=== PATIENT | male | born 1955 | race Caucasian/White ===

== ENCOUNTER → 2017-05-19 15:05 | Outpatient (CLI) | payer BC, SELFPAY ==
--- NOTE | 2017-05-19 15:09 | CT_ITS ---
STUDY: CT ABDOMEN AND PELVIS WITHOUT CONTRAST REASON FOR EXAM: Male, 61 years old. FLANK PAIN X 9 DAYS, HERNIA SURGERY, HX [place]. RADIATION DOSAGE (If Supplied By Facility): CTDIvol = ( 7.61 ) mGy, DLP = ( 378.24 ) mGycm TECHNIQUE: Transaxial images were obtained from the dome of the diaphragm to the symphysis pubis without oral contrast, and without intravenous contrast. Sagittal and coronal images were reconstructed. Individualized dose optimization techniques were used for this CT. COMPARISON: July 17, 2016 FINDINGS: The visualized lung bases are unremarkable. The visualized portions of the heart are within normal limits. There is granulomata of the liver and spleen. There are multiple gallstones. Normal pancreas. Normal bilateral adrenal glands. The right kidney demonstrates the presence of multiple calcifications, the largest is 4 mm at the lower pole. The left kidney demonstrates the presence of multiple calcifications, the largest is 5 mm at the lower pole. Normal visualized stomach. Normal small intestine. There are multiple colonic diverticula consistent with diverticulosis. The appendix is visualized and appears normal. There is diffuse atherosclerotic calcification of the abdominal aorta, without a demonstrated aneurysm. Normal inferior vena cava. Normal retroperitoneum. Normal urinary bladder. Normal abdominal wall. There are diffuse degenerative changes of the visualized lumbar spine. CT/Abdomen/Pelvis without Cont IMPRESSION: Bilateral small nonobstructing kidney stones. Cholelithiasis. Diverticulosis. Electronically Signed: Nadia Skaggs MD at 15:44 EST Tel , Service support ,
== END ==
PROVIDERS: Family Provider Family Medicine; PCP Family Medicine; Visit Provider Nurse Practitioner Adult Health
DX: R10.9 Unspecified abdominal pain (principal); Z87.442 Personal history of urinary calculi
CPT/HCPCS: 74176

== ENCOUNTER → 2017-06-08 13:59 | Outpatient (CLI) | payer BC, SELFPAY ==
--- NOTE | 2017-06-08 14:03 | RAD_ITS ---
STUDY: X-RAY - ABDOMEN/PELVIS REASON FOR EXAM: Male, 61 years old. Diverticulosis TECHNIQUE: AP supine and upright views of the abdomen and pelvis. COMPARISON: May 19, 2017 CT scan abdomen and pelvis FINDINGS: There is elevation of the right hemidiaphragm. There is moderate stool in the colon. Diverticulosis are present diverticulitis cannot be included or excluded based on this study. There is no demonstrated free abdominal air. There is radiopaque density within the right upper quadrant suggestive of cholelithiasis. The visualized 3 to 5 mm calcifications in both kidneys. Normal soft tissue structures. Normal visualized osseous structures. RAD/Abd Inc Decub and/or Erect IMPRESSION: Diverticulosis visualized. Diverticulitis cannot be included or excluded. Could consider follow-up CT to follow-up clinical findings of diverticulitis. Bilateral renal calcification. Cholelithiasis. Electronically Signed: Shalini Knox MD at 14:30 EDT Tel , Service support ,
== END ==
PROVIDERS: Family Provider Family Medicine; PCP Family Medicine; Visit Provider Family Medicine
DX: K57.30 Diverticulosis of large intestine without perforation or abscess without bleeding (principal)
CPT/HCPCS: 74019

== ENCOUNTER 2017-09-01 14:00 | Emergency (ER) | payer BC, SELFPAY ==
--- NOTE | 2017-09-01 14:00 | DT_ITS ---
This patient was seen during an EMR downtime August 31, 2017 - September 07, 2017. This patient may have a combination of paper and electronic documentation or all paper documentation. All documentation is viewable within the e-chart portion of [facility] for each patient visit.
--- NOTE | 2017-09-01 15:30 | CT_ITS ---
STUDY: CT ABDOMEN AND PELVIS WITHOUT CONTRAST REASON FOR EXAM: Male, 62 years old. Right flank pain. RADIATION DOSAGE (If Supplied By Facility): CTDIvol = ( 6.56 ) mGy, DLP = ( 327.79 ) mGycm TECHNIQUE: Transaxial images were obtained from the dome of the diaphragm to the symphysis pubis without oral contrast, and without intravenous contrast. Sagittal and coronal images were reconstructed. Individualized dose optimization techniques were used for this CT. COMPARISON: May 19, 2017 FINDINGS: The visualized lung bases are unremarkable. The visualized portions of the heart are within normal limits. There are hepatic and splenic granulomas. There are multiple gallstones. Normal pancreas. Normal bilateral adrenal glands. There is right-sided hydroureteronephrosis secondary to a 5.0 mm calculus within the mid ureter. There are additional nonobstructing bilateral renal calculi measuring up to 2.7 mm on the right and 4.2 mm on the left. There is a too small to characterize low-attenuation focus within the right kidney that likely reflects underlying cyst. Normal visualized stomach. Normal small intestine. There are diverticula throughout the descending and sigmoid colon. The appendix is visualized and appears normal. There is diffuse atherosclerotic calcification of the abdominal aorta, without a demonstrated aneurysm. Normal inferior vena cava. Normal retroperitoneum. Normal urinary bladder. Normal abdominal wall. There are diffuse degenerative changes of the visualized lumbar spine. CT/Abdomen/Pelvis without Cont IMPRESSION: Right-sided hydrocele ureteral nephrosis secondary to a 5 mm calculus within the mid ureter. Bilateral nonobstructing calculi measuring up to 4.2 mm on the left. Atherosclerosis. Splenic and hepatic granulomas. Cholelithiasis. Colonic diverticulosis Electronically Signed: Laura Triana MD at 22:16 EDT Tel , Service support ,
[2017-09-04 09:44] LABS: Anion Gap 9 (5-15); BUN 16 mg/dL (7-18); BUN/Creat Ratio 12.9 RATIO (10-20); Calcium,Total 9.1 mg/dL (8.5-10.1); Chloride 105 mmol/L (98-107); Creatinine, Serum 1.24 mg/dL (0.70-1.30); EST Glomerular Filtration Rate 63 mL/min (>60); Est Glom Filt Rate - Afr Amer 76 mL/min (>60); Glucose 123 mg/dL (74-106); Potassium 3.8 mmol/L (3.5-5.1); Sodium Level 137 mmol/L (136-145)
== END 2017-09-01 17:23 | disposition home or self-care (01) ==
LOC: ED 09-03 07:25
PROVIDERS: Emergency Provider Emergency Medicine; Family Provider Family Medicine; PCP Family Medicine
DX: N13.2 Hydronephrosis with renal and ureteral calculous obstruction (principal); R10.9 Unspecified abdominal pain; E78.00 Pure hypercholesterolemia, unspecified; Z79.899 Other long term (current) drug therapy; I10 Essential (primary) hypertension; I25.10 Atherosclerotic heart disease of native coronary artery without angina pectoris; Z95.1 Presence of aortocoronary bypass graft; I25.2 Old myocardial infarction; Z79.82 Long term (current) use of aspirin
CPT/HCPCS: 74176; 80048; 96361; 96374; 96375; 96376; 99283; J7030; A4216; J2405

== ENCOUNTER → 2017-11-02 19:27 | Outpatient (CLI) | payer BC, SELFPAY ==
[2017-11-09 20:08] LABS: Ca Oxalate, Dihydrate 40 % (.); Ca Oxalate, Monohydrate 55 % (.); Size 6x4x3 mm (.)
== END ==
PROVIDERS: Visit Provider Urology
DX: N20.0 Calculus of kidney (principal)
CPT/HCPCS: 82360

== ENCOUNTER → 2018-12-27 16:10 | Outpatient (CLI) | payer BC, SELFPAY ==
[2018-12-27 17:57] LABS: Anion Gap 7 (5-15); BUN 11 mg/dL (7-18); BUN/Creat Ratio 11.9 RATIO (10-20); Calcium,Total 9.1 mg/dL (8.5-10.1); Chloride 107 mmol/L (98-107); Creatinine, Serum 0.93 mg/dL (0.70-1.30); EST Glomerular Filtration Rate 87 mL/min (>60); Est Glom Filt Rate - Afr Amer 106 mL/min (>60); Glucose 98 mg/dL (74-106); PSA,Total - Annual Screen 3.17 ng/mL (0.00-4.00); Potassium 3.9 mmol/L (3.5-5.1); Sodium Level 143 mmol/L (136-145)
== END ==
PROVIDERS: Family Provider Family Medicine; PCP Family Medicine; Referring Provider Urology; Visit Provider Urology
DX: Z12.5 Encounter for screening for malignant neoplasm of prostate (principal)
CPT/HCPCS: 36415; 80048; 84153; G0103

== ENCOUNTER → 2019-05-24 | Outpatient (CLI) | payer BC, SELFPAY | END | disposition home or self-care (01) | LOC: LABSPEC 15:26 | PROVIDERS: PCP Family Medicine; Referring Provider Family Medicine; Visit Provider Family Medicine | DX: R30.0 Dysuria (principal) | CPT/HCPCS: 87086; 87088 ==

== ENCOUNTER → 2019-05-27 14:12 | Outpatient (CLI) | payer BC, SELFPAY ==
--- NOTE | 2019-05-27 14:21 | US_ITS ---
STUDY: ULTRASOUND - URINARY BLADDER REASON FOR EXAM: Male, 63 years old. INCOMPLETE EMPTYING TECHNIQUE: Ultrasound evaluation of the urinary bladder was performed with real-time and static levy-scale imaging. COMPARISON: None. FINDINGS: There is no right UVJ calculus. There is a visualized right ureteral jet. There is no left UVJ calculus. There is a visualized left ureteral jet. The distended volume of the urinary bladder is 389.9 ml. The empty volume of the urinary bladder is 48.3 ml. The bladder wall is within normal limits. The bladder wall measures 4. There is no demonstrated bladder wall mass lesion. There are no demonstrated bladder calculi. Prostate measures 4.18 x 3.80 x 4.27 cm for volume of 35.5 mL US/Post Void Residual Bladder IMPRESSION: No suspicious sonographic findings. However the post void residual is at the upper limits of normal, this amount of postvoid residual places the patient at some risk for urinary reflux and UTIs. Mildly enlarged prostate Electronically Signed: Ezra Thompson MD at 11:24 EST , Service support ,
== END ==
PROVIDERS: PCP Family Medicine; Referring Provider Family Medicine; Visit Provider Family Medicine
DX: N40.1 Benign prostatic hyperplasia with lower urinary tract symptoms (principal); R33.8 Other retention of urine
CPT/HCPCS: 51798

== ENCOUNTER → 2019-07-22 09:18 | Outpatient (CLI) | payer BC, SELFPAY ==
[2019-07-22 12:32] LABS: Absolute Lymphocyte Count 1.54 X10^3/uL (0.83-4.51); Absolute Neutrophil Count 5.1 X10^3/uL (2.0-7.7); Basophil# 0.03 X10^3/uL; Basophil% 0.4 % (0-1); Eosinophil# 0.08 X10^3/uL; Eosinophils% 1.1 % (0-5); Hematocrit 44.3 % (40-54); Hemoglobin 14.5 g/dL (13.0-16.5); Lymphocyte # 1.54 X10^3/ul (4.0); Mean Corp Hgb Conc 32.7 g/dL (32-36); Mean Corpuscular Hgb 28.7 pg (27.0-32.0); Mean Corpuscular Volume 87.5 fL (80-94); Mean Platelet Vol. 10.2 fl (6.2-12.0); Monocyte% 8.2 % (0-10); NRBC Flagged by Analyzer 0 % (0-5); Neutrophil # 5.08 X10^3/uL (2.7-7.7); Platelet Count 189 K/mm3 (150-450); RBC Distribution Width CV 12.5 % (11.6-14.6); RBC Distribution Width SD 40.1 fl (35.1-43.9); Red Blood Count 5.06 M/mm3 (4.6-6.2); White Blood Count 7.4 K/mm3 (4.4-11.0)
[2019-07-22 12:59] LABS: ALB/GLOB Ratio 1.3 RATIO (0.9-2.4); AST(SGOT) 22 U/L (15-37); Alanine Aminotransfer ALT/SGPT 38 U/L (16-61); Albumin, Serum 3.9 g/dL (3.2-5.0); Alkaline Phosphatase 63 U/L (45-117); Anion Gap 5 (5-15); BUN 11 mg/dL (7-18); BUN/Creat Ratio 12.1 RATIO (10-20); Calcium,Total 9.5 mg/dL (8.5-10.1); Chloride 109 mmol/L (98-107); Creatinine, Serum 0.91 mg/dL (0.70-1.30); EST Glomerular Filtration Rate 89 mL/min (>60); Est Glom Filt Rate - Afr Amer 108 mL/min (>60); Globulin 3.1 g/dL (2.2-4.2); Glucose 97 mg/dL (74-106); Magnesium 1.8 mg/dL (1.6-2.6); Sodium Level 142 mmol/L (136-145); Uric Acid 3.7 mg/dL (3.5-7.2)
== END ==
PROVIDERS: PCP Family Medicine; Referring Provider Family Medicine; Visit Provider Family Medicine
DX: N20.0 Calculus of kidney (principal)
CPT/HCPCS: 36415; 80053; 83735; 84550; 85025

== ENCOUNTER → 2020-06-15 10:55 | Outpatient (CLI) | payer MEDICARE, SELFPAY ==
[2020-06-15 12:50] LABS: Vitamin D,25 Hydroxy 27.1 ng/mL
[2020-06-15 12:58] LABS: Anion Gap 5 (5-15); BUN 12 mg/dL (7-18); BUN/Creat Ratio 12.3 RATIO (10-20); Calcium,Total 9.1 mg/dL (8.5-10.1); Chloride 109 mmol/L (98-107); Cholesterol 157 mg/dL (200); Creatinine, Serum 0.98 mg/dL (0.70-1.30); EST Glomerular Filtration Rate 82 mL/min (>60); Est Glom Filt Rate - Afr Amer 99 mL/min (>60); Glucose 101 mg/dL (74-106); High Density Lipoprotein 53 mg/dL; PSA,Total - Annual Screen 2.39 ng/mL (0.00-4.00); Sodium Level 141 mmol/L (136-145); Triglycerides 119 mg/dL; Very Low Density Lipoprotein 24 mg/dL (5-40)
== END ==
PROVIDERS: PCP Family Medicine; Referring Provider Family Medicine; Visit Provider Family Medicine
DX: Z00.00 Encounter for general adult medical examination without abnormal findings (principal); E78.00 Pure hypercholesterolemia, unspecified; Z12.5 Encounter for screening for malignant neoplasm of prostate
CPT/HCPCS: 36415; 80048; 80061; 82306; 84153; G0103

== ENCOUNTER → 2020-07-26 10:12 | Outpatient (CLI) | payer MEDICARE, SELFPAY ==
--- NOTE | 2020-07-26 10:40 | RAD_ITS ---
STUDY: X-RAY - ABDOMEN/PELVIS REASON FOR EXAM: Male, 65 years old. STONES TECHNIQUE: Single AP view of the abdomen / pelvis. COMPARISON: None. FINDINGS: There is a moderate amount of colonic fecal material. There are tiny bilateral intrarenal calculi more prominent in the left kidney. Normal soft tissue structures. There are degenerative changes of the visualized lumbar spine. RAD/Abdomen Single View IMPRESSION: Tiny bilateral intrarenal calculi more numerous in the left kidney. Electronically Signed: Jg Marrero MD at 11:05 EDT , Service support ,
[2020-07-26 10:50] LABS: Hematocrit 44.7 % (40-54); Hemoglobin 14.7 g/dL (13.0-16.5); Mean Corp Hgb Conc 32.9 g/dL (32-36); Mean Corpuscular Hgb 29.4 pg (27.0-32.0); Mean Corpuscular Volume 89.4 fL (80-94); Mean Platelet Vol. 9.6 fl (6.2-12.0); Platelet Count 198 K/mm3 (150-450); RBC Distribution Width CV 12.1 % (11.6-14.6); RBC Distribution Width SD 39.8 fl (35.1-43.9); White Blood Count 5.7 K/mm3 (4.4-11.0)
[2020-07-26 11:24] LABS: Anion Gap 2 (5-15); BUN 15 mg/dL (7-18); BUN/Creat Ratio 14.4 RATIO (10-20); Calcium,Total 9.1 mg/dL (8.5-10.1); Chloride 108 mmol/L (98-107); Creatinine, Serum 1.04 mg/dL (0.70-1.30); EST Glomerular Filtration Rate 76 mL/min (>60); Est Glom Filt Rate - Afr Amer 92 mL/min (>60); Glucose 103 mg/dL (74-106); Potassium 4.1 mmol/L (3.5-5.1); Sodium Level 141 mmol/L (136-145)
== END ==
PROVIDERS: PCP Family Medicine; Referring Provider Urology; Visit Provider Urology
DX: N20.0 Calculus of kidney (principal); R97.20 Elevated prostate specific antigen [PSA]
CPT/HCPCS: 36415; 74018; 80048; 84153; 85027

== ENCOUNTER → 2020-09-20 08:27 | Outpatient (CLI) | payer MEDICARE, SELFPAY ==
[2020-09-20 10:00] LABS: Absolute Lymphocyte Count 1.57 X10^3/uL (0.83-4.51); Absolute Neutrophil Count 2.6 X10^3/uL (2.0-7.7); Basophil# 0.04 X10^3/uL; Basophil% 0.8 % (0-1); Eosinophils% 2.1 % (0-5); Hematocrit 41.7 % (40-54); Hemoglobin 13.9 g/dL (13.0-16.5); Lymphocyte # 1.57 X10^3/ul (0.83-4.51); Lymphocyte % 32.4 % (19-41); Mean Corp Hgb Conc 33.3 g/dL (32-36); Mean Corpuscular Hgb 29.6 pg (27.0-32.0); Mean Corpuscular Volume 88.7 fL (80-94); Mean Platelet Vol. 9.8 fl (6.2-12.0); Monocyte# 0.53 X10^3/uL; Monocyte% 10.9 % (0-10); NRBC Flagged by Analyzer 0 % (0-5); Neutrophil # 2.59 X10^3/uL (2.7-7.7); Neutrophil % 53.4 % (47-70); Platelet Count 188 K/mm3 (150-450); RBC Distribution Width CV 12.4 % (11.6-14.6); RBC Distribution Width SD 40.4 fl (35.1-43.9); White Blood Count 4.9 K/mm3 (4.4-11.0)
[2020-09-20 10:26] LABS: ALB/GLOB Ratio 1.2 RATIO (0.9-2.4); AST(SGOT) 28 U/L (15-37); Alanine Aminotransfer ALT/SGPT 37 U/L (16-61); Albumin, Serum 3.6 g/dL (3.2-5.0); Alkaline Phosphatase 75 U/L (45-117); Anion Gap 5 (5-15); BUN 14 mg/dL (7-18); BUN/Creat Ratio 13.9 RATIO (10-20); CRP, High Sensitivity Cardiac < 0.16 mg/L; Calcium,Total 8.7 mg/dL (8.5-10.1); Chloride 108 mmol/L (98-107); Creatinine, Serum 1.01 mg/dL (0.70-1.30); EST Glomerular Filtration Rate 79 mL/min (>60); Est Glom Filt Rate - Afr Amer 95 mL/min (>60); Glucose 99 mg/dL (74-106); Protein, Total 6.6 g/dL (6.4-8.2); Sodium Level 141 mmol/L (136-145)
[2020-09-22 08:17] LABS: ANTINUCLEAR ANTIBODIES DIRECT Negative (Negative)
== END ==
PROVIDERS: PCP Family Medicine; Referring Provider Family Medicine; Visit Provider Family Medicine
DX: M67.919 Unspecified disorder of synovium and tendon, unspecified shoulder (principal); I25.10 Atherosclerotic heart disease of native coronary artery without angina pectoris
CPT/HCPCS: 36415; 80053; 85025; 86038; 86141

== ENCOUNTER → 2020-10-19 11:18 | Outpatient (CLI) | payer MEDICARE, SELFPAY ==
--- NOTE | 2020-10-19 11:20 | RAD_ITS ---
STUDY: X-RAY - LUMBAR SPINE REASON FOR EXAM: Male, 65 years old. LOW BACK PAIN TECHNIQUE: 5 view(s) of the lumbar spine were obtained including oblique views. COMPARISON: None FINDINGS: Normal lumbar lordosis. There is no substantial scoliosis. There is a normal alignment of the vertebrae. There is mild endplate spondylosis of the lumbar vertebrae. There is multi-level degenerative disc disease with multi-level disc space narrowing. Facet joint osteoarthritis. There are multiple bilateral nonobstructive intrarenal calculi. RAD/L/S Spine Min 4 Views IMPRESSION: Degenerative changes of the spine, as detailed above. Multiple small bilateral intrarenal calculi. Electronically Signed: Jg Marrero MD at 15:18 EDT , Service support ,
== END ==
PROVIDERS: PCP Family Medicine; Referring Provider Family Medicine; Visit Provider Family Medicine
DX: M54.5 Low back pain (principal)
CPT/HCPCS: 72110

== ENCOUNTER → 2020-11-19 06:46 | Outpatient (CLI) | payer MEDICARE, SELFPAY ==
--- NOTE | 2020-11-19 06:51 | CT_ITS ---
STUDY: CT ABDOMEN AND PELVIS WITHOUT CONTRAST REASON FOR EXAM: Male, 65 years old. LLQ and worsening back pain. Hx kidney stones, diverticulosis, a RADIATION DOSAGE (If Supplied By Facility): CTDIvol = ( 7.70 ) mGy, DLP = ( 361.67 ) mGycm TECHNIQUE: Transaxial images were obtained from the dome of the diaphragm to the symphysis pubis without oral contrast, and without intravenous contrast. Sagittal and coronal images were reconstructed. Individualized dose optimization techniques were used for this CT. COMPARISON: 09/01/2017 FINDINGS: The visualized lung bases are unremarkable. Inferior cardiac lead demonstrated. Normal liver with old granulomatous calcifications.. Cholelithiasis. Normal extrahepatic biliary system. There are multiple benign calcified granulomata of the spleen. Normal pancreas. Normal bilateral adrenal glands. Multiple nonobstructing bilateral renal collecting system calculi without hydronephrosis. Normal visualized stomach. Normal small intestine. Sigmoid diverticulosis with faint associated fat stranding. The appendix is visualized and appears normal. Normal abdominal aorta. Normal inferior vena cava. Normal retroperitoneum. Normal urinary bladder. Normal visualized prostate gland. Normal abdominal wall. There are diffuse degenerative changes of the visualized lumbar spine. CT/Abdomen/Pelvis without Cont IMPRESSION: Sigmoid diverticulosis with faint associated fat stranding may represent developing acute diverticulitis. Electronically Signed: Robin Payne MD at 7:32 EDT Tel , Service support ,
== END ==
PROVIDERS: PCP Family Medicine; Referring Provider Family Medicine; Visit Provider Family Medicine
DX: R10.32 Left lower quadrant pain (principal)
CPT/HCPCS: 74176

== ENCOUNTER 2021-06-06 08:49 | Outpatient (CLI) | payer MEDICARE, SELFPAY ==
[2021-06-06 10:11] LABS: Absolute Lymphocyte Count 1.45 X10^3/uL (0.83-4.51); Absolute Neutrophil Count 3.3 X10^3/uL (2.0-7.7); Basophil# 0.03 X10^3/uL; Basophil% 0.5 % (0-1); Eosinophil# 0.15 X10^3/uL; Eosinophils% 2.7 % (0-5); Hemoglobin 14.7 g/dL (13.0-16.5); Lymphocyte # 1.45 X10^3/ul (0.83-4.51); Lymphocyte % 26.1 % (19-41); Mean Corp Hgb Conc 33.4 g/dL (32-36); Mean Corpuscular Hgb 28.9 pg (27.0-32.0); Mean Corpuscular Volume 86.4 fL (80-94); Mean Platelet Vol. 9.7 fl (6.2-12.0); Monocyte# 0.56 X10^3/uL; Monocyte% 10.1 % (0-10); NRBC Flagged by Analyzer 0 % (0-5); Neutrophil # 3.34 X10^3/uL (2.7-7.7); Neutrophil % 60.2 % (47-70); Platelet Count 196 K/mm3 (150-450); RBC Distribution Width CV 12.8 % (11.6-14.6); Red Blood Count 5.09 M/mm3 (4.6-6.2); White Blood Count 5.6 K/mm3 (4.4-11.0)
[2021-06-06 10:28] LABS: ALB/GLOB Ratio 1.2 RATIO (0.9-2.4); AST(SGOT) 21 U/L (15-37); Alanine Aminotransfer ALT/SGPT 30 U/L (16-61); Alkaline Phosphatase 74 U/L (45-117); Anion Gap 5 (5-15); BUN 15 mg/dL (7-18); Chloride 107 mmol/L (98-107); Cholesterol 128 mg/dL (200); EST Glomerular Filtration Rate 79 mL/min (>60); Est Glom Filt Rate - Afr Amer 96 mL/min (>60); Globulin 3.2 g/dL (2.2-4.2); Glucose 102 mg/dL (74-106); High Density Lipoprotein 47 mg/dL; Potassium 3.9 mmol/L (3.5-5.1); Protein, Total 7.2 g/dL (6.4-8.2); Sodium Level 139 mmol/L (136-145); Triglycerides 83 mg/dL; Uric Acid 4.4 mg/dL (3.5-7.2); Very Low Density Lipoprotein 17 mg/dL (5-40)
[2021-06-06 10:35] LABS: Microalbumin,Random Urine 34.8 mg/L (NO RANGE EST.); Microalbumin:Creatinine Ratio 51.7 mg/g CRE (<30 mg/g CRE)
== END 2021-06-06 23:59 | disposition home or self-care (01) ==
LOC: MTLAB 08:50
PROVIDERS: PCP Family Medicine; Referring Provider Family Medicine; Visit Provider Family Medicine
DX: Z00.00 Encounter for general adult medical examination without abnormal findings (principal); I25.10 Atherosclerotic heart disease of native coronary artery without angina pectoris; G47.9 Sleep disorder, unspecified; I10 Essential (primary) hypertension; E78.00 Pure hypercholesterolemia, unspecified; N20.0 Calculus of kidney
CPT/HCPCS: 36415; 80053; 80061; 82043; 82570; 84550; 85025

== ENCOUNTER → 2021-07-22 | Outpatient (CLI) | payer MEDICARE, SELFPAY ==
[2021-07-22 09:52] LABS: PSA,Total - Annual Screen 2.38 ng/mL (0.00-4.00)
== END | disposition home or self-care (01) ==
LOC: LAB 08:03
PROVIDERS: PCP Family Medicine; Referring Provider Urology; Visit Provider Urology
DX: R97.20 Elevated prostate specific antigen [PSA] (principal); Z12.5 Encounter for screening for malignant neoplasm of prostate
CPT/HCPCS: 36415; 84153; G0103

== ENCOUNTER 2021-08-20 08:12 | Inpatient (IN) | payer MEDICARE, SELFPAY ==
[2021-08-20] VITALS (23 sets, daily range): BP systolic 111–141; BP diastolic 62–100; PULSE 79–102; RESP 12–20; TEMP 36.4–37.2; O2SAT 93–100; BMI 27.2; BMI 26.3
--- NOTE | 2021-08-20 08:21 | EKG12_ITS ---
Test Reason : Blood Pressure : / mmHG Vent. Rate : 085 BPM Atrial Rate : 085 BPM P-R Int : 158 ms QRS Dur : 090 ms QT Int : 384 ms P-R-T Axes : 067 038 074 degrees QTc Int : 456 ms Normal sinus rhythm ST elevation consider inferior injury or acute infarct ACUTE TX / STEMI Abnormal ECG Confirmed by DUKE OLMEDO, DIONNE ([id number]), editor in chief BISI HYATT ([id number]) on 08/28/2021 12:28:56 PM Referred By: Sourav Maurer Confirmed By:DIONNE WALL MD
[2021-08-20] MEDS: Heparin Injection (Vial) 5,000 UNIT/ML VIAL 4000 UNIT IV (08:25)
[2021-08-20] MEDS: Aspirin 81 MG TAB.CHEW 324 MG PO (08:25)
[2021-08-20] MEDS: TICAGRELOR 90 MG TABLET 180 MG PO (08:25)
--- NOTE | 2021-08-20 08:25 | RAD_ITS ---
STUDY: X-RAY CHEST REASON FOR EXAM: Male, 66 years old. chest pain TECHNIQUE: AP COMPARISON: None. FINDINGS: EKG leads project over the chest. The lungs are clear and expanded. There is no demonstrated pleural abnormality. Normal size heart. Normal mediastinum and prakash. Normal visualized pulmonary arteries. Normal visualized aortic arch and descending thoracic aorta. Normal visualized thoracic spine. Normal visualized ribs, clavicles, and shoulders. There is no demonstrated abnormality of the visualized soft tissue structures of the upper abdomen. RAD/Chest 1 View (Portable) IMPRESSION: Nonacute portable x-ray examination of the chest. Electronically Signed: Hany Bal MD ([place]) at 8:39 EDT ,
[2021-08-20 08:28] LABS: Absolute Lymphocyte Count 1.07 X10^3/uL (0.83-4.51); Basophil# 0.04 X10^3/uL; Basophil% 0.3 % (0-1); Eosinophil# 0.01 X10^3/uL; Eosinophils% 0.1 % (0-5); Hematocrit 47.8 % (40-54); Hemoglobin 15.8 g/dL (13.0-16.5); Lymphocyte # 1.07 X10^3/ul (0.83-4.51); Lymphocyte % 7.3 % (19-41); Mean Corp Hgb Conc 33.1 g/dL (32-36); Mean Corpuscular Hgb 28.9 pg (27.0-32.0); Mean Corpuscular Volume 87.4 fL (80-94); Mean Platelet Vol. 9.2 fl (6.2-12.0); Monocyte# 0.53 X10^3/uL; Monocyte% 3.6 % (0-10); NRBC Flagged by Analyzer 0 % (0-5); Neutrophil # 13.01 X10^3/uL (2.7-7.7); Neutrophil % 88.2 % (47-70); Platelet Count 232 K/mm3 (150-450); RBC Distribution Width CV 12.6 % (11.6-14.6); RBC Distribution Width SD 40.4 fl (35.1-43.9); Red Blood Count 5.47 M/mm3 (4.6-6.2); White Blood Count 14.7 K/mm3 (4.4-11.0)
[2021-08-20] MEDS: 0.9% Normal Saline 1,000 ML 999 ML IV (08:30)
[2021-08-20 08:37] LABS: Prothrombin Time (Protime)PT. 12.9 SECONDS (11.7-14.9)
[2021-08-20 08:45] LABS: BUN 23 mg/dL (7-18); Calcium,Total 9.6 mg/dL (8.5-10.1); Chloride 109 mmol/L (98-107); Creatinine, Serum 1.28 mg/dL (0.70-1.30); EST Glomerular Filtration Rate 60 mL/min (>60); Est Glom Filt Rate - Afr Amer 72 mL/min (>60); Estimated Creatinine Clearance 54.18 ml/min; Glucose 98 mg/dL (74-106); Potassium 4.3 mmol/L (3.5-5.1); Sodium Level 142 mmol/L (136-145); Troponin-I HS 15 pg/mL (3.0-78.0)
[2021-08-20 08:46] LABS: Anion Gap 12 (5-15)
--- NOTE | 2021-08-20 08:57 | EDS_ITS ---
HPI History of Present Illness Chief Complaint: Chest Pain Narrative Narrative: Patient with past medical history of coronary artery disease, states he has 3 stents, presents with chest pain that began this morning around 5:30 AM, approximately 3 hours ago. In 2009, he states he had an RCA stent placed. 1 year later he had 2 stents placed, 1 in the TY, and 1 in the LAD. He states that he began having chest pain after he woke up at 530 this morning. He took 3 baby aspirin and an old nitroglycerin which did not relieve his pain. It radiates to his left jaw. He states his arm did not tingle this time. He denies any nausea or vomiting but states he became diaphoretic. No shortness of breath. No leg swelling. He does have an exertional component to this, stating that his chest pain worsens when he walks across the room. He presents to the emergency department with his . PFSH PFS Home Medications aspirin 81 mg PO QHS 11/19/13 [History Last Taken 11/19/13] rosuvastatin [Crestor] 20 mg PO QHS 11/19/13 [History Last Taken 11/19/13] coenzyme Q10 100 mg PO QHS 04/05/14 [History Last Taken Unknown] melatonin 10 mg PO QHS 04/05/14 [History Last Taken Unknown] multivitamin with folic acid [Thera] 1 tab PO QHS 04/05/14 [History Last Taken Unknown] oxycodone-acetaminophen 1 tab PO Q6H PRN PRN #20 tablet 10/04/14 [Rx Last Taken Unknown] Allergy/AdvReac Type Severity Reaction Status Date / Time No Known Allergies Allergy Verified 11/19/13 10:48 Social History Smoking Status: Former smoker ROS ROS ED ROS Narrative Constitutional: No fever, feels chills. Positive diaphoresis HEENT: No sore throat. No neck pain. No loss of vision. No rhinorrhea. Cardiovascular: Positive chest pain radiating to left jaw. No palpitations. No pedal edema. Respiratory: No cough, no shortness of breath. Abdominal: No abdominal pain. No nausea. No vomiting. Genitourinary: No dysuria. No hematuria. Musculoskeletal: No myalgias. No arthralgias. Neurologic: No headaches. No dizziness. No lightheadedness. Skin: No rash. No change in color. Psychiatric: No depression. No anxiety. EXAM Physical Exam Narrative Exam Narrative: Afebrile. Vital signs noted. HEENT: Normocephalic. Atraumatic. PERRL, EOMI. Neck soft and supple. No point tenderness or step off. Cardiovascular: Regular rate and rhythm. No murmurs, rubs, or gallops appreciated. Respiratory: No tachypnea. Lungs clear to auscultation bilaterally. Gastrointestinal: Abdomen soft, nontender, with normoactive bowel sounds. No rebound or guarding. Neurological: Awake. Alert. Nonfocal, nonlateralizing. Skin: No rash. Normal color. No pallor. Musculoskeletal: No pedal edema. Full range of motion extremities. Const Vital Signs: 08/20/21 08:13 08/20/21 08:20 08/20/21 08:29 Temperature 97.7 F L 97.7 F L Temperature Source Oral Temporal Pulse Rate 89 88 Respiratory Rate 16 16 15 Blood Pressure 127/78 H 127/78 H 125/84 H Blood Pressure Mean 94 97 Pulse Ox 100 100 Oxygen Delivery Method Room Air Nasal Cannula Oxygen Flow Rate (L/min) 2 Heart Score History: Highly Suspicious ECG: Significant ST-Depression Age: >/= 65 years Risk Factors: >/= 3 Risk Factors or History of CAD Troponin: </= Normal Limit Score: 8 MDM MDM MDM Narrative Medical decision making narrative: EKG was obtained which shows inferior STEMI with 2 to [address] elevation. He has a regular rate. Code STEMI was activated. He has already taken 3 baby aspirin. He will be given Brilinta and a heparin bolus of 4000 units intravenously. I discussed the patient with Dr. Maurer. He will take him to the catheterization lab. [employer] team stated that Dr. 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 His labs were pending at the time. I then discussed patient with Dr. Lui for admission to the ICU status post heart catheterization. Patient is in guarded condition. Lab Data Attestation: I reviewed the patient's lab results. Labs: Laboratory Results - last 24 hr 08/20/21 08/20/21 08/20/21 08:20 08:20 08:20 WBC 14.7 H RBC 5.47 Hgb 15.8 Hct 47.8 MCV 87.4 MCH 28.9 MCHC 33.1 RDW Std Deviation 40.4 RDW Coeff of Kenan 12.6 Plt Count 232 MPV 9.2 Immature Gran % (Auto) 0.500 Neut % (Auto) 88.2 H Lymph % (Auto) 7.3 L [place] % (Auto) 3.6 Eos % (Auto) 0.1 Baso % (Auto) 0.3 Absolute Neuts (auto) 13.0 H Absolute Lymphs (auto) 1.07 Nucleated RBC % 0 PT 12.9 INR 1.0 APTT 25.0 Sodium 142 Potassium 4.3 Chloride 109 H Carbon Dioxide 21.0 Anion Gap 12 BUN 23 H Creatinine 1.28 Estim Creat Clear Calc 54.18 Est GFR (MDRD) Af Amer 72 Est GFR (MDRD) Non-Af 60 BUN/Creatinine Ratio 18.0 Glucose 98 Calcium 9.6 Troponin I High Sens 15 Radiography Diagnostic Testing: Clinical Impression(s) from Imaging Studies Chest X-Ray 08/20/21 08:25 IMPRESSION: Nonacute portable x-ray examination of the chest. Electronically Signed: Hany Bal MD ([place]) at 8:39 EDT Reading Location ID and State: [address] [place] [address] , Service support , Critical Care Time Critical Care Time: Yes Critical care time (excluding procedures): 30-74 minutes (31), Including time spent:, Discussing w/Patient &/or Family/Laundry Operator Finishing, Discussing w/Consultants and Arranging Admission or Transfer Discharge Plan Dx/Rx/DC Orders Clinical Impression: ST elevation (STEMI) myocardial infarction, Chest pain Disposition Disposition: Acute Care Hospital [facility]
--- NOTE | 2021-08-20 10:30 | EKG12_ITS ---
Test Reason : POST PCI Blood Pressure : / mmHG Vent. Rate : 075 BPM Atrial Rate : 075 BPM P-R Int : 170 ms QRS Dur : 094 ms QT Int : 386 ms P-R-T Axes : 064 000 055 degrees QTc Int : 431 ms Normal sinus rhythm Inferior infarct , age undetermined Abnormal ECG When compared with ECG of 20-AUG-2021 08:42, MANUAL COMPARISON REQUIRED, DATA IS UNCONFIRMED Confirmed by DUKE OLMEDO, DIONNE ([id number]), desk editor BISI HYATT ([id number]) on 08/22/2021 11:29:16 AM Referred By: Sourav Maurer Confirmed By:DIONNE WALL MD
--- NOTE | 2021-08-20 10:31 | HP.PCM.HOS_ITS ---
HPI - General General Date of Admission: 08/20/21 HPI Narrative KAMALJIT PERRY, is a 66 M who presented to department at [facility] on 07/21/2021 with the chief complaint of chest pain that began this morning at around 5:30 AM. The patient has a known history of coronary artery disease and had a stent placed in his RCA in 2009. 1 year later he had stents placed in the OM 1 and LAD. He stated that he began having chest pain after he woke up. At that time he took 3 baby aspirin and an old nitroglycerin which did not relieve his pain. His pain radiates to his left jaw but denies any radiation into his left arm. He denied any nausea or vomiting but did state he became diaphoretic. He had experienced no shortness of breath, leg swelling but did complain of an exertional component to his chest pain and indicated that his symptoms worsen when he did walk across the room. An EKG was obtained on presentation and he was noted to have an inferior STEMI with 2 to 3 mm of elevation in the inferior leads. The code STEMI was activated and the patient was taken to the Content Administrator after Brilinta and a heparin bolus of 4000 units were given intravenously. He was taken emergently to the Content Administrator at which time a Upon presentation to the emergency department his temperature was 97.7, heart rate was 89, blood pressure was 127/78, respiratory 16 and pulse ox was 100% on room air. His CBC showed a mild leukocytosis with a white count of 14.7. Coags were normal. Chemistries were unremarkable. And his initial troponin was 15. Chest x-ray is performed and shows a nonacute portable x-ray of the chest. FOR[facility]LY [facility], [facility] Medical History (Updated 08/20/21 @ 12:31 by Jennifer Blake) Atherosclerosis of coronary artery of [place] heart without angina pectoris Coronary artery disease Former smoker Hypertension Kidney stones Migraines Myocardial infarct Home Medications aspirin 81 mg PO QHS 11/19/13 [History Last Taken 11/19/13] rosuvastatin [Crestor] 20 mg PO QHS 11/19/13 [History Last Taken 11/19/13] coenzyme Q10 100 mg PO QHS 04/05/14 [History Last Taken Unknown] melatonin 10 mg PO QHS 04/05/14 [History Last Taken Unknown] multivitamin with folic acid [Thera] 1 tab PO QHS 04/05/14 [History Last Taken Unknown] oxycodone-acetaminophen 1 tab PO Q6H PRN PRN #20 tablet 10/04/14 [Rx Last Taken Unknown] meloxicam 15 mg PO DAILY 08/20/21 [History Last Taken Unknown] Allergy/AdvReac Type Severity Reaction Status Date / Time No Known Allergies Allergy Verified 11/19/13 10:48 Surgical History (Updated 08/20/21 @ 12:29 by Jennifer Blake) History of coronary artery stent placement (08/20/21) Social History Smoking Status: Former smoker ROS Constitutional Constitutional: Denies anorexia, change in weight, chills, fatigue, fever(s), malaise, night sweats, weakness or other Eyes Eyes: Denies blurry vision, change in eye color, change in vision, discharge from eye(s), double vision, erythema, eye pain, loss of vision or other ENT HEENT: Denies abnormal hearing, dysphagia, ear pain, epistaxis, headache(s), hearing loss, nasal congestion, nasal discharge, post nasal drip, sinus pressure, sore throat or other Cardiovascular Cardiovascular: Reports chest pain, dyspnea on exertion and other Details: Diaphoresis ; Denies claudication, edema, lightheadedness, orthopnea, palpitations, paroxysmal nocturnal dyspnea, rapid heart rate or syncope Respiratory/Chest Respiratory/Chest: Reports shortness of breath with exertion; Denies cough, dyspnea, excessive phlegm production, hemoptysis, productive cough, shortness of breath at rest or wheezing Gastrointestinal Gastrointestinal: Denies abdominal pain, coffee ground emesis, constipation, diarrhea, dyspepsia, hematemesis, hematochezia, loose stools, melena, nausea, vomiting or other Genitourinary Genitourinary: Reports other Details: Back pain related to intermittent nephrolithiasis Musculoskeletal Musculoskeletal: Reports back pain Neurologic Neurologic: Denies abnormal gait, abnormal speech, confusion, disequilibrium, dizziness, focal weakness, headache(s), numbness, paresthesias, seizure-like activity, seizures, syncope, tingling, tremor(s) or other Psychiatric Psychiatric: Denies anxiety, depression, homicidal ideation, suicidal ideation or other Endocrine Endocrinology: Denies change in body appearance, cold intolerance, excessive sweating, heat intolerance, polydipsia, polyuria or other Hematologic/Lymphatic Hematologic/Lymphatic: Denies anemia, easy bleeding, easy bruising, lymphadenopathy or other Allergic/Immunologic Allergic/Immunologic: Denies rhinitis, hives, eczemia, asthma or other Vital Signs Vital Signs Vital Signs: 08/20/21 08:13 08/20/21 08:20 08/20/21 08:29 Temperature 97.7 F L 97.7 F L Temperature Source Oral Temporal Pulse Rate 89 88 Respiratory Rate 16 16 15 Blood Pressure 127/78 H 127/78 H 125/84 H Blood Pressure Mean 94 97 Pulse Ox 100 100 Oxygen Delivery Method Room Air Nasal Cannula Oxygen Flow Rate (L/min) 2 Weight Weight: 80.9 kg Body Mass Index (BMI) 26.3 Physical Exam Const alert, oriented x3, no apparent distress, average body habitus, healthy appearing and well nourished Constitutional Narrative: Upper middle-aged white male lying in bed, appears comfortable nontoxic, family is at bedside General Appearance: cooperative HEENT normocephalic, head/scalp atraumatic, hearing grossly normal bilaterally and moist oral mucous membranes HEENT Narrative: Mallampati is 2, no thrush, dentition is good for age Eyes PERRL, EOMs intact bilaterally and conjunctivae normal Eyes Narrative: No scleral icterus Neck no lymphadenopathy, supple and no JVD Neck Narrative: Trachea midline, no thyroid enlargement Resp normal respiratory effort, no retractions, no use of accessory muscles and clear to auscultation bilaterally Auscultation: Negative for crackles, rales, rhonchi or wheezes Cardio regular rate, regular rhythm, S1 normal heart sound, S2 normal heart sound, no murmurs, no rub, no gallops, no clicks and no JVD GI normal to inspection, nondistended, normoactive bowel sounds, soft to palpation, non-tender and non-distended Extremity normal to inspection and no clubbing, cyanosis or edema Extremity Narrative: Right radial artery with compression device on status post heart catheterization with good cap refill at distal hand Peripheral Pulses: Yes pulses 2+ throughout Skin no rashes or lesions noted, no wounds, skin turgor normal, no jaundice, no petechiae and no mottling Neuro oriented x3, CN's II-XII intact bilaterally, moves all extremities and no focal motor deficits Sensorium / Orientation: awake and alert Speech: speech normal Motor Exam: strength 5/5 throughout Psych affect normal Psych Narrative: Very pleasant and appropriately interactive Results Lab / Micro Data Result Diagrams: 08/20/21 08:20 08/20/21 08:20 Labs: Laboratory Results - last 24 hr 08/20/21 08:20: WBC 14.7 H, RBC 5.47, Hgb 15.8, Hct 47.8, MCV 87.4, MCH 28.9, MCHC 33.1, RDW Std Deviation 40.4, RDW Coeff of Kenan 12.6, Plt Count 232, MPV 9.2, Immature Gran % (Auto) 0.500, Neut % (Auto) 88.2 H, Lymph % (Auto) 7.3 L, [place] % (Auto) 3.6, Eos % (Auto) 0.1, Baso % (Auto) 0.3, Absolute Neuts (auto) 13.0 H, Absolute Lymphs (auto) 1.07, Nucleated RBC % 0 08/20/21 08:20: PT 12.9, INR 1.0, APTT 25.0 08/20/21 08:20: Sodium 142, Potassium 4.3, Chloride 109 H, Carbon Dioxide 21.0, Anion Gap 12, BUN 23 H, Creatinine 1.28, Estim Creat Clear Calc 54.18, Est GFR (MDRD) Af Amer 72, Est GFR (MDRD) Non-Af 60, BUN/Creatinine Ratio 18.0, Glucose 98, Calcium 9.6, Troponin I High Sens 15 Radiology Impression Chest X-Ray 08/20/21 08:25 IMPRESSION: Nonacute portable x-ray examination of the chest. Electronically Signed: Hany Bal MD (Brooks) at 8:39 EDT Reading Location ID and State: [address] [place] [address] , Service support , Assessment & Plan Assessment/Plan (1) ST elevation (STEMI) myocardial infarction: (2) Chest pain: (3) Leukocytosis: PLAN: STEMI -Emergent cath performed with PCI to RCA -Patient does have other obstruction however the plan is to treat this medically at this time and watch him clinically -Continue Brilinta -Aspirin 81 mg daily -Continue Crestor -12.5 mg of metoprolol twice daily have been initiated -Start lisinopril 2.5 mg daily -Check a.m. lipids for need of up titration of statin -Check echocardiogram -Cardiac rehab -Cardiology is following CAD -As above Hyperlipidemia -Continue statin -Check lipids History of hypertension -Patient is currently not on no antihypertensives History of nephrolithiasis -Patient has intermittent issues and initially indicated to me is not having any symptoms however I was called later stating he was having some symptoms consistent with his nephrolithiasis -Start Flomax -Reevaluate in a.m. -Continue IV fluids History of diverticulitis with diverticulosis -No current issues History of alcohol abuse History of tobacco abuse -Patient is a former smoker -Recommend continue cessation DVT prophylaxis -Lovenox -SCDs CODE STATUS -Full code Charges/Coding Visit Charges Inpatient E&M: 47857 Init Hosp L3
[2021-08-20] MEDS: 0.9% Normal Saline 1,000 ML 80 ML IV (10:43)
--- NOTE | 2021-08-20 10:45 | ECHOCS_ITS ---
Reason For Study: CAD/ASHD Procedure This was a 2D Doppler, Color Flow transthoracic echocardiogram. The study was technically difficult. Contrast injection was performed. Exam performed portable in ICU/CCU. Left Ventricle Normal LV size. Mild concentric left ventricular hypertrophy. Left ventricular systolic function is normal. The estimated ejection fraction is 65 %. Stage 1 diastolic dysfunction. No regional wall motion abnormalities noted. Right Ventricle Normal RV size. Normal systolic function. Atria Normal left atrium. Normal right atrium. Mitral Valve Normal mitral valve. Tricuspid Valve Normal tricuspid valve. Aortic Valve Trisinus/trileaflet aortic valve. Mild focal aortic valve calcification. Pulmonic Valve Normal pulmonic valve. Great Vessels Normal aortic root. The pulmonary artery is normal size. Normal inferior vena cava. Pericardium/Pleural No pericardial effusion. Medication Diluted definity 2ml given slow IV push to enhance endocardial definition. MMode/2D Measurements & Calculations LVIDd: 4.6 cm IVSd: 1.2 cm LVOT diam: 2.0 cm LVIDs: 2.5 cm LVPWd: 1.6 cm RVDd: 3.4 cm FS: 45.0 % LVOT area: 3.2 cm2 Ao root diam: 3.2 cm LAV(MOD-bp): 35.6 ml LA A4 area: 12.6 cm2 LAV(MOD-bp) Indexed: 18.1 ml/m2 LAV(MOD-sp2): 43.6 ml LAV(MOD-sp4): 28.4 ml RA A4 area: 14.9 cm2 Time Measurements MV dec time: 0.26 sec Doppler Measurements & Calculations MV E max yayo: 86.3 cm/sec Lat Peak E' Yayo: 10.5 cm/sec Med Peak E' Yayo: 9.9 cm/sec MV A max yayo: 100.4 cm/sec E/E' lat: 8.2 E/E' med: 8.7 MV E/A: 0.86 MV V2 max: 104.8 cm/sec MV P1/2t max yayo: 99.0 cm/sec Ao V2 max: 172.1 cm/sec MV max P.4 mmHg MV P1/2t: 78.8 msec Ao max P.8 mmHg MV V2 mean: 67.5 cm/sec MV dec slope: 367.8 cm/sec2 EFREN(V,D): 2.3 cm2 MV mean P.1 mmHg MV V2 VTI: 29.1 cm MVA(P1/2t): 2.8 cm2 LV V1 max: 125.1 cm/sec PA V2 max: 112.7 cm/sec LV V1 max P.3 mmHg ECHO/Echo Complete W/ Contrast Interpretation Summary Normal LV size. Left ventricular systolic function is normal. The estimated ejection fraction is 65 %. Mild concentric left ventricular hypertrophy. Stage 1 diastolic dysfunction. Contrast injection was performed. Ordering Physician: Sharon Lui Referring Physician: Sourav Maurer Performed By: Vipin Angela RCS
[2021-08-20] MEDS: oxyCODONE 5 MG Tablet PO (10:49)
[2021-08-20] MEDS: Acetaminophen 325 MG Tablet 650 MG PO ×2 (10:50→17:58)
--- NOTE | 2021-08-20 11:38 | PCM.CONS.C ---
Assessment & Plan Assessment/Plan (1) ST elevation (STEMI) myocardial infarction: QUALIFIERS: Involved coronary artery: right coronary artery Qualified Code(s): I21.11 - ST elevation (STEMI) myocardial infarction involving right coronary artery PLAN: Treated with drug-eluting stent to the RCA. We will keep the patient on aspirin, Brilinta, beta-cem and statin. Low-dose PHILIP inhibitor if tolerated. Check echo echo to assess LV function. Patient will be admitted to the CCU for further management of his STEMI. HPI Consult Data Date of Consult: 08/20/21 HPI Narrative HPI Narrative: KAMALJIT PERRY, is a 66 M who presents with chest pain. He has history of coronary artery disease status post PCI to the RCA, LAD and OM1 around 12 years ago. In the emergency room patient was found to have inferior ST elevation MO and a STEMI alert was called. Patient was started on heparin and Brilinta in the emergency room. His chest pain improved prior to coronary angiography but he was continued to have mild chest discomfort. Coronary angiography revealed 90% stenosis in the RCA that was treated with drug-eluting stent. He has some residual CAD which will be treated medically at this time. Patient's chest pain resolved after PCI to the RCA. Review of systems: All systems reviewed. All else is negative except that in HPI [facility] Medical History (Updated 08/20/21 @ 11:[address] Sourav Maurer MD) Coronary artery disease Former smoker Hypertension Kidney stones Migraines Myocardial infarct Home Medications aspirin 81 mg PO QHS 11/19/13 [History Last Taken 11/19/13] rosuvastatin [Crestor] 20 mg PO QHS 11/19/13 [History Last Taken 11/19/13] coenzyme Q10 100 mg PO QHS 04/05/14 [History Last Taken Unknown] melatonin 10 mg PO QHS 04/05/14 [History Last Taken Unknown] multivitamin with folic acid [Thera] 1 tab PO QHS 04/05/14 [History Last Taken Unknown] oxycodone-acetaminophen 1 tab PO Q6H PRN PRN #20 tablet 10/04/14 [Rx Last Taken Unknown] meloxicam 15 mg PO DAILY 08/20/21 [History Last Taken Unknown] Allergy/AdvReac Type Severity Reaction Status Date / Time No Known Allergies Allergy Verified 11/19/13 10:48 Social History Smoking Status: Former smoker Physical Exam Const alert and oriented x3 Orientation / Consciousness: awake HEENT normocephalic Eyes no scleral icterus Resp normal respiratory effort Cardio regular rate Skin no rashes or lesions noted Neuro oriented x3 Psych mental status grossly normal Risk Stratification Risk Stratification Applicable: No Charges/Coding Visit Charges Inpatient E&M: 10500 Init Hosp L2 Objective Data Vital Signs: Vital Signs Temp Pulse Resp BP Pulse Ox 97.6 F L 82 16 119/79 98 08/20/21 10:15 08/20/21 11:30 08/20/21 11:30 08/20/21 11:30 08/20/21 11:30 Oxygen Flow Rate (L/min) 2 Oxygen Delivery Method Room Air Weight: 178 lb 5.663 oz Body Mass Index (BMI) 26.3 Intake & Output: Intake and Output for Last 24 Hours 08/18/21 08/19/21 08/20/21 23:59 23:59 23:59 Intake Total 1000 / 1000 Balance 1000 / 1000 Lab / Micro Data Result Diagrams: 08/20/21 08:20 08/20/21 08:20 Labs: Laboratory Results - last 24 hr 08/20/21 08:20: WBC 14.7 H, RBC 5.47, Hgb 15.8, Hct 47.8, MCV 87.4, MCH 28.9, MCHC 33.1, RDW Std Deviation 40.4, RDW Coeff of Kenan 12.6, Plt Count 232, MPV 9.2, Immature Gran % (Auto) 0.500, Neut % (Auto) 88.2 H, Lymph % (Auto) 7.3 L, [place] % (Auto) 3.6, Eos % (Auto) 0.1, Baso % (Auto) 0.3, Absolute Neuts (auto) 13.0 H, Absolute Lymphs (auto) 1.07, Nucleated RBC % 0 08/20/21 08:20: PT 12.9, INR 1.0, APTT 25.0 08/20/21 08:20: Sodium 142, Potassium 4.3, Chloride 109 H, Carbon Dioxide 21.0, Anion Gap 12, BUN 23 H, Creatinine 1.28, Estim Creat Clear Calc 54.18, Est GFR (MDRD) Af Amer 72, Est GFR (MDRD) Non-Af 60, BUN/Creatinine Ratio 18.0, Glucose 98, Calcium 9.6, Troponin I High Sens 15 Cardiology Labs/Tests 08/20/21 08:20: WBC 14.7 H, RBC 5.47, Hgb 15.8, Hct 47.8, MCV 87.4, MCH 28.9, MCHC 33.1, Plt Count 232, MPV 9.2, Immature Gran % (Auto) 0.500, Neut % (Auto) 88.2 H, Lymph % (Auto) 7.3 L, [place] % (Auto) 3.6, Eos % (Auto) 0.1, Baso % (Auto) 0.3, Absolute Neuts (auto) 13.0 H, Nucleated RBC % 0 08/20/21 08:20: PT 12.9, INR 1.0, APTT 25.0 08/20/21 08:20: Sodium 142, Potassium 4.3, Chloride 109 H, Carbon Dioxide 21.0, Anion Gap 12, BUN 23 H, Creatinine 1.28, Est GFR (MDRD) Af Amer 72, Est GFR (MDRD) Non-Af 60, BUN/Creatinine Ratio 18.0, Glucose 98, Calcium 9.6 Rhythm: EKG: ECHO: Stress Test: Cardiac Cath: PCI: CT Surgery: Holter monitor: EPS: PPM: CXR: Chest CT Scan: Radiography Diagnostic Testing: Radiology Impression Chest X-Ray 08/20/21 08:25 IMPRESSION: Nonacute portable x-ray examination of the chest. Electronically Signed: Hany Bal MD (Brooks) at 8:39 EDT Reading Location ID and State: [address] [place] [address] , Service support ,
--- NOTE | 2021-08-20 12:13 | CL.I_ITS ---
Patient Name: KAMALJIT PERRY Study Date: 08/20/2021 Performing: Matt Maurer MD Ht: 68 inches 173 cm : 1955 Wt: 178.8 lbs 81 kg Age: 66 Gender: male BSA: 1.95 PROCEDURE(S) PERFORMED [id number])[facility] [id number])AMI, IRAIS OR PTCA, ARTERY/GRAFT, SINGLE VESSEL CLINICAL PROFILE AND CO-MORBIDITIES Indications: ACS <= 24 hrs Heart Failure: None Stress/Imaging Stress/Image Study Performed: No CAD Presentations: STEMI. Symptom onset Date/Time: 08/20/21 Time: 5:30 am CONCLUSIONS CAD as described. Successful PCI of mid RCA with IRAIS. RECOMMENDATIONS Medical therapy for residual CAD at this time DESCRIPTION OF PROCEDURE The patient arrived to the procedure lab. The risks and benefits of the procedure as well as a full d escription of our services here and lack of surgical backup were fully explained to the patient and/o r their significant other prior to the catheterization. The Timeout was completed, verifying the ada ect patient and procedure. The patient's procedural site was prepped and draped in the usual fashion. Local anesthetic was given subcutaneously to right radial region with Lidocaine 2%. Using a modified Seldinger technique, arterial access was obtained via the right radial artery, a 6Fr sheath was inse rted.. Left Coronary Artery selective angiography was performed in multiple views using a 5 Fr. JL3. 5 catheter JR4 Guide catheter was inserted and engaged into the RCA. BMW Guide wire was advanced to the RCA. Emerge 3.00x20 Balloon catheter was inserted. PTCA balloon inflated at 6 atms for 10 secs. PTCA ball oon inflated at 6 atms for 4 secs. PTCA balloon inflated at 6 atms for 5 secs. PTCA balloon inflated at 6 atms for 4 secs. Angiogram performed post balloon dilatation. Orsiro 3.0x40 Drug Eluting stent w as inserted. Angiogram performed post stent deployment. The arterial sheath was pulled and a TR Ban d was applied for hemostasis w/ 11ml air CORONARY ANGIOGRAPHY DOMINANCE: Right Dominant LEFT HEART ASSESSMENT Left Ventricular Ejection Fraction: Not assessed LEFT MAIN: Mild luminal irregularities LEFT ANTERIOR DESCENDING ARTERY: Mild diffuse disease MID LAD: Previously placed stent is patent DIAGONAL 1: Ostial - 95 % Stenosis. Small vessel-about 1.75 to 2mm in diameter CIRCUMFLEX ARTERY: MID CIRC: 60 % Stenosis immediately distal to the large OM1. This vessel may be jailed by prior stent in OM1 which is widely patent. Mild luminal irregularities in OM1. RAMUS: 60% % Stenosis RIGHT CORONARY ARTERY: MID RCA: 90 % Stenosis. This is a long, diffuse lesion extending into the proximal RCA. DISTAL RCA: Previously placed stent is patent RT PDA: Ostial - 60 % Stenosis INTERVENTION INFORMATION LESION SITE: RCA (Mid) Lesion Complexity: High/C, chronic total occlusion: No, lesion at bifurcation: No, thrombus present: No, lesion length: 38 mm, culprit lesion: Yes, Previously treated lesion: No Pre Stenosis: 90 % Pre intervention KRYSTAL flow: 3 PROCEDURE: Drug Eluting Stent with pre dilatation. The stent was deployed to cover the long lesion extending from the midRCA into the pRCA Post Stenosis: 0 % Post intervention KRYSTAL flow: 3 Lesion Devices: Sinha .014 BMW [place] Straight 190cm Cardinal 6 Fr JR4 100cm Guide Catheter Bernardino Sci EMERGE MR 3.00x20 BALLOON Biotronik Orsiro [place] MR IRAIS 3.0x40 COMPLICATIONS No Complications PROCEDURE MEDICATIONS Oxygen: 2 L/min via nasal cannula Heparin given IA 08/20/2021 09:16:23 Nitro 100 mcg IC 08/20/2021 09:32:46 Verapamil 2.5mg, Ntg 100mcgs, 3000 units of Heparin given IA 08/20/2021 09:16:23 IV Bolus: .9 NaCl 500 ml total 08/20/2021 09:20:59 SUMMARY OF HEMODYNAMIC DATA Time AIR REST ECG 08:41:51 AO 99/75 (87) SA 09:17:07 Signed By Matt Maurer MD On 08/20/2021 12:13:06 Matt Maurer MD
[2021-08-20] MEDS: Tamsulosin HCl 0.4 MG Capsule PO (12:57)
--- NOTE | 2021-08-20 14:30 | CRPHASE1 ---
Patient Communication Former Patient:: Phase I PHII Cardiac Rehab Discussed with Patient:: Yes Guide to Cardiac Rehab Given to Patient:: Yes Cardiac Rehab Facility Choice List Given to Patient:: Yes Choice Program [facility] CR PHII:: Communication Given to CR Choice Program Other:: Communication Given to CR Refer Phase II Cardiac Rehab:: Yes Sessions:: 36 sessions - 3 days/wk, 12 weeks Cardiac Rehabilitation Info Cardiac Rehabilitation Program Information: Cardiac Rehabilitation is important for patients like you who are recovering from a heart problem. Cardiac rehabilitation programs are recognized as integral to the continued care of the patient with coronary heart disease. The cardiac rehabilitation program is designed to optimize a patient's physical, psychological, and social functioning. Health respiratory care instructor work in cardiac rehabilitation programs and assist you with getting the treatments you need to get stronger and healthier - like exercise, healthy eating habits, and medications. Cardiac rehabilitation has been show to help people with heart problems live longer and have better life enjoyment than people who do not go to cardiac rehabilitation. Please contact the Cardiac Rehabilitation Program at [facility] at in two weeks if you have not heard from them.
--- NOTE | 2021-08-20 14:31 | CRPH1.INSTRU ---
General Education CAD and cardiac anatomy and function:: Patient communicates acknowledgment Explanation of diagnoses and procedures:: Patient communicates acknowledgment Sign/Symptoms of UT:: Patient communicates acknowledgment Antiplatelet therapy: Patient communicates acknowledgment Smoking Patient Nicotine/Smoking Risk Factors Are:: Non-smoker Recommendations Include:: Previous smoker; encourage continued cessation Nicotine/Smoking Response Code:: Patient communicates acknowledgment Dyslipidemia Patient Dyslipidemia Risk Factors Are:: Total Cholesterol, Triglycerides, HDL, LDL Recommendations Include:: Lipid profile provided, Reviewed NCEP/ATP guidelines, Therapeutic Lifestyle Change dietary guidelines Dyslipidemia Response Code:: Patient communicates acknowledgment Overweight/Obesity Patient Overweight/Obesity Risk Factors Are:: Overweight = 26-29 Recommendations Include:: Weight loss of 5-10%, Reduced calorie diet Overweight/Obesity:: Patient communicates acknowledgment Hypertension Recommendations Include:: Maintain BP <130/85, DASH dietary guidelines, Decrease/maintain normal body weight, Moderation of ETOH Hypertension:: Patient communicates acknowledgment Diabetes Patient Diabetes Risk Factors Are:: No documented hx of diabetes Metabolic Syndrome Patient Metabolic Syndrome Risk Factors Are [3 of 5]:: Fasting blood sugar > 100 mg/dL, Waist circumference > 35 [female] or 40 [male], High triglyceride >150, Hypertension, Low HDL <40 [male] or < 50 [female] Recommendations Include:: Reinforce compliance to risk factor modifications, Encouraged follow-up with Primary Care Physician Metabolic Syndrome Response Code:: Patient communicates acknowledgment Sedentary Patient Sedentary Risk Factors Are:: Lack of regular exercise Recommendations Include:: Aerobic exercise 5-7 times/week for 20-30 minutes continuously, Benefits of regular exercise, Discussed home walking program, Monitored Outpatient Cardiac Rehab Sedentary Response Code:: Patient communicates acknowledgment Stress Recommendations Include:: Identification of stressors, and assessment of coping skills, Stress management techniques Stress Response Code:: Patient communicates acknowledgment
[2021-08-20] MEDS: Aspirin 81 MG TAB.CHEW PO (21:48)
[2021-08-20] MEDS: Metoprolol Tartrate 25 MG Tablet 12.5 MG PO (21:48)
[2021-08-20] MEDS: Atorvastatin Calcium 40 MG Tablet PO (21:48)
[2021-08-20] MEDS: TICAGRELOR 90 MG TABLET PO (21:48)
[2021-08-21] VITALS (23 sets, daily range): BP systolic 109–153; BP diastolic 72–99; PULSE 68–100; RESP 12–20; TEMP 36.4–36.9; O2SAT 95–100
[2021-08-21 05:19] LABS: Absolute Lymphocyte Count 0.99 X10^3/uL (0.83-4.51); Absolute Neutrophil Count 7.7 X10^3/uL (2.0-7.7); Basophil# 0.02 X10^3/uL; Basophil% 0.2 % (0-1); Eosinophil# 0.01 X10^3/uL; Eosinophils% 0.1 % (0-5); Hematocrit 38.2 % (40-54); Lymphocyte # 0.99 X10^3/ul (0.83-4.51); Lymphocyte % 10.3 % (19-41); Mean Corpuscular Hgb 29.3 pg (27.0-32.0); Mean Platelet Vol. 9.4 fl (6.2-12.0); Monocyte# 0.88 X10^3/uL; Monocyte% 9.2 % (0-10); NRBC Flagged by Analyzer 0 % (0-5); Neutrophil # 7.68 X10^3/uL (2.7-7.7); Neutrophil % 79.9 % (47-70); Platelet Count 169 K/mm3 (150-450); RBC Distribution Width CV 12.5 % (11.6-14.6); RBC Distribution Width SD 39.5 fl (35.1-43.9); Red Blood Count 4.44 M/mm3 (4.6-6.2); White Blood Count 9.6 K/mm3 (4.4-11.0)
[2021-08-21 05:33] LABS: Phosphorus 1.9 mg/dL (2.5-4.9)
[2021-08-21 05:36] LABS: ALB/GLOB Ratio 1.1 RATIO (0.9-2.4); AST(SGOT) 101 U/L (15-37); Alanine Aminotransfer ALT/SGPT 40 U/L (16-61); Albumin, Serum 3.3 g/dL (3.2-5.0); Alkaline Phosphatase 62 U/L (45-117); Anion Gap 5 (5-15); BUN 18 mg/dL (7-18); BUN/Creat Ratio 19.6 RATIO (10-20); Calcium,Total 8.5 mg/dL (8.5-10.1); Chloride 109 mmol/L (98-107); Cholesterol 122 mg/dL (200); Creatinine, Serum 0.92 mg/dL (0.70-1.30); EST Glomerular Filtration Rate 87 mL/min (>60); Est Glom Filt Rate - Afr Amer 106 mL/min (>60); Estimated Creatinine Clearance 77.92 ml/min; Globulin 2.9 g/dL (2.2-4.2); Glucose 109 mg/dL (74-106); High Density Lipoprotein 45 mg/dL; Protein, Total 6.2 g/dL (6.4-8.2); Sodium Level 139 mmol/L (136-145); Triglycerides 116 mg/dL; Very Low Density Lipoprotein 23 mg/dL (5-40)
[2021-08-21] MEDS: TICAGRELOR 90 MG TABLET PO (08:09)
[2021-08-21] MEDS: Metoprolol Tartrate 25 MG Tablet 12.5 MG PO (08:10)
[2021-08-21] MEDS: Lisinopril 2.5 MG Tablet PO (08:11)
[2021-08-21] MEDS: Enoxaparin 40 MG/0.4 ML Syringe SC (08:11)
--- NOTE | 2021-08-21 10:00 | EKG12_ITS ---
Test Reason : STEMI Blood Pressure : / mmHG Vent. Rate : 090 BPM Atrial Rate : 090 BPM P-R Int : 168 ms QRS Dur : 096 ms QT Int : 392 ms P-R-T Axes : 066 024 062 degrees QTc Int : 479 ms Sinus rhythm with occasional Premature ventricular complexes Otherwise normal ECG No previous ECGs available Confirmed by DUKE OLMEDO, DIONNE ([id number]), online editor BISI HYATT ([id number]) on 08/28/2021 12:28:31 PM Referred By: Sourav Maurer Confirmed By:DIONNE WALL MD
--- NOTE | 2021-08-21 10:30 | CASEMGMT ---
RN CM Face to Face with patient for initial transition planning/care coordination assessment. RN CM introduced self and role at [facility]. Patient lying in bed, alert and oriented, at bedside. Patient willing to participate in assessment and is able to answer all questions appropriately. Care providers, pharmacy, and demographics verified. Patient wishes to discharge home, denies need for home health at this time. Patient states he has no further needs or concerns at this time. CM to follow for discharge planning needs that may arise. PCP: Zurdo Sánchez Specialists: Saloni yard conductor Preferred Pharmacy: [facility] Insurance: [facility] Prescription Benefit: yes, Brilinta savings card provided to patient and placed in patient's discharge folder. Living Will/HPOA: yes, Fifi Rosales LNOK: Living Arrangements: Patient lives with in a single story home with 2 steps to enter. Patient states he is independent at home. Transportation: self/ DME/HHC: Patient denies DME in the home. No previous HHC Disposition Plan: Patient to discharge home with family support and follow-up plans in place. Snehal DWYERN, RN, CM
--- NOTE | 2021-08-21 12:02 | PN.CARD_ITS ---
Subjective Subjective Patient is doing well. He denies any cardiac complaints. He had a 5 beat run of nonsustained V. tach yesterday around 1 PM. No further episodes of nonsustained V. tach for almost 24 hours. Objective Data Vital Signs: Vital Signs Temp Pulse Resp BP Pulse Ox 98.5 F 75 14 132/98 H 99 08/21/21 08:00 08/21/21 11:05 08/21/21 11:00 08/21/21 11:00 08/21/21 11:00 Oxygen Flow Rate (L/min) 2 Oxygen Delivery Method Room Air Weight: 174 lb 6.17 oz Body Mass Index (BMI) 26.3 Intake & Output: Intake and Output for Last 24 Hours 08/19/21 08/20/21 08/21/21 23:59 23:59 23:59 Intake Total 1805.33 / 2045.33 540 / 540 Balance 1805.33 / 2045.33 540 / 540 Lab / Micro Data Result Diagrams: 08/21/21 05:05 08/21/21 05:05 Labs: Laboratory Results - last 24 hr 08/21/21 05:05: WBC 9.6, RBC 4.44 L, Hgb 13.0, Hct 38.2 L, MCV 86.0, MCH 29.3, MCHC 34.0, RDW Std Deviation 39.5, RDW Coeff of Kenan 12.5, Plt Count 169, MPV 9.4, Immature Gran % (Auto) 0.300, Neut % (Auto) 79.9 H, Lymph % (Auto) 10.3 L, Anderson % (Auto) 9.2, Eos % (Auto) 0.1, Baso % (Auto) 0.2, Absolute Neuts (auto) 7.7, Absolute Lymphs (auto) 0.99, Nucleated RBC % 0 08/21/21 05:05: Sodium 139, Potassium 4.0, Chloride 109 H, Carbon Dioxide 25.0, Anion Gap 5, BUN 18, Creatinine 0.92, Estim Creat Clear Calc 77.92, Est GFR (MDRD) Af Amer 106, Est GFR (MDRD) Non-Af 87, BUN/Creatinine Ratio 19.6, Glucose 109 H, Calcium 8.5, Magnesium 2.0, Total Bilirubin 0.60, AST 101 H, ALT 40, Alkaline Phosphatase 62, Total Protein 6.2 L, Albumin 3.3, Globulin 2.9, Albumin/Globulin Ratio 1.1, Triglycerides 116, Cholesterol 122, LDL Cholesterol 54, VLDL Cholesterol 23, HDL Cholesterol 45 08/21/21 05:05: Phosphorus 1.9 L Cardiology Labs/Tests 08/21/21 05:05: WBC 9.6, RBC 4.44 L, Hgb 13.0, Hct 38.2 L, MCV 86.0, MCH 29.3, MCHC 34.0, Plt Count 169, MPV 9.4, Immature Gran % (Auto) 0.300, Neut % (Auto) 79.9 H, Lymph % (Auto) 10.3 L, Anderson % (Auto) 9.2, Eos % (Auto) 0.1, Baso % (Auto) 0.2, Absolute Neuts (auto) 7.7, Nucleated RBC % 0 08/21/21 05:05: Sodium 139, Potassium 4.0, Chloride 109 H, Carbon Dioxide 25.0, Anion Gap 5, BUN 18, Creatinine 0.92, Est GFR (MDRD) Af Amer 106, Est GFR (MDRD) Non-Af 87, BUN/Creatinine Ratio 19.6, Glucose 109 H, Calcium 8.5, Magnesium 2.0, Total Bilirubin 0.60, Triglycerides 116, Cholesterol 122, LDL Cholesterol 54, VLDL Cholesterol 23, HDL Cholesterol 45 08/21/21 05:05: Phosphorus 1.9 L Rhythm: EKG: ECHO: Stress Test: Cardiac Cath: PCI: CT Surgery: Holter monitor: EPS: PPM: CXR: Chest CT Scan: Radiography Diagnostic Testing: Radiology Impression Echocardiogram 08/20/21 10:45 Interpretation Summary Normal LV size. Left ventricular systolic function is normal. The estimated ejection fraction is 65 %. Mild concentric left ventricular hypertrophy. Stage 1 diastolic dysfunction. Contrast injection was performed. Ordering Physician: Sharon Lui Referring Physician: Sourav Maurer Performed By: Vipin Angela RCS Physical Exam Const alert and oriented x3 Orientation / Consciousness: awake HEENT normocephalic Eyes no scleral icterus Resp normal respiratory effort Cardio regular rate Skin no rashes or lesions noted Psych mental status grossly normal Assessment & Plan Assessment/Plan (1) ST elevation (STEMI) myocardial infarction: QUALIFIERS: Involved coronary artery: right coronary artery Qualified Code(s): I21.11 - ST elevation (STEMI) myocardial infarction involving right coronary artery PLAN: Treated with drug-eluting stent to the RCA. We will keep the patient on aspirin, Brilinta, PHILIP-I, beta-cem and statin. EF is preserved. Patient presented early after symptoms and the culprit vessel had KRYSTAL-3 flow at the time of angiography. No significant arrhythmias for almost 24 hours. If patient continues to do well he could be discharged home later this afternoon. He can follow-up with us as an outpatient. Charges/Coding Visit Charges Inpatient E&M: 00118 Subs Hosp L2
--- NOTE | 2021-08-21 15:45 | DS.PCM_ITS ---
Providers Date of Admission: 08/20/21 Primary Care Physician: Dr. Zurdo Sánchez MD Consultations 08/20/21 10:33 Consult: Cardiology Routine Consulting Provider: Sourav Maurer Reason for Consult: STEMI EMERGENT Consult: Yes MD Notified: Yes Date Notified: 08/20/21 Time Notified: 10:25 Method of Notification: ED Physician Initiated Reason For Visit: STEMI Diagnosis Discharge Diagnosis (1) ST elevation (STEMI) myocardial infarction: Status: Acute Code(s): I21.3 - ST elevation (STEMI) myocardial infarction of unspecified site Qualifiers: Involved coronary artery: right coronary artery Qualified Code(s): I21.11 - ST elevation (STEMI) myocardial infarction involving right coronary artery Medications at Discharge Home Medications aspirin 81 mg PO QHS 11/19/13 rosuvastatin [Crestor] 20 mg PO QHS 11/19/13 coenzyme Q10 100 mg PO QHS 04/05/14 melatonin 10 mg PO QHS 04/05/14 multivitamin with folic acid [Thera] 1 tab PO QHS 04/05/14 oxycodone-acetaminophen 1 tab PO Q6H PRN PRN #20 tablet 10/04/14 meloxicam 15 mg PO DAILY 08/20/21 lisinopril 2.5 mg PO DAILY #30 tab 08/21/21 metoprolol tartrate 12.5 mg PO BID #15 tab 08/21/21 ticagrelor [Brilinta] 90 mg PO BID #60 tab 08/21/21 Hospital Course Summary of Care Provided Minutes Spent on Discharge: 37 Hospital Course: KAMALJIT PERRY, is a 66 M who presented to department at [facility] on 07/21/2021 with the chief complaint of chest pain that began on the morning of admission at around 5:30 AM. The patient had a known history of coronary artery disease and had a stent placed in his RCA in 2009. One year later he had stents placed in the OM 1 and LAD. He stated that he began having chest pain after he woke up. At that time, he took 3 baby aspirin and an old nitroglycerin, which did not relieve his pain. His pain radiate\d to his left jaw but denied any radiation into his left arm. He denied any nausea or vomiting but did state he became diaphoretic. He had experienced no shortness of breath or leg swelling but did complain of an exertional component to his chest pain and indicated that his did symptoms worsen when he did walk across the room. An EKG was obtained on presentation and he was noted to have an inferior STEMI with 2 to 3 mm of elevation in the inferior leads. The code STEMI was activated and the patient was taken to the [facility] Super[facility] after Brilinta and a heparin bolus of 4000 units were given intravenously. Upon presentation to the emergency department his temperature was 97.7, heart rate was 89, blood pressure was 127/78, respiratory 16 and pulse ox was 100% on room air. His CBC showed a mild leukocytosis with a white count of 14.7. Coags were normal. Chemistries were unremarkable , and his initial troponin was 15. Chest x-ray is performed and shows a nonacute portable x-ray of the chest. He was taken emerg ently to the [facility] at which time a PCI with IRAIS to the RCA was performed. The patient was maintained on his home aspirin and statin and Brilinta, and low- dose beta-elijah, and a low-dose AAYUSH inhibitor were initiated. An echocardiogram was performed to assess LV function. His EF was 65%. There was mild concentric LVH with stage I diastolic dysfunction as well but no wall motion abnormality was noted. The patient had a short 7 beat run of VT that was monomorphic approximately 2 hours after his catheterization but had no further ectopy after that point in time and did well through the night. The patient was reevaluated by cardiology on 08/21/2021 and they felt he was safe for discharge home. Prescriptions were sent to his pharmacy for his lisinopril 2.5 mg daily, metoprolol 12.5 mg twice daily, and Brilinta 90 mg twice daily. He is also to continue his aspirin and statin. His lipids were assessed during his hospitalization and were noted to be well controlled with a total cholesterol of 122/LDL of 54/HDL 45/triglycerides of 116. He is to follow-up with his primary care physician within the next 1 to 2 weeks. He is to follow-up with cardiology in the next 1 to 2 weeks. He was discharged home in stable condition on 08/21/2021. Discharge diagnoses: STEMI CAD Hyperlipidemia Hypertension Nephrolithiasis History of diverticulosis with diverticulitis History of alcohol abuse History of tobacco abuse Physical Exam Const alert, oriented x3, no apparent distress, average body habitus, no limitations, healthy appearing and well nourished Constitutional Narrative: Upper middle-aged white male lying in bed, appears comfortable nontoxic, family is at bedside General Appearance: cooperative, comfortable, well kempt and well developed Orientation / Consciousness: awake Exam Limitations: no limitations HEENT normocephalic, head/scalp atraumatic, hearing grossly normal bilaterally and moist oral mucous membranes HEENT Narrative: Mallampati 2, no thrush, dentition is fair for age Eyes PERRL, EOMs intact bilaterally and conjunctivae normal Eyes Narrative: No scleral icterus Neck no lymphadenopathy, supple and no JVD Neck Narrative: Trachea midline, no thyroid enlargement Resp normal respiratory effort, no retractions, no use of accessory muscles and clear to auscultation bilaterally Auscultation: Negative for crackles, rales, rhonchi or wheezes Cardio regular rate, regular rhythm, S1 normal heart sound, S2 normal heart sound, no murmurs, no rub, no gallops, no clicks and no JVD GI normal to inspection, nondistended, normoactive bowel sounds, soft to palpation, non-tender and non-distended Extremity normal to inspection and no clubbing, cyanosis or edema Extremity Narrative: Right radial artery with slight ecchymosis and tenderness but no swelling, erythema, or drainage Skin no rashes or lesions noted, no wounds, skin turgor normal, no jaundice, no petechiae and no mottling Neuro oriented x3, CN's II-XII intact bilaterally, moves all extremities and no focal motor deficits Sensorium / Orientation: awake and alert Speech: speech normal Psych affect normal Psych Narrative: Very pleasant and appropriately interactive Weight / BMI Weight Weight: 79.1 kg Body Mass Index (BMI) 26.3 ABG / Lab / Microbiology Data Result Diagrams: 08/21/21 05:05 08/21/21 05:05 Laboratory: Laboratory Results - last 24 hr 08/21/21 05:05: WBC 9.6, RBC 4.44 L, Hgb 13.0, Hct 38.2 L, MCV 86.0, MCH 29.3, MCHC 34.0, RDW Std Deviation 39.5, RDW Coeff of Kenan 12.5, Plt Count 169, MPV 9.4, Immature Gran % (Auto) 0.300, Neut % (Auto) 79.9 H, Lymph % (Auto) 10.3 L, [place] % (Auto) 9.2, Eos % (Auto) 0.1, Baso % (Auto) 0.2, Absolute Neuts (auto) 7.7, Absolute Lymphs (auto) 0.99, Nucleated RBC % 0 08/21/21 05:05: Sodium 139, Potassium 4.0, Chloride 109 H, Carbon Dioxide 25.0, Anion Gap 5, BUN 18, Creatinine 0.92, Estim Creat Clear Calc 77.92, Est GFR (MDRD) Af Amer 106, Est GFR (MDRD) Non-Af 87, BUN/Creatinine Ratio 19.6, Glucose 109 H, Calcium 8.5, Magnesium 2.0, Total Bilirubin 0.60, AST 101 H, ALT 40, Alkaline Phosphatase 62, Total Protein 6.2 L, Albumin 3.3, Globulin 2.9, Albumin/Globulin Ratio 1.1, Triglycerides 116, Cholesterol 122, LDL Cholesterol 54, VLDL Cholesterol 23, HDL Cholesterol 45 08/21/21 05:05: Phosphorus 1.9 L D/C Instructions Discharge Diet: Low fat / Low cholesterol Discharge Activity: Return to Normal Activity (No heavy lifting greater than 10 pounds with right upper extremity for 48 hours) Return to work on: 08/23/21 Meaningful Use Info Meaningful Use Diagnoses (Choose all that apply): AMI AMI/Post PCI/Angioplasty Aspirin given w/in 24hrs of arrival?: Yes ASA at discharge?: Yes Antiplatelet Therapy at Discharge:: Yes Statins at discharge?: Yes Aayush/ARB at discharge?: Yes Beta Elijah at discharge?: Yes Done w/ Acute SD measure.: Yes Documented LVEF (%): 65 Discharge Plan Admission Admit Date/Time: 08/20/21 10:22 Primary Reason for Your Visit: STEMI Attending Provider: Sharon Lui Primary Care Provider: Zurdo Sánchez Consulting Providers: Sourav Maurer Discharge Orders/Prescriptions Prescriptions: New lisinopril 2.5 mg Tablet 2.5 mg PO DAILY Qty: 30 RF: 0 metoprolol tartrate 25 mg Tablet 12.5 mg PO BID Qty: 15 RF: 0 Brilinta 90 mg Tablet 90 mg PO BID Qty: 60 RF: 1 Continued aspirin 81 MG tablet,chewable 81 mg PO QHS RF: 0 rosuvastatin [Crestor] 20 MG tablet 20 mg PO QHS RF: 0 multivitamin with folic acid [Thera] 1 TABLET tablet 1 tab PO QHS RF: 0 coenzyme Q10 50 MG tablet,chewable 100 mg PO QHS RF: 0 melatonin 10 MG tablet 10 mg PO QHS RF: 0 oxycodone-acetaminophen 1 TABLET tablet 1 tab PO Q6H PRN PRN (Reason: Pain) Qty: 20 RF: 0 meloxicam 15 mg tablet 15 mg PO DAILY RF: 0 Referrals / Follow Up: Leroy Guallpa MD [STAFF PHYSICIAN] - Within 2 Weeks (Hospital follow up for STEMI -call in am for appt) Zurdo Sánchez MD [Primary Care Provider] - Within 2 Weeks Disposition Disposition (needs filled in before D/C Order can be placed): Home, Self Care Charges/Coding Visit Charges Inpatient E&M: 89823 Disch Hosp
== END 2021-08-21 16:45 | disposition home or self-care (01) | DRG 247 ==
LOC: ED 08:29 → ICU 09:04
PROVIDERS: Admitting Provider Internal Medicine; Emergency Provider Emergency Medicine; PCP Family Medicine; Referring Provider Specialist; Visit Provider Internal Medicine
DX: I21.11 ST elevation (STEMI) myocardial infarction involving right coronary artery (principal); I47.2 Ventricular tachycardia; I25.10 Atherosclerotic heart disease of native coronary artery without angina pectoris; I10 Essential (primary) hypertension; E78.5 Hyperlipidemia, unspecified; N20.0 Calculus of kidney; Z79.1 Long term (current) use of non-steroidal anti-inflammatories (NSAID); Z79.82 Long term (current) use of aspirin; Z79.899 Other long term (current) drug therapy; Z87.891 Personal history of nicotine dependence; Z95.5 Presence of coronary angioplasty implant and graft
CPT/HCPCS: 71045; 80048; 80053; 80061; 83735; 84100; 84484; 85025; 85610; 85730; 92941; 93005; 93306; 93454; 97802; 99251; 99284; C1874; J7030; J7040; Q9957; Q9967; A4216; C1725; C1769; C1887; C1894; C8929; C9606; G0463; J1327

== ENCOUNTER → 2021-09-24 | Outpatient (CLI) | payer MEDICARE, SELFPAY | END | disposition home or self-care (01) | LOC: CR 08:04 | PROVIDERS: PCP Family Medicine; Referring Provider Internal Medicine Cardiovascular Disease; Visit Provider Internal Medicine Cardiovascular Disease | DX: Z00.00 Encounter for general adult medical examination without abnormal findings (principal) ==

== ENCOUNTER → 2021-12-23 | Outpatient (CLI) | payer MEDICARE, SELFPAY ==
[2021-12-23 12:20] LABS: Squamous Epithelial Cells - UA 0 SEEN /hpf (0-5)
[2021-12-23 15:32] LABS: Color, Urine Yellow (Yellow); Glucose, Dipstick Normal (Normal); Ketone-Dipstick 5 mg/dl (Negative); Leukocyte Esterase-Dipstick 100 /ul (Negative); Nitrite-Dipstick Negative (Negative); Occult Blood-Urine 10 /ul (Negative); Protein-Dipstick 30 mg/dl (Negative); Specific Gravity, Urine 1.025 (1.002-1.030); Urine Clarity Clear (Clear); Urine Urobilinogen 1 mg/dl (Normal)
[2021-12-23 15:45] LABS: Urine Bilirubin Dipstick 3 mg/dL (Negative)
[2021-12-23 15:50] LABS: Red Blood Cells-Urine 5-10 SEEN /hpf (0-5)
[2021-12-23 15:52] LABS: Calcium Oxalate Crystals Ur 3+ /hpf (<or=2+)
[2021-12-23 15:53] LABS: Bacteria 1+ /hpf (None Seen); Mucous, Urine 2+ /hpf (<or=2+); White Blood Cells 5-10 SEEN /hpf (0-5)
== END | disposition home or self-care (01) ==
LOC: LABSPEC 12:19
PROVIDERS: PCP Family Medicine; Referring Provider Family Medicine; Visit Provider Family Medicine
DX: R30.0 Dysuria (principal)
CPT/HCPCS: 81001; 87086

== ENCOUNTER → 2021-12-30 | Outpatient (CLI) | payer MEDICARE, SELFPAY ==
--- NOTE | 2021-12-30 17:23 | CT_ITS ---
STUDY: CT ABDOMEN AND PELVIS WITHOUT CONTRAST REASON FOR EXAM: Male, 66 years old. Left sided abdominal pain. History of kidney stones. RADIATION DOSAGE (If Supplied By Facility): CTDIvol = ( 7.23 ) mGy, DLP = ( 366.43 ) mGycm TECHNIQUE: Transaxial images were obtained from the dome of the diaphragm to the symphysis pubis without oral contrast, and without intravenous contrast. Sagittal and coronal images were reconstructed. Individualized dose optimization techniques were used for this CT. COMPARISON: 11/19/2020. FINDINGS: The visualized lung bases are unremarkable. The visualized portions of the heart are within normal limits. Coronary artery calcifications. Diffuse calcified granulomata throughout the liver. Gallstones without gallbladder wall thickening or inflammatory change. There is no biliary ductal dilatation or choledocholithiasis. There are multiple benign calcified granulomata of the spleen. Normal pancreas. Question small adenoma of the right adrenal gland which measures approximately 6 mm in diameter. Normal left adrenal gland. There are multiple nonobstructing renal calculi in the right kidney. The largest measures 5 x 4 x 7 mm. Is 1.2 cm exophytic cyst off the mid cortex. No hydronephrosis. Normal right ureter. Multiple nonobstructing left renal calculi. The largest, in the upper pole measures 0.6 x 0.5 x 0.5 cm. No hydronephrosis. Normal left ureter. Normal visualized stomach. Normal small intestine. Fuse colonic diverticulosis most marked in the descending and sigmoid colon. There is minimal stranding in the fat adjacent to the distal descending/proximal sigmoid colon in the left supra vesicle space best seen on image 118 of series 2. Question mild diverticulitis. There is also associated wall thickening of the sigmoid colon which may represent acute inflammatory change. The colon is otherwise unremarkable. The appendix is visualized and appears normal. There is diffuse atherosclerotic calcification of the abdominal aorta, without a demonstrated aneurysm. Normal inferior vena cava. Normal retroperitoneum. Normal urinary bladder. Enlarged prostate. No pelvic lymphadenopathy. No free air or free fluid is seen within the peritoneal cavity. Small umbilical hernia of omental fat. The abdominal wall is otherwise unremarkable. Stable osseous findings. CT/Abdomen/Pelvis without Cont IMPRESSION: 1. Mild sigmoid diverticulitis without perforation or abscess. 2. Stable renal calculi without hydronephrosis. 3. Stable gallstones. 4. Calcified granulomata within the liver and spleen. 5. Enlarged prostate. 6. No major interval change. Electronically Signed: Wilner Valerio DO at 17:54 EDT ,
== END | disposition home or self-care (01) ==
PROVIDERS: PCP Family Medicine; Referring Provider Urology; Visit Provider Urology
DX: R10.84 Generalized abdominal pain (principal)
CPT/HCPCS: 74176

== ENCOUNTER → 2022-01-06 | Outpatient (CLI) | payer MEDICARE, SELFPAY ==
[2022-01-06 16:15] LABS: Erythrocyte Sedimentation Rate 3 mm/hr (0-20)
[2022-01-06 16:23] LABS: CRP < 2.90 mg/L (0.0-3.0)
== END | disposition home or self-care (01) ==
LOC: MTLAB 13:10
PROVIDERS: PCP Family Medicine; Referring Provider Family Medicine; Visit Provider Family Medicine
DX: K57.90 Diverticulosis of intestine, part unspecified, without perforation or abscess without bleeding (principal)
CPT/HCPCS: 36415; 85652; 86140

== ENCOUNTER 2022-01-13 12:50 | Emergency (ER) | payer MEDICARE, SELFPAY ==
[2022-01-13 12:51] VITALS: BP 85/68; PULSE 118; RESP 18; TEMP 36.8; O2SAT 97; BMI 24.5
[2022-01-13 12:53] VITALS: BP 85/68; PULSE 118; RESP 18; TEMP 36.8; O2SAT 97
--- NOTE | 2022-01-13 13:33 | EKG12_ITS ---
Test Reason : CP Blood Pressure : / mmHG Vent. Rate : 109 BPM Atrial Rate : 109 BPM P-R Int : 156 ms QRS Dur : 094 ms QT Int : 324 ms P-R-T Axes : 056 -09 041 degrees QTc Int : 436 ms Sinus tachycardia with occasional Premature ventricular complexes Inferior infarct , age undetermined Abnormal ECG Confirmed by JIMMY OLMEDO, HAM ([id number]), publishing editor BISI HYATT ([id number]) on 01/15/2022 6:37:15 AM Referred By: Confirmed By:HAM MARQUEZ MD
[2022-01-13] MEDS: 0.9% Normal Saline 1,000 ML 1000 ML IV (13:43)
[2022-01-13 13:53] VITALS: BP 106/67; PULSE 96; RESP 16; TEMP 37; O2SAT 97
[2022-01-13 14:00] VITALS: BP 107/69; PULSE 97; RESP 18; TEMP 36.2; O2SAT 98
[2022-01-13 14:05] LABS: Absolute Lymphocyte Count 0.44 X10^3/uL (0.83-4.51); Absolute Neutrophil Count 8.6 X10^3/uL (2.0-7.7); Basophil# 0.02 X10^3/uL; Basophil% 0.2 % (0-1); Eosinophil# 0.01 X10^3/uL; Eosinophils% 0.1 % (0-5); Hematocrit 41.4 % (40-54); Hemoglobin 14.3 g/dL (13.0-16.5); Lymphocyte # 0.44 X10^3/ul (0.83-4.51); Lymphocyte % 4.6 % (19-41); Mean Corp Hgb Conc 34.5 g/dL (32-36); Mean Corpuscular Volume 86.8 fL (80-94); Mean Platelet Vol. 10.1 fl (6.2-12.0); Monocyte# 0.35 X10^3/uL; Monocyte% 3.7 % (0-10); NRBC Flagged by Analyzer 0 % (0-5); Neutrophil # 8.61 X10^3/uL (2.7-7.7); POSITIVE DIFFERENTIAL YES; Platelet Count 167 K/mm3 (150-450); RBC Distribution Width CV 12.1 % (11.6-14.6); RBC Distribution Width SD 38.5 fl (35.1-43.9); Red Blood Count 4.77 M/mm3 (4.6-6.2); White Blood Count 9.5 K/mm3 (4.4-11.0)
--- NOTE | 2022-01-13 14:08 | RAD_ITS ---
STUDY: X-RAY CHEST REASON FOR EXAM: Male, 66 years old. Sob TECHNIQUE: Single AP portable view of the chest. COMPARISON: Comparison is made with prior study dated 08/20/2021. FINDINGS: EKG electrodes are seen. The lungs are clear and expanded. Scattered calcified granulomas. There is no demonstrated pleural abnormality. Normal size heart. Normal mediastinum and prakash. Normal visualized pulmonary arteries. Normal visualized aortic arch and descending thoracic aorta. There are diffuse degenerative changes of the visualized thoracic spine. Normal visualized ribs, clavicles, and shoulders. There is no demonstrated abnormality of the visualized soft tissue structures of the upper abdomen. RAD/Chest 1 View (Portable) IMPRESSION: No acute abnormality is seen. Electronically Signed: Jg Marrero MD at 14:27 EDT ,
[2022-01-13 14:10] LABS: Differential Indicated SCAN CRITERIA MET
[2022-01-13 14:17] LABS: AST(SGOT) 30 U/L (15-37); Alanine Aminotransfer ALT/SGPT 36 U/L (16-61); Albumin, Serum 3.7 g/dL (3.2-5.0); Alkaline Phosphatase 59 U/L (45-117); Anion Gap 9 (5-15); BUN 17 mg/dL (7-18); BUN/Creat Ratio 15.3 RATIO (10-20); Bilirubin, Direct 0.14 mg/dL (0.00-0.30); Calcium,Total 9.3 mg/dL (8.5-10.1); Chloride 108 mmol/L (98-107); Creatinine, Serum 1.11 mg/dL (0.70-1.30); EST Glomerular Filtration Rate 70 mL/min (>60); Est Glom Filt Rate - Afr Amer 85 mL/min (>60); Estimated Creatinine Clearance 64.58 ml/min; Globulin 3.2 g/dL (2.2-4.2); Glucose 117 mg/dL (74-106); Potassium 3.7 mmol/L (3.5-5.1); Protein, Total 6.9 g/dL (6.4-8.2); Sodium Level 141 mmol/L (136-145); Troponin-I HS 7 pg/mL (3.0-78.0)
[2022-01-13 14:26] LABS: Lactic Acid 1.3 mmol/L (0.4-1.9)
--- NOTE | 2022-01-13 14:33 | CT_ITS ---
STUDY: CT ABDOMEN AND PELVIS WITH CONTRAST REASON FOR EXAM: Male, 66 years old. Fever, recent diverticulitis RADIATION DOSAGE (If Supplied By Facility): CTDIvol = ( 9.76 ) mGy, DLP = ( 508.65 ) mGycm TECHNIQUE: Transaxial images were obtained from the dome of the diaphragm to the symphysis pubis without oral contrast. IV 100mL [id number]-[id number] was administered. Sagittal and coronal images were reconstructed. Individualized dose optimization techniques were used for this CT. COMPARISON: Comparison is made with prior study 12/30/2021. FINDINGS: The visualized lung bases are unremarkable. Coronary artery calcification. There is decreased attenuation of the liver consistent with steatosis. There is a 1.1 cm hypodensity with peripheral enhancement in the inferior aspect of the right lobe of the liver suggestive of a hemangioma. There are multiple small gallstones. There are multiple benign calcified granulomata of the spleen. Normal pancreas. There is a small, circumscribed, smooth, low attenuation left adrenal mass, consistent with an adrenal adenoma. Normal right adrenal gland. 1.6 cm cyst in the midportion of the right kidney. Bilateral nonobstructive intrarenal calculi. Normal visualized stomach. Normal small intestine. There are multiple colonic diverticula consistent with diverticulosis. No acute findings are seen at this time. The appendix is visualized and appears normal. Normal abdominal aorta. Normal inferior vena cava. Normal retroperitoneum. Normal urinary bladder. There is enlargement of the prostate gland. This causes indentation of the bladder base. Normal abdominal wall. There are degenerative changes of the visualized lumbar spine. CT/Abdomen/Pelvis W IV Cont ONLY IMPRESSION: Sigmoid diverticulitis. No inflammatory process is seen at this time. Multiple small gallstones. Nonobstructive bilateral intrarenal calculi. Electronically Signed: Jg Marrero MD at 15:02 EDT ,
[2022-01-13 14:41] LABS: BNP,B-Type NATRIURETIC PEPTIDE 16.4 pg/mL (0-100)
--- NOTE | 2022-01-13 14:42 | EX.ED.DYSGE1 ---
HPI History of Present Illness Chief Complaint: Chest Pain Detail of Chief Complaint: Chills, weakness Informant: patient Onset/Context/Timing Onset: Days Context: Gradual Onset Narrative Narrative: Patient presents with feeling fatigued over the past couple days. He states he been laying around and not really doing much. He did take his grandson to school today. When he left there he developed chills with rigors. He had some slight shortness of breath and some pressure over his left chest. He did not measure a fever. He has had no vomiting. Patient is currently on his second course of antibiotics to treat diverticulitis. He feels as if his left lower quadrant abdominal pain is improving. [facility] Medical History Atherosclerosis of coronary artery of [place] heart without angina pectoris Coronary artery disease Former smoker Hypertension Kidney stones Migraines Myocardial infarct ST elevation (STEMI) myocardial infarction Home Medications aspirin 81 mg chewable tablet 81 mg PO QHS heart health 11/19/13 [History Last Taken 11/19/13] coenzyme Q10 50 mg chewable tablet 100 mg PO QHS Check with primary doctor 04/05/14 [History Last Taken Unknown] melatonin 10 mg sublingual tablet 10 mg PO QHS sleep 04/05/14 [History Last Taken Unknown] multivitamin with folic acid 400 mcg tablet (Thera) 1 tab PO QHS supplement 04/05/14 [History Last Taken Unknown] lisinopril 2.5 mg tablet 2.5 mg PO DAILY #30 tabs 09/05/21 [Rx Last Taken Unknown] metoprolol tartrate 25 mg tablet 12.5 mg PO BID #90 tabs 09/05/21 [Rx Last Taken Unknown] nitroglycerin 0.4 mg sublingual tablet 0.4 mg sublingual Q5-15M PRN chest pain #25 tabs 09/05/21 [Rx Last Taken Unknown] ticagrelor 90 mg tablet (Brilinta) 90 mg PO BID #180 tabs 09/05/21 [Rx Last Taken Unknown] meloxicam 15 mg tablet 15 mg PO DAILY PRN pain 12/17/21 [History Last Taken Unknown] rosuvastatin 20 mg tablet (Crestor) 20 mg PO .QOD cholesterol 12/17/21 [History Last Taken Unknown] Allergy/AdvReac Type Severity Reaction Status Date / Time No Known Allergies Allergy Verified 01/13/22 12:50 Surgical History History of coronary artery stent placement (08/20/21) Social History Smoking Status: Former smoker how long ago did patient quit smokin alcohol intake: current alcohol intake frequency: holidays/special occasions only substance use type: does not use caffeine: Yes Type: coffee Number of servings: 2 ROS ROS ED Constitutional Constitutional ED: Reports chills; Denies fever(s) Eyes Eyes: Denies change in vision or discharge from eye(s) ENT ENT ED: Denies discharge from eye(s), rhinorrhea or sore throat Cardiovascular Cardiovascular: Reports chest pain; Denies palpitations Respiratory/Chest Respiratory/Chest: Reports dyspnea; Denies cough Gastrointestinal Gastrointestinal: Reports abdominal pain; Denies diarrhea, nausea or vomiting Genitourinary Genitourinary ED: Denies dysuria Musculoskeletal Musculoskeletal: Denies back pain or extremity pain Integumentary Denies Abrasions or rash Neurologic Neurologic: Reports weakness; Denies headache(s) Psychiatric Psychiatric: Denies anxiety or depression Endocrine Endocrinology: Denies polydipsia or polyuria Allergic/Immunologic Allergic/Immunologic ED: Denies lip swelling or urticaria EXAM Physical Exam Const Vital Signs: 01/13/22 12:51 01/13/22 12:53 01/13/22 13:53 Temperature 98.3 F 98.3 F 98.6 F Temperature Source Temporal Temporal Temporal Pulse Rate 118 H 118 H 96 Respiratory Rate 18 18 16 Blood Pressure 85/68 L 85/68 L 106/67 Blood Pressure Mean 73 73 80 Pulse Ox 97 97 97 Oxygen Delivery Method Room Air Room Air Room Air 01/13/22 14:00 Temperature 97.1 F L Temperature Source Temporal Pulse Rate 97 Respiratory Rate 18 Blood Pressure 107/69 Blood Pressure Mean 81 Pulse Ox 98 Oxygen Delivery Method Room Air Positive well nourished and well developed General Appearance ED: well developed HEENT Reports normocephalic and head/scalp atraumatic Eyes PERRL and EOMs intact bilaterally Neck supple Chest Wall inspection of chest normal and palpation of chest normal Resp normal respiratory effort and clear to auscultation bilaterally Cardio regular rate and regular rhythm GI GI Narrative: Mild left lower quadrant tenderness. No guarding or rebound. Hypoactive but present bowel sounds are noted. Palpation: soft Extremity normal to inspection Neuro oriented x3 and no sensory deficits noted Sensorium / Orientation: alert Motor Exam: strength 5/5 throughout Psych mental status grossly normal Skin no rashes or lesions noted MDM MDM MDM Narrative Medical decision making narrative: Patient placed on monitoring coordinator. EKG, chest x-ray, lab work obtained. Swabs for COVID and influenza obtained. Lab Data Attestation: I reviewed the patient's lab results. Labs: Laboratory Results - last 24 hr 01/13/22 01/13/22 01/13/22 13:44 13:44 13:44 WBC 9.5 RBC 4.77 Hgb 14.3 Hct 41.4 MCV 86.8 MCH 30.0 MCHC 34.5 RDW Std Deviation 38.5 RDW Coeff of Kenan 12.1 Plt Count 167 MPV 10.1 Immature Gran % (Auto) 0.400 Neut % (Auto) 91.0 H Lymph % (Auto) 4.6 L [place] % (Auto) 3.7 Eos % (Auto) 0.1 Baso % (Auto) 0.2 Absolute Neuts (auto) 8.6 H Absolute Lymphs (auto) 0.44 L Nucleated RBC % 0 Differential Comment COMMENT Sodium 141 Potassium 3.7 Chloride 108 H Carbon Dioxide 24.0 Anion Gap 9 BUN 17 Creatinine 1.11 Estim Creat Clear Calc 64.58 Est GFR (MDRD) Af Amer 85 Est GFR (MDRD) Non-Af 70 BUN/Creatinine Ratio 15.3 Glucose 117 H Lactic Acid 1.3 Calcium 9.3 Total Bilirubin 0.60 Direct Bilirubin 0.14 AST 30 ALT 36 Alkaline Phosphatase 59 Troponin I High Sens 7 B-Natriuretic Peptide Total Protein 6.9 Albumin 3.7 Globulin 3.2 01/13/22 13:44 WBC RBC Hgb Hct MCV MCH MCHC RDW Std Deviation RDW Coeff of Kenan Plt Count MPV Immature Gran % (Auto) Neut % (Auto) Lymph % (Auto) [place] % (Auto) Eos % (Auto) Baso % (Auto) Absolute Neuts (auto) Absolute Lymphs (auto) Nucleated RBC % Differential Comment Sodium Potassium Chloride Carbon Dioxide Anion Gap BUN Creatinine Estim Creat Clear Calc Est GFR (MDRD) Af Amer Est GFR (MDRD) Non-Af BUN/Creatinine Ratio Glucose Lactic Acid Calcium Total Bilirubin Direct Bilirubin AST ALT Alkaline Phosphatase Troponin I High Sens B-Natriuretic Peptide 16.4 Total Protein Albumin Globulin Radiography Chest X-Ray - ED: 1 View, Read by ED Physician, Normal, Heart, Lungs and Mediastinum Diagnostic Testing: Clinical Impression(s) from Imaging Studies Chest X-Ray 01/13/22 14:08 IMPRESSION: No acute abnormality is seen. Electronically Signed: Jg Marrero MD at 14:27 EDT , Abdomen/Pelvis CT 01/13/22 14:33 IMPRESSION: Sigmoid diverticulitis. No inflammatory process is seen at this time. Multiple small gallstones. Nonobstructive bilateral intrarenal calculi. Electronically Signed: Jg Marrero MD at 15:02 EDT , EKG Initial EKG: Attestation: I personally reviewed and interpreted this EKG as follows: Interpretation: Sinus Tachycardia (Sinus tach at 109. Occasional PVC) Treatment and Re-Evaluation Narrative: Repeat evaluation patient resting comfortably. CBC is unremarkable with normal white count. He does have a slight left shift with 91% neutrophils. Chemistry studies unremarkable as well as LFTs. Troponin is normal at 7. Lactic acid is normal. Swabs for COVID and influenza obtained and negative. Given no source for the patient's febrile illness and currently on second round of antibiotics for diverticulitis, CT scan of the abdomen pelvis was obtained. This reveals evidence of diverticulosis without acute inflammation. Test results are discussed with patient and at bedside. He will continue supportive care. Return instructions are provided. Discharge Plan Triage Chief Complaint: Chest Pain ED Provider: Tracy Rutherford Dx/Rx/DC Orders Clinical Impression: Viral syndrome Prescriptions: No Action Brilinta 90 mg tablet 90 mg PO BID Qty: 180 3RF nitroglycerin 0.4 mg tablet, sublingual 0.4 mg sublingual Q5-15M PRN (Reason: chest pain) Qty: 25 3RF Rx Instructions: do not exceed 3 doses per episode lisinopril 2.5 mg tablet 2.5 mg PO DAILY Qty: 30 6RF metoprolol tartrate 25 mg tablet 12.5 mg PO BID Qty: 90 3RF rosuvastatin [Crestor] 20 mg tablet 20 mg PO .QOD Label Comments: aspirin 81 MG tablet,chewable 81 mg PO QHS multivitamin with folic acid [Thera] 1 TABLET tablet 1 tab PO QHS coenzyme Q10 50 MG tablet,chewable 100 mg PO QHS melatonin 10 MG tablet 10 mg PO QHS meloxicam 15 mg tablet 15 mg PO DAILY PRN (Reason: pain) Primary Care Provider: Zurdo Sánchez Referrals: Zurdo Sánchez MD [Primary Care Provider] - 1 Week if not improving Disposition Disposition: Home, Self Care
[2022-01-13] MEDS: 0.9% Normal Saline 1,000 ML 150 ML IV (14:53)
[2022-01-13 15:00] VITALS: BP 106/70; PULSE 99; RESP 16; TEMP 36.6; O2SAT 95
[2022-01-13 15:23] VITALS: RESP 18
== END 2022-01-13 15:34 | disposition home or self-care (01) ==
PROVIDERS: Emergency Provider Emergency Medicine; PCP Family Medicine; Visit Provider Emergency Medicine
DX: B34.9 Viral infection, unspecified (principal); R53.1 Weakness; I25.10 Atherosclerotic heart disease of native coronary artery without angina pectoris; R68.83 Chills (without fever); R06.02 Shortness of breath; K57.92 Diverticulitis of intestine, part unspecified, without perforation or abscess without bleeding; I10 Essential (primary) hypertension; Z20.822 Contact with and (suspected) exposure to COVID-19; I25.2 Old myocardial infarction; Z79.82 Long term (current) use of aspirin; Z79.1 Long term (current) use of non-steroidal anti-inflammatories (NSAID); Z79.899 Other long term (current) drug therapy; Z87.891 Personal history of nicotine dependence
CPT/HCPCS: 71045; 74177; 80048; 80076; 83605; 83880; 84484; 85025; 87040; 87428; 93005; 96360; 99284; J7030; Q9967; A4216

== ENCOUNTER → 2022-03-17 | Outpatient (CLI) | payer MEDICARE, SELFPAY ==
[2022-03-17 11:52] LABS: Erythrocyte Sedimentation Rate 2 mm/hr (0-20)
[2022-03-17 12:13] LABS: Hematocrit 42.5 % (40-54); Hemoglobin 14.5 g/dL (13.0-16.5); Mean Corp Hgb Conc 34.1 g/dL (32-36); Mean Corpuscular Hgb 30.4 pg (27.0-32.0); Mean Corpuscular Volume 89.1 fL (80-94); Mean Platelet Vol. 10.1 fl (6.2-12.0); Platelet Count 186 K/mm3 (150-450); RBC Distribution Width CV 12.4 % (11.6-14.6); RBC Distribution Width SD 40.4 fl (35.1-43.9); Red Blood Count 4.77 M/mm3 (4.6-6.2); White Blood Count 5.5 K/mm3 (4.4-11.0)
[2022-03-17 12:36] LABS: ALB/GLOB Ratio 1.4 RATIO (0.9-2.4); AST(SGOT) 26 U/L (15-37); Alanine Aminotransfer ALT/SGPT 45 U/L (16-61); Albumin, Serum 3.8 g/dL (3.2-5.0); Alkaline Phosphatase 49 U/L (45-117); Anion Gap 6 (5-15); BUN 12 mg/dL (7-18); BUN/Creat Ratio 11.4 RATIO (10-20); CRP < 2.90 mg/L (0.0-3.0); Chloride 109 mmol/L (98-107); Creatinine, Serum 1.05 mg/dL (0.70-1.30); EST Glomerular Filtration Rate 75 mL/min (>60); Est Glom Filt Rate - Afr Amer 90 mL/min (>60); Globulin 2.7 g/dL (2.2-4.2); Glucose 111 mg/dL (74-106); Potassium 4.2 mmol/L (3.5-5.1); Protein, Total 6.5 g/dL (6.4-8.2); Sodium Level 141 mmol/L (136-145)
== END | disposition home or self-care (01) ==
LOC: MFPLAB 09:48
PROVIDERS: PCP Family Medicine; Visit Provider Family Medicine
DX: R10.32 Left lower quadrant pain (principal)
CPT/HCPCS: 36415; 80053; 85027; 85652; 86140

== ENCOUNTER → 2022-03-17 | Outpatient (CLI) | payer MEDICARE, SELFPAY ==
--- NOTE | 2022-03-17 12:52 | CT_ITS ---
STUDY: CT ABDOMEN AND PELVIS WITHOUT CONTRAST REASON FOR EXAM: Male, 66 years old. LLQ pain - persistent with acute diverticulitis yet hx of kidney RADIATION DOSAGE (If Supplied By Facility): CTDIvol = ( 6.71 ) mGy, DLP = ( 338.60 ) mGycm TECHNIQUE: Transaxial images were obtained from the dome of the diaphragm to the symphysis pubis without oral contrast, and without intravenous contrast. Sagittal and coronal images were reconstructed. Individualized dose optimization techniques were used for this CT. COMPARISON: Comparison is made with prior examination 01/13/2022. FINDINGS: The visualized lung bases are unremarkable. Coronary artery calcification. Scattered calcified hepatic granulomas. There are multiple small gallstones. There are multiple benign calcified granulomata of the spleen. Normal pancreas. Normal bilateral adrenal glands. Multiple right nonobstructing intrarenal calculi. The largest calculus measures 9.2 mm and is in the upper pole. There is a 1.3 cm cyst in the lower pole of the right kidney. Multiple nonobstructive left intrarenal calculi. The largest calculus measures 7 mm and is in the lower pole. There is a small hiatal hernia. Normal small intestine. There are multiple colonic diverticula consistent with diverticulosis. The appendix is visualized and appears normal. Normal abdominal aorta. Normal inferior vena cava. There is borderline retroperitoneal lymphadenopathy with enlarged nodes no greater than 10mm in the short axis diameter. Normal urinary bladder. There is enlargement of the prostate gland. It measures 4.8 cm x 5 cm. Normal abdominal wall. There are degenerative changes of the visualized lumbar spine. CT/Abdomen/Pelvis without Cont IMPRESSION: Sigmoid diverticulosis. Multiple small gallstones. Nonobstructive bilateral intrarenal calculi. Electronically Signed: Jg Marrero MD at 13:41 EST ,
== END | disposition home or self-care (01) ==
LOC: CT 12:51
PROVIDERS: PCP Family Medicine; Visit Provider Family Medicine
DX: K57.92 Diverticulitis of intestine, part unspecified, without perforation or abscess without bleeding (principal); N20.0 Calculus of kidney; R10.32 Left lower quadrant pain
CPT/HCPCS: 36415; 74176; 80053; 85027; 85652; 86140

== ENCOUNTER 2022-04-01 08:56 | Emergency (ER) | payer MEDICARE, SELFPAY ==
[2022-04-01 08:57] VITALS: BP 128/85; PULSE 83; RESP 14; TEMP 36.6; O2SAT 96; BMI 23.1
--- NOTE | 2022-04-01 09:58 | CT_ITS ---
STUDY: CT ABDOMEN AND PELVIS WITHOUT CONTRAST REASON FOR EXAM: Male, 66 years old. Kidney Stone RADIATION DOSAGE (If Supplied By Facility): CTDIvol = ( 6.71 ) mGy, DLP = ( 338.60 ) mGycm TECHNIQUE: Transaxial images were obtained from the dome of the diaphragm to the symphysis pubis without oral contrast, and without intravenous contrast. Sagittal and coronal images were reconstructed. Individualized dose optimization techniques were used for this CT. COMPARISON: CT of abdomen and pelvis dated March 17, 2022 FINDINGS: Redemonstration of multiple stones of varying size scattered throughout both kidneys. Moderate left hydronephrosis and hydroureter are now present due to a recently passed 5.7 mm stone down into the distal ureter in the left pelvic sidewall region that is causing upstream obstruction. Mild to moderate left perinephric stranding and trace fluid is present due to calyceal distention. The visualized lung bases are unremarkable. The visualized portions of the heart are within normal limits. Redemonstration of numerous punctate calcifications scattered throughout the liver. There are multiple gallstones. Normal spleen. Normal pancreas. Normal bilateral adrenal glands. Normal visualized stomach. Normal small intestine. There are multiple colonic diverticula consistent with diverticulosis. The appendix is visualized and appears normal. There is diffuse atherosclerotic calcification of the abdominal aorta, without a demonstrated aneurysm. Normal inferior vena cava. Normal retroperitoneum. Normal urinary bladder. Normal abdominal wall. There are diffuse degenerative changes of the visualized lumbar spine. CT/Abdomen/Pelvis without Cont IMPRESSION: 1. Moderate left hydronephrosis and hydroureter due to an 5.7 mm distal ureteral stone causing obstruction 2. Numerous additional bilateral kidney stones 3. Gallstones 4. Colonic diverticulosis Electronically Signed: Adán Reese MD at 10:53 EST Reading Location ID and State: [facility] / [place] , Service support ,
[2022-04-01] MEDS: 0.9% Normal Saline 1,000 ML 999 ML IV (10:11)
[2022-04-01] MEDS: Morphine 4 MG/ML Syringe IV ×2 (10:12→11:40)
[2022-04-01] MEDS: Ondansetron 4 MG/2 ML Vial IV (10:12)
[2022-04-01] MEDS: Ketorolac 15 MG/ML Vial IV (10:12)
[2022-04-01 10:15] LABS: Absolute Lymphocyte Count 1.51 X10^3/uL (0.83-4.51); Absolute Neutrophil Count 5.8 X10^3/uL (2.0-7.7); Basophil# 0.03 X10^3/uL; Basophil% 0.4 % (0-1); Eosinophil# 0.03 X10^3/uL; Eosinophils% 0.4 % (0-5); Hematocrit 44.5 % (40-54); Hemoglobin 15.3 g/dL (13.0-16.5); Lymphocyte # 1.51 X10^3/ul (0.83-4.51); Lymphocyte % 18.4 % (19-41); Mean Corp Hgb Conc 34.4 g/dL (32-36); Mean Corpuscular Hgb 29.7 pg (27.0-32.0); Mean Corpuscular Volume 86.4 fL (80-94); Mean Platelet Vol. 9.7 fl (6.2-12.0); Monocyte# 0.81 X10^3/uL; Monocyte% 9.9 % (0-10); NRBC Flagged by Analyzer 0 % (0-5); Neutrophil % 70.5 % (47-70); Platelet Count 192 K/mm3 (150-450); RBC Distribution Width CV 12.1 % (11.6-14.6); RBC Distribution Width SD 38.5 fl (35.1-43.9); Red Blood Count 5.15 M/mm3 (4.6-6.2); White Blood Count 8.2 K/mm3 (4.4-11.0)
--- NOTE | 2022-04-01 10:15 | EDS_ITS ---
HPI HPI - GI History of Present Illness Chief Complaint: Flank Pain Narrative Narrative: 66-year-old male presenting with left sided flank pain and left lower abdominal pain. He states this initially started a little higher couple of days ago. He states that this morning his pain feels more severe. It radiates to the lower quadrant on the left. Patient does admit to nausea and vomiting. He has a history of diverticulitis which he was recently treated for, but states he is not having any diarrhea now. He does state that this feels like a previous kidney stone. [facility] Medical History Atherosclerosis of coronary artery of [place] heart without angina pectoris Coronary artery disease Former smoker Hypertension Kidney stones Migraines Myocardial infarct ST elevation (STEMI) myocardial infarction Home Medications aspirin 81 mg chewable tablet 81 mg PO QHS heart health 11/19/13 [History Last Taken 03/31/22] melatonin 10 mg sublingual tablet 10 mg PO QHS sleep 04/05/14 [History Last Taken 03/31/22] multivitamin with folic acid 400 mcg tablet (Thera) 1 tab PO QHS supplement 04/05/14 [History Last Taken 03/31/22] nitroglycerin 0.4 mg sublingual tablet 0.4 mg sublingual Q5-15M PRN chest pain #25 tabs 09/05/21 [Rx Last Taken Unknown] ticagrelor 90 mg tablet (Brilinta) 90 mg PO BID #180 tabs 09/05/21 [Rx Last Taken 04/01/22] lisinopril 2.5 mg tablet 2.5 mg PO DAILY #30 tabs 03/19/22 [Rx Last Taken 04/01/22] abxfmpi-aavudwfkthtri-yumikmei 250 mg-250 mg-65 mg tablet (Excedrin Migraine) 2 tab PO DAILY PRN Pain 04/01/22 [History Last Taken 04/01/22] ondansetron 4 mg disintegrating tablet 4 mg PO Q8H PRN nausea and vomiting #14 tabs 04/01/22 [Rx Last Taken Unknown] oxycodone-acetaminophen 5 mg-325 mg tablet (Endocet) 1 tab PO Q6H PRN pain 3 days #12 tabs 04/01/22 [Rx Last Taken Unknown] quinapril 5 mg tablet 2.5 mg PO QHS HEART 04/01/22 [History Last Taken 03/31/22] Allergy/AdvReac Type Severity Reaction Status Date / Time No Known Allergies Allergy Verified 04/01/22 08:58 Surgical History History of coronary artery stent placement (08/20/21) Social History Smoking Status: Former smoker how long ago did patient quit smokin alcohol intake: current alcohol intake frequency: holidays/special occasions only substance use type: does not use caffeine: Yes Type: coffee Number of servings: 2 ROS ROS ED Constitutional Constitutional ED: Reports sweats; Denies chills or fever(s) ENT ENT ED: Denies rhinorrhea or sore throat Cardiovascular Cardiovascular: Denies chest pain Respiratory/Chest Respiratory/Chest: Denies cough or dyspnea Gastrointestinal Gastrointestinal: Reports abdominal pain, nausea and vomiting Genitourinary Genitourinary ED: Denies dysuria or hematuria Musculoskeletal Musculoskeletal: Reports back pain Integumentary Denies abscess or Abrasions Neurologic Neurologic: Denies headache(s) or paresthesias Psychiatric Psychiatric: Denies anxiety or depression EXAM Physical Exam Const Vital Signs: 04/01/22 08:57 04/01/22 11:43 Temperature 97.8 F Temperature Source Temporal Pulse Rate 83 77 Respiratory Rate 14 16 Blood Pressure 128/85 H 130/89 H Blood Pressure Mean 99 102 Pulse Ox 96 99 Oxygen Delivery Method Room Air Room Air Positive well nourished Constitutional Narrative: Appears to be in pain General Appearance ED: Negative for pallor HEENT Reports moist mucous membranes Eyes PERRL and EOMs intact bilaterally Resp normal respiratory effort Effort and Inspection: Negative for respiratory distress Cardio regular rate and regular rhythm GI Palpation: tender LLQ Back/Spine General Back: CVA tenderness left Extremity full ROM Neuro CN's II-XII intact bilaterally Sensorium / Orientation: alert Motor Exam: strength 5/5 throughout Psych mental status grossly normal and thought process normal Skin General Skin Exam: Negative for jaundice or pallor MDM MDM MDM Narrative Medical decision making narrative: Patient presenting with left flank pain. He is not having diarrhea or symptoms of diverticulitis which he was recently treated for. He states it feels like a kidney stone. He was medicated with 50 mg of Toradol, 4 mg of morphine, 4 mg of Zofran. CBC was obtained and does not show any evidence of leukocytosis. Hemoglobin hematocrit are stable. Platelets are normal. Renal function and electrolytes unremarkable. Urinalysis negative for infection but does show occult blood. Patient needed repeat dose of morphine for pain and I did obtain a CT of the abdomen pelvis without contrast which does show a 5.7 distal ureteral stone with associated hydronephrosis and hydroureter. Patient is feeling more comfortable at this point. She feels he can go home with pain medications and follow-up with urology. Patient was given Zofran as well. Return precautions are discussed. Impression: 1. 5.7 mm left ureteral calculi 2. Hematuria 3. Nausea/vomiting 4. Left-sided hydronephrosis 5. Left-sided hydroureter Lab Data Attestation: I reviewed the patient's lab results. Labs: Laboratory Results - last 24 hr 04/01/22 04/01/22 04/01/22 09:10 09:10 11:30 WBC 8.2 RBC 5.15 Hgb 15.3 Hct 44.5 MCV 86.4 MCH 29.7 MCHC 34.4 RDW Std Deviation 38.5 RDW Coeff of Kenan 12.1 Plt Count 192 MPV 9.7 Immature Gran % (Auto) 0.400 Neut % (Auto) 70.5 H Lymph % (Auto) 18.4 L [place] % (Auto) 9.9 Eos % (Auto) 0.4 Baso % (Auto) 0.4 Absolute Neuts (auto) 5.8 Absolute Lymphs (auto) 1.51 Nucleated RBC % 0 Sodium 140 Potassium 3.6 Chloride 106 Carbon Dioxide 27.0 Anion Gap 7 BUN 14 Creatinine 1.21 Estim Creat Clear Calc 59.24 Est GFR (MDRD) Af Amer 77 Est GFR (MDRD) Non-Af 63 BUN/Creatinine Ratio 11.6 Glucose 121 H Calcium 10.0 Urine Color Yellow Urine Clarity Clear Urine pH 7.0 Ur Specific [place] 1.010 Urine Protein 100 H Urine Glucose (UA) Normal Urine Ketones 5 H Urine Occult Blood 250 H Urine Nitrite Negative Urine Bilirubin Negative Urine Urobilinogen Normal Ur Leukocyte Esterase 25 H Urine RBC 25-50 SEEN Urine WBC 0-5 SEEN Ur Squamous Epith Cells 0 SEEN Urine Bacteria 0 SEEN Urine Mucus 0 SEEN Radiography Diagnostic Testing: Clinical Impression(s) from Imaging Studies Abdomen/Pelvis CT 04/01/22 09:58 IMPRESSION: 1. Moderate left hydronephrosis and hydroureter due to an 5.7 mm distal ureteral stone causing obstruction 2. Numerous additional bilateral kidney stones 3. Gallstones 4. Colonic diverticulosis Electronically Signed: Adán Reese MD at 10:53 EST Reading Location ID and State: [facility] / [place] , Service support , Discharge Plan Triage Chief Complaint: Flank Pain ED Provider: Randy Cintron Dx/Rx/DC Orders Instructions: ED Kidney Stone w/ Colic Prescriptions: New oxycodone-acetaminophen [Endocet] 5-325 mg tablet 1 tab PO Q6H PRN (Reason: pain) 3 Days Qty: 12 0RF ondansetron 4 mg tablet,disintegrating 4 mg PO Q8H PRN (Reason: nausea and vomiting) Qty: 14 0RF No Action Brilinta 90 mg tablet 90 mg PO BID Qty: 180 3RF nitroglycerin 0.4 mg tablet, sublingual 0.4 mg sublingual Q5-15M PRN (Reason: chest pain) Qty: 25 3RF Rx Instructions: do not exceed 3 doses per episode aspirin 81 MG tablet,chewable 81 mg PO QHS multivitamin with folic acid [Thera] 1 TABLET tablet 1 tab PO QHS melatonin 10 MG tablet 10 mg PO QHS quinapril 5 mg tablet 2.5 mg PO QHS Label Comments: TAKE 1/2 (ONE-HALF) TABLET BY MOUTH AT BEDTIME Excedrin Migraine 250-250-65 mg Tablet 2 tab PO DAILY PRN (Reason: Pain) lisinopril 2.5 mg tablet 2.5 mg PO DAILY Qty: 30 11RF Primary Care Provider: Zurdo Sánchez Referrals: Zurdo Sánchez MD [Primary Care Provider] - Jovani Voss MD [Med Staff - Active Staff] - 3-5 Days Disposition Disposition: Home, Self Care
[2022-04-01 10:28] LABS: Anion Gap 7 (5-15); BUN 14 mg/dL (7-18); BUN/Creat Ratio 11.6 RATIO (10-20); Chloride 106 mmol/L (98-107); Creatinine, Serum 1.21 mg/dL (0.70-1.30); EST Glomerular Filtration Rate 63 mL/min (>60); Est Glom Filt Rate - Afr Amer 77 mL/min (>60); Estimated Creatinine Clearance 59.24 ml/min; Glucose 121 mg/dL (74-106); Potassium 3.6 mmol/L (3.5-5.1); Sodium Level 140 mmol/L (136-145)
[2022-04-01 11:37] LABS: Bacteria 0 SEEN /hpf (None Seen); Mucous, Urine 0 SEEN /hpf (<or=2+); Squamous Epithelial Cells - UA 0 SEEN /hpf (0-5)
[2022-04-01 11:39] LABS: Color, Urine Yellow (Yellow); Glucose, Dipstick Normal (Normal); Ketone-Dipstick 5 mg/dl (Negative); Leukocyte Esterase-Dipstick 25 /ul (Negative); Nitrite-Dipstick Negative (Negative); Occult Blood-Urine 250 /ul (Negative); Protein-Dipstick 100 mg/dl (Negative); Urine Bilirubin Dipstick Negative (Negative); Urine Clarity Clear (Clear); Urine Urobilinogen Normal (Normal)
[2022-04-01 11:43] VITALS: BP 130/89; PULSE 77; RESP 16; O2SAT 99
[2022-04-01 11:46] LABS: Red Blood Cells-Urine 25-50 SEEN /hpf (0-5); White Blood Cells 0-5 SEEN /hpf (0-5)
[2022-04-01] MEDS: oxyCODONE 5 MG Tablet PO (12:40)
== END 2022-04-01 12:43 | disposition home or self-care (01) ==
PROVIDERS: Emergency Provider Student in an Organized Health Care Education/Training Program; PCP Family Medicine; Visit Provider Student in an Organized Health Care Education/Training Program
DX: N13.2 Hydronephrosis with renal and ureteral calculous obstruction (principal); R31.9 Hematuria, unspecified; R10.32 Left lower quadrant pain; I10 Essential (primary) hypertension; I25.10 Atherosclerotic heart disease of native coronary artery without angina pectoris; N13.4 Hydroureter; R11.2 Nausea with vomiting, unspecified; Z87.891 Personal history of nicotine dependence
CPT/HCPCS: 74176; 80048; 81001; 85025; 96361; 96374; 96375; 96376; 99284; J7030; A4216; J2405

== ENCOUNTER 2022-07-28 05:27 | Inpatient (IN) | payer MEDICARE, SELFPAY ==
--- NOTE | 2022-07-22 09:44 | EKG12_ITS ---
Test Reason : PREOP Blood Pressure : / mmHG Vent. Rate : 061 BPM Atrial Rate : 061 BPM P-R Int : 158 ms QRS Dur : 092 ms QT Int : 392 ms P-R-T Axes : 063 043 060 degrees QTc Int : 394 ms Normal sinus rhythm Normal ECG Confirmed by DUKE OLMEDO, DIONNE ([id number]), purchasing expeditor BISI HYATT ([id number]) on 07/23/2022 9:32:23 AM Referred By: iWlliam Sandhu Confirmed By:DIONNE WALL MD
[2022-07-22 10:26] LABS: Hematocrit 43.3 % (40-54); Mean Corp Hgb Conc 32.3 g/dL (32-36); Mean Corpuscular Hgb 29.5 pg (27.0-32.0); Mean Corpuscular Volume 91.4 fL (80-94); Mean Platelet Vol. 9.4 fl (6.2-12.0); Platelet Count 237 K/mm3 (150-450); RBC Distribution Width CV 12.3 % (11.6-14.6); RBC Distribution Width SD 41.1 fl (35.1-43.9); Red Blood Count 4.74 M/mm3 (4.6-6.2)
[2022-07-22 10:53] LABS: Anion Gap 1 (5-15); BUN 16 mg/dL (7-18); BUN/Creat Ratio 14.5 RATIO (10-20); Calcium,Total 9.6 mg/dL (8.5-10.1); Chloride 108 mmol/L (98-107); EST Glomerular Filtration Rate 71 mL/min (>60); Est Glom Filt Rate - Afr Amer 86 mL/min (>60); Glucose 106 mg/dL (74-106); Potassium 4.6 mmol/L (3.5-5.1); Sodium Level 138 mmol/L (136-145)
[2022-07-28] VITALS (13 sets, daily range): BP systolic 101–129; BP diastolic 71–92; PULSE 71–97; RESP 6–18; TEMP 36.2–37.1; O2SAT 88–100; BMI 24.2
--- NOTE | 2022-07-28 | COL_PTH ---
PATIENT: KAMALJIT PERRY LOC: [facility]3 U#:[id number] AGE/SX: 67/M ROOM: MS308 RE07/28/[address]: Dr. William Sandhu MD : 1955 BED: 1 DIS: 07/30/2022 SPEC #: [id number] RECD: 07/28/22 13:15 STATUS: KHOA OROZCO #: [id number] SANG: 07/28/22 00:[address]: William Sandhu DEPT: SURGICAL PATHOLOGY RECD BY: Jitendra Dutta ENTERED: 07/28/22 13:15 SP TYPE: COLON OTHR DR: Dr. Zurdo Sánchez MD Tissues: A - Colon, NOS B - Colon Donuts C - Colon Donuts D - APPENDIX (INCIDENTAL) Procedures: Surgery Specimen Level II Surgery Specimen Level III Surgery Specimen Level V HEADER OPERATION: ERAS, laparoscopic sigmoid colectomy, incidental appendectomy PRE-OP DIAGNOSIS: Diverticulitis TISSUE SUBMITTED: A ? Sigmoid colon, B ? Rectal donut, C ? Sigmoid donut, D - Appendix MICROSCOPIC DIAGNOSIS A. Sigmoid colon, colectomy: Diverticulosis. B. Rectal donut: Colonic donut, no pathologic diagnosis. C. Sigmoid donut: Colonic donut, no pathologic diagnosis. D. Appendix, incidental appendectomy: Appendix, no pathologic diagnosis. See comment. JUDIT:markus 07/30/2022 COMMENT D. Entire appendix is examined. MICROSCOPIC DESCRIPTION Slides are reviewed. GROSS DESCRIPTION A - Received in fixative is one container labeled with the patient's name and designated sigmoid colon. The specimen consists of a segment of colon with attached pericolonic adipose tissue measuring 13.0 cm in length. One resection margin is open and the other resection margin is stapled. The lumen contains fecal material. No mucosal lesion is identified. More dictation will follow after fixation. / SJ:markus 07/28/2022 Sections reveal multiple diverticula. No obviously ruptured diverticula are noted. Sections of pericolonic adipose tissue do not reveal any obviously enlarged lymph node. [place] sections are submitted in six cassettes as follows: 1 - open resection margin, 2 - stapled resection margin, 3-5 - diverticula, 6??pericolonic adipose tissue. / :markus 07/29/2022 B - Received in fixative is one container labeled with the patient's name and designated rectal donut. The specimen consists of a donut-shaped piece of colonic tissue measuring 2.5 x 2.0 x 0.5 cm. Multiple sutures are noted. [place] sections are submitted in one cassette. / SJ:markus 07/28/2022 C - Received in fixative is one container labeled with the patient's name and designated sigmoid donut. The specimen consists of a donut-shaped piece of colonic tissue measuring 1.5 x 1.5 x 1.5 cm. [place] sections are submitted in one cassette. / :markus 07/28/2022 D - Received in fixative is one container labeled with the patient's name and designated appendix. The specimen consists of a C-shaped appendix measuring 7.0 cm in length and up to 0.6 cm in diameter. The attached periappendiceal adipose tissue measures up to 1.0 cm in width. No obvious perforation is identified. The serosa is congested. The lumen is pinpoint. No fecalith is identified. The entire appendix is submitted in three cassettes. Cassette 1 contains the tip and proximal portion. / SJ:markus 07/28/2022 TC: CPT: 63815, 05960, 69492 x2
[2022-07-28] MEDS: Lactated Ringers 1,000 ML 40 ML IV (06:05)
[2022-07-28] MEDS: Magnesium 1 GM over 15 mins IV (06:24)
[2022-07-28] MEDS: Acetaminophen 500 MG Tablet 1000 MG PO ×3 (06:24→23:19)
[2022-07-28] MEDS: Gabapentin 600 MG Tablet PO (06:25)
[2022-07-28 06:26] LABS: Bedside Glucose 98 mg/dL (74-106)
--- NOTE | 2022-07-28 06:42 | PCM.HP.BLA ---
History and Physical Date of Admission: 07/28/22 Allergies No Known Allergies Allergy (Verified 06/10/22 09:53) Medications aspirin 81 mg chewable tablet 81 mg PO QHS heart health 11/19/13 [History Confirmed 07/14/22] melatonin 10 mg sublingual tablet 10 mg PO QHS sleep 04/05/14 [History Confirmed 07/14/22] multivitamin with folic acid 400 mcg tablet (Thera) 1 tab PO QHS supplement 04/05/14 [History Confirmed 06/10/22] nitroglycerin 0.4 mg sublingual tablet 0.4 mg sublingual Q5-15M PRN chest pain #25 tabs 09/05/21 [Rx Confirmed 06/10/22] ticagrelor 90 mg tablet (Brilinta) 90 mg PO BID #180 tabs 09/05/21 [Rx Confirmed 07/14/22] nwqhpsf-smnxsjomlbdwm-kvslsonv 250 mg-250 mg-65 mg tablet (Excedrin Migraine) 2 tab PO DAILY PRN Pain 04/01/22 [History Confirmed 06/10/22] ondansetron 4 mg disintegrating tablet 4 mg PO Q8H PRN nausea and vomiting #14 tabs 04/01/22 [Rx Confirmed 06/10/22] lisinopril 5 mg tablet 5 mg PO DAILY #90 tabs 06/10/22 [Rx Confirmed 07/14/22] rosuvastatin 20 mg tablet 20 mg PO DAILY 06/10/22 [History Confirmed 07/14/22] cephalexin 500 mg tablet 500 mg PO .COMPLEX #6 tabs 07/14/22 [Rx Confirmed 07/14/22] magnesium hydroxide 400 mg/5 mL oral suspension (Dulcolax (magnesium hydroxide)) 400 mg PO QHS PRN 07/14/22 [History Confirmed 07/14/22] metoprolol succinate 25 mg tablet,extended release 24 hr 25 mg PO DAILY 07/14/22 [History Confirmed 07/14/22] metronidazole 500 mg tablet 500 mg PO .COMPLEX #6 tabs 07/14/22 [Rx Confirmed 07/14/22] ramipril 1.25 mg capsule 1.25 mg PO DAILY 07/14/22 [History Confirmed 07/14/22] PFSH Medical History? Atherosclerosis of coronary artery of [place] heart without angina pectoris Coronary artery disease Former smoker Hypertension Kidney stones Migraines Myocardial infarct ST elevation (STEMI) myocardial infarction Surgical History? History of coronary artery stent placement (08/20/21) Social History? Smoking Status:? Former smoker how long ago did patient quit smoking:? 2010 alcohol intake:? current alcohol intake frequency: holidays/special occasions only substance use type:? does not use caffeine:? Yes Type: coffee Number of servings: 2 HPI HPI Surgical H&P: Yes HPI: Patient is a 67 y/o M I am seeing for an update history and physical. Patient denies any recent hospitalizations or illnesses. He notes being placed on oral antibiotics 2 months ago for a flare-up of his diverticulitis. He notes he is not taking any antibiotics at this time. Patient notes he consistently has a 3 out of 10 dull discomfort in the left lower quadrant. He notes his discomfort will fluctuate with his diet. Patient denies any severe amount of pain or a fever. Patient denies any previous complications with anesthesia. He notes a myocardial infarction in July of 2021. Patient is currently on Brilinta. He denies any current chest pain. Patient notes he does having occasional bright red rectal bleeding from hemorrhoids. He notes this is diet related as well.? Patient's previous history per Dr. Sandhu: 66-year-old gentleman is referred by Dr. Zurdo Sánchez for surgical consultation regarding chronic left lower quadrant abdominal pain and a written copy of my surgical consult recommendations will return to him.? The patient had a CT scan of the abdomen pelvis done through the emergency room on January 13, 2022.? This was felt to show steatosis, multiple gallstones, and diverticulosis of the sigmoid colon with no acute findings at that time.? There does appear to be apparent air in the impression suggesting diverticulitis.? The patient had a previous CT scan December 30, 2021 showing mild sigmoid diverticulitis without perforation or abscess.? Renal calculi.? Stable gallstones.? Enlarged prostate.? He had had a previous CT scan done November 19, 2020 showing sigmoid diverticulosis with with associated fat stranding possible mild diverticulitis and he to had a previous CT scan done September 01, 2017 showing diverticulosis.? Right-sided kidney stone was seen at that time. As of January 13, 2022 white blood cell count was 9.5 with a hemoglobin 14.3 medic at 41.4 platelet count 167,000 with a left shift with 91% neutrophils.? Liver function tests were normal at that time. Of additional note is that August 20, 2021 he presented to the [facility] emergency room with chest pain was found to have been inferior ST segment elevation NC he underwent coronary angiography he had 90% stenosis of the right coronary artery stent was placed.? He has had a remote history of coronary angioplasty to the RCA LAD and OM1 12 years prior.? He is currently on Brilinta therapy The patient states that remotely he had 2 very severe bouts of diverticulitis.? He claims that his bouts recently air think seemingly less severe although he did require hospitalization.? He automatically cuts back and takes a clear liquid diet.? He finds that meat sometimes tends to offend him.? He is finding it increasingly difficult to adjust his diet and avoid the discomfort. Patient states that he thinks his most recent colonoscopy was within the past [address] Vipul Lobo. January 13, 2022 STUDY:? CT ABDOMEN AND PELVIS WITH CONTRAST REASON FOR EXAM: ? Male, 66 years old.? Fever, recent diverticulitis RADIATION DOSAGE (If Supplied By Facility):? CTDIvol = ( 9.76 ) mGy, DLP = ( 508.65 ) mGycm TECHNIQUE: ? Transaxial images were obtained from the dome of the diaphragm to the symphysis pubis without oral contrast. IV 100mL Isovue-300 was administered.? Sagittal and coronal images were reconstructed. Individualized dose optimization techniques were used for this CT. COMPARISON: ? Comparison is made with prior study 12/30/2021. FINDINGS: The visualized lung bases are unremarkable.? Coronary artery calcification. There is decreased attenuation of the liver consistent with steatosis. There is a 1.1 cm hypodensity with peripheral enhancement in the inferior aspect of the right lobe of the liver suggestive of a hemangioma.? There are multiple small gallstones.? There are multiple benign calcified granulomata of the spleen.? Normal pancreas. There is a small, circumscribed, smooth, low attenuation left adrenal mass, consistent with an adrenal adenoma.? Normal right adrenal gland. 1.6 cm cyst in the midportion of the right kidney.? Bilateral nonobstructive intrarenal calculi. Normal visualized stomach.? Normal small intestine.? There are multiple colonic diverticula consistent with diverticulosis.? No acute findings are seen at this time.? The appendix is visualized and appears normal. Normal abdominal aorta.? Normal inferior vena cava.? Normal retroperitoneum. Normal urinary bladder.? There is enlargement of the prostate gland.? This causes indentation of the bladder base. Normal abdominal wall.? There are degenerative changes of the visualized lumbar spine. CT/Abdomen/Pelvis W IV Cont ONLY IMPRESSION: Sigmoid diverticulitis.? No inflammatory process is seen at this time. Multiple small gallstones. Nonobstructive bilateral intrarenal calculi. ? Electronically Signed: Jg Marrero MD at 15:02 EDT , I now have information from Dr. Vipul Lobo of a screening colonoscopy that was performed October 16, 2020.? This demonstrates diverticulosis throughout the sigmoid colon.? Bowel prep was felt to be excellent.? No polyps identified. ROS General General: No weight change, appetite, fatigue, colon cancer, breast cancer or weakness HEENT HEENT: No difficulty swallowing, eye injury, eye surgery, swollen glands or hoarseness Endo Endocrine: No thyroid disease, diabetes mellitus, thyroid cancer, Hair loss, heat intolerance or cold intolerance Skin Skin: No rash or changing moles Breast Breast: No left breast lump, right breast lump, nipple discharge, breast pain, abnormal mammogram, abnormal US or breast enlargement Musc Musculoskeletal: No back problems, arthritis, rheumatoid arthritis, gout or joint pain Cardio Cardiovascular: No murmur, pacemaker, heart disease, atrial fibrillation, high blood pressure, heart attack, heart stent, palpitations, shortness of breat with exertion or chest pain Psych Psychiatric: No depression, anxiety or hearing voices Resp Respiratory: No shortness of breath, No sleep apnea, No cough, No COPD, No asthma, No emphysema and No wheezing Gastro Gastrointestinal: No abdominal pain, No nausea or vomiting, No diarrhea, No constipation, No blood in stool, No acid reflux, No hemorrhoids, No ulcers, No gallbladder problem and No black,tarry stools Adam Hematologic: No blood thinners, No blood disorders, No bleeding, No anemia and No blood clots Neuro Neurologic: No system reviewed and no additional complaints, except as documented, No as per HPI, No abnormal gait, No abnormal hearing, No abnormal movements, No abnormal speech, No behavioral changes, No burning sensations, No confusion, No convulsions, No disequilibrium, No dizziness, No localized weakness, No frequent falls, No headache(s), No lack of coordination, No loss of vision, No memory loss, No numbness, No other visual disturbances, No radicular pain, No restless legs, No sensory deficit, No syncope, No tingling, No tremor(s), No weakness and No other Exam Const General: cooperative, healthy appearing, comfortable and no acute distress [facility] [place] Head: normal to inspection Eyes General: appearance normal, both eyes and all related structures Neck Neck: normal visual inspection Neck mass: No Chest Chest palpation & inspection: normal inspection of the chest Resp Effort & Inspection: normal respiratory effort Auscultation: clear to auscultation bilaterally Cardio Rate: regular rate Rhythm: regular rhythm GI Palpation: soft and tender in the LLQ Auscultation: normal bowel sounds Musc Cervical Spine: normal cervical lordosis Skin General: no rashes or lesions noted Neuro General: no focal motor deficits and CN's II-XI intact bilaterally Extrem General: normal to inspection Psych Appearance: grossly normal Affect: normal affect Assessment and Plan Assessment and Plan (1) Diverticulitis: ?Status:?Acute ?Plan: Patient with continued smoldering diverticulitis. Dr. Sandhu will plan to perform an ERAS laparoscopic sigmoid colectomy. Procedure details, risks and benefits have been explained and reviewed. Patient will hold his Brilinta for 5 days prior to the procedure. Post-op diet and restrictions have been provided to the patient. Patient has had the opportunity to ask and have questions answered. Patient verbally understands and agrees with the plan I have examined the patient and the H&P has been reviewed. There are no clinical changes since date of exam. William Sandhu M.D., F.A.C.S.
--- NOTE | 2022-07-28 07:00 | DCINST_ITS ---
Discharge Instructions Procedure General Surgery Diet Discharge Diet: Light diet - advance as tolerated (if you have questions about your diet instructions, please talk to you doctor.) Activity Discharge Activity: May Not Drive (for 3-5 days or while taking narcotic pain medicine.) May shower in (days): 1 Lifting Restrictions: 10 pounds Dressing / Incision Call your doctor if your incision/area has: Continuous Slow Oozing, Sudden Increased Bleeding, Increased Pain/ Swelling, Increased Redness and Foul Smelling Discharge Call your doctor if you observe: Fever of 101 or Higher Suture Line Care: Avoid Pulling/Pushing and Avoid Pinching/Bending Additional Dressing/Incision Instructions:: Change or remove dressing in 4 days. Leave steri-strips in place for 1 week. Follow Up Care Please Follow Up With: William Sandhu MD When: Call [phone] to make an appointment to be seen in about 10 days. Test Results: Test results from this visit will be discussed in further detail at your follow- up appointment, if applicable. Discharge Plan Admission Admit Date/Time: 07/28/22 05:27 Primary Reason for Your Visit: Chronic recurrent sigmoid diverticulitis Attending Provider: William Sandhu Primary Care Provider: Zurdo Sánchez Instructions Additional Instructions / Restrictions: Colectomy Diet ? Start light with soups and soft bland foods. Refer to your transitional diet instruction sheet Activity ? You may drive in 5-7 days but not while taking narcotic pain medication. ? I encourage walking. You may go up steps, one at a time. ? Do not swim or use hot tubs for 2 weeks. Lifting ? You may lift up to 10 pounds for the first 2 weeks. You may advance to 20 pounds for the next 3 weeks. Dressings/Incision ? You may shower OVER your plastic dressings ? Do NOT tub bathe for 1 week ? Leave plastic dressings on for 3 days. ? When plastic dressings are removed, you will find steri strips. It is okay to continue showering with them in place, pat them dry. ? You may remove steri-strips after 1 week. We recommend getting them soaking wet for easier removal. Medications ? Anesthesia used during surgery and pain medications may cause constipation. I recommend initiating on the day of surgery a fiber supplement like, Metamucil, Citrucel, FiberCon, Benefiber, or a generic form of these medications. 1 heaping tablespoon in water daily. You may continue to utilize any bowel regimen or oral laxatives that you routinely take. ? As long as you are not intolerant to Tylenol, acetaminophen, ibuprofen, Motrin, Advil, Aleve, or similar medications, I would recommend transitioning to these [id number] medicines as soon as possible instead of continued use of narcotic pain medication. Follow up ? You should call [facility] soon after surgery, at [phone] option 1 to make a follow up appointment for 7-10 days after your surgery. Transitional Diet Beverages: ? Soda (cola, diet cola, lemon-[place], diet lemon-[place], lulu dacia, diet lulu dacia) ? Tea (hot or iced) ? Milk (low-fat, 2%, lactose free) ? Coffee ? Juice (without pulp) ? Oral Nutrition supplement Breakfast: ? Hot cereal (oatmeal or cream of wheat) ? Scrambled eggs ? Blueberry muffin ? Cold cereal (no whole grain cereals) ? Angie (white) Lunch or Dinner: Deli Items: Hot Items: [place] sandwich Roast [place] Tuna salad (sandwich or alone) Macaroni & Cheese Egg salad (sandwich or alone) Mashed potatoes & gravy Chicken salad (sandwich or alone) Carrots Green beans Cold Sides: Soups: Cottage cheese Vegetable soup Yogurt Chicken noodle Hardboiled egg Dessert: ? Gelatin, pudding, side kick (juice slushie) Discharge Orders/Prescriptions Prescriptions: New oxycodone 5 mg Tablet 5 mg PO Q6H PRN PRN (Reason: Pain Score 4-10) 2 Days Qty: 3 0RF Continued nitroglycerin 0.4 mg tablet, sublingual 0.4 mg sublingual Q5-15M PRN (Reason: chest pain) Qty: 25 3RF Rx Instructions: do not exceed 3 doses per episode rosuvastatin 20 mg tablet 20 mg PO DAILY ramipril 1.25 mg capsule 1.25 mg PO QHS metoprolol succinate 25 mg tablet extended release 24 hr 25 mg PO DAILY aspirin 81 MG tablet,chewable 81 mg PO QHS Excedrin Migraine 250-250-65 mg Tablet 2 tab PO DAILY PRN (Reason: Pain) ondansetron 4 mg tablet,disintegrating 4 mg PO Q8H PRN (Reason: nausea and vomiting) Qty: 14 0RF magnesium 200 mg Tablet 400 mg PO DAILY lisinopril 5 mg tablet 5 mg PO DAILY Held Brilinta 90 mg tablet 90 mg PO BID Hold Instructions: Resume on 08/02/22. Hold medication until Thursday Label Comments: STOP 5 DAYS PRIOR TO OR Discontinued metronidazole 500 mg tablet 500 mg PO .COMPLEX Rx Instructions: Take 2 (two) tablets at 1300, 1500, 2300 the day prior to the procedure cephalexin 500 mg tablet 500 mg PO .COMPLEX Rx Instructions: Take Two (2) tablets at 1300, 1500, and 2300 pm the day prior to procedure Other Ambulatory Orders: CBC W/Diff, Automated (Routine) Timeframe: 20220731 Facility: [facility] - Location: Laboratory Ordered By: Cece HERNANDES Referrals / Follow Up: Zurdo Sánchez MD [Primary Care Provider] - William Sandhu MD [Med Staff - Active Staff] - 08/08/22 (Please call our office to schedule an appointment for a follow-up with Dr. Sandhu on 08/08/22) Disposition Disposition (needs filled in before D/C Order can be placed): Home, Self Care
[2022-07-28] MEDS: 0.9% Normal Saline (Pres. free 10 ML Vial (08:45)
[2022-07-28] MEDS: BUPIVACAINE LIPOSOME/PF 20 ML VIAL OPERA.SITE (08:45)
[2022-07-28] MEDS: Bupivacaine 0.25% 30 ML Vial (08:45)
--- NOTE | 2022-07-28 11:56 | PCM.OPRPT ---
Report of Operation Date of Procedure: 07/28/22 Pre-Operative Diagnosis: Chronic recurrent sigmoid diverticulitis Post-Operative Diagnosis: Same Surgery/Procedure Performed:: Laparoscopic sigmoid colectomy with mobilization of the splenic flexure. Bilateral transverses abdominal plane block Incidental laparoscopic appendectomy Description of Surgical Findings:: Timeout informed consent was obtained. 67-year-old gentleman was taken to the operating placed upon the table underwent general endotracheal ovation esthesia cefotetan 2 g were given intravenously preoperatively he was then placed in a low lithotomy position with a sandbag support. The abdomen and perineum sterilely prepped and draped. Superior into the right of the umbilicus 5 mm incision was created using a 5 mm Visiport technique clean access was gained to the abdomen. Absolutely no evidence of any trocar injuries. 5 mm trocars and placed in the right lower quadrant x 2 and an additional 1 near the epigastric area there were adhesions to a previous laparoscopic bilateral inguinal hernia repair with the appendix and cecum adherent to the anterior abdominal wall in the right lower quadrant these adhesions had to be transected using sharp and Enseal dissection. Having achieved that I could then see that there is induration and inflammation of the sigmoid colon at the pelvic brim. I incised the white line of Toldt all the way up to the splenic flexure I then transected the gastrocolic omentum off of the transverse colon and with some effort admittedly got the splenic flexure mobilized. A small window in that apical area occurred but no interference with blood vessels. I elevated the descending colon completely then off the retroperitoneum. There were inflammatory changes of the omentum in the left lower quadrant at the pelvic brim so I carefully used the Enseal device to incise at staying close to the colon and then incised the peritoneum down to the peritoneal reflection of the pelvis dissected through the mesentery of the sigmoid colon using the Enseal device and carried that down to the pelvis. I then upsized the right lower quadrant anterior iliac crest 5 mm trocar site to a 10 mm trocar site and inserted a 60 mm [place] stapler with 2 firings transected the rectosigmoid. Then kept inspecting and elevated the left colon to I felt that I had the retroperitoneal attachments freed. The peritoneum overlying the ureter was not intubated. [place] that I had good mobilization. I then converted now to a suprapubic mini Pfannenstiel incision transverse incision was created the rectus fascia was transected horizontally and then the peritoneum was incised vertically a small wound protector was placed. To assist with some hemostasis of the left upper quadrant I pushed a moist laparotomy pad in that area while I continue to work. Exited the sigmoid colon after I felt that I had adequate length transected the remainder of the mesentery with the Enseal device and where needed with 4-0 silk sutures transected the sigmoid placed a whip suture of 2 Prolene. It is of note there were multiple diverticula still remaining in the sigmoid colon but the dense area of maximal diverticular disease and what was felt to be indurated tissue was removed. Placed a 33 mm anvil easily within the colon and secured the whip suture and added a second whip suture to assure good apposition. Dabbed with Betadine drop that back in the abdomen. The rectum was irrigated with diluted Betadine solution and then gentle dilators were inserted and then the stapler was inserted. Was able to get the anvil out anterior wall of the rectum close to the staple line. Made at the 2 together. Applied the stapler and fired the stapler with good audible click. Removed the stapler inspected the donuts they were absolutely completely intact. Then used a rigid sigmoid scope and air tested the anastomosis and was completely air tight the excess fluid was aspirated free from the rectal area. There was no tension on the rectosigmoid and it had had nice vascularity particularly viewed while doing the pursestring staple line. Because of the floppy cecum and adhesions that were present I elected at this point to go ahead and do an incidental appendectomy. The mesoappendix was transected with Enseal device and the [place] with a blue load was used to transect the appendix flush with the cecum. The abdomen was was inspected was hemostatic the greater omentum was placed overlying the small bowel. A bilateral transversus abdominis plane block was performed with 20 cc of Exparel diluted with 60 cc of 0.5 sent Marcaine diluted to 100 cc using saline. This was done under laparoscopic visualization bilaterally and I felt that I had a good injection. Finally the right lower quadrant trocar was removed and a U suture of 4-0 Vicryl was placed using a grainy needle. The abdomen was allowed to deflate of the CO2. The small wound protector suprapubically I removed the appendix. Now the peritoneum in that location was closed with a running 0 PDS. The anterior rectus sheath was closed with a running 0 PDS. Skin edges were approximated with interrupted or running subicular 4 Monocryl. Steri-Strips Telfa OpSite dressings applied. Specimen sigmoid colon and proximal distal donuts and appendix, drains none, blood loss 50 cc. Sponge and instrument and needle counts were reported to the surgeon to be correct. Patient tolerated the procedure well was taken to the recovery room in satisfied condition without apparent complication William Sandhu M.D., F.A.C.S. Surgeon: William Sandhu Type of Anesthesia: General and Local Anesthesiologist: Osmel Mcclelland
[2022-07-28] MEDS: oxyCODONE 5 MG Tablet PO (14:44)
--- NOTE | 2022-07-28 15:56 | PCM.PN.SRG ---
Subjective Subjective Was found resting. He seemed comfortable enough. He was able to come to a sitting position on his own. No nausea. Objective Data Objective Data Vital Signs: Vital Signs Temp Pulse Resp BP Pulse Ox O2 Del Method O2 Flow Rate 98 F 83 16 125/87 H 100 Nasal Cannula 3 07/28/22 14:30 07/28/22 14:30 07/28/22 14:30 07/28/22 14:30 07/28/22 14:30 07/28/22 14:30 07/28/22 14:30 FiO2 100 07/28/22 12:45 Oxygen Flow Rate (L/min) 3 Oxygen Delivery Method Nasal Cannula Weight: 164 lb Body Mass Index (BMI) 24.2 Intake & Output: Intake and Output for Last 24 Hours 07/26/22 07/27/22 07/28/22 23:59 23:59 23:59 Intake Total 4852 / 4852 Output Total 395 / 395 Balance 4457 / 4457 Lab / Micro Data Result Diagrams: 07/22/22 09:51 07/22/22 09:51 Labs: Laboratory Results - last 24 hr 07/28/22 05:56: POC Glucose 98 Physical Exam GI GI Narrative: Softly distended, dressings clean and dry Assessment & Plan Assessment/Plan (1) Diverticulitis: PLAN: It appears that the patient actually got quite a bit of IV fluid per anesthesia during the procedure. Urine output is adequate. Patient appears comfortable. We discussed mobilization. I will also make sure that he is provided an incentive spirometer. William Sandhu M.D., F.A.C.S.
[2022-07-28] MEDS: Ondansetron ODT 4 MG Tablet PO (16:14)
[2022-07-28] MEDS: Atorvastatin Calcium 40 MG Tablet PO (21:19)
[2022-07-28] MEDS: Ensure Plus High Protein 120 ML LIQUID PO (21:19)
[2022-07-28] MEDS: Docusate Sodium 100 MG Capsule PO (21:19)
[2022-07-29] VITALS (7 sets, daily range): BP systolic 96–132; BP diastolic 59–84; PULSE 78–92; RESP 15–18; TEMP 36.8–37.2; O2SAT 95–100
[2022-07-29] MEDS: Acetaminophen 500 MG Tablet 1000 MG PO ×4 (05:33→23:39)
--- NOTE | 2022-07-29 06:07 | PCM.PN.SRG ---
Subjective Subjective Patient notes mild soreness. Very minimal flatus. Nausea briefly postoperatively has resolved. He is able to walk comfortably. Objective Data Objective Data Vital Signs: Vital Signs Temp Pulse Resp BP Pulse Ox O2 Del Method O2 Flow Rate 98.2 F 92 18 96/59 L 96 Room Air 2 07/29/22 03:00 07/29/22 03:00 07/29/22 03:00 07/29/22 03:00 07/29/22 03:00 07/29/22 03:00 07/28/22 16:07 FiO2 100 07/28/22 12:45 Oxygen Flow Rate (L/min) 2 Oxygen Delivery Method Room Air Weight: 164 lb Body Mass Index (BMI) 24.2 Intake & Output: Intake and Output for Last 24 Hours 07/27/22 07/28/22 07/29/22 23:59 23:59 23:59 Intake Total 5622 / 5622 1200 / 1200 Output Total 1820 / 1820 1600 / 1600 Balance 3802 / 3802 -400 / -400 Lab / Micro Data Result Diagrams: 07/22/22 09:51 07/22/22 09:51 Labs: Laboratory Results - last 24 hr 07/28/22 05:56: POC Glucose 98 Physical Exam Const oriented x3 Resp normal respiratory effort Cardio regular rate GI GI Narrative: Soft, mildly distended, no particular focal tenderness, dressings clean and dry Assessment & Plan Assessment/Plan (1) Diverticulitis: PLAN: We will remove Benítez and Hep-Lock IV. Allow transitional diet but I did caution the patient about being careful with this. He will continue to mobilize. Progress so far is as anticipated. William Sandhu M.D., F.A.C.S.
[2022-07-29 06:39] LABS: Hematocrit 37.1 % (40-54); Hemoglobin 12.1 g/dL (13.0-16.5); Mean Corp Hgb Conc 32.6 g/dL (32-36); Mean Corpuscular Hgb 29.7 pg (27.0-32.0); Mean Corpuscular Volume 91.2 fL (80-94); Mean Platelet Vol. 9.6 fl (6.2-12.0); Platelet Count 201 K/mm3 (150-450); RBC Distribution Width CV 12.9 % (11.6-14.6); RBC Distribution Width SD 42.2 fl (35.1-43.9); Red Blood Count 4.07 M/mm3 (4.6-6.2); White Blood Count 12.6 K/mm3 (4.4-11.0)
[2022-07-29 07:10] LABS: Anion Gap 7 (5-15); BUN 12 mg/dL (7-18); BUN/Creat Ratio 10.7 RATIO (10-20); Calcium,Total 8.9 mg/dL (8.5-10.1); Chloride 108 mmol/L (98-107); Creatinine, Serum 1.12 mg/dL (0.70-1.30); EST Glomerular Filtration Rate 69 mL/min (>60); Est Glom Filt Rate - Afr Amer 84 mL/min (>60); Estimated Creatinine Clearance 63.13 ml/min; Glucose 115 mg/dL (74-106); Potassium 4.2 mmol/L (3.5-5.1); Sodium Level 140 mmol/L (136-145)
[2022-07-29] MEDS: Metoprolol(XL)Succ 25 MG Tablet PO (07:37)
[2022-07-29] MEDS: Lisinopril 5 MG Tablet PO (07:37)
[2022-07-29] MEDS: Docusate Sodium 100 MG Capsule PO ×2 (07:37→21:04)
[2022-07-29] MEDS: Ensure Plus High Protein 120 ML LIQUID PO ×2 (07:41→21:06)
[2022-07-29] MEDS: oxyCODONE 5 MG Tablet PO ×2 (07:48→19:49)
--- NOTE | 2022-07-29 10:12 | CASEMGMT ---
JAVIER BEAL Assessment: Face to Face with pt for initial transition planning/care coordination assessment. RN LIAN introduced self and role at [facility], pt voices understanding and consents to assessment. Pt is A/O x4 and answers all questions appropriately at this time. Pt lying in bed in no distress. Care providers, pharmacy, and demographics verified/updated. Admitting Dx: lap sigmoid colectomy PCP:Gonzalo Specialists: Edson, OR; Shanika, uro; [facility], cardio Preferred Pharmacy: [facility] Insurance: [facility] Prescription Benefit: yes LNOK: Fifi Rosales, Living Arrangements: Pt lives with in a single story home with 1 step to enter. Pt reports he is I in ADL's and denies concerns at home. Transportation: Pt drives self and denies concerns with transportation. DME/HHC/SNF: Pt denies having any DME in the home, previous HHC or SNF stays. Pt did just have a 1x nurse visit through his insurance last week to see what the service was about. Pt states he didn't have any needs. Pt states no concerns with going home at time of dc. Pt states no further concerns/needs. CM to follow. Advised pt to ask CM if any further question/concerns/needs arise, voices understanding. Pt Goal: Home Plan: Home
--- NOTE | 2022-07-29 13:48 | PCM.PN.SRG ---
Subjective Subjective Abdominal cramping and bloating, no nausea, minimal flatus, not as comfortable as this morning Objective Data Objective Data Vital Signs: Vital Signs Temp Pulse Resp BP Pulse Ox O2 Del Method O2 Flow Rate 98.7 F 78 18 132/80 H 100 Room Air 2 07/29/22 10:19 07/29/22 10:19 07/29/22 10:19 07/29/22 10:19 07/29/22 10:19 07/29/22 10:07/28/22 16:07 FiO2 100 07/28/22 12:45 Oxygen Flow Rate (L/min) 2 Oxygen Delivery Method Room Air Weight: 164 lb Body Mass Index (BMI) 24.2 Intake & Output: Intake and Output for Last 24 Hours 07/27/22 07/28/22 07/29/22 23:59 23:59 23:59 Intake Total 5622 / 5622 1200 / 1200 Output Total 1820 / 1820 1800 / 1800 Balance 3802 / 3802 -600 / -600 Lab / Micro Data Result Diagrams: 07/29/22 05:39 07/29/22 05:39 Labs: Laboratory Results - last 24 hr 07/29/22 05:39: WBC 12.6 H, RBC 4.07 L, Hgb 12.1 L, Hct 37.1 L, MCV 91.2, MCH 29.7, MCHC 32.6, RDW Std Deviation 42.2, RDW Coeff of Kenan 12.9, Plt Count 201, MPV 9.6 07/29/22 05:39: Sodium 140, Potassium 4.2, Chloride 108 H, Carbon Dioxide 25.0, Anion Gap 7, BUN 12, Creatinine 1.12, Estim Creat Clear Calc 63.13, Est GFR (MDRD) Af Amer 84, Est GFR (MDRD) Non-Af 69, BUN/Creatinine Ratio 10.7, Glucose 115 H, Calcium 8.9 Physical Exam GI GI Narrative: Abdomen is clearly distended, focally tender, Assessment & Plan Assessment/Plan (1) Diverticulitis: PLAN: Plan Continue current treatment. I have asked him to cut back to mostly clear liquids. We will continue ongoing surgical postoperative care. William Sandhu M.D., F.A.C.S.
[2022-07-29] MEDS: Atorvastatin Calcium 40 MG Tablet PO (21:04)
[2022-07-30 04:00] VITALS: BP 114/80; PULSE 80; RESP 14; TEMP 37.8; O2SAT 95
[2022-07-30 05:30] VITALS: TEMP 37.1
[2022-07-30] MEDS: Acetaminophen 500 MG Tablet 1000 MG PO ×2 (05:30→12:09)
--- NOTE | 2022-07-30 05:33 | NURSING ---
temp 98.8
--- NOTE | 2022-07-30 06:11 | PCM.PN.SRG ---
Subjective Subjective Fever noted to 100. The patient has the room quite warm and is using a warming K-pad. He states that he feels similar to yesterday. He has had a small amount per rectum before blood. Small amount of flatus. He is experiencing abdominal cramping. He notes incisional soreness. No nausea. Objective Data Objective Data Vital Signs: Vital Signs Temp Pulse Resp BP Pulse Ox O2 Del Method O2 Flow Rate 100.0 F H 80 14 114/80 95 Room Air 2 07/30/22 04:00 07/30/22 04:00 07/30/22 04:00 07/30/22 04:00 07/30/22 04:00 07/30/22 04:00 07/28/22 16:07 FiO2 100 07/28/22 12:45 Oxygen Flow Rate (L/min) 2 Oxygen Delivery Method Room Air Weight: 164 lb Body Mass Index (BMI) 24.2 Intake & Output: Intake and Output for Last 24 Hours 07/28/22 07/29/22 07/30/22 23:59 23:59 23:59 Intake Total 5622 / 5622 1200 / 1200 Output Total 1820 / 1820 1800 / 1800 Balance 3802 / 3802 -600 / -600 Lab / Micro Data Result Diagrams: 07/29/22 05:39 07/29/22 05:39 Labs: Laboratory Results - last 24 hr 07/29/22 05:39: WBC 12.6 H, RBC 4.07 L, Hgb 12.1 L, Hct 37.1 L, MCV 91.2, MCH 29.7, MCHC 32.6, RDW Std Deviation 42.2, RDW Coeff of Kenan 12.9, Plt Count 201, MPV 9.6 07/29/22 05:39: Sodium 140, Potassium 4.2, Chloride 108 H, Carbon Dioxide 25.0, Anion Gap 7, BUN 12, Creatinine 1.12, Estim Creat Clear Calc 63.13, Est GFR (MDRD) Af Amer 84, Est GFR (MDRD) Non-Af 69, BUN/Creatinine Ratio 10.7, Glucose 115 H, Calcium 8.9 Physical Exam Resp normal respiratory effort and clear to auscultation bilaterally GI GI Narrative: Abdomen is distended, very active bowel sounds noted, tenderness noted quite superficially both left and right lower quadrants particularly on the right. Dressings are clean and dry Assessment & Plan Assessment/Plan (1) Diverticulitis: PLAN: Continue postoperative care at this time. Laboratory pending. I anticipate reinitiating Brilinta on August 02, 2022 pending his ongoing progress Possible discharge later today pending progress
[2022-07-30 06:33] LABS: Absolute Lymphocyte Count 1.25 X10^3/uL (0.83-4.51); Basophil# 0.02 X10^3/uL; Basophil% 0.2 % (0-1); Eosinophil# 0.05 X10^3/uL; Eosinophils% 0.5 % (0-5); Hematocrit 34.1 % (40-54); Hemoglobin 10.9 g/dL (13.0-16.5); Lymphocyte # 1.25 X10^3/ul (0.83-4.51); Lymphocyte % 12.2 % (19-41); Mean Corpuscular Hgb 29.7 pg (27.0-32.0); Mean Corpuscular Volume 92.9 fL (80-94); Mean Platelet Vol. 9.9 fl (6.2-12.0); Monocyte# 0.87 X10^3/uL; Monocyte% 8.5 % (0-10); NRBC Flagged by Analyzer 0 % (0-5); Neutrophil % 78.2 % (47-70); Platelet Count 159 K/mm3 (150-450); Red Blood Count 3.67 M/mm3 (4.6-6.2); White Blood Count 10.2 K/mm3 (4.4-11.0)
[2022-07-30 08:00] VITALS: BP 110/70; PULSE 87; RESP 16; TEMP 36.7; O2SAT 98
[2022-07-30 10:03] VITALS: BP 110/70; PULSE 87; RESP 16; TEMP 36.7; O2SAT 98
[2022-07-30 10:08] VITALS: PULSE 97
[2022-07-30] MEDS: Metoprolol(XL)Succ 25 MG Tablet PO (10:08)
[2022-07-30] MEDS: Docusate Sodium 100 MG Capsule PO (10:08)
[2022-07-30] MEDS: Lisinopril 5 MG Tablet PO (11:11)
--- NOTE | 2022-07-30 14:54 | PCM.DC.SUM ---
Providers Date of Admission: 07/28/22 Primary Care Physician: Dr. Zurdo Sánchez MD Reason For Visit: LAP SIGMOID COLECTOMY Diagnosis Discharge Diagnosis (1) Diverticulitis: Status: Acute Code(s): K57.92 - Diverticulitis of intestine, part unspecified, without perforation or abscess without bleeding Medications at Discharge Home Medications aspirin 81 mg chewable tablet 81 mg PO QHS [facility] 11/19/13 nitroglycerin 0.4 mg sublingual tablet 0.4 mg sublingual Q5-15M PRN chest pain #25 tabs 09/05/21 mcxodbt-jlormsemwoaoa-efjwjgqo 250 mg-250 mg-65 mg tablet (Excedrin Migraine) 2 tab PO DAILY PRN Pain 04/01/22 ondansetron 4 mg disintegrating tablet 4 mg PO Q8H PRN nausea and vomiting #14 tabs 04/01/22 rosuvastatin 20 mg tablet 20 mg PO DAILY CHOLESTEROL 06/10/22 metoprolol succinate 25 mg tablet,extended release 24 hr 25 mg PO DAILY BP 07/14/22 ramipril 1.25 mg capsule 1.25 mg PO QHS HEART 07/14/22 lisinopril 5 mg tablet 5 mg PO DAILY BP 07/21/22 magnesium 200 mg tablet 400 mg PO DAILY SUPPLEMENT 07/21/22 ticagrelor 90 mg tablet (Brilinta) 90 mg PO BID BLOOD THINNER 07/21/22 oxycodone 5 mg tablet 5 mg PO Q6H PRN PRN Pain Score 4-10 2 days #3 tabs 07/30/22 Hospital Course Operations - (Laparoscopic sigmoid colectomy with mobilization of the splenic flexure. Bilateral transverses abdominal plane block. Incidental laparoscopic appendectomy) Summary of Care Provided Minutes Spent on Discharge: 30 Hospital Course: Patient is a 67 y/o M who presented for an elective colectomy for recurrent chronic diverticulitis. Dr. Sandhu performed a Laparoscopic sigmoid colectomy with mobilization of the splenic flexure.? Bilateral transverses abdominal plane block. Incidental laparoscopic appendectomy on 07/28/22. Patient tolerated the procedure well. Patient had an uneventful, uncomplicated hospitalization. Upon discharge, patient has tolerated his transitional diet without any nausea, vomiting. He has passed flatus and had multiple loose BM's. He notes generalized lower abdominal discomfort. He notes the abdominal discomfort is tolerable with Tylenol. He is urinating well. He is urinating well. He will resume his Brilinta on Thursday, 08/02. Patient will also obtain a CBC 1 day following discharge to recheck his Hgb. Physical Exam Const alert and oriented x3 GI soft to palpation GI Narrative: Incisions c/d/i. No erythema or infection noted. Inspection: abdominal distention Palpation: soft and tender other (generalized tenderness) Weight / BMI Weight Weight: 164 lb Body Mass Index (BMI) 24.2 ABG / Lab / Microbiology Data Result Diagrams: 07/30/22 05:41 07/29/22 05:39 Laboratory: Laboratory Results - last 24 hr 07/30/22 05:41: WBC 10.2, RBC 3.67 L, Hgb 10.9 L, Hct 34.1 L, MCV 92.9, MCH 29.7, MCHC 32.0, RDW Std Deviation 44.0 H, RDW Coeff of Kenan 13.0, Plt Count 159, MPV 9.9, Immature Gran % (Auto) 0.400, Neut % (Auto) 78.2 H, Lymph % (Auto) 12.2 L, [place] % (Auto) 8.5, Eos % (Auto) 0.5, Baso % (Auto) 0.2, Absolute Neuts (auto) 8.0 H, Absolute Lymphs (auto) 1.25, Nucleated RBC % 0 D/C Instructions Discharge Diet: Light diet - advance as tolerated (if you have questions about your diet instructions, please talk to you doctor.) May shower in (days): 1 Call your doctor if your incision/area has: Continuous Slow Oozing, Sudden Increased Bleeding, Increased Pain/ Swelling, Increased Redness and Foul Smelling Discharge Call your doctor if you observe: Fever of 101 or Higher Suture Line Care: Avoid Pulling/Pushing and Avoid Pinching/Bending Additional Dressing/Incision Instructions: Change or remove dressing in 4 days. Leave steri-strips in place for 1 week. Please Follow Up With: William Sandhu MD When: Call [phone] to make an appointment to be seen in about 10 days. Meaningful Use Info Meaningful Use Diagnoses (Choose all that apply): None applicable Discharge Plan Admission Admit Date/Time: 07/28/22 05:27 Primary Reason for Your Visit: Chronic recurrent sigmoid diverticulitis Attending Provider: William Sandhu Primary Care Provider: Zurdo Sánchez Instructions Additional Instructions / Restrictions: Colectomy Diet ? Start light with soups and soft bland foods. Refer to your transitional diet instruction sheet Activity ? You may drive in 5-7 days but not while taking narcotic pain medication. ? I encourage walking. You may go up steps, one at a time. ? Do not swim or use hot tubs for 2 weeks. Lifting ? You may lift up to 10 pounds for the first 2 weeks. You may advance to 20 pounds for the next 3 weeks. Dressings/Incision ? You may shower OVER your plastic dressings ? Do NOT tub bathe for 1 week ? Leave plastic dressings on for 3 days. ? When plastic dressings are removed, you will find steri strips. It is okay to continue showering with them in place, pat them dry. ? You may remove steri-strips after 1 week. We recommend getting them soaking wet for easier removal. Medications ? Anesthesia used during surgery and pain medications may cause constipation. I recommend initiating on the day of surgery a fiber supplement like, Metamucil, Citrucel, FiberCon, Benefiber, or a generic form of these medications. 1 heaping tablespoon in water daily. You may continue to utilize any bowel regimen or oral laxatives that you routinely take. ? As long as you are not intolerant to Tylenol, acetaminophen, ibuprofen, Motrin, Advil, Aleve, or similar medications, I would recommend transitioning to these ksmn-xek-qjfvcdu medicines as soon as possible instead of continued use of narcotic pain medication. Follow up ? You should call [facility] soon after surgery, at [phone] option 1 to make a follow up appointment for 7-10 days after your surgery. Transitional Diet Beverages: ? Soda (cola, diet cola, lemon-sitka, diet lemon-sitka, lulu dacia, diet lulu dacia) ? Tea (hot or iced) ? Milk (low-fat, 2%, lactose free) ? Coffee ? Juice (without pulp) ? Oral Nutrition supplement Breakfast: ? Hot cereal (oatmeal or cream of wheat) ? Scrambled eggs ? Blueberry muffin ? Cold cereal (no whole grain cereals) ? [place] (white) Lunch or Dinner: Deli Items: Hot Items: [place] sandwich Roast [place] Tuna salad (sandwich or alone) Macaroni & Cheese Egg salad (sandwich or alone) Mashed potatoes & gravy Chicken salad (sandwich or alone) Carrots Green beans Cold Sides: Soups: Cottage cheese Vegetable soup Yogurt Chicken noodle Hardboiled egg Dessert: ? Gelatin, pudding, side kick (juice slushie) Discharge Orders/Prescriptions Prescriptions: New oxycodone 5 mg Tablet 5 mg PO Q6H PRN PRN (Reason: Pain Score 4-10) 2 Days Qty: 3 0RF Continued nitroglycerin 0.4 mg tablet, sublingual 0.4 mg sublingual Q5-15M PRN (Reason: chest pain) Qty: 25 3RF Rx Instructions: do not exceed 3 doses per episode rosuvastatin 20 mg tablet 20 mg PO DAILY ramipril 1.25 mg capsule 1.25 mg PO QHS metoprolol succinate 25 mg tablet extended release 24 hr 25 mg PO DAILY aspirin 81 MG tablet,chewable 81 mg PO QHS Excedrin Migraine 250-250-65 mg Tablet 2 tab PO DAILY PRN (Reason: Pain) ondansetron 4 mg tablet,disintegrating 4 mg PO Q8H PRN (Reason: nausea and vomiting) Qty: 14 0RF magnesium 200 mg Tablet 400 mg PO DAILY lisinopril 5 mg tablet 5 mg PO DAILY Held Brilinta 90 mg tablet 90 mg PO BID Hold Instructions: Resume on 08/02/22. Hold medication until Thursday Label Comments: STOP 5 DAYS PRIOR TO OR Discontinued metronidazole 500 mg tablet 500 mg PO .COMPLEX Rx Instructions: Take 2 (two) tablets at 1300, 1500, 2300 the day prior to the procedure cephalexin 500 mg tablet 500 mg PO .COMPLEX Rx Instructions: Take Two (2) tablets at 1300, 1500, and 2300 pm the day prior to procedure Other Ambulatory Orders: CBC W/Diff, Automated (Routine) Timeframe: [id number] Facility: [facility] - Location: Laboratory Ordered By: Cece HERNANDES Referrals / Follow Up: Zurdo Sánchez MD [Primary Care Provider] - William Sandhu MD [Med Staff - Active Staff] - 08/08/22 (Please call our office to schedule an appointment for a follow-up with Dr. Sandhu on 08/08/22) Disposition Disposition (needs filled in before D/C Order can be placed): Home, Self Care Charges/Coding Visit Charges Inpatient E&M: 76981 Disch Hosp (No charge; post-op)
[2022-07-30 15:53] VITALS: BP 111/75; PULSE 83; RESP 18; TEMP 37; O2SAT 100
== END 2022-07-30 16:20 | disposition home or self-care (01) | DRG 331 ==
LOC: ACINP 07:01 → MS3 12:25
PROVIDERS: Anesthesiology; Admitting Provider Surgery; PCP Family Medicine; Referring Provider Surgery; Visit Provider Surgery
PROC: 0DTN0ZZ Resection of Sigmoid Colon, Open Approach (ICD-10-PCS; CPT 44204; principal; 2022-07-28 07:05)
DX: K57.32 Diverticulitis of large intestine without perforation or abscess without bleeding (principal); I10 Essential (primary) hypertension; I25.10 Atherosclerotic heart disease of native coronary artery without angina pectoris; I25.2 Old myocardial infarction; Z79.02 Long term (current) use of antithrombotics/antiplatelets; Z79.82 Long term (current) use of aspirin; Z79.899 Other long term (current) drug therapy; Z87.891 Personal history of nicotine dependence; Z95.5 Presence of coronary angioplasty implant and graft
CPT/HCPCS: 36415; 80048; 82962; 83735; 85025; 85027; 88302; 88304; 88307; 93005; 94668; 99252; J7120; C1760; G0463; J2405; J3475; J3490

== ENCOUNTER → 2022-07-31 | Outpatient (CLI) | payer MEDICARE, SELFPAY ==
[2022-07-31 11:13] LABS: Absolute Neutrophil Count 8.9 X10^3/uL (2.0-7.7); Basophil# 0.03 X10^3/uL; Basophil% 0.3 % (0-1); Eosinophil# 0.08 X10^3/uL; Eosinophils% 0.7 % (0-5); Hematocrit 35.1 % (40-54); Hemoglobin 11.5 g/dL (13.0-16.5); Lymphocyte % 12.3 % (19-41); Mean Corp Hgb Conc 32.8 g/dL (32-36); Mean Corpuscular Hgb 29.8 pg (27.0-32.0); Mean Corpuscular Volume 90.9 fL (80-94); Mean Platelet Vol. 9.7 fl (6.2-12.0); Monocyte% 7.9 % (0-10); NRBC Flagged by Analyzer 0 % (0-5); Neutrophil # 8.89 X10^3/uL (2.7-7.7); Neutrophil % 78.4 % (47-70); Platelet Count 183 K/mm3 (150-450); RBC Distribution Width CV 12.7 % (11.6-14.6); RBC Distribution Width SD 41.6 fl (35.1-43.9); Red Blood Count 3.86 M/mm3 (4.6-6.2); White Blood Count 11.4 K/mm3 (4.4-11.0)
== END | disposition home or self-care (01) ==
LOC: LAB 10:26
PROVIDERS: PCP Family Medicine; Referring Provider Physician Assistant; Visit Provider Physician Assistant
DX: K57.92 Diverticulitis of intestine, part unspecified, without perforation or abscess without bleeding (principal)
CPT/HCPCS: 36415; 85025

== ENCOUNTER → 2022-11-06 | Outpatient (CLI) | payer MEDICARE, SELFPAY ==
--- NOTE | 2022-11-06 13:05 | RAD_ITS ---
INDICATION: CALCULUS OF KIDNEY EXAMINATION/TECHNIQUE: X-RAY - XR Abdomen 1 View COMPARISON: CT abdomen and pelvis April 01, 2022. FINDINGS: A single frontal view of the abdomen was obtained. The superior abdomen is not entirely included in the examination. Several left renal stones are identified as on the digital intern view for the prior exam. Few probable right renal stones are identified, but the largest right renal stone present on the prior digital intern view is not clearly visualized. An 8 mm calcification projects over the right transverse process of L5 and is not clearly visualized on the prior exam at this location. This may represent a stone in the mid right ureter, but is not definitive. Calcified granulomata in the liver and spleen are redemonstrated. No dilated loops of small bowel. RAD/Abdomen Single View IMPRESSION: Left renal stones are identified as on the prior exam. Few probable right renal stones. Questionable stone in the mid right ureter as described. Electronically Signed: Musa Hernandez MD at 5:28 EDT ,
== END | disposition home or self-care (01) ==
PROVIDERS: PCP Family Medicine; Referring Provider Urology; Visit Provider Urology
DX: N20.0 Calculus of kidney (principal)
CPT/HCPCS: 74018

== ENCOUNTER → 2022-11-17 | Outpatient (CLI) | payer MEDICARE, SELFPAY ==
[2022-11-17 16:45] LABS: Hematocrit 41.8 % (40-54); Hemoglobin 13.4 g/dL (13.0-16.5); Mean Corp Hgb Conc 32.1 g/dL (32-36); Mean Corpuscular Hgb 28.6 pg (27.0-32.0); Mean Corpuscular Volume 89.3 fL (80-94); Mean Platelet Vol. 9.4 fl (6.2-12.0); Platelet Count 192 K/mm3 (150-450); RBC Distribution Width CV 12.5 % (11.6-14.6); RBC Distribution Width SD 41.1 fl (35.1-43.9); Red Blood Count 4.68 M/mm3 (4.6-6.2); White Blood Count 7.8 K/mm3 (4.4-11.0)
[2022-11-17 17:10] LABS: Anion Gap 4 (5-15); BUN 20 mg/dL (7-18); BUN/Creat Ratio 16.8 RATIO (10-20); Chloride 108 mmol/L (98-107); Creatinine, Serum 1.19 mg/dL (0.70-1.30); EST Glomerular Filtration Rate 65 mL/min (>60); Est Glom Filt Rate - Afr Amer 78 mL/min (>60); Glucose 104 mg/dL (74-106); Sodium Level 137 mmol/L (136-145)
== END | disposition home or self-care (01) ==
LOC: LAB 16:14
PROVIDERS: PCP Family Medicine; Referring Provider Urology; Visit Provider Urology
DX: Z01.812 Encounter for preprocedural laboratory examination (principal)
CPT/HCPCS: 36415; 80048; 85027

== ENCOUNTER → 2022-12-12 | Outpatient (CLI) | payer MEDICARE, SELFPAY ==
--- NOTE | 2022-12-12 15:35 | RAD_ITS ---
STUDY: X-RAY - PELVIS REASON FOR EXAM: Male, 67 years old. LOW BACK PAIN TECHNIQUE: One view of the pelvis was obtained. COMPARISON: None. FINDINGS: There is a non-specific bowel gas pattern. Normal visualized soft tissue structures. Normal bilateral iliac wings, sacroiliac joints and visualized sacrum. Normal visualized bilateral superior and inferior pubic rami. Normal pubic symphysis. Normal ischial tuberosities. Normal visualized right femoral head. Normal right acetabulum. Normal right hip joint. Normal visualized left femoral head. Normal left acetabulum. Normal left hip joint. RAD/Pelvis 1 or 2 Views IMPRESSION: Normal x-ray examination of the pelvis. Electronically Signed: Rad Rojo MD at 22:38 EDT ,
[2022-12-12 18:01] LABS: Erythrocyte Sedimentation Rate 3 mm/hr (0-20)
[2022-12-12 18:33] LABS: Rheumatoid Factor < 10.0 IU/mL (<15)
[2022-12-15 13:07] LABS: ANTINUCLEAR ANTIBODIES DIRECT Negative (Negative)
[2022-12-16 15:08] LABS: PROELU- Albumin, Urine 21.1 % (.); PROELU- Alpha-1-Globulin,Ur 3.2 % (.); PROELU- Beta Globulin, Ur 30.2 % (.); PROELU- Gamma Globulin, Ur 25.5 % (.); Total Protein, Ur 12.9 mg/dL (Not Estab.)
[2022-12-17 13:08] LABS: PROEL- A/G Ratio 1.4 (0.7-1.7); PROEL- Albumin 3.8 g/dL (2.9-4.4); PROEL- Alpha-1 Globulin 0.3 g/dL (0.0-0.4); PROEL- Alpha-2 Globulin 0.7 g/dL (0.4-1.0); PROEL- Beta Globulin 1.3 g/dL (0.7-1.3); PROEL- Gamma Globulin 0.6 g/dL (0.4-1.8); PROEL- Globulin, Total 2.8 g/dL (2.2-3.9); PROEL- TOTAL PROTEIN 6.6 g/dL (6.0-8.5)
== END | disposition home or self-care (01) ==
PROVIDERS: PCP Family Medicine; Referring Provider Family Medicine; Visit Provider Family Medicine
DX: M54.50 Low back pain, unspecified (principal)
CPT/HCPCS: 36415; 72170; 72202; 84165; 84166; 85652; 86038; 86431

== ENCOUNTER → 2023-01-08 | Outpatient (CLI) | payer MEDICARE, SELFPAY ==
[2023-01-08 10:26] LABS: PSA,Total - Annual Screen 2.23 ng/mL (0.00-4.00)
== END | disposition home or self-care (01) ==
LOC: LAB 09:03
PROVIDERS: PCP Family Medicine; Referring Provider Nurse Practitioner; Visit Provider Nurse Practitioner
DX: Z12.5 Encounter for screening for malignant neoplasm of prostate (principal)
CPT/HCPCS: 36415; 84153; G0103

== ENCOUNTER → 2023-06-04 | Outpatient (CLI) | payer MEDICARE, SELFPAY ==
--- OUTSIDE RECORDS SUMMARY | 2023-06-04 08:13 | XMS RPT_ITS | CCD ---
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 30 tablet 11 02/05/2023 02/05/2024 Active calcium carbonate 1500 mg oral tablet (1 source) Start: 05-01-2020 take 2 tablets by mouth once daily calcium carbonate 600 mg calcium (1,500 mg) tablet Take 2 tablets (1,200 mg) by mouth once daily. 0 05/01/2020 Active clopidogrel 75 mg oral tablet (1 source) P2Y12 Platelet Inhibitor take 1 tablet by mouth once daily clopidogrel (Plavix) 75 mg tablet Take 1 tablet (75 mg) by mouth once daily. 0 Active lisinopril 5 mg oral tablet (1 source) Angiotensin Converting Enzyme Inhibitor take 1 tablet by mouth once daily lisinopril 5 mg tablet Take 1 tablet (5 mg) by mouth once daily. 0 Active 24 hr metoprolol succinate 25 mg extended release oral tablet (1 source) beta-Adrenergic Elijah take 1 tablet by mouth once daily metoprolol succinate XL (Toprol-XL) 25 mg 24 hr tablet Take 1 tablet (25 mg) by mouth once daily. Do not crush or chew. 0 Active rosuvastatin calcium 40 mg oral tablet (3 sources) HMG-CoA Reductase Inhibitor Start: 02-05-2023 End: 02-05-2024 take 1 tablet by mouth once daily rosuvastatin (Crestor) 40 mg tablet Indications: Coronary artery disease involving georgetown coronary artery of [place] heart without angina pectoris Take 1 tablet (40 mg) by mouth once daily. 90 tablet 3 02/05/2023 02/05/2024 Active Completed/Discontinued Medications Medication Drug Class(es) Dates Sig (Normalized) Sig (Original) aspirin 81 mg / calcium carbonate 777 mg oral tablet (1 source) Platelet Aggregation Inhibitor, Nonsteroidal Anti-inflammator y Drug End: 3 take 1 tablet by mouth once daily aspirin-calcium carbonate 81 mg-300 mg calcium(777 mg) tablet Take 1 tablet by mouth once daily. 0 02/05/2023 Discontinued (Other) hydroCHLOROthiazide 25 mg oral tablet (1 source) Thiazide Diuretic Start: 1 End: 3 take 1 tablet by mouth once daily hydroCHLOROthiazide (HYDRODiuril) 25 mg tablet Take 1 tablet (25 mg) by mouth once daily. 0 05/01/2020 02/05/2023 Discontinued (Therapy completed) potassium citrate 15 meq extended release oral tablet (1 source) Start: 1 End: 3 take 1 tablet by mouth twice daily potassium citrate CR (Urocit-K-15) 15 mEq ER tablet Take 1 tablet (15 mEq) by mouth 2 times a day. 0 05/01/2020 02/05/2023 Discontinued (Therapy completed) Problems Active Problems Problem Classification Problem Date Documented Da te Episodic/Chronic Calculus of urinary tract (1 source) Kidney stone; Translations: [Calculus of kidney] Onset: 02-02-2023 02-05-2023 Episodic Coronary atherosclerosis and other heart disease (8 sources) Coronary arteriosclerosis; Translations: [Atherosclerotic heart disease of [place] coronary artery without angina pectoris] Onset: 02-05-2023 02-05-2023 Chronic Disorders of lipid metabolism (4 sources) Hypercholesterole garland; Translations: [Pure hypercholesterole garland, unspecified] Onset: 02-05-2023 02-05-2023 Chronic Essential hypertension (4 sources) Essential hypertension; Translations: [Essential (primary) hypertension] Onset: 02-05-2023 3 Chronic Past or Other Problems Problem Classification Problem Date Documented Da te Episodic/Chronic Unclassified (1 source) Onset: 02-05-2023 02-05-2023 Results Test Name Value Interpretation Reference Range Facil ity Vital Signs Date Time Vital Sign Value Performing Clinician Douglas colby 02-05-2023 13:42-0500 Body height 175.3 cm Lavinia Page MD Work Phone: [facility] 02-05-2023 13:42-0500 Body mass index (BMI) [Ratio] 23.78 kg/m2 Lavinia Page MD Work Phone: [facility] 02-05-2023 13:42-0500 Body weight 73.03 kg Lavinia Page MD Work Phone: [facility] 02-05-2023 13:42-0500 Diastolic blood pressure 88 mm[Hg] Lavinia Page MD Work Phone: [facility] 02-05-2023 13:42-0500 Heart rate 98 /min Lavinia Page MD Work Phone: [facility] 02-05-2023 13:42-0500 SaO2% (BldA) [Mass fraction] 98 % Lavinia Page MD Work Phone: [facility] 02-05-2023 13:42-0500 Systolic blood pressure 126 mm[Hg] Lavinia Page MD Work Phone: [facility] Encounters Encounter Date Encounter Type Care Provider Facility Start: 02-05-2023 End: 02-05-2023 ambulatory LAVINIA PAGE [facility] Start: 02-05-2023 End: 02-05-2023 Office outpatient new 45 minutes Lavinia Page MD Work Phone: [facility] Procedures Date Procedure Procedure Detail Performing Clinician Start: 02-05-2023 ECG 12-LEAD LAVINIA PAGE Start: 02-05-2023 Ecg routine ecg w/le ast 12 lds trcg only w/o i&r Lavinia Page MD Work Phone: Plan of Treatment Date Care Activity Detail Author Start: 06-15-2030 DTaP/Tdap/Td Vaccines (2 - Td or Tdap) DTaP/Tdap/Td Vaccines (2 - Td or Tdap) [facility] Start: 11-28-2022 Influenza vaccination Influenza Vaccine (#1) [place] Start: 06-15-2021 Pneumococcal Vaccine: 65+ Years (2 - PCV) Pneumococcal Vaccine: 65+ Years (2 - PCV) [facility] Start: 10-26-2020 COVID-19 Vaccine (3 - Pfizer series) COVID-19 Vaccine (3 - Pfizer series) [facility] Start: 06-20-2019 Abdominal aortic aneurysm screening Abdominal Aortic Aneurysm (AAA) Screening [facility] Start: 2004 Zoster Vaccines (1 of 2) Zoster Vaccines (1 of 2) [facility] Start: 1972 Diabetes mellitus screening Diabetes Screening [facility] Start: 1972 Hepatitis C screening Hepatitis C Screening [facility] Start: 1955 Lipid panel Lipid Panel [facility] Start: 1955 Medicare Annual Wellness Visit Medicare Annual Wellness Visit (AWV) [facility] Start: 1955 Screening for malignant neoplasm of colon [facility] Payers Date Payer Category Payer Medicare [facility] MEDICARE [id number] 2022-Present [address] [place] [address] [id number] 2022 Medicare [id number] 1955 Unknown [id number] Social History Date Type Detail Facility Start: 02-05-2023 Tobacco smoking stat us [facility] Ex-smoker [facility] History of tobacco use Current smoker [facility] Work Phone: History of tobacco use Cigarette Smoker [facility] Work Phone: Start: 02-05-2023 Tobacco use and exposure Smokeless tobacco non-user [facility] Work Phone: Start: 02-05-2023 History of Social function [facility] Work Phone: Start: 02-05-2023 Tobacco use panel [facility] Work Phone: Start: 1955 Sex Assigned At Not on file [facility] Work Phone: Start: 01-26-2023 End: 02-05-2023 Exposure to SARS-CoV-2 (event) Not sure [facility] History of Present illness Narrative 02-05-2023 Lavinia Page MD - 02/05/2023 2:00 PM EST Note Date & Type Note Facility 02-05-2023 History of Present illness Narrative Referred by No ref. 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 He feels well. No CP, but he's worried about having anginal sx's. No palp, sob. Remains very active. No edema, syncope, palp. Past Medical History: Problem List Items Addressed This Visit None Past Medical History: Diagnosis Date Old myocardial infarction 04/12/2020 History of myocardial infarction Past Surgical History: He has a past surgical history that includes Other surgical history (04/12/2020) and Other surgical history (04/12/2020). Social History: He has no history on file for tobacco use, alcohol use, and drug use. Family History: No family history on file. Allergies: Patient has no allergy information on record. Outpatient Medications: Current Outpatient Medications Medication Instructions aspirin-calcium carbonate 81 mg-300 mg calcium(777 mg) tablet 1 tablet, oral, Daily calcium carbonate 600 mg calcium (1,500 mg) tablet 2 tablets, oral, Daily hydroCHLOROthiazide (HYDRODiuril) 25 mg tablet 1 tablet, oral, Daily potassium citrate CR (Urocit-K-15) 15 mEq ER tablet 1 tablet, oral, 2 times daily rosuvastatin (Crestor) 20 mg tablet 1 tablet, oral, Daily Last Recorded Vitals: There were no vitals filed for this visit. Physical Exam Physical Patient is alert and oriented x3. HEENT is unremarkable mucous members are moist Neck no JVP no bruits upstrokes are full no thyromegaly Lungs are clear bilaterally. No wheezing crackles or rales Heart regular rhythm normal S1-S2 there is no S3 no murmurs are heard. Abdomen is soft vessels are positive nontender nondistended no organomegaly no pulsatile masses Extremities have no edema. Distal pulses present palpable. Neuro is grossly nonfocal Skin has no rashes Last Labs: CBC - No results found for: WBC , HGB , HCT , MCV , PLT CMP - Lab Results Component Value Date CALCIUM 9.5 04/23/2020 PHOS 3.4 04/23/2020 LIPID PANEL - No results found for: CHOL , HDL , CHHDL , LDL , VLDL , TRIG , NHDL RENAL FUNCTION PANEL - Lab Results Component Value Date K 4.0 04/23/2020 PHOS 3.4 04/23/2020 No results found for: BNP , HGBA1C Cath 2021 [place] severe blockage with Rafat Cath 2010 [facility] IRAIS to RCA Cath 2009 [facility]IS LAD, and IRAIS OM1 Assessment/Plan 1. CAD. Myocardial infarction 2009. IRAIS LAD, and OM1 [facility]. 2010 recurrent symptoms. IRAIS to the RCA. He did great until 2021. At that point recurrent symptoms. Taken to the Car Repair Supervisor at [place]. High-grade stenosis. Not sure which artery. Collaterals already formed. Medical therapy prescribed. He has been doing well. He has some concerns about developing symptoms but actually has not felt anything of significance. He is physically active but not as active as he would like to be. I have asked him to go ahead and increase his aerobic activity. Limit cold weather activity. Continue DAPT, metoprolol, lisinopril. Continue rosuvastatin. 2. Hyperlipidemia. Monitored by his primary care physician in [place]. I do not have labs on him. I will increase his rosuvastatin dose empirically from 20 to 40 mg optimizing his anti-inflammatory benefit. He clearly has aggressive atherosclerosis at a young age. Anti-inflammatory initiation will be important. In the future, initiation of colchicine may also prove to be of benefit. 3. Hypertension well-controlled An EKG will be done today. We will get records from [facility] as to his last echo stress test and catheterization. My plan will be to see him back in approximately 4 to 5 months. If you develop symptoms of angina, this would not surprise me as he has a high-grade lesion which is being collateralized. This may require optimization of his medical therapy. Lavinia Page MD Instructions and follow up documented in this encounter [facility] Work Phone: Instructions 02-05-2023 Patient Instructions Note Date & Type Note Facility 02-05-2023 Instructions Laviina Page MD - 02/05/2023 2:00 PM EST 1. CAD. Myocardial infarction 2009. IRAIS LAD, and OM1 [facility]. 2010 recurrent symptoms. IRAIS to the RCA. He did great until 2021. At that point recurrent symptoms. Taken to the Car Repair Supervisor at [place]. High-grade stenosis. Not sure which artery. Collaterals already formed. Medical therapy prescribed. He has been doing well. He has some concerns about developing symptoms but actually has not felt anything of significance. He is physically active but not as active as he would like to be. I have asked him to go ahead and increase his aerobic activity. Limit cold weather activity. Continue DAPT, metoprolol, lisinopril. Continue rosuvastatin. 2. Hyperlipidemia. Monitored by his primary care physician in [place]. I do not have labs on him. I will increase his rosuvastatin dose empirically from 20 to 40 mg optimizing his anti-inflammatory benefit. He clearly has aggressive atherosclerosis at a young age. Anti-inflammatory initiation will be important. In the future, initiation of colchicine may also prove to be of benefit. 3. Hypertension well-controlled An EKG will be done today. We will get records from [facility] as to his last echo stress test and catheterization. My plan will be to see him back in approximately 4 to 5 months. If you develop symptoms of angina, this would not surprise me as he has a high-grade lesion which is being collateralized. This may require optimization of his medical therapy. documented in this encounter [facility] Work Phone: Evaluation note Note Date & Type Note Facility documented in this encounter [facility] Work Phone: Summary Purpose Family History No Family History Records FoundNo Family History Records FoundNo Family History Records Found Advance Directives No Advanced Directives Records FoundNo Advanced Directives Records FoundNo Advanced Directives Records Found Reason for Referral Specialty Diagnoses / Procedures Referred By Contac t Referred To Contact Diagnoses Coronary artery disease involving [place] coronary artery of [place] heart without angina pectoris Procedures ECG 12 Lead Lavinia Page MD [address] [facility] [address] [place] [address] Referral ID Status Reason Start Date Expiration Date V isits Requested Visits Authorized [id number] Pending Review 02/05/2023 02/05/2024 1 1 Additional Source Comments (unrecognized sect ion and content) No Status Records FoundNo Status Records FoundNo Status Records Found INFORMATION SOURCE (unrecogn ized section and content) DATE CREATED AUTHOR AUTHOR'S ORGANIZ ATION 05/10/2020 [facility] DATE CREATED AUTHOR AUTHOR'S ORGANIZ ATION 02/07/2023 [facility] FOR RECORDS PERTAINING TO PATIENTS WHO ARE OR HAVE BEEN ENROLLED IN A CHEMICAL DEPENDENCY/SUBSTANCEABUSE PROGRAM, SOME INFORMATION MAY BE OMITTED. This clinical summary was aggregated from multiple sources. Caution should be exercised in using it in the provision of clinical care. This summary normalizes information from multiple sources, and as a consequence, information in this document may materially change the coding, format and clinical context of patient data. In addition, data may be omitted in some cases. CLINICAL DECISIONS SHOULD BE BASED ON THE PRIMARY CLINICAL RECORDS. [facility]. provides no warranty or guarantee of the accuracy or completeness of information in this document.
[2023-06-04 10:07] LABS: Absolute Lymphocyte Count 1.42 X10^3/uL (0.83-4.51); Absolute Neutrophil Count 3.3 X10^3/uL (2.0-7.7); Basophil# 0.02 X10^3/uL; Basophil% 0.4 % (0-1); Eosinophil# 0.09 X10^3/uL; Eosinophils% 1.7 % (0-5); Hematocrit 42.6 % (40-54); Hemoglobin 13.9 g/dL (13.0-16.5); Lymphocyte # 1.42 X10^3/ul (0.83-4.51); Lymphocyte % 27.1 % (19-41); Mean Corp Hgb Conc 32.6 g/dL (32-36); Mean Corpuscular Hgb 28.9 pg (27.0-32.0); Mean Corpuscular Volume 88.6 fL (80-94); Mean Platelet Vol. 9.4 fl (6.2-12.0); Monocyte# 0.43 X10^3/uL; Monocyte% 8.2 % (0-10); NRBC Flagged by Analyzer 0 % (0-5); Neutrophil # 3.26 X10^3/uL (2.7-7.7); Neutrophil % 62.2 % (47-70); Platelet Count 174 K/mm3 (150-450); RBC Distribution Width CV 12.3 % (11.6-14.6); Red Blood Count 4.81 M/mm3 (4.6-6.2); White Blood Count 5.2 K/mm3 (4.4-11.0)
[2023-06-04 11:29] LABS: ALB/GLOB Ratio 1.1 RATIO (0.9-2.4); AST(SGOT) 23 U/L (15-37); Alanine Aminotransfer ALT/SGPT 38 U/L (16-61); Albumin, Serum 3.6 g/dL (3.2-5.0); Alkaline Phosphatase 67 U/L (45-117); Anion Gap 6 (5-15); BUN 15 mg/dL (7-18); Calcium,Total 9.1 mg/dL (8.5-10.1); Chloride 109 mmol/L (98-107); Cholesterol 141 mg/dL (200); EST Glomerular Filtration Rate 79 mL/min (>60); Est Glom Filt Rate - Afr Amer 96 mL/min (>60); Globulin 3.3 g/dL (2.2-4.2); Glucose 104 mg/dL (74-106); High Density Lipoprotein 47 mg/dL; Potassium 4.5 mmol/L (3.5-5.1); Protein, Total 6.9 g/dL (6.4-8.2); Sodium Level 141 mmol/L (136-145); Triglycerides 103 mg/dL; Uric Acid 3.9 mg/dL (3.5-7.2); Very Low Density Lipoprotein 21 mg/dL (5-40)
== END | disposition home or self-care (01) ==
LOC: MTLAB 07:58
PROVIDERS: PCP Family Medicine; Referring Provider Family Medicine; Visit Provider Family Medicine
DX: I25.10 Atherosclerotic heart disease of native coronary artery without angina pectoris (principal); N20.0 Calculus of kidney
CPT/HCPCS: 36415; 80053; 80061; 84550; 85025

== ENCOUNTER → 2023-09-17 | Outpatient (CLI) | payer MEDICARE, SELFPAY ==
--- NOTE | 2023-09-17 11:20 | CT_ITS ---
STUDY: CT ABDOMEN AND PELVIS WITH CONTRAST REASON FOR EXAM: Male, 68 years old. LLQ pain, night sweats RADIATION DOSAGE (If Supplied By Facility): CTDIvol = ( 10.79 ) mGy, DLP = ( 595.22 ) mGycm TECHNIQUE: Transaxial images were obtained from the dome of the diaphragm to the symphysis pubis with oral contrast. Oral and amp; IV Gastrografin and amp; 100mL Isovue-300 was administered. Sagittal and coronal images were reconstructed. Individualized dose optimization techniques were used for this CT. COMPARISON: None. FINDINGS: The visualized lung bases are unremarkable. Coronary artery calcification. There is decreased attenuation of the liver consistent with steatosis. Diffuse calcified granulomas in the liver. There are multiple gallstones. There are multiple benign calcified granulomata of the spleen. Normal pancreas. Normal bilateral adrenal glands. There is a 1.7 cm cyst in the mid posterior aspect of the right kidney. Bilateral nonobstructive intrarenal calculi. Incidental note is made of a left retroaortic renal vein. There is a small hiatal hernia. Normal small intestine. There are multiple colonic diverticula consistent with diverticulosis. The appendix is visualized and appears normal. There is scattered atherosclerotic calcification of the abdominal aorta, without a demonstrated aneurysm. Normal inferior vena cava. Normal retroperitoneum. Normal urinary bladder. There is enlargement of the prostate gland. This measures 3.9 cm x 5 cm. This causes indentation of the bladder base. Normal abdominal wall. There are degenerative changes of the visualized lumbar spine. CT/Abdomen/Pelvis WITH Contrast IMPRESSION: Nonobstructive bilateral intrarenal calculi. Diffuse calcified granulomas in the liver and spleen. Small gallstones. Sigmoid diverticulosis. Electronically Signed: Jg Marrero MD at 14:44 EDT ,
[2023-09-17 13:58] LABS: CREATININE FINGERSTICK 1.1 mg/dL (0.70-1.30); EGFR FINGERSTICK > 60.0000 mL/min (>60)
== END | disposition home or self-care (01) ==
LOC: CT 11:17
PROVIDERS: PCP Family Medicine; Referring Provider Family Medicine; Visit Provider Family Medicine
DX: K57.92 Diverticulitis of intestine, part unspecified, without perforation or abscess without bleeding (principal)
CPT/HCPCS: 74177; Q9967

== ENCOUNTER 2023-10-26 16:30 | Outpatient (RCR) | payer MEDICARE, SELFPAY ==
--- NOTE | 2023-09-22 16:12 | HP.PTEVAL ---
Patient's Visit Information Visit Information Visit Information: KAMALJIT PERRY is a 68 year old M referred to Physical Therapy by Dr. Zurdo Sánchez MD with a diagnosis of LEFT LOW BACK BACK PAIN. Date of Evaluation: 09/22/23 Physical Therapist: Girma Trujillo PT, Cert MDT, OCS Visit Plan Frequency: 2x /Week Duration: 4 Weeks Plan: PT INTERVENTIONS FLEXABILITY LLE , STRENGTHENING GLUT MEDIUS , DLS ,POSTURAL EX'S ,LUMBAR FLEXION AND FUNCTIONAL STRENGTHENING Subjective Subjective: This 68 y/o male presents to physical therapy to left lumbar. Patient has had left lumbar pain for past [address] morales PT . Patient had no imaging. No medication. Aggravating factors extended walking ,standing 30 mins ,sitting 20 mins . Alleviating bending/lifting okay. Patient sleeping okay . No abnormal night pain. Denies paresthesia/tingling -. Patient has h/o kidney stones. Patient has used orthotics in past. Coughing/sneezing -. Arya;/bladder-.Patient has h/o prior PT ` 30 years ago ,but has h/o back pain. Patient condition affects QOL and function. Patient goals to decrease pain. Patient bought orthotics shoe insert SOCIAL: VOCATION: retired Pain Left Back: Pain Intensity (Out of 10): 2 Pain Intensity Range: 10 Objective Objective: POSTURE: bilateral ankle calcaneal valgus ER forefoot GAIT: reciprocal pattern SYMMTIES: align PALAPTION: unremarkable FLEXABILITY: hamstrings WFL ,piriformis mod tight HIP IR: right 25 degrees ,left 5 degrees MMT: quads/hams 4/5 ,hip flexion 4-/5 left ,right 4-/5 ,( peak force) glut medius left 0 LUMBAR ROM: flexion WFL ,extension mod loss pain left , side glides mod loss SLS : <10SEC lateral tilt glut medius weak Special Tests L/S Slump test left side: Negative L/S Slump test right side: Negative L/S Left Straight Leg Raise: Negative L/S Right Straight Leg Raise: Negative L Hip Scour: Negative L Hip Trendelenberg - Glut Medius: Positive Balance/Special Test Scores Oswestry Low Back Score: 15 Goals Goal 1:: Patient to be I with HEP back and hip Goal Time Frame: 4-6 Weeks Goal 2:: Patient to demonstrate 50% improvement with less pain and improved function Goal Time Frame: 4-6 Weeks Goal 3:: Patient to improve peak force left glut medius by 10-15# to improve strength Goal Time Frame: 4-6 Weeks Goal 4:: Patient to improve back oswestry score by 5 points to improve QOL and function. Goal Time Frame: 4-6 Weeks Goal 5:: Patient will be able to walk and stand > 30 mins to improve gait and function. Goal Time Frame: 4-6 Weeks Rehabilitation Potential Physical Therapy Diagnosis: This patient has left lumbar pain worse with walking/standing along with poor strength of glut medius which can influence patient left lumbar thus benefit from skilled PT Rehabilitation Potential: Good Anticipated Interventions Patient/Client Instruction: Educate patient on: Condition and Plan of Care For the Purpose of:: To decrease pain, To increase ROM, To improve muscle performance and motor function, To improve ability to perform ADL's, To increase tolerance to activity/condition/position, To improve ability of physical actions for home/community/work/leisure, To improve health of tissue, To decrease soft tissue restriction, To increase flexibility/ROM, To improve balance and To reduce risk of recurrence Therapeutic Exercise to Include: Strength training, Endurance training, Balance training, Postural training, Flexibilty training, Dynamic Lumbar Stabilization and Rimma Exercises Comment: GLUT MEDIUS For the Purpose of:: To decrease pain, To increase ROM, To improve muscle performance and motor function, To improve ability to perform ADL's, To increase tolerance to activity/condition/position, To improve ability of physical actions for home/community/work/leisure, To improve health of tissue, To decrease soft tissue restriction, To increase flexibility/ROM, To improve balance and To reduce risk of recurrence Text: Thank you for the opportunity to evaluate your patient. For Medicare and Medicare HMO plans, please review the plan of care and approve it. It will need to be FAXED BACK to us at [phone] for Medicare purposes. For Medicare only, by signing this I certify the plan of care. Please let me know if there are questions or concerns regarding this plan of care. Physician Signature: Date:
--- NOTE | 2023-10-26 16:52 | HP.PTDCSUM ---
Discharge Summary D/C summary: It has been my pleasure to treat KAMALJIT PERRY referred by Dr. Zurdo Sánchez MD, with the diagnosis of LEFT LOW BACK BACK PAIN for a total of 7 visit(s). Discharge Date: 10/26/23 Please see the following information for a summary of their discharge status. Subjective Subjective: Doing great alot better stronger Pain Left Back: Pain Intensity (Out of 10): 0 Overall Improvement % Improvement: 100 Objective Objective/Function: POSTURE: bilateral ankle calcaneal valgus ER forefoot GAIT: reciprocal pattern SYMMTIES: align PALAPTION: unremarkable FLEXABILITY: hamstrings WFL ,piriformis mod tight HIP IR: right 25 degrees ,left 5 degrees MMT: quads/hams 4/5 ,hip flexion 4-/5 left ,right 4-/5 ,( peak force) glut medius left 0 LUMBAR ROM: flexion WFL ,extension MIN , side glides mIN loss SLS : INTACT Goals Goal 1:: Patient to be I with HEP back and hip Goal Progress: Goal Met Goal 2:: Patient to demonstrate 50% improvement with less pain and improved function Goal Progress: Goal Met Goal 3:: Patient to improve peak force left glut medius by 10-15# to improve strength Goal Progress: Goal Met Goal 4:: Patient to improve back oswestry score by 5 points to improve QOL and function. Goal 5:: Patient will be able to walk and stand > 30 mins to improve gait and function. Goal Progress: Goal Met Plan Plan: D/C TO HEP D/C Information Discharge Comments: HEP d/c sentence: If there are questions or concerns regarding this patient's physical therapy, please feel free to call me at [phone]. Thank you for the referral of this patient. Sincerely, Girma Trujillo, PT, Cert MDT, OCS Balance/Gait/Functional tests Balance/Special Test Scores Oswestry Low Back Score: 0 Improvement % Improvement: 100
== END 2023-10-26 19:00 | disposition home or self-care (01) ==
LOC: PT 16:30
PROVIDERS: PCP Family Medicine; Referring Provider Family Medicine; Visit Provider Family Medicine
DX: M54.50 Low back pain, unspecified (principal)
CPT/HCPCS: 97110; 97162; 97530

== ENCOUNTER → 2023-12-21 | Outpatient (CLI) | payer MEDICARE, SELFPAY ==
[2023-12-21 15:42] LABS: Absolute Lymphocyte Count 1.47 X10^3/uL (0.83-4.51); Absolute Neutrophil Count 4.5 X10^3/uL (2.0-7.7); Basophil# 0.04 X10^3/uL; Basophil% 0.6 % (0-1); Eosinophil# 0.06 X10^3/uL; Eosinophils% 0.9 % (0-5); Hematocrit 41.9 % (40-54); Hemoglobin 13.8 g/dL (13.0-16.5); Lymphocyte # 1.47 X10^3/ul (0.83-4.51); Lymphocyte % 21.7 % (19-41); Mean Corp Hgb Conc 32.9 g/dL (32-36); Mean Corpuscular Hgb 29.6 pg (27.0-32.0); Mean Corpuscular Volume 89.7 fL (80-94); Mean Platelet Vol. 10.1 fl (6.2-12.0); Monocyte# 0.68 X10^3/uL; NRBC Flagged by Analyzer 0 % (0-5); Neutrophil # 4.52 X10^3/uL (2.7-7.7); Neutrophil % 66.7 % (47-70); Platelet Count 175 K/mm3 (150-450); RBC Distribution Width CV 12.2 % (11.6-14.6); RBC Distribution Width SD 40.1 fl (35.1-43.9); Red Blood Count 4.67 M/mm3 (4.6-6.2); White Blood Count 6.8 K/mm3 (4.4-11.0)
[2023-12-21 16:04] LABS: CRP < 2.90 mg/L (0.0-3.0); PSA,Total - Annual Screen 2.14 ng/mL (0.00-4.00)
[2023-12-21 16:21] LABS: Erythrocyte Sedimentation Rate 2 mm/hr (0-20)
[2023-12-23 14:10] LABS: PROEL- A/G Ratio 1.5 (0.7-1.7); PROEL- Albumin 3.8 g/dL (2.9-4.4); PROEL- Alpha-1 Globulin 0.2 g/dL (0.0-0.4); PROEL- Alpha-2 Globulin 0.7 g/dL (0.4-1.0); PROEL- Beta Globulin 1.1 g/dL (0.7-1.3); PROEL- Gamma Globulin 0.5 g/dL (0.4-1.8); PROEL- Globulin, Total 2.5 g/dL (2.2-3.9); PROEL- TOTAL PROTEIN 6.3 g/dL (6.0-8.5); PROEL-M-Spike Not Observed g/dL (Not Observed)
== END | disposition home or self-care (01) ==
PROVIDERS: PCP Family Medicine; Referring Provider Family Medicine; Visit Provider Family Medicine
DX: Z12.5 Encounter for screening for malignant neoplasm of prostate (principal); M54.50 Low back pain, unspecified; K57.92 Diverticulitis of intestine, part unspecified, without perforation or abscess without bleeding
CPT/HCPCS: 36415; 84153; 84165; 85025; 85652; 86140; G0103

== ENCOUNTER → 2024-07-15 | Outpatient (CLI) | payer MEDICARE, SELFPAY ==
[2024-07-15 12:41] LABS: Absolute Lymphocyte Count 1.43 X10^3/uL (0.83-4.51); Absolute Neutrophil Count 3.7 X10^3/uL (2.0-7.7); Basophil# 0.03 X10^3/uL; Basophil% 0.5 % (0-1); Eosinophil# 0.07 X10^3/uL; Eosinophils% 1.2 % (0-5); Erythrocyte Sedimentation Rate 2 mm/hr (0-20); Hematocrit 43.8 % (40-54); Lymphocyte # 1.43 X10^3/ul (0.83-4.51); Lymphocyte % 24.7 % (19-41); Mean Corp Hgb Conc 34.2 g/dL (32-36); Mean Corpuscular Hgb 29.8 pg (27.0-32.0); Mean Corpuscular Volume 86.9 fL (80-94); Mean Platelet Vol. 9.9 fl (6.2-12.0); Monocyte# 0.52 X10^3/uL; NRBC Flagged by Analyzer 0 % (0-5); Neutrophil # 3.74 X10^3/uL (2.7-7.7); Neutrophil % 64.4 % (47-70); Platelet Count 187 K/mm3 (150-450); RBC Distribution Width SD 38.3 fl (35.1-43.9); Red Blood Count 5.04 M/mm3 (4.6-6.2); White Blood Count 5.8 K/mm3 (4.4-11.0)
[2024-07-15 13:11] LABS: Microalbumin,Random Urine 18.6 mg/L (NO RANGE EST.)
[2024-07-15 13:34] LABS: ALB/GLOB Ratio 1.7 RATIO (0.9-2.4); AST(SGOT) 25 U/L (<=37); Alanine Aminotransfer ALT/SGPT 31 U/L (<=46); Albumin, Serum 4.5 g/dL (3.4-4.8); Alkaline Phosphatase 66 U/L (40-129); Anion Gap 11 (5-15); BUN 15 mg/dL (4-19); BUN/Creat Ratio 14.4 RATIO (10-20); Calcium,Total 9.8 mg/dL (7.6-11.0); Carbon Dioxide 24.2 mmol/L (21.0-32.0); Chloride 104 mmol/L (98-108); Creatinine, Serum 1.05 mg/dL (0.70-1.20); EST Glomerular Filtration Rate 76 (>60); Globulin 2.6 g/dL (2.2-4.2); Glucose 109 mg/dL (70-99); Potassium 4.9 mmol/L (3.3-5.1); Sodium Level 139 mmol/L (133-145); Total Bilirubin 0.46 mg/dL (0.00-1.30)
[2024-07-15 13:38] LABS: CRP < 3.00 mg/L (0.0-3.0)
== END | disposition home or self-care (01) ==
LOC: MFPLAB 10:19
PROVIDERS: PCP Family Medicine; Referring Provider Family Medicine; Visit Provider Family Medicine
DX: K57.90 Diverticulosis of intestine, part unspecified, without perforation or abscess without bleeding (principal); I10 Essential (primary) hypertension
CPT/HCPCS: 36415; 80053; 82043; 82570; 85025; 85652; 86140

== ENCOUNTER → 2024-09-12 | Outpatient (CLI) | payer MEDICARE, SELFPAY ==
--- NOTE | 2024-09-12 11:45 | RAD_ITS ---
PROCEDURE: ABDOMEN SINGLE VIEW 09/12/2024 REASON FOR EXAM: CALCULUS OF KIDNEY TECHNIQUE: ABDOMEN SINGLE VIEW COMPARISON: [facility], 11/06/2022. FINDINGS: There is a nonobstructive bowel gas pattern. There are benign calcified granulomas in the liver and spleen. There are numerable stones in both kidneys and medullary sponge kidney is not excluded. There are selma in the pelvis consistent with bowel surgery. There are no soft tissue calcifications projected over either ureter. RAD/Abdomen Single View IMPRESSION: 1. Numerous calcifications projected over both kidneys consistent with nephrol ithiasis. Medullary sponge kidney not excluded. 2. Other findings as noted. Reading Location: [id number]
== END | disposition home or self-care (01) ==
LOC: RAD 11:30
PROVIDERS: PCP Family Medicine; Referring Provider Urology; Visit Provider Urology
DX: N20.0 Calculus of kidney (principal)
CPT/HCPCS: 74018

== ENCOUNTER → 2024-10-25 | Outpatient (CLI) | payer MEDICARE, SELFPAY ==
[2024-10-25 10:23] LABS: AST(SGOT) 24 U/L (<=37); Alanine Aminotransfer ALT/SGPT 23 U/L (<=46); Albumin, Serum 4.3 g/dL (3.4-4.8); Alkaline Phosphatase 58 U/L (40-129); Anion Gap 10 (5-15); BUN 13 mg/dL (4-19); BUN/Creat Ratio 12.4 RATIO (10-20); Calcium,Total 9.6 mg/dL (7.6-11.0); Carbon Dioxide 24.2 mmol/L (21.0-32.0); Chloride 105 mmol/L (98-108); Globulin 2.2 g/dL (2.2-4.2); Glucose 110 mg/dL (70-99); Magnesium 2.0 mg/dL (1.5-2.2); Potassium 4.2 mmol/L (3.3-5.1)
--- OUTSIDE RECORDS SUMMARY | 2024-10-25 10:43 | XMS RPT_ITS | CCD ---
Author Organization [facility] Care Team Providers Care Head Men'S Tennis Coach Name Role Phone Dr. Becca Sánchez Primary Care Provider [phone] MD Orlando Sher Emergency Provider [phone] Sourav Maurer Referring Provider [phone] Dr. Sourav Maurer Other Provider Dr. Sharon Lui Admit Provider Dr. Sharon Lui Attending Provider Dr. Sharon Lui Other Provider Dr. Leroy Guallpa Attending Provider Dr. Sourav Maurer Attending Provider Dr. Sourav Maurer Referring Provider Dr. Sharon Lui Referring Provider Dr. Becca Sánchez Referring Provider [phone] Sergio VARMA, TANK HOUSE OPERATOR HELPER-C Natasha Attending Provider Dr. Robin Martines Attending Provider Dr. Becca Sánchez Primary Care Provider [phone] Becca Sánchez Primary Care Provider [phone] Becca Sánchez Referring Provider Sergio VARMA NP-C Natasha Attending Provider Dr. Becca Sánchez Primary Care Provider [phone] Becca Sánchez Referring Provider [phone] Sergio VARMA TANK HOUSE OPERATOR HELPER-C Natasha Attending Provider Edson, Dr. William Colbert Attending Provider [phone] Becca Sánchez Primary Care Provider [phone] Dr. Becca Sánchez Referring Provider [phone] Sergio TANK HOUSE OPERATOR HELPER, TANK HOUSE OPERATOR HELPERAndreiaC Natasha Attending Provider ANKUSH Celis Attending Provider Dr. Leroy Guallpa Attending Provider Dr. Osmel Mcclelland Referring Provider Cebuasad, Dr. William Colbert Admit Provider Cebuasad, Dr. William Colbert Attending Provider Cebul, Dr. William Colbert Referring Provider Cebul, Dr. William Colbert Other Provider Dr. Becca Sánchez Primary Care Provider Dr. Becca Sánchez Referring Provider [phone] Dr. Becca Sánchez Primary Care Provider Dr. Becca Sánchez Referring Provider [phone] Cebul, Dr. William Colbert Attending Provider Unavailable Primary Care Provider Unavailserafin Sánchez MD, Becca A Primary Care Provider Becca Sánchez MD Primary Care Provider CAMILO, RAJU Attending Unavailable BECCA SÁNCHEZ A Primary Care Unavailable CAMILO, MEGANU Attending Unavailable BECCA SÁNCHEZ A Primary Care Unavailable CAMILO, LAVINIA Attending Unavailable Dr. Becca Sánchez MD Primary Care Provider Dr. Becca Sánchez MD Attending Provider [phone] Dr. Becca Sánchez MD Referring Provider Shanika OLMEDO, Dr. Jovani Mitchell Attending Provider Shanika OLMEDO, Dr. Jovani Mitchell Referring Provider Becca Sánchez Primary Care Unavailable Becca Sánchez Attending Unavailable Gonzalo, Becca Referring Unavailable Becca Sánchez Attending Unavailable Gonzalo, Becca Referring Unavailable Gonzalo, Becca Primary Care Unavailable Becca Sánchez Attending Unavailable Becca Sánchez Referring Unavailable Becca Sánchez Primary Care Unavailable Becca Sánchez Primary Care Unavailable Jovani Voss Attending Unavailable Jovani Voss Referring Unavailable Medications Current Medications Medication Drug Class(es) Dates Sig (Normalized) Sig (Original) acetaminophen 250 mg / aspirin 250 mg / caffeine 65 mg oral tablet (7 sources) Platelet Aggregation Inhibitor, Nonsteroidal Anti-inflammatory Drug, Central Nervous System Stimulant, Methylxanthine Start: 04-01-2022 Aspirin-Acetamin ophen-Caffeine (Excedrin Migraine) 250-250-65 mg Tablet Active 2 {tbl} PO DAILY as needed for Pain April 01, 2022 1:00am aspirin 81 mg delayed release oral tablet (19 sources) Platelet Aggregation Inhibitor, Nonsteroidal Anti-inflammatory Drug Start: 02-05-2023 End: 02-05-2024 take 1 tablet by mouth once daily aspirin 81 mg EC tablet Indications: Coronary artery disease involving [place] coronary artery of [place] heart without angina pectoris Take 1 tablet (81 mg) by mouth once daily. 30 tablet 11 02/05/2023 02/05/2024 Active Start: 11-19-2013 take 1 tablet by elise at bedtime Aspirin 81 MG tablet,chewable Active 81 mg PO AT BEDTIME November 19, 2013 12:00am calcium carbonate 1500 mg oral tablet (3 sources) Start: 05-01-2020 take 2 tablets by mouth once daily calcium carbonate 600 mg calcium (1,500 mg) tablet Take 2 tablets (3,000 mg) by mouth once daily. 05/01/2020 Active Start: 05-01-2020 take 2 tablets by mo [facility] once daily calcium carbonate 600 mg calcium (1,500 mg) tablet Take 2 tablets (1,200 mg) by mouth once daily. 0 05/01/2020 Active clopidogrel 75 mg oral tablet (6 sources) P2Y12 Platelet Inhibitor Start: 12-19-2022 End: 07-02-2023 take 1 tablet by mouth once daily Clopidogrel (Plavix) 75 mg tablet Active 75 mg PO DAILY December 24, 2022 9:19am lisinopril 5 mg oral tablet (20 sources) Angiotensin Converting Enzyme Inhibitor Start: 06-10-2022 End: 06-30-2023 take 1 tablet by mouth once daily Lisinopril 5 mg tablet Active 5 mg PO DAILY June 30, 2023 8:01am Start: 08-21-2021 End: 06-10-2022 take 1 tablet by mouth once daily Lisinopril 2.5 mg tablet Discontinued 2.5 mg PO DAILY March 19, 2022 10:25am June 10, 2022 10:06am Magnesium (6 sources) Start: 07-21-2022 take 2 tablets by mo [facility] once daily Magnesium 200 mg Tablet Active 400 mg PO DAILY July 21, 2022 12:00am Start: 07-21-2022 take 400 mg by mouth once alicia y Magnesium Active 400 MG PO DAILY July 21, 2022 12:00am melatonin 10 mg sublingual tablet (10 sources) Start: 04-05-2014 take 10 mg by mouth at bedtime Melatonin Active 10 MG PO AT BEDTIME April 05, 2014 9:14am Start: 04-05-2014 take 10 mg by mouth at bedtime Melatonin Active 10 MG PO AT BEDTIME April 05, 2014 12:00am 24 hr metoprolol succinate 25 mg extended release oral tablet (20 sources) beta-Adrenergic Elijah Start: 07-14-2022 End: 11-24-2022 take 1 tablet by mouth once daily Metoprolol Succinate 25 mg tablet extended release 24 hr Active 25 mg PO DAILY November 24, 2022 11:51am Start: 08-21-2021 End: 09-05-2021 Metoprolol Tartrate 25 mg Ta blet Discontinued 12.5 mg PO TWICE A DAY August 21, 2021 12:00am September 05, 2021 9:08am Start: 08-21-2021 End: 09-05-2021 take 12.5 mg by mouth twice daily Metoprolol Tartrate Discontinued 12.5 MG PO TWICE A DAY August 21, 2021 12:00am September 05, 2021 9:08am Multivitamin With Folic Acid (Thera) 1 TABLET tablet (10 sources) Start: 04-05-2014 take 1 tablet by mouth at bedtime Multivitamin With Folic Acid (Thera) 1 TABLET tablet Active 1 TABLET PO AT BEDTIME April 05, 2014 9:14am Start: 04-05-2014 take 1 tablet by elise at bedtime Multivitamin With Folic Acid (Thera) 1 TABLET tablet Active 1 TABLET PO AT BEDTIME April 05, 2014 12:00am Start: 04-05-2014 take 1 tablet by elise th at bedtime Multivitamin With Folic Acid (Thera) 1 TABLET tablet Active 1 TABLET PO AT BEDTIME April 05, 2014 1:00am nitroglycerin 0.4 mg sublingual tablet (15 sources) Nitrate Vasodilator Start: 09-05-2021 Nitroglyce rin 0.4 mg tablet, sublingual Active 0.4 mg SL every 5 to 15 minutes as needed for chest pain September 05, 2021 12:00am do not exceed 3 doses per episode Start: 09-05-2021 Nitroglycerin Active 0.4 MG SL every 5 to 15 minutes September 05, 2021 12:00am do not exceed 3 doses per episode Start: 01-26-2013 nitroglycerin (Nitrostat) 0.[address] 1 tablet (0.4 mg) under the tongue. 01/26/2013 Active rosuvastatin calcium 40 mg oral tablet (20 sources) HMG-CoA Reductase Inhibitor Start: 02-05-2023 End: 02-05-2024 take 1 tablet by mouth once daily rosuvastatin (Crestor) 40 mg tablet Indications: Coronary artery disease involving [place] coronary artery of [place] heart without angina pectoris Take 1 tablet (40 mg) by mouth once daily. 90 tablet 3 02/05/2023 02/05/2024 Active Start: 11-19-2013 End: 02-05-2023 take 1 tablet by mouth once daily Rosuvastatin 20 mg tablet Active 20 mg PO DAILY June 10, 2022 12:00am Start: 11-19-2013 End: 12-17-2021 take 1 tablet by mouth at bedtime Rosuvastatin (Crestor) 20 MG tablet Discontinued 20 MG PO AT BEDTIME November 18, 2013 11:00pm December 17, 2021 5:11pm ubidecarenone 50 mg chewable tablet (9 sources) Start: 04-05-2014 Coenzyme Q10 A ctive 100 MG PO AT BEDTIME April 05, 2014 12:00am Completed/Discontinued Medications Medication Drug Class(es) Dates Sig (Normalized) Sig (Original) acetaminophen 325 mg / oxyCODONE hydrochloride 5 mg oral tablet (20 sources) Opioid Agonist Start: 04-01-2022 End: 06-10-2022 Oxycodone-Acetamino phen (Endocet) 5-325 mg tablet Discontinued 1 {tbl} PO EVERY 6 HOURS as needed for pain 12 April 01, 2022 June 10, 2022 9:52am Start: 10-04-2014 End: 12-17-2021 Oxycodone-Acetaminophen 1 TA BLET tablet Discontinued 1 {tbl} PO EVERY 6 HOURS NEEDED as needed for Pain October 04, 2014 12:00am December 17, 2021 10:07am Start: 10-04-2014 End: 12-17-2021 take 1 tablet by mouth every six hours as needed Oxycodone-Acetaminophen Discontinued 1 TABLET PO EVERY 6 HOURS NEEDED October 04, 2014 12:00am December 17, 2021 10:07am aspirin 81 mg / calcium carbonate 777 mg oral tablet (1 source) Platelet Aggregation Inhibitor, Nonsteroidal Anti-inflammatory Drug End: 02-05-2023 take 1 tablet by mouth once daily aspirin-calcium carbonate 81 mg-300 mg calcium(777 mg) tablet Take 1 tablet by mouth once daily. 0 02/05/2023 Discontinued (Other) cephalexin 500 mg oral tablet (12 sources) Cephalosporin Antibacterial Start: 07-14-2022 End: 07-30-2022 take 2 tablets by mouth once Cephalexin 500 mg tablet Discontinued 500 mg PO .COMPLEX July 21, 2022 11:19am July 30, 2022 2:45pm Take Two (2) tablets at 1300, 1500, and 2300 pm the day prior to procedure ciprofloxacin 500 mg oral tablet (9 sources) Quinolone Antimicrobial Start: 01-28-2022 End: 02-11-2022 take 1 tablet by mouth twice daily Ciprofloxacin Hcl 500 mg tablet Discontinued 500 mg PO TWICE A DAY January 28, 2022 12:00am February 10, 2022 1:00am February 11, 2022 1:04am hydroCHLOROthiazide 25 mg oral tablet (1 source) Thiazide Diuretic Start: 05-01-2020 End: 02-05-2023 take 1 tablet by mouth once daily hydroCHLOROthiazide (HYDRODiuril) 25 mg tablet Take 1 tablet (25 mg) by mouth once daily. 0 05/01/2020 02/05/2023 Discontinued (Therapy completed) meloxicam 15 mg oral tablet (19 sources) Nonsteroidal Anti-inflammatory Drug Start: 08-20-2021 End: 12-17-2021 take 1 tablet by mouth once daily Meloxicam 15 mg tablet Discontinued 15 mg PO DAILY August 20, 2021 12:00am December 17, 2021 10:07am metroNIDAZOLE 500 mg oral tablet (20 sources) Nitroimidazole Antimicrobial Start: 07-14-2022 End: 07-30-2022 take 2 tablets by mouth once daily Metronidazole 500 mg tablet Discontinued 500 mg PO .COMPLEX July 21, 2022 11:19am July 30, 2022 2:45pm Take 2 (two) tablets at 1300, 1500, 2300 the day prior to the procedure Start: 01-28-2022 End: 02-11-2022 take 1 tablet by mouth three times daily Metronidazole 500 mg tablet Discontinued 500 mg PO THREE TIMES A DAY 42 January 28, 2022 12:00am February 10, 2022 1:00am February 11, 2022 1:04am ondansetron 4 mg disintegrating oral tablet (7 sources) Serotonin-3 Receptor Antagonist Start: 04-01-2022 End: 12-19-2022 take 1 tablet by mouth every eight hours as needed for nausea and vomiting Ondansetron 4 mg tablet,disintegrating Discontinued 4 mg PO Q8H as needed for nausea and vomiting April 01, 2022 1:00am December 19, 2022 9:52am oxyCODONE hydrochloride 5 mg oral tablet (10 sources) Opioid Agonist Start: 07-30-2022 End: 12-19-2022 take 1 tablet by mouth every six hours as needed for pain Oxycodone 5 mg tablet Discontinued 5 mg PO EVERY 6 HOURS as needed for pain 16 10November 07, 2022 December 19, 2022 9:52am potassium citrate 15 meq extended release oral tablet (1 source) Start: 05-01-2020 End: 02-05-2023 take 1 tablet by mouth twice daily potassium citrate CR (Urocit-K-15) 15 mEq ER tablet Take 1 tablet (15 mEq) by mouth 2 times a day. 0 05/01/2020 02/05/2023 Discontinued (Therapy completed) quinapril 5 mg oral tablet (7 sources) Angiotensin Converting Enzyme Inhibitor Start: 04-01-2022 End: 06-10-2022 take 2.5 mg by mouth at bedtime Quinapril 5 mg tablet Discontinued 2.5 mg PO AT BEDTIME April 01, 2022 1:00am June 10, 2022 9:52am Start: 04-01-2022 End: 06-10-2022 take 2.5 mg by mouth at bedtime Quinapril Discontinued 2.5 MG PO AT BEDTIME April 01, 2022 1:00am June 10, 2022 9:52am ramipril 1.25 mg oral capsule (6 sources) Angiotensin Converting Enzyme Inhibitor Start: 07-14-2022 End: 12-19-2022 take 1 capsule by mouth at bedtime Ramipril 1.25 mg capsule Discontinued 1.25 mg PO AT BEDTIME July 14, 2022 12:00am December 19, 2022 9:53am ticagrelor 90 mg oral tablet (20 sources) Start: 08-21-2021 End: 12-19-2022 take 1 tablet by mouth twice daily Ticagrelor (Brilinta) 90 mg tablet Discontinued 90 mg PO TWICE A DAY 180 October 14, 2022 3:33pm December 19, 2022 10:34am Problems Active Problems Problem Classification Problem Date Documented Da te Episodic/Chronic Abdominal pain (12 sources) Abdominal pain; Translations: [Unspecified abdominal pain] Episodic Acute myocardial infarction (4 sources) Myocardial infarction; Translations: [ST elevation (STEMI) myocardial infarction of unspecified site] Onset: 11-07-2009 Chronic Calculus of urinary tract (11 sources) Renal colic; Translations: [Unspecified renal colic] Onset: 02-02-2023 04-01-2022 Episodic Cardiac dysrhythmias (1 source) Ventricular tachycardia; Translations: [Ventricular tachycardia (Multi)] Onset: 01-14-2024 01-14-2024 Chronic Coronary atherosclerosis and other heart disease (20 sources) Coronary atherosclerosis; Translations: [Atherosclerotic heart disease of [place] coronary artery without angina pectoris] Onset: 02-05-2023 Chronic Diseases of white blood cells (16 sources) Leukocytosis; Translations: [Elevated white blood cell count, unspecified] Chronic Disorders of lipid metabolism (10 sources) Hypercholesterolemi a; Translations: [Pure hypercholesterolemi a, unspecified] Onset: 11-07-2009 02-05-2023 Chronic Diverticulosis and diverticulitis (17 sources) Diverticulitis; Translations: [Diverticulitis of intestine, part unspecified, without perforation or abscess without bleeding] Onset: 07-21-2024 Chronic Essential hypertension (20 sources) Hypertensive disorder; Translations: [Essential (primary) hypertension] Onset: 02-05-2023 Chronic Comment on above: CONTROLLED ON MED Melanomas of skin (1 source) Malignant melanoma of skin; Translations: [Malignant melanoma of skin, unspecified] Onset: 01-14-2024 01-14-2024 Chronic Nonspecific chest pain (16 sources) Chest pain; Translations: [Chest pain, unspecified] Episodic Other connective tissue disease (12 sources) Muscle pain; Translations: [Myalgia, unspecified site] 12-17-2021 Episodic Other connective tissue disease (6 sources) Myalgia, unspecified site; Translations: [Myalgia and myositis, unspecified] Episodic Other gastrointestinal disorders (4 sources) History of diverticulitis; Translations: [Personal history of other diseases of the digestive system] 08-08-2022 Episodic Other gastrointestinal disorders (3 sources) Personal history of other diseases of the digestive system; Translations: [Personal history of unspecified digestive disease] 08-08-2022 Episodic Viral infection (10 sources) Viral disease; Translations: [Viral infection, unspecified] 01-21-2022 Episodic Past or Other Problems Problem Classification Problem Date Documented Da te Episodic/Chronic Coronary atherosclerosis and other heart disease (11 sources) Presence of coronary angioplasty implant and graft; Translations: [Percutaneous transluminal coronary angioplasty status] Onset: 08-20-2021 Episodic Other screening for suspected conditions (not mental disorders or infectious disease) (1 source) Encounter for screening for malignant neoplasm of prostate; Translations: [Encounter for screening for malignant neoplasm of prostate] Onset: 01-19-2024 Episodic Unclassified (3 sources) Onset: 02-05-2023 02-05-2023 Results Test Name Value Interpretation Reference Range Facility Microalb:Creat Ratio,Random URon 09-15-2024 MALB:CREAT 14.2 mg/g CRE Normal [facility] Comment on above: Result Comment: AMENDED REPORT 09/15/24 [id number] MALB:CREAT previously reported as: 142.0 mg/g CRE Performed By: #### L 502.0250 #### [facility] Laboratory [facility] [address] [place], [place], [id number] Abdomen Single Viewon 2024 Abdomen Single View [facility] [address] [place], [place] [address] Abdomen Single View MR#: [id number] Acct: [id number] Name: KAMALJIT PERRY Rep #: [id number] : 1955 M 69 From: Harman Santiago MD PCP: Dr. Becca Sánchez MD Status: REG CLI Study: Abdomen Single View Date of Exam: 09/12/24 Exam# [id number] Ordering Dr: Jovani Voss MD PROCEDURE: ABDOMEN SINGLE VIEW 09/12/2024 REASON FOR EXAM: CALCULUS OF KIDNEY TECHNIQUE: ABDOMEN SINGLE VIEW COMPARISON: KUB, 11/06/2022. FINDINGS: There is a nonobstructive bowel gas pattern. There are benign calcified granulomas in the liver and spleen. There are numerable stones in both kidneys and medullary sponge kidney is not excluded. There are selma in the pelvis consistent with bowel surgery. There are no soft tissue calcifications projected over either ureter. RAD/Abdomen Single View IMPRESSION: 1. Numerous calcifications projected over both kidneys consistent with nephrolithiasis. Medullary sponge kidney not excluded. 2. Other findings as noted. Reading Location: [facility] CC: Dr. Becca Sánchez MD; Dr. Jovani Voss MD Analysis Manager: Signed Normal [facility] Absolute lymphocyte countOrd ered By: Becca Sánchez on 07-15-2024 Lymphocytes Auto (Unsp spec) [#/Vol] 1.43 10*3/uL 0.83-4.51 [facility] Absolute neutrophil countOrd ered By: Becca Sánchez on 07-15-2024 Neutrophils (Bld) [#/Vol] 3.7 10*3/uL 2.0-7.7 [facility] Anion gap in Serum or Plasma Ordered By: Becca Sánchez on 07-15-2024 Anion gap [Moles/Vol] 11 mmol/L 5-15 [facility] Automated lymphocyte count a s percentage of total leukocytesOrdered By: Becca Sánchez on 07-15-2024 Lymphocytes/100 WBC Auto (Unsp spec) 24.7 % 19- [facility] BUN/creatinine ratioOrdered By: Becca Sánchez on 07-15-2024 Urea nitrogen/Creatinine [Mass ratio] 14.4 mg/mg 10- [facility] Basophil percentageOrdered B y: Becca Sánchez on 07-15-2024 Basophils/100 WBC (Bld) 0.5 % 0-1 [facility] Bilirubin, totalOrdered By: Becca Sánchez on 07-15-2024 Bilirubin [Mass/Vol] 0.46 mg/dL 0.00-1.30 [facility] CBC W/Diff, Automatedon 06-28 Absolute Lymph 1.43 X10 3/uL Normal 0.83-4.51 [facility] Comment on above: Order Comment: Order Date: 07/15/24 Order Info: [id number]- - CBCD Order Info: [id number] - SED Performed By: #### L 100.0100, L500.4050, L501.6710, L101.9900 #### [facility] [address] [place], [address] Absolute Neut 3.7 X10 3/uL Normal 2.0-7.7 [facility] Comment on above: Order Comment: Order Date: 07/15/24 Order Info: [id number]- - CBCD Order Info: [id number] - SED Performed By: #### L 100.0100, L500.4050, L501.6710, L101.9900 #### [facility] [address] [place], [address] Basophils/100 WBC (Bld) 0.5 % Normal 0-1 [facility] Comment on above: Order Comment: Order Date: 07/15/24 Order Info: 018- - CBCD Order Info: [id number] - SED Performed By: #### L 100.0100, L500.4050, L501.6710, L101.9900 #### [facility] [address] [place], [address] Eosinophils/100 WBC (Bld) 1.2 % Normal 0-5 [facility] Comment on above: Order Comment: Order Date: 07/15/24 Order Info: 183-1 - CBCD Order Info: [id number] - SED Performed By: #### L 100.0100, L500.4050, L501.6710, L101.9900 #### [facility] [address] [place], [address] Erythrocyte distribution width (RBC) [Ratio] 12.0 % Normal 11.6-14.6 [facility] Comment on above: Order Comment: Order Date: 07/15/24 Order Info: 183- - CBCD Order Info: [id number] - SED Performed By: #### L 100.0100, L500.4050, L501.6710, L101.9900 #### [facility] [address] [place], [address] Hematocrit (Bld) [Volume fraction] 43.8 % Normal 40-54 [facility] Comment on above: Order Comment: Order Date: 07/15/24 Order Info: [id number] - CBCD Order Info: [id number] - SED Performed By: #### L 100.0100, L500.4050, L501.6710, L101.9900 #### [facility] [address] [place], [address] Hemoglobin (Bld) [Mass/Vol] 15.0 g/dL Normal 13.0-16.5 [facility] Comment on above: Order Comment: Order Date: 07/15/24 Order Info: 183- - CBCD Order Info: [id number] - SED Performed By: #### L 100.0100, L500.4050, L501.6710, L101.9900 #### [facility] [address] [place], [address] IG% 0.200 Normal 0.0-0.9 [facility] Comment on above: Order Comment: Order Date: 07/15/24 Order Info: 183-03 - CBCD Order Info: [id number] - SED Result Comment: IG% - Immature Granulocytes (promyelocytes, myelocytes and metamyelocytes) > 1% indicates that a LEFT SHIFT is Present. Performed By: #### L 100.0100, L500.4050, L501.6710, L101.9900 #### [facility] [address] [place], [address] Lymphocytes/100 WBC (Bld) 24.7 % Normal 19-41 [facility] Comment on above: Order Comment: Order Date: 07/15/24 Order Info: [id number] - CBCD Order Info: [id number] - SED Performed By: #### L 100.0100, L500.4050, L501.6710, L101.9900 #### [facility] [address] [place], [address] MCH (RBC) [Entitic mass] 29.8 pg Normal 27.0-32.0 [facility] Comment on above: Order Comment: Order Date: 07/15/24 Order Info: 183-03 - CBCD Order Info: [id number] - SED Performed By: #### L 100.0100, L500.4050, L501.6710, L101.9900 #### [facility] [address] [place], [address] MCHC (RBC) [Mass/Vol] 34.2 g/dL Normal 32-36 [facility] Comment on above: Order Comment: Order Date: 07/15/24 Order Info: 183-03 - CBCD Order Info: [id number] - SED Performed By: #### L 100.0100, L500.4050, L501.6710, L101.9900 #### [facility] [address] [place], [address] MCV (RBC) [Entitic vol] 86.9 fL Normal 80-94 [facility] Comment on above: Order Comment: Order Date: 07/15/24 Order Info: [id number] - CBCD Order Info: [id number] - SED Performed By: #### L 100.0100, L500.4050, L501.6710, L101.9900 #### [facility] [address] [place], [address] Monocytes/100 WBC (Bld) 9.0 % Normal 0-10 [facility] Comment on above: Order Comment: Order Date: 07/15/24 Order Info: 183- - CBCD Order Info: [id number] - SED Performed By: #### L 100.0100, L500.4050, L501.6710, L101.9900 #### [facility] [address] [place], [address] Neutrophils/100 WBC (Bld) 64.4 % Normal 47-70 [facility] Comment on above: Order Comment: Order Date: 07/15/24 Order Info: 018- - CBCD Order Info: [id number] - SED Performed By: #### L 100.0100, L500.4050, L501.6710, L101.9900 #### [facility] [address] [place], [address] Nucleated RBC (Bld) [#/Vol] 0 10*3/uL Normal 0-5 [facility] Comment on above: Order Comment: Order Date: 07/15/24 Order Info: 018- - CBCD Order Info: [id number] - SED Performed By: #### L 100.0100, L500.4050, L501.6710, L101.9900 #### [facility] [address] [place], [address] Platelet mean volume (Bld) [Entitic vol] 9.9 fL Normal 6.2-12.0 [facility] Comment on above: Order Comment: Order Date: 07/15/24 Order Info: [id number] - CBCD Order Info: [id number] - SED Performed By: #### L 100.0100, L500.4050, L501.6710, L101.9900 #### [facility] [address] [place], [address] Platelets (Bld) [#/Vol] 187 10*3/uL Normal 150-450 [facility] Comment on above: Order Comment: Order Date: 07/15/24 Order Info: [id number] - CBCD Order Info: [id number] - SED Performed By: #### L 100.0100, L500.4050, L501.6710, L101.9900 #### [facility] [address] [place], [address] RBC (Bld) [#/Vol] 5.04 10*6/uL Normal 4.6-6.2 [facility] Comment on above: Order Comment: Order Date: 07/15/24 Order Info: [id number] - CBCD Order Info: [id number] - SED Performed By: #### L 100.0100, L500.4050, L501.6710, L101.9900 #### [facility] [address] [place], [address] RDW SD 38.3 fl Normal 35.1-43.9 [facility] Comment on above: Order Comment: Order Date: 07/15/24 Order Info: [id number] - CBCD Order Info: [id number] - SED Performed By: #### L 100.0100, L500.4050, L501.6710, L101.9900 #### [facility] [address] [place], [address] WBC (Bld) [#/Vol] 5.8 10*3/uL Normal 4.4-11.0 [facility] Comment on above: Order Comment: Order Date: 07/15/24 Order Info: [id number] - CBCD Order Info: [id number] - SED Performed By: #### L 100.0100, L500.4050, L501.6710, L101.9900 #### [facility] [address] [place], [address] CRPon 07-15-2024 C-REACTIVE PROT < 3.00 Normal 0.0-3.0 [facility] Comment on above: Order Comment: Order Date: 07/15/24Order Info: [id number] - CMPOrder Info: [id number] - CRP Performed By: #### L 100.0100, L500.4050, L501.6710, L101.9900 ####[facility] [address] [place], [address] Carbon dioxide, total [Moles /volume] in Central venous bloodOrdered By: Becca Sánchez on 07-15-2024 CO2 [Moles/Vol] 24.2 mmol/L 21.0-32.0 [facility] Chloride assayOrdered By: Dale Sánchez on 07-15-2024 Chloride [Moles/Vol] 104 mmol/L 98-108 [facility] Comprehensive Metabolic Prof ilon 07-15-2024 Albumin [Mass/Vol] 4.5 g/dL Normal 3.4-4.8 [facility] Comment on above: Order Comment: Order Date: 07/15/24Order Info: 0786-1 - CMPOrder Info: [id number] - CRP Performed By: #### L 100.0100, L500.4050, L501.6710, L101.9900 ####[facility] [address] [place], [address] Albumin/Globulin [Mass ratio] 1.7 {ratio} Normal 0.9-2.4 [facility] Comment on above: Order Comment: Order Date: 07/15/24Order Info: [id number] - CMPOrder Info: [id number] - CRP Performed By: #### L 100.0100, L500.4050, L501.6710, L101.9900 ####[facility] [address] [place], [address] ALK PHOS 66 U/L Normal 40-129 [facility] Comment on above: Order Comment: Order Date: 07/15/24Order Info: [id number] - CMPOrder Info: [id number] - CRP Performed By: #### L 100.0100, L500.4050, L501.6710, L101.9900 ####[facility] [address] [place], [address] ALT [Catalytic activity/Vol] 31 U/L Normal <=46 [facility] Comment on above: Order Comment: Order Date: 07/15/24Order Info: 0786-1 - CMPOrder Info: [id number] - CRP Performed By: #### L 100.0100, L500.4050, L501.6710, L101.9900 ####[facility] [address] [place], [address] AST [Catalytic activity/Vol] 25 U/L Normal <=37 [facility] Comment on above: Order Comment: Order Date: 07/15/24Order Info: 0786-1 - CMPOrder Info: [id number] - CRP Performed By: #### L 100.0100, L500.4050, L501.6710, L101.9900 ####[facility] [address] [place], [address] Bilirubin [Mass/Vol] 0.46 mg/dL Normal 0.00-1.30 [facility] Comment on above: Order Comment: Order Date: 07/15/24Order Info: [id number] - CMPOrder Info: [id number] - CRP Performed By: #### L 100.0100, L500.4050, L501.6710, L101.9900 ####[facility] [address] [place], [address] BUN/CRE 14.4 RATIO Normal 10-20 [facility] Comment on above: Order Comment: Order Date: 07/15/24Order Info: 0786-1 - CMPOrder Info: [id number] - CRP Performed By: #### L 100.0100, L500.4050, L501.6710, L101.9900 ####[facility] [address] [place], [address] Calcium [Mass/Vol] 9.8 mg/dL Normal 7.6-11.0 [facility] Comment on above: Order Comment: Order Date: 07/15/24Order Info: [id number] - CMPOrder Info: [id number] - CRP Performed By: #### L 100.0100, L500.4050, L501.6710, L101.9900 ####[facility] [address] [place], [address] Chloride [Moles/Vol] 104 mmol/L Normal 98-108 [facility] Comment on above: Order Comment: Order Date: 07/15/24Order Info: 0786-1 - CMPOrder Info: [id number] - CRP Performed By: #### L 100.0100, L500.4050, L501.6710, L101.9900 ####[facility] [address] [place], [address] CO2 [Moles/Vol] 24.2 mmol/L Normal 21.0-32.0 [facility] Comment on above: Order Comment: Order Date: 07/15/24Order Info: 0786-1 - CMPOrder Info: [id number] - CRP Performed By: #### L 100.0100, L500.4050, L501.6710, L101.9900 ####[facility] [address] [place], [address] Creatinine [Mass/Vol] 1.05 mg/dL Normal 0.70-1.20 [facility] Comment on above: Order Comment: Order Date: 07/15/24Order Info: 0786-1 - CMPOrder Info: [id number] - CRP Performed By: #### L 100.0100, L500.4050, L501.6710, L101.9900 ####[facility] [address] [place], [address] GAP 11 Normal 5-15 [facility] Comment on above: Order Comment: Order Date: 07/15/24Order Info: [id number] - CMPOrder Info: [id number] - CRP Performed By: #### L 100.0100, L500.4050, L501.6710, L101.9900 ####[facility] [address] [place], [address] GFR/1.73 sq M.predicted among non-blacks MDRD (S/P/Bld) [Vol rate/Area] 76 mL/min/{1.73_m2} Normal >60 [facility] Comment on above: Order Comment: Order Date: 07/15/24Order Info: 0786-1 - CMPOrder Info: [id number] - CRP Result Comment: mL/m in/1.73m2 CKD-EPI Creatinine Equation (2020) Performed By: #### L 100.0100, L500.4050, L501.6710, L101.9900 ####[facility] [address] [place], [address] Globulin (S) [Mass/Vol] 2.6 g/dL Normal 2.2-4.2 [facility] Comment on above: Order Comment: Order Date: 07/15/24Order Info: 0786-1 - CMPOrder Info: [id number] - CRP Performed By: #### L 100.0100, L500.4050, L501.6710, L101.9900 ####[facility] [address] [place], [address] Glucose [Mass/Vol] 109 mg/dL High 70-99 [facility] Comment on above: Order Comment: Order Date: 07/15/24Order Info: 0786-1 - CMPOrder Info: [id number] - CRP Performed By: #### L 100.0100, L500.4050, L501.6710, L101.9900 ####[facility] [address] [place], [address] Potassium [Moles/Vol] 4.9 mmol/L Normal 3.3-5.1 [facility] Comment on above: Order Comment: Order Date: 07/15/24Order Info: 0786-1 - CMPOrder Info: [id number] - CRP Performed By: #### L 100.0100, L500.4050, L501.6710, L101.9900 ####[facility] [address] [place], [address] Sodium [Moles/Vol] 139 mmol/L Normal 133-145 [facility] Comment on above: Order Comment: Order Date: 07/15/24Order Info: [id number] - CMPOrder Info: [id number] - CRP Performed By: #### L 100.0100, L500.4050, L501.6710, L101.9900 ####[facility] [address] [place], [address] T PROT 7.0 g/dL Normal 5.9-8.4 [facility] Comment on above: Order Comment: Order Date: 07/15/24Order Info: [id number] - CMPOrder Info: [id number] - CRP Performed By: #### L 100.0100, L500.4050, L501.6710, L101.9900 ####[facility] [address] [place], [address] Urea nitrogen [Mass/Vol] 15 mg/dL Normal 4-19 [facility] Comment on above: Order Comment: Order Date: 07/15/24Order Info: 0786-1 - CMPOrder Info: [id number] - CRP Performed By: #### L 100.0100, L500.4050, L501.6710, L101.9900 ####[facility] [address] [place], [address] Eosinophil percentageOrdered By: Becca Sánchez on 07-15-2024 Eosinophils/100 WBC (Bld) 1.2 % 0-5 [facility] Erythrocyte Sed Rateon 07-15 SED RATE 2 mm/hr Normal 0-20 [facility] Comment on above: Order Comment: Order Date: 07/15/24Order Info: [id number] - CBCDOrder Info: [id number] - SED Performed By: #### L 100.0100, L500.4050, L501.6710, L101.9900 ####[facility] [address] [place], [address] Erythrocyte distribution wid th ratioOrdered By: Becca Sánchez on 07-15-2024 Erythrocyte distribution width (RBC) [Ratio] 12.0 % 11.6-14.6 [facility] Erythrocyte distribution wid th standard deviationOrdered By: Becca Sánchez on 07-15-2024 Erythrocyte distribution width (RBC) [Ratio] 38.3 fl 35.1-43.9 [facility] Erythrocyte sedimentation ra teOrdered By: Becca Sánchez on 07-15-2024 ESR (Bld) [Velocity] 2 mm/h 0-20 [facility] Glomerular filtration rate ( GFR) estimation/1.73 sq m using serum, plasma, or whole bOrdered By: Becca Sánchez on 07-15-2024 GFR/1.73 sq M.predicted among non-blacks MDRD (S/P/Bld) [Vol rate/Area] 76 mL/min/{1.73_m2} >60 [facility] Comment on above: mL/min/1.73m2 CKD-EP I Creatinine Equation (2020) Hematocrit Auto (Bld) [Volum e fraction]Ordered By: Becca Sánchez on 07-15-2024 Hematocrit (Bld) [Volume fraction] 43.8 % 40-54 [facility] Hemoglobin measurementOrdere d By: Becca Sánchez on 07-15-2024 Hemoglobin (Bld) [Mass/Vol] 15.0 g/dL 13.0-16.5 [facility] Immature granulocytes/100 WB C Auto (Bld)Ordered By: Becca Sánchez on 07-15-2024 Immature granulocytes/100 WBC (Bld) 0.200 % 0.0-0.9 [facility] Comment on above: IG% - Immature Granu locytes (promyelocytes, myelocytes and metamyelocytes) > 1% indicates that a LEFT SHIFT is Present. Laboratory - Chemistry and C hemistry - challengeOrdered By: Becca Sánchez on 07-15-2024 AST [Catalytic activity/Vol] 25 U/L <38 [facility] MCV (mean corpuscular volume ) determinationOrdered By: Becca Sánchez on 07-15-2024 MCV (RBC) [Entitic vol] 86.9 fL 80-94 [facility] Mean corpuscular hemoglobin (MCH) determinationOrdered By: Becca Sánchez on 07-15-2024 MCH (RBC) [Entitic mass] 29.8 pg 27.0-32.0 [facility] Mean corpuscular hemoglobin concentration (MCHC) determinationOrdered By: Becca Sánchez on 07-15-2024 MCHC (RBC) [Mass/Vol] 34.2 g/dL 32-36 [facility] Mean platelet volume determi nationOrdered By: Becca Sáncehz on 07-15-2024 Platelet mean volume (Bld) [Entitic vol] 9.9 fL 6.2-12.0 [facility] Monocyte percentageOrdered B y: Becca Sánchez on 07-15-2024 Monocytes/100 WBC (Bld) 9.0 % 0-10 [facility] Neutrophil percentageOrdered By: Becca Sánchez on 07-15-2024 Neutrophils/100 WBC (Bld) 64.4 % 47-70 [facility] Nucleated red blood cell per centageOrdered By: Becca Sánchez on 07-15-2024 Nucleated RBC/100 WBC (Bld) [Ratio] 0 % 0-5 [facility] Platelet countOrdered By: Dale Sánchez on 07-15-2024 Platelets (Bld) [#/Vol] 187 10*3/uL 150-450 [facility] Potassium measurement (mass/ volume)Ordered By: Becca Sánchez on 07-15-2024 Potassium (Unsp spec) [Mass/Vol] 4.9 mmol/L 3.3-5.1 [facility] RBC Auto (Bld) [#/Vol]Ordere d By: Becca Sánchez on 07-15-2024 RBC (Bld) [#/Vol] 5.04 10*6/uL 4.6-6.2 [facility] Random urine creatinine alpesh urement (mass/volume)Ordered By: Becca Sánchez on 07-15-2024 Creatinine Unsp time (U) [Mass/Vol] 131.00 mg/dL 39.00-259.0 0 [facility] Serum creatinine measurement (mass/volume)Ordered By: Becca Sánchez on 07-15-2024 Creatinine [Mass/Vol] 1.05 mg/dL 0.70-1.20 [facility] Serum globulin measurementOr dered By: Becca Sánchez on 07-15-2024 Globulin (S) [Mass/Vol] 2.6 g/dL 2.2-4.2 [facility] Serum glucose measurement (m ass/volume)Ordered By: Becca Sánchez on 07-15-2024 Glucose [Mass/Vol] 109 mg/dL High 70-99 [facility] Serum or plasma C reactive p rotein measurement (mass/volume)Ordered By: Becca Sánchez on 07-15-2024 CRP [Mass/Vol] mg/L 0.0-3.0 [facility] Serum or plasma alanine link otransferase (ALT) measurementOrdered By: Becca Sánchez on 07-15-2024 ALT [Catalytic activity/Vol] 31 U/L <47 [facility] Serum or plasma albumin alpesh urement (mass/volume)Ordered By: Becca Sánchez on 07-15-2024 Albumin [Mass/Vol] 4.5 g/dL 3.4-4.8 [facility] Serum or plasma albumin/glob ulin mass ratioOrdered By: Becca Sánchez 07-15-2024 Albumin/Globulin [Mass ratio] 1.7 {ratio} 0.9-2.4 [facility] Serum or plasma alkaline jackelin sphatase measurementOrdered By: Becca Sánchez on 07-15-2024 ALP [Catalytic activity/Vol] 66 U/L 40-129 [facility] Serum or plasma calcium alpesh urement (mass/volume)Ordered By: Becca Sánchez on 07-15-2024 Calcium [Mass/Vol] 9.8 mg/dL 7.6-11.0 [facility] Serum or plasma urea nitroge n measurement (mass/volume)Ordered By: Becca Sánchez on 07-15-2024 Urea nitrogen [Mass/Vol] 15 mg/dL 4-19 [facility] Sodium levelOrdered By: Becca Sánchez on 07-15-2024 Sodium [Moles/Vol] 139 mmol/L 133-145 [facility] Total proteinOrdered By: Dianne Sánchez on 07-15-2024 Protein [Mass/Vol] 7.0 g/dL 5.9-8.4 [facility] Urine albumin measurement wi detection limit of 20 mg/L or less (mass/volume)Ordered By: Becca Sánchez on 07-15-2024 Albumin DL <= 20 mg/L (U) [Mass/Vol] 18.6 mg/L NO RANGE EST. [facility] White blood cell (WBC) count Ordered By: Becca Sánchez on 07-15-2024 WBC (Bld) [#/Vol] 5.8 10*3/uL 4.4-11.0 [facility] Protein Electroph, Son 12-22 Albumin [Mass/Vol] 3.8 g/dL Normal 2.9-4.4 [facility] Comment on above: Order Comment: Order Date: 12/21/23 Order Info: 0060-1 - PROEL Performed By: #### L 3100.3450, L100.0100, L101.9900 #### [facility] [address] [place], [place], [id number] Albumin/Globulin [Mass ratio] 1.5 {ratio} Normal 0.7-1.7 [facility] Comment on above: Order Comment: Order Date: 12/21/23 Order Info: 0060-1 - PROEL Performed By: #### L 3100.3450, L100.0100, L101.9900 #### [facility] [address] [place], [place], [address] ALPHA-1 GLOBUL 0.2 g/dL Normal 0.0-0.4 [facility] Comment on above: Order Comment: Order Date: 12/21/23 Order Info: 0060-1 - PROEL Performed By: #### L 3100.3450, L100.0100, L101.9900 #### [facility] [address] [place], [address] ALPHA-2 GLOBUL 0.7 g/dL Normal 0.4-1.0 [facility] Comment on above: Order Comment: Order Date: 12/21/23 Order Info: 0060-1 - PROEL Performed By: #### L 3100.3450, L100.0100, L101.9900 #### [facility] [address] [place], [address] BETA GLOBULIN 1.1 g/dL Normal 0.7-1.3 [facility] Comment on above: Order Comment: Order Date: 12/21/23 Order Info: 0060-1 - PROEL Performed By: #### L 3100.3450, L100.0100, L101.9900 #### [facility] [address] [place], [address] GAMMA GLOBULIN 0.5 g/dL Normal 0.4-1.8 [facility] Comment on above: Order Comment: Order Date: 12/21/23 Order Info: 0060-1 - PROEL Performed By: #### L 3100.3450, L100.0100, L101.9900 #### [facility] [address] [place], [address] Globulin (S) [Mass/Vol] 2.5 g/dL Normal 2.2-3.9 [facility] Comment on above: Order Comment: Order Date: 12/21/23 Order Info: 0060-1 - PROEL Performed By: #### L 3100.3450, L100.0100, L101.9900 #### [facility] [address] [place], [address] INTERPRETATION Comment Normal . [facility] Comment on above: Order Comment: Order Date: 12/21/23 Order Info: 0060-1 - PROEL Result Comment: Prot ein electrophoresis scan will follow via computer, mail, or traveling representative delivery. Performed By: #### L 3100.3450, L100.0100, L101.9900 #### [facility] [address] [place], [place], [address] M-SPIKE Not Observed Normal Not Observed [facility] Comment on above: Order Comment: Order Date: 12/21/23 Order Info: 59-1 - PROEL Performed By: #### L 3100.3450, L100.0100, L101.9900 #### [facility] [address] [place], [place], [address] NOTE: Comment Normal . [facility] Comment on above: Order Comment: Order Date: 12/21/23 Order Info: 59- - PROEL Result Comment: The SPE pattern appears unremarkable. Evidence of monoclonal protein is not apparent. Performed at: [place] [id number] [employer]: Vipul Morillo PhD, Phone: [phone] Performed By: #### L 3100.3450, L100.0100, L101.9900 #### [facility] [address] [place], [place], [address] Protein [Mass/Vol] 6.3 g/dL Normal 6.0-8.5 [facility] Comment on above: Order Comment: Order Date: 12/21/23 Order Info: 006- - PROEL Performed By: #### L 3100.3450, L100.0100, L101.9900 #### [facility] [address] [place], [place], [address] CBC W/Diff, Automatedon 11-29 Absolute Lymph 1.47 X10 3/uL Normal 0.83-4.51 [facility] Comment on above: Order Comment: Order Date: 12/21/23 Order Info: 0184-1 - CBCD Order Info: [id number] - SED Performed By: #### L 3100.3450, L100.0100, L101.9900 #### [facility] [address] [place], [address] Absolute Neut 4.5 X10 3/uL Normal 2.0-7.7 [facility] Comment on above: Order Comment: Order Date: 12/21/23 Order Info: 183- - CBCD Order Info: [id number] - SED Performed By: #### L 3100.3450, L100.0100, L101.9900 #### [facility] [address] [place], [address] Basophils/100 WBC (Bld) 0.6 % Normal 0-1 [facility] Comment on above: Order Comment: Order Date: 12/21/23 Order Info: 183-03 - CBCD Order Info: [id number] - SED Performed By: #### L 3100.3450, L100.0100, L101.9900 #### [facility] [address] [place], [address] Eosinophils/100 WBC (Bld) 0.9 % Normal 0-5 [facility] Comment on above: Order Comment: Order Date: 12/21/23 Order Info: 183-03 - CBCD Order Info: [id number] - SED Performed By: #### L 3100.3450, L100.0100, L101.9900 #### [facility] [address] [place], [address] Erythrocyte distribution width (RBC) [Ratio] 12.2 % Normal 11.6-14.6 [facility] Comment on above: Order Comment: Order Date: 12/21/23 Order Info: 183-03 - CBCD Order Info: [id number] - SED Performed By: #### L 3100.3450, L100.0100, L101.9900 #### [facility] [address] [place], [address] Hematocrit (Bld) [Volume fraction] 41.9 % Normal 40-54 [facility] Comment on above: Order Comment: Order Date: 12/21/23 Order Info: 183- - CBCD Order Info: [id number] - SED Performed By: #### L 3100.3450, L100.0100, L101.9900 #### [facility] [address] [place], [address] Hemoglobin (Bld) [Mass/Vol] 13.8 g/dL Normal 13.0-16.5 [facility] Comment on above: Order Comment: Order Date: 12/21/23 Order Info: 183- - CBCD Order Info: [id number] - SED Performed By: #### L 3100.3450, L100.0100, L101.9900 #### [facility] [address] [place], [address] IG% 0.100 Normal 0.0-0.9 [facility] Comment on above: Order Comment: Order Date: 12/21/23 Order Info: 183-03 - CBCD Order Info: [id number] - SED Result Comment: IG% - Immature Granulocytes (promyelocytes, myelocytes and metamyelocytes) > 1% indicates that a LEFT SHIFT is Present. Performed By: #### L 3100.3450, L100.0100, L101.9900 #### [facility] [address] [place], [address] Lymphocytes/100 WBC (Bld) 21.7 % Normal 19-41 [facility] Comment on above: Order Comment: Order Date: 12/21/23 Order Info: 183-03 - CBCD Order Info: [id number] - SED Performed By: #### L 3100.3450, L100.0100, L101.9900 #### [facility] [address] [place], [address] MCH (RBC) [Entitic mass] 29.6 pg Normal 27.0-32.0 [facility] Comment on above: Order Comment: Order Date: 12/21/23 Order Info: 183- - CBCD Order Info: [id number] - SED Performed By: #### L 3100.3450, L100.0100, L101.9900 #### [facility] [address] [place], [address] MCHC (RBC) [Mass/Vol] 32.9 g/dL Normal 32-36 [facility] Comment on above: Order Comment: Order Date: 12/21/23 Order Info: 183-03 - CBCD Order Info: [id number] - SED Performed By: #### L 3100.3450, L100.0100, L101.9900 #### [facility] [address] [place], [address] MCV (RBC) [Entitic vol] 89.7 fL Normal 80-94 [facility] Comment on above: Order Comment: Order Date: 12/21/23 Order Info: 183-03 - CBCD Order Info: [id number] - SED Performed By: #### L 3100.3450, L100.0100, L101.9900 #### [facility] [address] [place], [address] Monocytes/100 WBC (Bld) 10.0 % Normal 0-10 [facility] Comment on above: Order Comment: Order Date: 12/21/23 Order Info: 183-03 - CBCD Order Info: [id number] - SED Performed By: #### L 3100.3450, L100.0100, L101.9900 #### [facility] [address] [place], [address] Neutrophils/100 WBC (Bld) 66.7 % Normal 47-70 [facility] Comment on above: Order Comment: Order Date: 12/21/23 Order Info: 183- - CBCD Order Info: [id number] - SED Performed By: #### L 3100.3450, L100.0100, L101.9900 #### [facility] [address] [place], [address] Nucleated RBC (Bld) [#/Vol] 0 10*3/uL Normal 0-5 [facility] Comment on above: Order Comment: Order Date: 12/21/23 Order Info: [id number] - CBCD Order Info: [id number] - SED Performed By: #### L 3100.3450, L100.0100, L101.9900 #### [facility] [address] [place], [address] Platelet mean volume (Bld) [Entitic vol] 10.1 fL Normal 6.2-12.0 [facility] Comment on above: Order Comment: Order Date: 12/21/23 Order Info: [id number] - CBCD Order Info: [id number] - SED Performed By: #### L 3100.3450, L100.0100, L101.9900 #### [facility] [address] [place], [address] Platelets (Bld) [#/Vol] 175 10*3/uL Normal 150-450 [facility] [facility] Comment on above: Order Comment: Order Date: 12/21/23 Order Info: [id number] - CBCD Order Info: [id number] - SED Performed By: #### L 3100.3450, L100.0100, L101.9900 #### [facility] [address] [place], [address] RBC (Bld) [#/Vol] 4.67 10*6/uL Normal 4.6-6.2 [facility] Comment on above: Order Comment: Order Date: 12/21/23 Order Info: [id number] - CBCD Order Info: [id number] - SED Performed By: #### L 3100.3450, L100.0100, L101.9900 #### [facility] [address] [place], [address] RDW SD 40.1 fl Normal 35.1-43.9 [facility] Comment on above: Order Comment: Order Date: 12/21/23 Order Info: [id number] - CBCD Order Info: [id number] - SED Performed By: #### L 3100.3450, L100.0100, L101.9900 #### [facility] [address] [place], [address] WBC (Bld) [#/Vol] 6.8 10*3/uL Normal 4.4-11.0 [facility] Comment on above: Order Comment: Order Date: 12/21/23 Order Info: [id number] - CBCD Order Info: [id number] - SED Performed By: #### L 3100.3450, L100.0100, L101.9900 #### [facility] [address] [place], [address] CRPon 12-21-2023 C-REACTIVE PROT < 2.90 Normal 0.0-3.0 [facility] Comment on above: Order Comment: Order Date: 12/21/23 Order Info: [id number] - CRP Result Comment: C-Re active Protein (CRP) provides useful information for the diagnosis, therapy and monitoring of inflammatory processes and associated diseases. For the evaluation of Relative Risk for Cardiovascular Disease, a High Sensitivity CRP (HSCRP) should be ordered. Performed By: #### L 501.6710 #### [facility] [address] [place], [address] Erythrocyte Sed Rateon 12-20 SED RATE 2 mm/hr Normal 0-20 [facility] Comment on above: Order Comment: Order Date: 12/21/23 Order Info: [id number] - CBCD Order Info: [id number] - SED Performed By: #### L 3100.3450, L100.0100, L101.9900 #### [facility] [address] [place], [place], [address] PSA,Total - Annual Screenon 12-21-2023 PSA,TOT SCREEN 2.14 ng/mL Normal 0.00-4.00 [facility] Comment on above: Order Comment: Order Date: 12/21/23 Order Info: [id number] - CRP Result Comment: This test was performed using the TPSA assay method for the Rotapanel chemistry system. Values obtained with different assay methods cannot be used interchangably. When changing PSA assays in the course of monitoring a patient, additional sequential testing should be carried out to confirm baseline values. Performed By: #### L 501.9910 #### [facility] [address] [place], [place], [address] PT D/C Summary (1)on 024 PT D/C Summary (1) [facility] [address] [place] [address]. [address] [place] [address] / REHABILITATION SERVICES DISCHARGE SUMMARY MR#: [id number] Acct: [id number] Name: KAMALJIT PERRY Rep #: [id number] : 1955 68 From: Girma Trujillo PT, Cert. T, [facility] Referring Dr.: Dr. Becca Sánchez MD Status: REG R CR Insurance: [facility] [employer] [employer]1 SELF PAY INSURANCE Discharge Summary D/C summary: It has been my pleasure to treat KAMALJIT PERRY referred by Dr. Becca Sánchez MD, with the diagnosis of LEFT LOW BACK BACK PAIN for a total of 7 visit(s). Discharge Date: 10/26/23 Please see the following information for a summary of their discharge status. Subjective Subjective: Doing great alot better stronger Pain Left Back: Pain Intensity (Out of 10): 0 Overall Improvement % Improvement: 100 Objective Objective/Function: POSTURE: bilateral ankle calcaneal valgus ER forefoot GAIT: reciprocal pattern SYMMTIES: align PALAPTION: unremarkable FLEXABILITY: hamstrings WFL ,piriformis mod tight HIP IR: right 25 degrees ,left 5 degrees MMT: quads/hams 4/5 ,hip flexion 4-/5 left ,right 4-/5 ,( peak force) glut medius left 0 LUMBAR ROM: flexion WFL ,extension MIN , side glides mIN loss SLS : INTACT Goals Goal 1:: Patient to be I with HEP back and hip Goal Progress: Goal Met Goal 2:: Patient to demonstrate 50% improvement with less pain and improved function Goal Progress: Goal Met Goal 3:: Patient to improve peak force left glut medius by 10-15# to improve strength Goal Progress: Goal Met Goal 4:: Patient to improve back oswestry score by 5 points to improve QOL and function. Goal 5:: Patient will be able to walk and stand > 30 mins to improve gait and function. Goal Progress: Goal Met Plan Plan: D/C TO HEP D/C Information Discharge Comments: HEP d/c sentence: If there are questions or concerns regarding this patient's physical therapy, please feel free to call me at [phone]. Thank you for the referral of this patient. Sincerely, Girma Trujillo PT, Cert T, OCS Balance/Gait/Functiona l tests Balance/Special Test Scores Oswestry Low Back Score: 0 Improvement % Improvement: 100 10/27/23 0830 CC: Dr. Becca Sánchez MD JLA Signed Normal [facility] Inital Evaluation (1) - PTon 09-22-2023 Inital Evaluation (1) - PT [facility] [address] [place] [address] [address] [place] [address] / REHABILITATION SERVICES INITIAL EVALUATION MR#: [id number] Acct: [id number] Name: KAMALJIT PERRY Rep #: [id number] : 1955 68 From: Judith Varner PT. MD [place], OCS Referring Dr.: Dr. Becca Sánchez MD Status: REG R CR Insurance: [facility] [employer] [employer] SELF PAY INSURANCE Patient's Visit Information Visit Information Visit Information: KAMALJIT PERRY is a 68 year old M referred to Physical Therapy by Dr. Becca Sánchez MD with a diagnosis of LEFT LOW BACK BACK PAIN. Date of Evaluation: 09/22/23 Physical Therapist: Girma Trujillo PT, Cert T, OCS Visit Plan Frequency: 2x /Week Duration: 4 Weeks Plan: PT INTERVENTIONS FLEXABILITY LLE , STRENGTHENING GLUT MEDIUS , DLS ,POSTURAL EX'S ,LUMBAR FLEXION AND FUNCTIONAL STRENGTHENING Subjective Subjective: This 68 y/o male presents to physical therapy to left lumbar. Patient has had left lumbar pain for past [address] morales PT . Patient had no imaging. No medication. Aggravating factors extended walking ,standing 30 mins ,sitting 20 mins . Alleviating bending/lifting okay. Patient sleeping okay . No abnormal night pain. Denies paresthesia/tingling -. Patient has h/o kidney stones. Patient has used orthotics in past. Coughing/sneezing -. Arya;/bladder-.Patient has h/o prior PT ` 30 years ago ,but has h/o back pain. Patient condition affects QOL and function. Patient goals to decrease pain. Patient bought orthotics shoe insert SOCIAL: VOCATION: retired Pain Left Back: Pain Intensity (Out of 10): 2 Pain Intensity Range: 10 Objective Objective: POSTURE: bilateral ankle calcaneal valgus ER forefoot GAIT: reciprocal pattern SYMMTIES: align PALAPTION: unremarkable FLEXABILITY: hamstrings WFL ,piriformis mod tight HIP IR: right 25 degrees ,left 5 degrees MMT: quads/hams 4/5 ,hip flexion 4-/5 left ,right 4-/5 ,( peak force) glut medius left 0 LUMBAR ROM: flexion WFL ,extension mod loss pain left , side glides mod loss SLS : <10SEC lateral tilt glut medius weak Special Tests L/S Slump test left side: Negative L/S Slump test right side: Negative L/S Left Straight Leg Raise: Negative L/S Right Straight Leg Raise: Negative L Hip Scour: Negative L Hip Trendelenberg - Glut Medius: Positive Balance/Special Test Scores Oswestry Low Back Score: 15 Goals Goal 1:: Patient to be I with HEP back and hip Goal Time Frame: 4-6 Weeks Goal 2:: Patient to demonstrate 50% improvement with less pain and improved function Goal Time Frame: 4-6 Weeks Goal 3:: Patient to improve peak force left glut medius by 10-15# to improve strength Goal Time Frame: 4-6 Weeks Goal 4:: Patient to improve back oswestry score by 5 points to improve QOL and function. Goal Time Frame: 4-6 Weeks Goal 5:: Patient will be able to walk and stand > 30 mins to improve gait and function. Goal Time Frame: 4-6 Weeks Rehabilitation Potential Physical Therapy Diagnosis: This patient has left lumbar pain worse with walking/standing along with poor strength of glut medius which can influence patient left lumbar thus benefit from skilled PT Rehabilitation Potential: Good Anticipated Interventions Patient/Client Instruction: Educate patient on: Condition and Plan of Care For the Purpose of:: To decrease pain, To increase ROM, To improve muscle performance and motor function, To improve ability to perform ADL's, To increase tolerance to activity/condition/pos ition, To improve ability of physical actions for home/community/work/le isure, To improve health of tissue, To decrease soft tissue restriction, To increase flexibility/ROM, To improve balance and To reduce risk of recurrence Therapeutic Exercise to Include: Strength training, Endurance training, Balance training, Postural training, Flexibilty training, Dynamic Lumbar Stabilization and Rimma Exercises Comment: GLUT MEDIUS For the Purpose of:: To decrease pain, To increase ROM, To improve muscle performance and motor function, To improve ability to perform ADL's, To increase tolerance to activity/condition/pos ition, To improve ability of physical actions for home/community/work/le isure, To improve health of tissue, To decrease soft tissue restriction, To increase flexibility/ROM, To improve balance and To reduce risk of recurrence Text: Thank you for the opportunity to evaluate your patient. For Medicare and Medicare HMO plans, please review the plan of care and approve it. It will need to be FAXED BACK to us at [phone] for Medicare purposes. For Medicare only, by signing this I certify the plan of care. Please let me know if there are questions or concerns regarding this plan of care. Physician Signature: Date:__ (more content not included)... Normal [facility] Absolute lymphocyte countOrd ered By: Becca Sánchez on 06-04-2023 Lymphocytes Auto (Unsp spec) [#/Vol] 1.42 10*3/uL 0.83-4.51 [facility] Automated lymphocyte count a s percentage of total leukocytesOrdered By: Becca Sánchez on 06-04-2023 Lymphocytes/100 WBC Auto (Unsp spec) 27.1 % 19-41 [facility] Basophil percentageOrdered B y: Becca Sánchez on 06-04-2023 Basophils/100 WBC (Bld) 0.4 % 0-1 [facility] Bilirubin [Mass/Vol] 0.40 mg/dL 0.20-1.00 [facility] Comment on above: For patients on eltr ombopag therapy, use of Dimension [place] TBIL is not recommended. Chloride [Moles/Vol] 109 mmol/L 98-107 [facility] Cholesterol [Mass/Vol] 141 mg/dL <200 [facility] Comment on above: <200 mg/dL Desirable 200-240 mg/dL Borderline >240 mg/dL High Risk Eosinophils/100 WBC (Bld) 1.7 % 0-5 [facility] Glucose [Mass/Vol] 104 mg/dL 74-106 [facility] Comment on above: Fasting Glucose resu lt from 100 to 125 mg/dL suggests IMPAIRED HOMEOSTASIS per A.D.A. criteria. Hemoglobin (Bld) [Mass/Vol] 13.9 g/dL 13.0-16.5 [facility] Monocytes/100 WBC (Bld) 8.2 % 0-10 [facility] Neutrophils (Bld) [#/Vol] 3.3 10*3/uL 2.0-7.7 [facility] Neutrophils/100 WBC (Bld) 62.2 % 47-70 [facility] Potassium [Moles/Vol] 4.5 mmol/L 3.5-5.1 [facility] Protein [Mass/Vol] 6.9 g/dL 6.4-8.2 [facility] Sodium [Moles/Vol] 141 mmol/L 136-145 [facility] Triglyceride [Mass/Vol] 103 mg/dL <199 [facility] Comment on above: The drugs N-Acetylcy steine and Metamizole may falsely depress this assay.Serum Triglycerides Reference Interval Normal <150 mg/dL Borderline high 150 - 199 mg/dL High 200 - 499 mg/dL Very High > or = 500 mg/dL WBC (Bld) [#/Vol] 5.2 10*3/uL 4.4-11.0 [facility] Determination of erythrocyte mean corpuscular volume (MCV)Ordered By: Becca Sánchez on 06-04-2023 MCV (RBC) [Entitic vol] 88.6 fL 80-94 [facility] Erythrocyte distribution wid th ratioOrdered By: Becca Sánchez on 06-04-2023 Erythrocyte distribution width (RBC) [Ratio] 12.3 % 11.6-14.6 [facility] Erythrocyte distribution wid th standard deviationOrdered By: Becca Sánchez on 06-04-2023 Erythrocyte distribution width (RBC) [Entitic vol] 40.0 fL 35.1-43.9 [facility] Hematocrit Auto (Bld) [Volum e fraction]Ordered By: Becca Sánchez on 06-04-2023 Hematocrit (Bld) [Volume fraction] 42.6 % 40-54 [facility] Immature granulocytes/100 WB C Auto (Bld)Ordered By: Becca Sánchez on 06-04-2023 Immature granulocytes/100 WBC (Bld) 0.400 % 0.0-0.9 [facility] Comment on above: IG% - Immature Granu locytes (promyelocytes, myelocytes and metamyelocytes) > 1% indicates that a LEFT SHIFT is Present. Laboratory - Chemistry and C hemistry - challengeOrdered By: Becca Sánchez on 06-04-2023 Albumin/Globulin [Mass ratio] 1.1 {ratio} 0.9-2.4 [facility] ALP [Catalytic activity/Vol] 67 U/L 45-117 [facility] ALT [Catalytic activity/Vol] 38 U/L 16-61 [facility] Cholesterol in HDL [Mass/Vol] 47 mg/dL >40 [facility] Comment on above: The drugs N-Acetylcy steine and Metamizole may falsely depress this assay. Reference Range HDL <40 mg/dL Low HDL Cholesterol HDL >or= 60 mg/dL High HDL Cholesterol Cholesterol in LDL [Mass/Vol] 73 mg/dL 0-130 [facility] CO2 [Moles/Vol] 26.0 mmol/L 21.0-32.0 [facility] Globulin (S) [Mass/Vol] 3.3 g/dL 2.2-4.2 [facility] Urea nitrogen/Creatinine [Mass ratio] 15.0 mg/mg 10-20 [facility] - Hematology and Cell countsOrdered By: Becca Sánchez on 06-04-2023 MCH (RBC) [Entitic mass] 28.9 pg 27.0-32.0 [facility] MCHC (RBC) [Mass/Vol] 32.6 g/dL 32-36 [facility] Nucleated RBC/100 WBC (Bld) [Ratio] 0 % 0-5 [facility] Platelet mean volume (Bld) [Entitic vol] 9.4 fL 6.2-12.0 [facility] Platelets (Bld) [#/Vol] 174 10*3/uL 150-450 [facility] No Panel InformationOrdered By: Becca Sánchez on 06-04-2023 Estimated GFR (MDRD) Amer 96 mL/min >60 [facility] Comment on above: GFR Calc Estimated GFR (MDRD) Non-Af Amer 79 mL/min >60 [facility] Comment on above: Non- GFR Calc VLDL Cholesterol 21 mg/dL 5-40 [facility] RBC Auto (Bld) [#/Vol]Ordere d By: Becca Sánchez on 06-04-2023 RBC (Bld) [#/Vol] 4.81 10*6/uL 4.6-6.2 [facility] Serum or plasma calcium alpesh urement (mass/volume)Ordered By: Becca Sánchez on 06-04-2023 Calcium [Mass/Vol] 9.1 mg/dL 8.5-10.1 [facility] Serum or plasma creatinine m easurement (mass/volume)Ordered By: Becca Sánchez on 06-04-2023 Creatinine [Mass/Vol] 1.00 mg/dL 0.70-1.30 [facility] Comment on above: The validity of the calculated GFR & GFRAA in patients over 70 years has not been determined. Clinical correlation is essential. Serum or plasma urea nitroge n measurement (mass/volume)Ordered By: Becca Sánchez on 06-04-2023 Urea nitrogen [Mass/Vol] 15 mg/dL 7-18 [facility] Serum or plasma uric acid me asurement (mass/volume)Ordered By: Becca Sánchez on 06-04-2023 Urate [Mass/Vol] 3.9 mg/dL 3.5-7.2 [facility] Comment on above: The drugs N-Acetylcy steine and Metamizole may falsely depress this assay. Thin prep Papanicolaou smear with manual screeningOrdered By: Becca Sánchez on 06-04-2023 Thin prep Papanicolaou smear with manual screening 3.6 g/dL 3.2-5.0 [facility] Thin prep Papanicolaou smear with manual screening 23 U/L 1537 [facility] Thin prep Papanicolaou smear with manual screening 6 5-15 [facility] ECG 12 Leadon 02-05-2023 See [facility] Work Phone: [facility] Work Phone: 24 hour urine alpha 2 globul in/total protein ratio by electrophoresis (mass fraction)Ordered By: Becca Sánchez on 12-12-2022 Alpha 2 globulin Elph (24H U) [Mass fraction] 20.0 % . [facility] 24 hour urine beta globulin/ total protein ratio by electrophoresis (mass fraction)Ordered By: Becca Sánchez on 12-12-2022 Beta globulin Elph (24H U) [Mass fraction] 30.2 % . [facility] 24 hour urine gamma globulin /total protein ratio by electrophoresis (mass fraction)Ordered By: Becca Sánchez on 12-12-2022 Gamma globulin Elph (24H U) [Mass fraction] 25.5 % . [facility] Erythrocyte sedimentation ra teOrdered By: Becca Sánchez on 12-12-2022 ESR (Bld) [Velocity] 3 mm/h 0-20 [facility] - Chemistry and C hemistry - challengeOrdered By: Becca Sánchez on 12-12-2022 Albumin [Mass/Vol] 3.8 g/dL 2.9-4.4 [facility] No Panel InformationOrdered By: Becca Sánchez on 12-12-2022 Addendum Document Comment . [facility] Comment on above: The SPE pattern appe ars unremarkable. Evidence ofmonoclonal protein is not apparent. Qhvtd-8-Czuuwncqp 0.3 g/dL 0.0-0.4 [facility] Ycqvr-6-Kmrxlaqwl 0.7 g/dL 0.4-1.0 [facility] Anti-Nuclear Antibody Screen Negative Negative [facility] Comment on above: Performed at: CB - [facility] [address] [id number] Director: Vipul Morillo PhD, Phone: [phone] Gamma Globulins 0.6 g/dL 0.4-1.8 [facility] Urine Immunofixation PEP Note Comment . [facility] Comment on above: Protein electrophore sis scan will follow via computer,mail, or traveling representative delivery.Performed at: [facility] - [facility] [address] [id number] Director: Vipul Morillo PhD, Phone: [phone] Protein Fractions Elph [Inte rp]Ordered By: Becca Sánchez on 12-12-2022 Protein Fractions [Interp] Comment . [facility] Comment on above: Protein electrophore sis scan will follow via computer,mail, or traveling representative delivery. Serum albumin to globulin ra nuria by protein electrophoresisOrdered By: Becca Sánchez on 12-12-2022 Albumin/Globulin Elph [Mass ratio] 1.4 0.7-1.7 [facility] Serum globulin measurement ( mass/volume)Ordered By: Becca Sánchez on 12-12-2022 Globulin (S) [Mass/Vol] 2.8 g/dL 2.2-3.9 [facility] Serum or plasma beta globuli n measurement by electrophoresis (mass/volume)Ordered By: Becac Sánchez on 12-12-2022 Beta globulin Elph [Mass/Vol] 1.3 g/dL 0.7-1.3 [facility] Serum rheumatoid factor dete ctionOrdered By: Becca Sánchez on 12-12-2022 Rheumatoid factor Ql (S) < 10.0 IU/mL <15 [facility] Thin prep Papanicolaou smear with manual screeningOrdered By: Becca Sánchez on 12-12-2022 Thin prep Papanicolaou smear with manual screening See comment [facility] Comment on above: NOT OBSERVED Total protein bloodOrdered B y: Becca Sánchez on 12-12-2022 Protein [Mass/Vol] 6.6 g/dL 6.0-8.5 [facility] Urine albumin/total protein mass ratio by electrophoresisOrdered By: Becca Sánchez on 12-12-2022 Albumin Elph (U) [Mass fraction] 21.1 % . [facility] Urine alpha 1 globulin/total protein ratio by electrophoresis (mass fraction)Ordered By: Becca Sánchez on 12-12-2022 Alpha 1 globulin Elph (U) [Mass fraction] 3.2 % . [facility] Urine monoclonal protein/tot al protein mass ratio by electrophoresisOrdered By: Becac Sánchez on 12-12-2022 Protein.monoclonal Elph (U) [Mass fraction] See comment [facility] Comment on above: Result: Not Observed Urine protein measurement (m ass/volume)Ordered By: Becac Sánchez on 12-12-2022 Protein (U) [Mass/Vol] 12.9 mg/dL Not Estab. [facility] Basophil percentageOrdered B y: Jovani Voss on 11-17-2022 Chloride [Moles/Vol] 108 mmol/L 98-107 [facility] Glucose [Mass/Vol] 104 mg/dL 74-106 [facility] Comment on above: Fasting Glucose resu lt from 100 to 125 mg/dL suggests IMPAIRED HOMEOSTASIS per A.D.A. criteria. Potassium [Moles/Vol] 4.0 mmol/L 3.5-5.1 [facility] Sodium [Moles/Vol] 137 mmol/L 136-145 [facility] WBC (Bld) [#/Vol] 7.8 10*3/uL 4.4-11.0 [facility] Blood erythrocytes count (nu mber/volume)Ordered By: Jovani Voss on 11-17-2022 RBC (Bld) [#/Vol] 4.68 10*6/uL 4.6-6.2 [facility] Blood hemoglobin measurement (mass/volume)Ordered By: Jovani Voss on 11-17-2022 Hemoglobin (Bld) [Mass/Vol] 13.4 g/dL 13.0-16.5 [facility] Blood platelet mean volumeOr dered By: Jovani Voss on 11-17-2022 Platelet mean volume (Bld) [Entitic vol] 9.4 fL 6.2-12.0 [facility] Determination of erythrocyte mean corpuscular volume (MCV)Ordered By: Jovani Voss on 11-17-2022 MCV (RBC) [Entitic vol] 89.3 fL 80-94 [facility] Hematocrit Auto (Bld) [Volum e fraction]Ordered By: Jovani Voss on 11-17-2022 Hematocrit (Bld) [Volume fraction] 41.8 % 40-54 [facility] - Chemistry and C hemistry - challengeOrdered By: Jovani Voss on 11-17-2022 CO2 [Moles/Vol] 25.0 mmol/L 21.0-32.0 [facility] Urea nitrogen/Creatinine [Mass ratio] 16.8 mg/mg 10-20 [facility] - Hematology and Cell countsOrdered By: Jovani Voss on 11-17-2022 Erythrocyte distribution width (RBC) [Entitic vol] 41.1 fL 35.1-43.9 [facility] Erythrocyte distribution width (RBC) [Ratio] 12.5 % 11.6-14.6 [facility] MCH (RBC) [Entitic mass] 28.6 pg 27.0-32.0 [facility] MCHC Auto (RBC) [Mass/Vol]Or dered By: Jovani Voss on 11-17-2022 MCHC (RBC) [Mass/Vol] 32.1 g/dL 32-36 [facility] No Panel InformationOrdered By: Jovani Voss on 11-17-2022 Estimated GFR (MDRD) Amer 78 mL/min >60 [facility] Comment on above: GFR Calc Estimated GFR (MDRD) Non-Af Amer 65 mL/min >60 [facility] Comment on above: Non- GFR Calc Platelets bldOrdered By: Osvaldo Voss on 11-17-2022 Platelets (Bld) [#/Vol] 192 10*3/uL 150-450 [facility] Serum or plasma calcium alpesh urement (mass/volume)Ordered By: Jovani Voss on 11-17-2022 Calcium [Mass/Vol] 9.0 mg/dL 8.5-10.1 [facility] Serum or plasma creatinine m easurement (mass/volume)Ordered By: Jovani Voss on 11-17-2022 Creatinine [Mass/Vol] 1.19 mg/dL 0.70-1.30 [facility] Comment on above: The validity of the calculated GFR & GFRAA in patients over 70 years has not been determined. Clinical correlation is essential. Serum or plasma urea nitroge n measurement (mass/volume)Ordered By: Jovani Voss on 11-17-2022 Urea nitrogen [Mass/Vol] 20 mg/dL 7-18 [facility] Thin prep Papanicolaou smear with manual screeningOrdered By: Jovani Voss on 11-17-2022 Thin prep Papanicolaou smear with manual screening 4 5-15 [facility] Absolute lymphocyte countOrd ered By: Cece Murray on 07-31-2022 Lymphocytes Auto (Unsp spec) [#/Vol] 1.40 10*3/uL 0.83-4.51 [facility] Basophil percentageOrdered B y: Cece Murray on 07-31-2022 Basophils/100 WBC (Bld) 0.3 % 0-1 [facility] [facility] Eosinophils/100 WBC (Bld) 0.7 % 0-5 [facility] Neutrophils (Bld) [#/Vol] 8.9 10*3/uL 2.0-7.7 [facility] Neutrophils/100 WBC (Bld) 78.4 % 47-70 [facility] WBC (Bld) [#/Vol] 11.4 10*3/uL 4.4-11.0 [facility] Blood erythrocytes count (nu mber/volume)Ordered By: Cece Murray on 07-31-2022 RBC (Bld) [#/Vol] 3.86 10*6/uL 4.6-6.2 [facility] Blood hemoglobin measurement (mass/volume)Ordered By: Cece Murray on 07-31-2022 Hemoglobin (Bld) [Mass/Vol] 11.5 g/dL 13.0-16.5 [facility] Blood lymphocytes/100 leukoc ytesOrdered By: Cece Murray on 07-31-2022 Lymphocytes/100 WBC (Bld) 12.3 % 19-41 [facility] Blood monocytes/100 leukocyt esOrdered By: Cece Murray on 07-31-2022 Monocytes/100 WBC (Bld) 7.9 % 0-10 [facility] Blood platelet mean volumeOr dered By: Cece Murray on 07-31-2022 Platelet mean volume (Bld) [Entitic vol] 9.7 fL 6.2-12.0 [facility] Determination of erythrocyte mean corpuscular volume (MCV)Ordered By: Cece Murray on 07-31-2022 MCV (RBC) [Entitic vol] 90.9 fL 80-94 [facility] Hematocrit Auto (Bld) [Volum e fraction]Ordered By: Cece Murray on 07-31-2022 Hematocrit (Bld) [Volume fraction] 35.1 % 40-54 [facility] Laboratory - Hematology and Cell countsOrdered By: Cece Murray on 07-31-2022 Erythrocyte distribution width (RBC) [Entitic vol] 41.6 fL 35.1-43.9 [facility] Erythrocyte distribution width (RBC) [Ratio] 12.7 % 11.6-14.6 [facility] Immature granulocytes/100 WBC (Bld) 0.400 % 0.0-0.9 [facility] Comment on above: IG% - Immature Granu locytes (promyelocytes, myelocytes and metamyelocytes) > 1% indicates that a LEFT SHIFT is Present. MCH (RBC) [Entitic mass] 29.8 pg 27.0-32.0 [facility] Nucleated RBC/100 WBC (Bld) [Ratio] 0 % 0-5 [facility] MCHC Auto (RBC) [Mass/Vol]Or dered By: Cece Murray on 07-31-2022 MCHC (RBC) [Mass/Vol] 32.8 g/dL 32-36 [facility] Platelets bldOrdered By: Debo Murray on 07-31-2022 Platelets (Bld) [#/Vol] 183 10*3/uL 150-450 [facility] Absolute lymphocyte countOrd ered By: Dr. Sandhu on 07-30-2022 Lymphocytes Auto (Unsp spec) [#/Vol] 1.25 10*3/uL 0.83-4.51 [facility] Basophil percentageOrdered B y: Dr. Sandhu on 07-30-2022 Basophils/100 WBC (Bld) 0.2 % 0-1 [facility] Eosinophils/100 WBC (Bld) 0.5 % 0-5 [facility] Neutrophils (Bld) [#/Vol] 8.0 10*3/uL 2.0-7.7 [facility] Neutrophils/100 WBC (Bld) 78.2 % 47-70 [facility] WBC (Bld) [#/Vol] 10.2 10*3/uL 4.4-11.0 [facility] Blood erythrocytes count (nu mber/volume)Ordered By: Dr. Sandhu on 07-30-2022 RBC (Bld) [#/Vol] 3.67 10*6/uL 4.6-6.2 [facility] Blood hemoglobin measurement (mass/volume)Ordered By: Dr. Sandhu on 07-30-2022 Hemoglobin (Bld) [Mass/Vol] 10.9 g/dL 13.0-16.5 [facility] Blood lymphocytes/100 leukoc ytesOrdered By: Dr. Sandhu on 07-30-2022 Lymphocytes/100 WBC (Bld) 12.2 % 19-41 [facility] Blood monocytes/100 leukocyt esOrdered By: Dr. Sandhu on 07-30-2022 Monocytes/100 WBC (Bld) 8.5 % 0-10 [facility] Blood platelet mean volumeOr dered By: Dr. Sandhu on 07-30-2022 Platelet mean volume (Bld) [Entitic vol] 9.9 fL 6.2-12.0 [facility] Determination of erythrocyte mean corpuscular volume (MCV)Ordered By: Dr. Sandhu on 07-30-2022 MCV (RBC) [Entitic vol] 92.9 fL 80-94 [facility] Hematocrit Auto (Bld) [Volum e fraction]Ordered By: Dr. Sandhu on 07-30-2022 Hematocrit (Bld) [Volume fraction] 34.1 % 40-54 [facility] Laboratory - Hematology and Cell countsOrdered By: Dr. Sandhu on 07-30-2022 Erythrocyte distribution width (RBC) [Entitic vol] 44.0 fL 35.1-43.9 [facility] Erythrocyte distribution width (RBC) [Ratio] 13.0 % 11.6-14.6 [facility] Immature granulocytes/100 WBC (Bld) 0.400 % 0.0-0.9 [facility] Comment on above: IG% - Immature Granu locytes (promyelocytes, myelocytes and metamyelocytes) > 1% indicates that a LEFT SHIFT is Present. MCH (RBC) [Entitic mass] 29.7 pg 27.0-32.0 [facility] Nucleated RBC/100 WBC (Bld) [Ratio] 0 % 0-5 [facility] MCHC Auto (RBC) [Mass/Vol]Or dered By: Dr. Sandhu on 07-30-2022 MCHC (RBC) [Mass/Vol] 32.0 g/dL 32-36 [facility] Platelets bldOrdered By: Dr. Sandhu on 07-30-2022 Platelets (Bld) [#/Vol] 159 10*3/uL 150-450 [facility] Basophil percentageOrdered B y: Dr. Sandhu on 07-29-2022 Chloride [Moles/Vol] 108 mmol/L 98-107 [facility] Glucose [Mass/Vol] 115 mg/dL 74-106 [facility] Comment on above: Fasting Glucose resu lt from 100 to 125 mg/dL suggests IMPAIRED HOMEOSTASIS per A.D.A. criteria. Potassium [Moles/Vol] 4.2 mmol/L 3.5-5.1 [facility] Sodium [Moles/Vol] 140 mmol/L 136-145 [facility] Laboratory - Chemistry and C hemistry - challengeOrdered By: Dr. Sandhu on 07-29-2022 CO2 [Moles/Vol] 25.0 mmol/L 21.0-32.0 [facility] Urea nitrogen/Creatinine [Mass ratio] 10.7 mg/mg 10-20 [facility] No Panel InformationOrdered By: Dr. Sandhu on 07-29-2022 Estimated Creatinine Clearance Calc 63.13 ml/min [facility] Estimated GFR (MDRD) Amer 84 mL/min >60 [facility] Comment on above: GFR Calc Estimated GFR (MDRD) Non-Af Amer 69 mL/min >60 [facility] Comment on above: Non- GFR Calc Serum or plasma calcium alpesh urement (mass/volume)Ordered By: Dr. Sandhu on 07-29-2022 Calcium [Mass/Vol] 8.9 mg/dL 8.5-10.1 [facility] Serum or plasma creatinine m easurement (mass/volume)Ordered By: Dr. Sandhu on 07-29-2022 Creatinine [Mass/Vol] 1.12 mg/dL 0.70-1.30 [facility] Comment on above: The validity of the calculated GFR & GFRAA in patients over 70 years has not been determined. Clinical correlation is essential. Serum or plasma urea nitroge n measurement (mass/volume)Ordered By: Dr. Sandhu on 07-29-2022 Urea nitrogen [Mass/Vol] 12 mg/dL 7-18 [facility] Thin prep Papanicolaou smear with manual screeningOrdered By: Dr. Sandhu on 07-29-2022 Thin prep Papanicolaou smear with manual screening 7 5-15 [facility] Glucose Glucometer (BldC) [M ass/Vol]Ordered By: Dr. Sandhu on 07-28-2022 Glucose [Mass/Vol] 98 mg/dL 74-106 [facility] Comment on above: MANAGEMENT OF PATIEN T CARE PER NURSING PROTOCOL Laboratory - Chemistry and C hemistry - challengeOrdered By: Dr. Mcclelland on 07-22-2022 Magnesium [Mass/Vol] 2.0 mg/dL 1.6-2.6 [facility] Absolute lymphocyte countOrd ered By: Dr. Cintron on 04-01-2022 Lymphocytes Auto (Unsp spec) [#/Vol] 1.51 10*3/uL 0.83-4.51 [facility] Basophil percentageOrdered B y: Dr. Cintron on 04-01-2022 Basophil percentage 0-5 SEEN /hpf 0-5 [facility] Basophils/100 WBC (Bld) 0.4 % 0-1 [facility] Chloride [Moles/Vol] 106 mmol/L 98-107 [facility] Eosinophils/100 WBC (Bld) 0.4 % 0-5 [facility] Glucose [Mass/Vol] 121 mg/dL 74-106 [facility] Comment on above: Fasting Glucose resu lt from 100 to 125 mg/dL suggests IMPAIRED HOMEOSTASIS per A.D.A. criteria. Neutrophils (Bld) [#/Vol] 5.8 10*3/uL 2.0-7.7 [facility] Neutrophils/100 WBC (Bld) 70.5 % 47-70 [facility] Potassium [Moles/Vol] 3.6 mmol/L 3.5-5.1 [facility] Sodium [Moles/Vol] 140 mmol/L 136-145 [facility] WBC (Bld) [#/Vol] 8.2 10*3/uL 4.4-11.0 [facility] Bilirubin Test strip Ql (U)O rdered By: Dr. Cintron on 04-01-2022 Bilirubin Ql (U) Negative Negative [facility] Blood erythrocytes count (nu mber/volume)Ordered By: Dr. Cintron on 04-01-2022 RBC (Bld) [#/Vol] 5.15 10*6/uL 4.6-6.2 [facility] Blood hemoglobin measurement (mass/volume)Ordered By: Dr. Cintron on 04-01-2022 Hemoglobin (Bld) [Mass/Vol] 15.3 g/dL 13.0-16.5 [facility] Blood lymphocytes/100 leukoc ytesOrdered By: Dr. Cintron on 04-01-2022 Lymphocytes/100 WBC (Bld) 18.4 % 19-41 [facility] Blood monocytes/100 leukocyt esOrdered By: Dr. Cintron on 04-01-2022 Monocytes/100 WBC (Bld) 9.9 % 0-10 [facility] Blood platelet mean volumeOr dered By: Dr. Cintron on 04-01-2022 Platelet mean volume (Bld) [Entitic vol] 9.7 fL 6.2-12.0 [facility] Determination of erythrocyte mean corpuscular volume (MCV)Ordered By: Dr. Cintron on 04-01-2022 MCV (RBC) [Entitic vol] 86.4 fL 80-94 [facility] Hematocrit Auto (Bld) [Volum e fraction]Ordered By: Dr. Cintron on 04-01-2022 Hematocrit (Bld) [Volume fraction] 44.5 % 40-54 [facility] Ketones Test strip Ql (U)Ord ered By: Dr. Cintron on 04-01-2022 Ketones Ql (U) 5 mg/dl Negative [facility] Laboratory - Chemistry and C hemistry - challengeOrdered By: Dr. Cintron on 04-01-2022 CO2 [Moles/Vol] 27.0 mmol/L 21.0-32.0 [facility] Urea nitrogen/Creatinine [Mass ratio] 11.6 mg/mg 10-20 [facility] Laboratory - Hematology and Cell countsOrdered By: Dr. Cintron on 04-01-2022 Erythrocyte distribution width (RBC) [Entitic vol] 38.5 fL 35.1-43.9 [facility] Erythrocyte distribution width (RBC) [Ratio] 12.1 % 11.6-14.6 [facility] Immature granulocytes/100 WBC (Bld) 0.400 % 0.0-0.9 [facility] Comment on above: IG% - Immature Granu locytes (promyelocytes, myelocytes and metamyelocytes) > 1% indicates that a LEFT SHIFT is Present. MCH (RBC) [Entitic mass] 29.7 pg 27.0-32.0 [facility] Nucleated RBC/100 WBC (Bld) [Ratio] 0 % 0-5 [facility] MCHC Auto (RBC) [Mass/Vol]Or dered By: Dr. Cintron on 04-01-2022 MCHC (RBC) [Mass/Vol] 34.4 g/dL 32-36 [facility] Mucus LM Ql (Urine sed)Order ed By: Dr. Cintron on 04-01-2022 Mucus Ql (Urine sed) 0 SEEN /hpf [facility] Nitrite Test strip Ql (U)Ord ered By: Dr. Cintron on 04-01-2022 Nitrite Ql (U) Negative Negative [facility] No Panel InformationOrdered By: Dr. Cintron on 04-01-2022 Estimated Creatinine Clearance Calc 59.24 ml/min [facility] Estimated GFR (MDRD) Amer 77 mL/min >60 [facility] Comment on above: GFR Calc Estimated GFR (MDRD) Non-Af Amer 63 mL/min >60 [facility] Comment on above: Non- GFR Calc Platelets bldOrdered By: Dr. Cintron on 04-01-2022 Platelets (Bld) [#/Vol] 192 10*3/uL 150-450 [facility] Protein Test strip Ql (U)Ord ered By: Dr. Cintron on 04-01-2022 Protein Ql (U) 100 mg/dl Negative [facility] Serum or plasma calcium alpesh urement (mass/volume)Ordered By: Dr. Cintron on 04-01-2022 Calcium [Mass/Vol] 10.0 mg/dL 8.5-10.1 [facility] Serum or plasma creatinine m easurement (mass/volume)Ordered By: Dr. Cintron on 04-01-2022 Creatinine [Mass/Vol] 1.21 mg/dL 0.70-1.30 [facility] Comment on above: The validity of the calculated GFR & GFRAA in patients over 70 years has not been determined. Clinical correlation is essential. Serum or plasma urea nitroge n measurement (mass/volume)Ordered By: Dr. Cintron on 04-01-2022 Urea nitrogen [Mass/Vol] 14 mg/dL 7-18 [facility] Squamous epithelial cells de tection in urine sediment by light microscopyOrdered By: Dr. Cintron on 04-01-2022 Epithelial cells.squamous LM Ql (Urine sed) 0 SEEN /hpf 0-5 [facility] Thin prep Papanicolaou smear with manual screeningOrdered By: Dr. Cintron on 04-01-2022 Thin prep Papanicolaou smear with manual screening 7 5-15 [facility] Urine blood detectionOrdered By: Dr. Cintron on 04-01-2022 RBC Ql (U) 250 /ul Negative [facility] RBC Ql (U) 25-50 SEEN /hpf 0-5 [facility] Urine clarityOrdered By: Dr. Cintron on 04-01-2022 Clarity (U) Clear Clear [facility] Urine color determinationOrd ered By: Dr. Cintron on 04-01-2022 Color (U) Yellow Yellow [facility] Urine glucose detectionOrder ed By: Dr. Cintron on 04-01-2022 Glucose Ql (U) Normal mg/dl Normal [facility] Urine leukocyte esterase det ection by dipstickOrdered By: Dr. Cintron on 04-01-2022 Leukocyte esterase Test strip Ql (U) 25 /ul Negative [facility] Urine pHOrdered By: Dr. Boyd russell on 04-01-2022 pH (U) 7.0 [pH] 5.0 - 8.0 [facility] Urine sediment bacteria coun t by microscopy (number/high power field)Ordered By: Dr. Cintron on 04-01-2022 Bacteria LM.HPF (Urine sed) [#/Area] 0 /[HPF] None Seen [facility] Urine specific gravity measu rementOrdered By: Dr. Cintron on 04-01-2022 Specific gravity (U) [Rel density] 1.010 1.002-1.030 [facility] Urobilinogen Auto test strip Ql (U)Ordered By: Dr. Cintron on 04-01-2022 Urobilinogen Ql (U) Normal mg/dl Normal [facility] Basophil percentageon 2021 Bilirubin [Mass/Vol] 0.40 mg/dL 0.20-1.00 [facility] Work Phone: Comment on above: For patients on eltr ombopag therapy, use of Dimension [place] TBIL is not recommended. Chloride [Moles/Vol] 109 mmol/L 98-107 [facility] Work Phone: Glucose [Mass/Vol] 111 mg/dL 74-106 [facility] Work Phone: Comment on above: Fasting Glucose resu lt from 100 to 125 mg/dL suggests IMPAIRED HOMEOSTASIS per A.D.A. criteria. Potassium [Moles/Vol] 4.2 mmol/L 3.5-5.1 [facility] Work Phone: Protein [Mass/Vol] 6.5 g/dL 6.4-8.2 [facility] Work Phone: Sodium [Moles/Vol] 141 mmol/L 136-145 [facility] Work Phone: WBC (Bld) [#/Vol] 5.5 10*3/uL 4.4-11.0 [facility] Work Phone: Blood erythrocytes count (nu mber/volume)on 03-17-2022 RBC (Bld) [#/Vol] 4.77 10*6/uL 4.6-6.2 [facility] Work Phone: Blood hemoglobin measurement (mass/volume)on 03-17-2022 Hemoglobin (Bld) [Mass/Vol] 14.5 g/dL 13.0-16.5 [facility] Work Phone: Blood platelet mean volumeon 03-17-2022 Platelet mean volume (Bld) [Entitic vol] 10.1 fL 6.2-12.0 [facility] Work Phone: [phone] Determination of erythrocyte mean corpuscular volume (MCV)on 03-17-2022 MCV (RBC) [Entitic vol] 89.1 fL 80-94 [facility] Work Phone: [phone] Erythrocyte sedimentation ra beth 03-17-2022 ESR (Bld) [Velocity] 2 mm/h 0-20 [facility] Work Phone: Hematocrit Auto (Bld) [Volum e fraction]on 03-17-2022 Hematocrit (Bld) [Volume fraction] 42.5 % 40-54 [facility] Work Phone: Laboratory - Chemistry and C hemistry - challengeon 03-17-2022 ALP [Catalytic activity/Vol] 49 U/L 45-117 [facility] Work Phone: ALT [Catalytic activity/Vol] 45 U/L 16-61 [facility] Work Phone: [phone] CO2 [Moles/Vol] 26.0 mmol/L 21.0-32.0 [facility] Work Phone: [phone] Globulin (S) [Mass/Vol] 2.7 g/dL 2.2-4.2 [facility] Work Phone: [phone] Urea nitrogen/Creatinine [Mass ratio] 11.4 mg/mg 10-20 [facility] Work Phone: Laboratory - Hematology and Cell countson 03-17-2022 Erythrocyte distribution width (RBC) [Entitic vol] 40.4 fL 35.1-43.9 [facility] Work Phone: [phone] Erythrocyte distribution width (RBC) [Ratio] 12.4 % 11.6-14.6 [facility] Work Phone: [phone] MCH (RBC) [Entitic mass] 30.4 pg 27.0-32.0 [facility] Work Phone: [phone] MCHC Auto (RBC) [Mass/Vol]on 03-17-2022 MCHC (RBC) [Mass/Vol] 34.1 g/dL 32-36 [facility] Work Phone: [phone] Panel Informationon 03-17 Estimated GFR (MDRD) Amer 90 mL/min >60 [facility] Work Phone: [phone] Comment on above: GFR Calc Estimated GFR (MDRD) Non-Af Amer 75 mL/min >60 [facility] Work Phone: [phone] Comment on above: Non- GFR Calc Platelets bldon 03-17-2022 Platelets (Bld) [#/Vol] 186 10*3/uL 150-450 [facility] Work Phone: [phone] Serum or plasma C reactive p rotein measurement (mass/volume)on 03-17-2022 CRP [Mass/Vol] mg/L 0.0-3.0 [facility] Work Phone: Comment on above: C-Reactive Protein ( CRP) provides useful information for thediagnosis, therapy and monitoring of inflammatory processesand associated diseases. For the evaluation of Relative Riskfor Cardiovascular Disease, a High Sensitivity CRP (HSCRP)should be ordered. Serum or plasma albumin alpesh urement (mass/volume)on 03-17-2022 Albumin [Mass/Vol] 3.8 g/dL 3.2-5.0 [facility] Work Phone: [phone] Serum or plasma albumin/glob ulin mass ratioon 03-17-2022 Albumin/Globulin [Mass ratio] 1.4 {ratio} 0.9-2.4 [facility] Work Phone: [phone] Serum or plasma calcium alpesh urement (mass/volume)on 03-17-2022 Calcium [Mass/Vol] 9.0 mg/dL 8.5-10.1 [facility] Work Phone: Serum or plasma creatinine m easurement (mass/volume)on 03-17-2022 Creatinine [Mass/Vol] 1.05 mg/dL 0.70-1.30 [facility] Work Phone: Comment on above: The validity of the calculated GFR & GFRAA in patients over 70 years has not been determined. Clinical correlation is essential. Serum or plasma urea nitroge n measurement (mass/volume)on 03-17-2022 Urea nitrogen [Mass/Vol] 12 mg/dL 7-18 [facility] Work Phone: Thin prep Papanicolaou smear with manual screeningon 03-17-2022 Thin prep Papanicolaou smear with manual screening 26 U/L 15-37 [facility] Work Phone: Thin prep Papanicolaou smear with manual screening 6 5-15 [facility] Work Phone: Absolute lymphocyte counton 01-13-2022 Lymphocytes Auto (Unsp spec) [#/Vol] 0.44 10*3/uL 0.83-4.51 [facility] Work Phone: Basophil percentageon 2021 Basophils/100 WBC (Bld) 0.2 % 0-1 [facility] Work Phone: Bilirubin [Mass/Vol] 0.60 mg/dL 0.20-1.00 [facility] Work Phone: Comment on above: For patients on eltr ombopag therapy, use of Dimension [place] TBIL is not recommended. Chloride [Moles/Vol] 108 mmol/L 98-107 [facility] Work Phone: Eosinophils/100 WBC (Bld) 0.1 % 0-5 [facility] Work Phone: Glucose [Mass/Vol] 117 mg/dL 74-106 [facility] Work Phone: Comment on above: Fasting Glucose resu lt from 100 to 125 mg/dL suggests IMPAIRED HOMEOSTASIS per A.D.A. criteria. Lactate [Moles/Vol] 1.3 mmol/L 0.4-2.0 [facility] Work Phone: Neutrophils (Bld) [#/Vol] 8.6 10*3/uL 2.0-7.7 [facility] Work Phone: Neutrophils/100 WBC (Bld) 91.0 % 47-70 [facility] Work Phone: Potassium [Moles/Vol] 3.7 mmol/L 3.5-5.1 [facility] Work Phone: Protein [Mass/Vol] 6.9 g/dL 6.4-8.2 [facility] Work Phone: Sodium [Moles/Vol] 141 mmol/L 136-145 [facility] Work Phone: WBC (Bld) [#/Vol] 9.5 10*3/uL 4.4-11.0 [facility] Work Phone: Blood erythrocytes count (nu mber/volume)on 01-13-2022 RBC (Bld) [#/Vol] 4.77 10*6/uL 4.6-6.2 [facility] Work Phone: Blood hemoglobin measurement (mass/volume)on 01-13-2022 Hemoglobin (Bld) [Mass/Vol] 14.3 g/dL 13.0-16.5 [facility] Work Phone: Blood lymphocytes/100 leukoc yteson 01-13-2022 Lymphocytes/100 WBC (Bld) 4.6 % 19-41 [facility] Work Phone: Blood manual differential co mment interpretation (narrative result)on 01-13-2022 Manual differential comment Franc (Bld) [Interp] COMMENT [facility] Work Phone: Comment on above: LYMPHOPENIA. Blood monocytes/100 leukocyt eson 01-13-2022 Monocytes/100 WBC (Bld) 3.7 % 0-10 [facility] Work Phone: Blood platelet mean volumeon 01-13-2022 Platelet mean volume (Bld) [Entitic vol] 10.1 fL 6.2-12.0 [facility] Work Phone: Determination of erythrocyte mean corpuscular volume (MCV)on 01-13-2022 MCV (RBC) [Entitic vol] 86.8 fL 80-94 [facility] Work Phone: Direct bilirubinon Bilirubin.direct [Mass/Vol] 0.14 mg/dL 0.00-0.30 [facility] Work Phone: Hematocrit Auto (Bld) [Volum e fraction]on 01-13-2022 Hematocrit (Bld) [Volume fraction] 41.4 % 40-54 [facility] Work Phone: Laboratory - Chemistry and C hemistry - challengeon 01-13-2022 ALP [Catalytic activity/Vol] 59 U/L 45-117 [facility] Work Phone: ALT [Catalytic activity/Vol] 36 U/L 16-61 [facility] Work Phone: CO2 [Moles/Vol] 24.0 mmol/L 21.0-32.0 [facility] Work Phone: [phone] Globulin (S) [Mass/Vol] 3.2 g/dL 2.2-4.2 [facility] Work Phone: Natriuretic peptide B (Bld) [Mass/Vol] 16.4 pg/mL 0-100 [facility] Work Phone: Urea nitrogen/Creatinine [Mass ratio] 15.3 mg/mg 10-20 [facility] Work Phone: Laboratory - Hematology and Cell countson 01-13-2022 Erythrocyte distribution width (RBC) [Entitic vol] 38.5 fL 35.1-43.9 [facility] Work Phone: Erythrocyte distribution width (RBC) [Ratio] 12.1 % 11.6-14.6 [facility] Work Phone: Immature granulocytes/100 WBC (Bld) 0.400 % 0.0-0.9 [facility] Work Phone: Comment on above: IG% - Immature Granu locytes (promyelocytes, myelocytes and metamyelocytes) > 1% indicates that a LEFT SHIFT is Present. MCH (RBC) [Entitic mass] 30.0 pg 27.0-32.0 [facility] Work Phone: Nucleated RBC/100 WBC (Bld) [Ratio] 0 % 0-5 [facility] Work Phone: MCHC Auto (RBC) [Mass/Vol]on 01-13-2022 MCHC (RBC) [Mass/Vol] 34.5 g/dL 32-36 [facility] Work Phone: No Panel Informationon 01-13 Estimated Creatinine Clearance Calc 64.58 ml/min [facility] Work Phone: Estimated GFR (MDRD) Amer 85 mL/min >60 [facility] Work Phone: Comment on above: GFR Calc Estimated GFR (MDRD) Non-Af Amer 70 mL/min >60 [facility] Work Phone: Comment on above: Non- GFR Calc Troponin I High Sensitivity 7 pg/mL 3.0-78.0 [facility] Work Phone: Comment on above: Please Note: [place] t Units and Gender Specific Reference Ranges. For more information see Policy Stat Procedure [place] High Sensitivity Troponin (TNIH) and attachments. Platelets bldon 01-13-2022 Platelets (Bld) [#/Vol] 167 10*3/uL 150-450 [facility] Work Phone: [phone] Serum or plasma albumin alpesh urement (mass/volume)on 01-13-2022 Albumin [Mass/Vol] 3.7 g/dL 3.2-5.0 [facility] Work Phone: [phone] Serum or plasma calcium alpesh urement (mass/volume)on 01-13-2022 Calcium [Mass/Vol] 9.3 mg/dL 8.5-10.1 [facility] Work Phone: Serum or plasma creatinine m easurement (mass/volume)on 01-13-2022 Creatinine [Mass/Vol] 1.11 mg/dL 0.70-1.30 [facility] Work Phone: Comment on above: The validity of the calculated GFR & GFRAA in patients over 70 years has not been determined. Clinical correlation is essential. Serum or plasma urea nitroge n measurement (mass/volume)on 01-13-2022 Urea nitrogen [Mass/Vol] 17 mg/dL 7-18 [facility] Work Phone: Thin prep Papanicolaou smear with manual screeningon 01-13-2022 Thin prep Papanicolaou smear with manual screening 30 U/L 15-37 [facility] Work Phone: Thin prep Papanicolaou smear with manual screening 9 5-15 [facility] Work Phone: Erythrocyte sedimentation ra beth 01-06-2022 ESR (Bld) [Velocity] 3 mm/h 0-20 [facility] Work Phone: Serum or plasma C reactive p rotein measurement (mass/volume)on 01-06-2022 CRP [Mass/Vol] mg/L 0.0-3.0 [facility] Work Phone: Comment on above: C-Reactive Protein ( CRP) provides useful information for thediagnosis, therapy and monitoring of inflammatory processesand associated diseases. For the evaluation of Relative Riskfor Cardiovascular Disease, a High Sensitivity CRP (HSCRP)should be ordered. Basophil percentageon 2021 Basophil percentage 5-10 SEEN /hpf 0-5 [facility] Work Phone: Bilirubin Test strip Ql (U)o n 12-23-2021 Bilirubin Ql (U) 3 mg/dL Negative [facility] Work Phone: Comment on above: COLOR OF URINE MAY A FFECT DIPSTICK RESULTS. Calcium oxalate crystals det ection in urine sediment by light microscopyon 12-23-2021 Calcium oxalate crystals LM Ql (Urine sed) 3+ /hpf [facility] Work Phone: Ketones Test strip Ql (U)on 12-23-2021 Ketones Ql (U) 5 mg/dl Negative [facility] Work Phone: Mucus LM Ql (Urine sed)on Mucus Ql (Urine sed) 2+ /hpf [facility] Work Phone: Nitrite Test strip Ql (U)on 12-23-2021 Nitrite Ql (U) Negative Negative [facility] Work Phone: Protein Test strip Ql (U)on 12-23-2021 Protein Ql (U) 30 mg/dl Negative [facility] Work Phone: Squamous epithelial cells de tection in urine sediment by light microscopyon 12-23-2021 Epithelial cells.squamous LM Ql (Urine sed) 0 SEEN /hpf 0-5 [facility] Work Phone: Urine blood detectionon 11-29 RBC Ql (U) 10 /ul Negative [facility] Work Phone: RBC Ql (U) 5-10 SEEN /hpf 0-5 [facility] Work Phone: Urine clarityon 12-23-2021 Clarity (U) Clear Clear [facility] Work Phone: Urine color determinationon 12-23-2021 Color (U) Yellow Yellow [facility] Work Phone: Urine glucose detectionon Glucose Ql (U) Normal mg/dl Normal [facility] Work Phone: Urine leukocyte esterase det ection by dipstickon 12-23-2021 Leukocyte esterase Test strip Ql (U) 100 /ul Negative [facility] Work Phone: Urine pHon 12-23-2021 pH (U) 6.0 [pH] 5.0 - 8.0 [facility] Work Phone: Urine sediment bacteria coun t by microscopy (number/high power field)on 12-23-2021 Bacteria LM.HPF (Urine sed) [#/Area] 1 /[HPF] None Seen [facility] Work Phone: Urine specific gravity measu rementon 12-23-2021 Specific gravity (U) [Rel density] 1.025 1.002-1.030 [facility] Work Phone: Urobilinogen Auto test strip Ql (U)on 12-23-2021 Urobilinogen Ql (U) 1 mg/dl Normal [facility] Work Phone: Absolute lymphocyte counton 08-21-2021 Lymphocytes Auto (Unsp spec) [#/Vol] 0.99 10*3/uL 0.83-4.51 [facility] Work Phone: Basophil percentageon 2021 Basophil percentage 1.9 mg/dL 2.5-4.9 [facility] Work Phone: Basophils/100 WBC (Bld) 0.2 % 0-1 [facility] Work Phone: Bilirubin [Mass/Vol] 0.60 mg/dL 0.20-1.00 [facility] Work Phone: Comment on above: For patients on eltr ombopag therapy, use of Dimension [place] TBIL is not recommended. Chloride [Moles/Vol] 109 mmol/L 98-107 [facility] Work Phone: Cholesterol [Mass/Vol] 122 mg/dL <200 [facility] Work Phone: Comment on above: <200 mg/dL Desirable 200-240 mg/dL Borderline >240 mg/dL High Risk Eosinophils/100 WBC (Bld) 0.1 % 0-5 [facility] Work Phone: Glucose [Mass/Vol] 109 mg/dL 74-106 [facility] Work Phone: Comment on above: Fasting Glucose resu lt from 100 to 125 mg/dL suggests IMPAIRED HOMEOSTASIS per A.D.A. criteria. Neutrophils (Bld) [#/Vol] 7.7 10*3/uL 2.0-7.7 [facility] Work Phone: Neutrophils/100 WBC (Bld) 79.9 % 47-70 [facility] Work Phone: [phone] Potassium [Moles/Vol] 4.0 mmol/L 3.5-5.1 [facility] Work Phone: [phone] Protein [Mass/Vol] 6.2 g/dL 6.4-8.2 [facility] Work Phone: [phone] Sodium [Moles/Vol] 139 mmol/L 136-145 [facility] Work Phone: [phone] Triglyceride [Mass/Vol] 116 mg/dL <199 [facility] Work Phone: [phone] Comment on above: The drugs N-Acetylcy steine and Metamizole may falsely depress this assay.Serum Triglycerides Reference Interval Normal <150 mg/dL Borderline high 150 - 199 mg/dL High 200 - 499 mg/dL Very High > or = 500 mg/dL WBC (Bld) [#/Vol] 9.6 10*3/uL 4.4-11.0 [facility] Work Phone: [phone] Blood erythrocytes count (nu mber/volume)on 08-21-2021 RBC (Bld) [#/Vol] 4.44 10*6/uL 4.6-6.2 [facility] Work Phone: [phone] Blood hemoglobin measurement (mass/volume)on 08-21-2021 Hemoglobin (Bld) [Mass/Vol] 13.0 g/dL 13.0-16.5 [facility] Work Phone: [phone] Blood lymphocytes/100 leukoc yteson 08-21-2021 Lymphocytes/100 WBC (Bld) 10.3 % 19-41 [facility] Work Phone: [phone] Blood monocytes/100 leukocyt eson 08-21-2021 Monocytes/100 WBC (Bld) 9.2 % 0-10 [facility] Work Phone: Blood platelet mean volumeon 08-21-2021 Platelet mean volume (Bld) [Entitic vol] 9.4 fL 6.2-12.0 [facility] Work Phone: [phone] Determination of erythrocyte mean corpuscular volume (MCV)on 08-21-2021 MCV (RBC) [Entitic vol] 86.0 fL 80-94 [facility] Work Phone: [phone] Hematocrit Auto (Bld) [Volum e fraction]on 08-21-2021 Hematocrit (Bld) [Volume fraction] 38.2 % 40-54 [facility] Work Phone: [phone] Laboratory - Chemistry and C hemistry - challengeon 08-21-2021 ALP [Catalytic activity/Vol] 62 U/L 45-117 [facility] Work Phone: [phone] ALT [Catalytic activity/Vol] 40 U/L 16-61 [facility] Work Phone: [phone] CO2 [Moles/Vol] 25.0 mmol/L 21.0-32.0 [facility] Work Phone: [phone] Globulin (S) [Mass/Vol] 2.9 g/dL 2.2-4.2 [facility] Work Phone: [phone] Magnesium [Mass/Vol] 2.0 mg/dL 1.6-2.6 [facility]: [phone] Urea nitrogen/Creatinine [Mass ratio] 19.6 mg/mg 10-20 [facility] Work Phone: [phone] Laboratory - Hematology and Cell countson 08-21-2021 Erythrocyte distribution width (RBC) [Entitic vol] 39.5 fL 35.1-43.9 [facility] Work Phone: [phone] Erythrocyte distribution width (RBC) [Ratio] 12.5 % 11.6-14.6 [facility] Work Phone: [phone] Immature granulocytes/100 WBC (Bld) 0.300 % 0.0-0.9 [facility] Work Phone: [phone] Comment on above: IG% - Immature Granu locytes (promyelocytes, myelocytes and metamyelocytes) > 1% indicates that a LEFT SHIFT is Present. MCH (RBC) [Entitic mass] 29.3 pg 27.0-32.0 [facility] Work Phone: [phone] Nucleated RBC/100 WBC (Bld) [Ratio] 0 % 0-5 [facility] Work Phone: [phone] MCHC Auto (RBC) [Mass/Vol]on 08-21-2021 MCHC (RBC) [Mass/Vol] 34.0 g/dL 32-36 [facility] Work Phone: No Panel Informationon 08-21 Estimated Creatinine Clearance Calc 77.92 ml/min [facility] Work Phone: [phone] Estimated GFR (MDRD) Amer 106 mL/min >60 [facility] Work Phone: [phone] Comment on above: GFR Calc Estimated GFR (MDRD) Non-Af Amer 87 mL/min >60 [facility] Work Phone: [phone] Comment on above: Non- GFR Calc Platelets bldon 08-21-2021 Platelets (Bld) [#/Vol] 169 10*3/uL 150-450 [facility] Work Phone: [phone] Serum or plasma albumin alpesh urement (mass/volume)on 08-21-2021 Albumin [Mass/Vol] 3.3 g/dL 3.2-5.0 [facility] Work Phone: [phone] Serum or plasma albumin/glob ulin mass ratioon 08-21-2021 Albumin/Globulin [Mass ratio] 1.1 {ratio} 0.9-2.4 [facility] Work Phone: [phone] Serum or plasma calcium alpesh urement (mass/volume)on 08-21-2021 Calcium [Mass/Vol] 8.5 mg/dL 8.5-10.1 [facility] Work Phone: [phone] Serum or plasma cholesterol in HDL measurement (mass/volume)on 08-21-2021 Cholesterol in HDL [Mass/Vol] 45 mg/dL >40 [facility] Work Phone: [phone] Comment on above: The drugs N-Acetylcy steine and Metamizole may falsely depress this assay. Reference Range HDL <40 mg/dL Low HDL Cholesterol HDL >or= 60 mg/dL High HDL Cholesterol Serum or plasma cholesterol in VLDL measurement (mass/volume)on 08-21-2021 Cholesterol in VLDL [Mass/Vol] 23 mg/dL 5-40 [facility] Work Phone: Serum or plasma creatinine m easurement (mass/volume)on 08-21-2021 Creatinine [Mass/Vol] 0.92 mg/dL 0.70-1.30 [facility] Work Phone: Comment on above: The validity of the calculated GFR & GFRAA in patients over 70 years has not been determined. Clinical correlation is essential. Serum or plasma low density lipoprotein (LDL) cholesterol measurement (mass/volume)on 08-21-2021 Cholesterol in LDL [Mass/Vol] 54 mg/dL 0-130 [facility] Work Phone: Serum or plasma urea nitroge n measurement (mass/volume)on 08-21-2021 Urea nitrogen [Mass/Vol] 18 mg/dL 7-18 [facility] Work Phone: Thin prep Papanicolaou smear with manual screeningon 08-21-2021 Thin prep Papanicolaou smear with manual screening 101 U/L 15-37 [facility] Work Phone: Thin prep Papanicolaou smear with manual screening 5 5-15 [facility] Work Phone: INR in Blood by Coagulation assayon 08-20-2021 INR Coag (Bld) [Relative time] 1.0 {INR} [facility] Work Phone: Laboratory - Coagulationon 0 08-20-2021 aPTT Coag (Bld) [Time] 25.0 s 24.1-36.2 [facility] Work Phone: PT Coag (PPP) [Time] 12.9 s 11.7-14.9 [facility] Work Phone: No Panel Informationon 08-20 Troponin I High Sensitivity 15 pg/mL 3.0-78.0 [facility] Work Phone: Comment on above: Please Note: New [place] t Units and Gender Specific Reference Ranges. For more information see Policy Stat Procedure [place] High Sensitivity Troponin (TNIH) and attachments. No Panel Informationon 07-22 Prostate Specific Antigen Screen 2.38 ng/mL 0.00-4.00 [facility] Work Phone: Comment on above: This test was perfor med using the TPSA assay method for theRotapanel chemistry system. Values obtained with differentassay methods cannot be used interchangably.When changing PSA assays in the course of monitoring apatient, additional sequential testing should be carriedout to confirm baseline values. Absolute lymphocyte counton 06-06-2021 Lymphocytes Auto (Unsp spec) [#/Vol] 1.45 10*3/uL 0.83-4.51 [facility] Work Phone: Basophil percentageon 2021 Basophils/100 WBC (Bld) 0.5 % 0-1 [facility] Work Phone: [phone] Bilirubin [Mass/Vol] 0.60 mg/dL 0.20-1.00 [facility] Work Phone: Comment on above: For patients on eltr ombopag therapy, use of Dimension [place] TBIL is not recommended. Chloride [Moles/Vol] 107 mmol/L 98-107 [facility] Work Phone: Cholesterol [Mass/Vol] 128 mg/dL <200 [facility] Work Phone: Comment on above: <200 mg/dL Desirable 200-240 mg/dL Borderline >240 mg/dL High Risk Eosinophils/100 WBC (Bld) 2.7 % 0-5 [facility] Work Phone: Glucose [Mass/Vol] 102 mg/dL 74-106 [facility] Work Phone: Comment on above: Fasting Glucose resu lt from 100 to 125 mg/dL suggests IMPAIRED HOMEOSTASIS per A.D.A. criteria. Neutrophils (Bld) [#/Vol] 3.3 10*3/uL 2.0-7.7 [facility] Work Phone: Neutrophils/100 WBC (Bld) 60.2 % 47-70 [facility] Work Phone: [phone] Potassium [Moles/Vol] 3.9 mmol/L 3.5-5.1 [facility] Work Phone: [phone] Protein [Mass/Vol] 7.2 g/dL 6.4-8.2 [facility] Work Phone: [phone] Sodium [Moles/Vol] 139 mmol/L 136-145 [facility] Work Phone: [phone] Triglyceride [Mass/Vol] 83 mg/dL <199 [facility] Work Phone: [phone] Comment on above: The drugs N-Acetylcy steine and Metamizole may falsely depress this assay.Serum Triglycerides Reference Interval Normal <150 mg/dL Borderline high 150 - 199 mg/dL High 200 - 499 mg/dL Very High > or = 500 mg/dL WBC (Bld) [#/Vol] 5.6 10*3/uL 4.4-11.0 [facility] Work Phone: [phone] Blood erythrocytes count (nu mber/volume)on 06-06-2021 RBC (Bld) [#/Vol] 5.09 10*6/uL 4.6-6.2 [facility] Work Phone: [phone] Blood hemoglobin measurement (mass/volume)on 06-06-2021 Hemoglobin (Bld) [Mass/Vol] 14.7 g/dL 13.0-16.5 [facility] Work Phone: [phone] Blood lymphocytes/100 leukoc yteson 06-06-2021 Lymphocytes/100 WBC (Bld) 26.1 % 19-41 [facility] Work Phone: [phone] Blood monocytes/100 leukocyt eson 06-06-2021 Monocytes/100 WBC (Bld) 10.1 % 0-10 [facility] Work Phone: [phone] Blood platelet mean volumeon 06-06-2021 Platelet mean volume (Bld) [Entitic vol] 9.7 fL 6.2-12.0 [facility] Work Phone: [phone] Determination of erythrocyte mean corpuscular volume (MCV)on 06-06-2021 MCV (RBC) [Entitic vol] 86.4 fL 80-94 [facility] Work Phone: [phone] Hematocrit Auto (Bld) [Volum e fraction]on 06-06-2021 Hematocrit (Bld) [Volume fraction] 44.0 % 40-54 [facility] Work Phone: [phone] Laboratory - Chemistry and C hemistry - challengeon 06-06-2021 ALP [Catalytic activity/Vol] 74 U/L 45-117 [facility] Work Phone: [phone] ALT [Catalytic activity/Vol] 30 U/L 16-61 [facility] Work Phone: [phone] CO2 [Moles/Vol] 27.0 mmol/L 21.0-32.0 [facility] Work Phone: [phone] Globulin (S) [Mass/Vol] 3.2 g/dL 2.2-4.2 [facility] Work Phone: [phone] Urea nitrogen/Creatinine [Mass ratio] 15.0 mg/mg 10-20 [facility] Work Phone: [phone] Laboratory - Hematology and Cell countson 06-06-2021 Erythrocyte distribution width (RBC) [Entitic vol] 40.0 fL 35.1-43.9 [facility] Work Phone: [phone] Erythrocyte distribution width (RBC) [Ratio] 12.8 % 11.6-14.6 [facility] Work Phone: [phone] Immature granulocytes/100 WBC (Bld) 0.400 % 0.0-0.9 [facility] Work Phone: [phone] Comment on above: IG% - Immature Granu locytes (promyelocytes, myelocytes and metamyelocytes) > 1% indicates that a LEFT SHIFT is Present. MCH (RBC) [Entitic mass] 28.9 pg 27.0-32.0 [facility] Work Phone: [phone] Nucleated RBC/100 WBC (Bld) [Ratio] 0 % 0-5 [facility] Work Phone: MCHC Auto (RBC) [Mass/Vol]on 06-06-2021 MCHC (RBC) [Mass/Vol] 33.4 g/dL 32-36 [facility] Work Phone: No Panel Informationon 06-06 Estimated GFR (MDRD) Amer 96 mL/min >60 [facility] Work Phone: Comment on above: GFR Calc Estimated GFR (MDRD) Non-Af Amer 79 mL/min >60 [facility] Work Phone: Comment on above: Non- GFR Calc Urine Microalbumin/Creatinine Ratio 51.7 mg/g CRE <30 [facility] Work Phone: Platelets bldon 06-06-2021 Platelets (Bld) [#/Vol] 196 10*3/uL 150-450 [facility] Work Phone: Serum or plasma albumin alpesh urement (mass/volume)on 06-06-2021 Albumin [Mass/Vol] 4.0 g/dL 3.2-5.0 [facility] Work Phone: Serum or plasma albumin/glob ulin mass ratioon 06-06-2021 Albumin/Globulin [Mass ratio] 1.2 {ratio} 0.9-2.4 [facility] Work Phone: Serum or plasma calcium alpesh urement (mass/volume)on 06-06-2021 Calcium [Mass/Vol] 9.0 mg/dL 8.5-10.1 [facility] Work Phone: Serum or plasma cholesterol in HDL measurement (mass/volume)on 06-06-2021 Cholesterol in HDL [Mass/Vol] 47 mg/dL >40 [facility] Work Phone: Comment on above: The drugs N-Acetylcy steine and Metamizole may falsely depress this assay. Reference Range HDL <40 mg/dL Low HDL Cholesterol HDL >or= 60 mg/dL High HDL Cholesterol Serum or plasma cholesterol in VLDL measurement (mass/volume)on 06-06-2021 Cholesterol in VLDL [Mass/Vol] 17 mg/dL 5-40 [facility] Work Phone: Serum or plasma creatinine m easurement (mass/volume)on 06-06-2021 Creatinine [Mass/Vol] 1.00 mg/dL 0.70-1.30 [facility] Work Phone: Comment on above: The validity of the calculated GFR & GFRAA in patients over 70 years has not been determined. Clinical correlation is essential. Serum or plasma low density lipoprotein (LDL) cholesterol measurement (mass/volume)on 06-06-2021 Cholesterol in LDL [Mass/Vol] 64 mg/dL 0-130 [facility] Work Phone: Serum or plasma urea nitroge n measurement (mass/volume)on 06-06-2021 Urea nitrogen [Mass/Vol] 15 mg/dL 7-18 [facility] Work Phone: Serum or plasma uric acid me asurement (mass/volume)on 06-06-2021 Urate [Mass/Vol] 4.4 mg/dL 3.5-7.2 [facility] Work Phone: Comment on above: The drugs N-Acetylcy steine and Metamizole may falsely depress this assay. Thin prep Papanicolaou smear with manual screeningon 06-06-2021 Thin prep Papanicolaou smear with manual screening 21 U/L 15-37 [facility] Work Phone: Thin prep Papanicolaou smear with manual screening 5 5-15 [facility] Work Phone: Thin prep Papanicolaou smear with manual screening 34.8 mg/L NO RANGE EST. [facility] Work Phone: Urine creatinine measurement (mass/volume)on 06-06-2021 Creatinine (U) [Mass/Vol] 67.30 mg/dL NO RANGE EST. [facility] Work Phone: US RENAL BILATon 05-07-2020 US RENAL BILAT Patient Name: KAMALJIT PERRY STUDY: US RENAL BILAT; 05/07/2020 4:19 pm INDICATION: Kidney Stones. COMPARISON: None. ACCESSION NUMBER(S): [id number] ORDERING CLINICIAN: FARHAN SHIN TECHNIQUE: Multiple images of the kidneys were obtained . FINDINGS: RIGHT KIDNEY: The right kidney measures 10.6 x 4.8 x 5.4 cm with a cortical thickness of 1.5 cm, 1 cm and 1.2 cm respectively in the upper pole, interpolar region and the lower pole. The cortical echogenicity is normal. A cyst is seen in the inferolateral portion measuring about 1.3 cm. 1 calculus is present in the mid/superior region measuring 5 x 3 x 4 mm and another stone in the midportion measuring 4 x 4 x 3 mm. No hydronephrosis. LEFT KIDNEY: The left kidney measures 11.3 x 5.1 x 5.2 cm with cortical thickness of 1.7, 1.3 and 1.4 cm in the upper pole, interpolar region and inferiorly. Multiple calculi are present the largest of which are one in the mid/inferior portion measuring about 8 x 6 x 8 mm, and another in the midportion measuring 9 x 3 x 6 mm, and another in the mid/inferior portion measuring 8 x 5 x 7 mm. No hydronephrosis. Normal cortical echogenicity. BLADDER: The urinary bladder is unremarkable in appearance. Bilateral ureteral jets were seen. A postvoid volume of 38 mL was recorded. Incidental note is made of gallstones without gallbladder distention. No pericholecystic edema. IMPRESSION: Nonobstructive calculi both kidneys. No hydronephrosis. Gallstones. Electronically signed by: SILVIO YAN MD [facility] Established Visit (Nephrolog y)on 05-01-2020 Established Visit (Nephrology) Diagnoses/Problems Recurrent kidney stones (592.0) (N20.0) Orders Recurrent kidney stones Start: Calcium 600 MG Oral Tablet; Take 2 tablets daily Ultrasound Kidney Bilateral; Status:Hold For - Scheduling; Requested for:01May2020; Radiologist to Determine Optimal Study : Y What are the patient's signs and symptoms? : Kidney Stones Start: hydroCHLOROthiazide 25 MG Oral Tablet; TAKE 1 TABLET DAILY Start: Potassium Citrate ER 15 MEQ (1620 MG) Oral Tablet Extended Release; take 1 tablet by mouth twice a day Patient Discussion/Summary Issues: 1.: His 24-hour urine shows that he has high calcium load low citrate and a high urine pH Due to this we will start him on hydrochlorothiazide 25 mg daily We will start him on calcium supplementation 1200 mg daily We will also start him on potassium citrate 15 mEq twice per day We will also get a renal ultrasound as he is concerned he is not emptying his bladder totally He has urinary frequency at times We will see what all this shows and see how he does. If he has any issues or needs with his meds he will give us a call. Provider Impressions Recurrent nephrolithiasis Calcium nephrolithiasis Hyperlipidemia Hypocitraturia with high urine pH Hypercalciuria Chief Complaint FUV- LITHOLINK AND LAB RESULTS NEW CONCERN- left groin pain (pressure) pain scale of 3. History of Present IllnessHe is here for follow-up secondary to recurrent nephrolithiasis. He had a 24-hour urine scan test done and lab work done He had labs drawn on April 23 His magnesium was 1.73 His metabolic panel shows BUN to be 17 with a creatinine of 0.9 his calcium is 9.5 the rest of his electrolytes look normal with glucose of 114 His phosphorus is 3.4 His uric acid is 4.5 Vitamin D is normal at 31 He had a LithoLink perfomred on 04/23. His 24-hour urine study shows that his urine volume in 24 hours was 2.71 L which is very good. His urine calcium is elevated at 266. His urine citrate is a little bit low at 360. His urine pH is also trending in the wrong direction at 6.405 and a little bit on the high side with his low citrate level in his urine. His uric acid is low and not a problem. That also correlates with his uric acid and his blood being normal. His urine oxalate is also on the low side at 31. His urine sodium is normal at 163 He is doing pretty well at this time. His blood pressure today is 104/70 He is having some left groin pain He did have 2 stones pass just yesterday. He fajardo shave some paniin his left groin. Review of Systems Constitutional: no fever, no chills, no recent weight gain and no recent weight loss. Eyes: no blurred vision and no diplopia. ENT: no hearing loss, no earache, no sore throat, no swollen glands in the neck and no nasal discharge. Cardiovascular: no chest pain, no palpitations and no lower extremity edema. Respiratory: no shortness of breath, no chronic cough and no shortness of breath during exertion. Gastrointestinal: no abdominal pain, no constipation, no heartburn, no bloody stools, no change in bowel habits and no vomiting. Genitourinary: no dysuria and no hematuria . as noted in HPI. Musculoskeletal: no arthralgias and no myalgias. Skin: no rashes and no skin lesions. Neurological: no headaches and no dizziness. Psychiatric: no confusion, no depression and no anxiety. Endocrine: no cold intolerance, no heat intolerance, no thyroid disorder, no dry skin and no increased urinary frequency. Hematologic/Lymphatic: does not bleed easily and does not bruise easily. All other systems have been reviewed and are negative for complaint. Active Problems Recurrent kidney stones (592.0) (N20.0) Past Medical History History of myocardial infarction (412) (I25.2) Surgical History History of Colonoscopy History of Lithotripsy Family History Family history of rheumatoid arthritis (V17.7) (Z82.61) Family history of myocardial infarction (V17.3) (Z82.49) Social History Former smoker (V15.82) (Z87.891) Allergies No Known Drug Allergies Recorded By: Denice Willson; 04/12/2020 1:44:33 PM Current Meds Medication NameInstruction Aspirin 81 MG TABSTAKE 1 TABLET DAILY. Rosuvastatin Calcium 20 MG Oral TabletTAKE 1 TABLET DAILY. Vitals Vital Signs Recorded: [id number] 11:34AM Mssgmniuzep55.8 F Heart Rate68 Grqadymz987 Flsbokbia54 Height5 ft 9 in Xacubr361 lb 9.6 oz BMI Rgwgztchft92.52 BSA Calculated1.97 Physical Exam Constitutional: no acute distress, well appearing and well nourished. Psychiatric: orientation to person, place, and time. Appropriate mood and affect. Neurologic: normal examination of cranial nerves, normal examination of motor strength, normal examination of sensation and asterixis is not present. Neck: no thyromegaly, jugular venous distension or audible carotid bruits. Cardiovascular: auscultation of heart: normal rate and rhythm, normal S1 and S2, no murmurs. There was no pericardial friction rub. Pulmonary: lungs are clear to auscultation. Abdomen: soft, non tender to palpation, normoactive bowel sounds. No organomegaly, masses or audible bruits and abdominal aorta: normal. Kidneys: bilateral lower poles not palpable and non tender with percussion. Extremities: exam of extremities was normal. No clubbing of the fingernails and no cyanosis and no edema present. Skin: warm, pink, well conditioned; no rashes or lesions. No livedo reticularis, hair and nails normal and skin and subcutaneous tissue normal. Lymphatic: no lymphadenopathy. Results/Data As above Signatures Electronically signed by : Farhan Shin DO; May 01 2020 12:08PM EST (Author) Normal [employer] BASIC METABOLIC PANELon 03-31 Anion gap [Moles/Vol] 9 mmol/L Low 10 - [address] [facility] Comment on above: Performed By: #### B MP #### [place] [address] Calcium [Mass/Vol] 9.5 mg/dL Normal 8.6 - 10.3 [facility] Comment on above: Performed By: #### B MP #### [place] [address] Chloride [Moles/Vol] 106 mmol/L Normal 98 - 107 [facility] Comment on above: Performed By: #### B MP #### [address] [address] Creatinine [Mass/Vol] 0.90 mg/dL Normal 0.50 - 1.30 [facility] Comment on above: Performed By: #### B MP #### [place] [id number] GFR- AM. >60 Normal >60 [facility] Comment on above: Result Comment: CALC ULATIONS OF ESTIMATED GFR ARE PERFORMED USING THE MDRD STUDY EQUATION FOR THE IDMS-TRACEABLE CREATININE METHODS. CLIN CHEM 2007;53:766-72 Performed By: #### B MP #### [address] [address] GFR-NON AM. >60 Normal >60 [facility] Comment on above: Performed By: #### B MP #### [place] [id number] Glucose [Mass/Vol] 114 mg/dL High 74 - 99 [facility] Comment on above: Performed By: #### B MP #### [address] [address] HCO3 (Bld) [Moles/Vol] 29 mmol/L Normal 21 - 32 [facility] Comment on above: Performed By: #### B MP #### [address] [address] Potassium [Moles/Vol] 4.0 mmol/L Normal 3.5 - 5.[address] [facility] Comment on above: Performed By: #### B MP #### [address] [address] Sodium [Moles/Vol] 140 mmol/L Normal 136 - 145 [facility] Comment on above: Performed By: #### B MP #### [address] [address] Urea nitrogen [Mass/Vol] 17 mg/dL Normal 6 - 23 [facility] Comment on above: Performed By: #### B MP #### [address] [address] MAGNESIUMon 04-23-2020 Magnesium [Mass/Vol] 1.73 mg/dL Normal 1.60 - 2.[address] [facility] Comment on above: Performed By: #### M G #### [address] [address] PHOSPHORUSon 04-23-2020 Phosphate [Mass/Vol] 3.4 mg/dL Normal 2.5 - 4.9 [facility] Comment on above: Result Comment: The performance characteristics of phosphorus testing in heparinized plasma have been validated by the individual laboratory site where testing is performed. Testing on heparinized plasma is not approved by the FDA; however, such approval is not necessary. Performed By: #### P HOS #### [address] [address] URIC ACIDon 04-23-2020 Urate [Mass/Vol] 4.5 mg/dL Normal 4.0 - 7.5 [facility] Comment on above: Result Comment: Ni puncture immediately after or during the administration of Metamizole may lead to falsely low results. Testing should be performed immediately prior to Metamizole dosing. Performed By: #### U NAPOLEON #### [address] [address] VITAMIN D, 25-HYDROXYon 03-31 VITAMIN D, 25-HYDROXY 31 ng/mL Normal [facility] Comment on above: Result Comment: . DEFICIENCY: < 20 NG/ML INSUFFICIENCY: 20-29 NG/ML SUFFICIENCY: 30-100 NG/ML THIS ASSAY ACCURATELY QUANTIFIES THE SUM OF VITAMIN D3, 25-HYDROXY AND VIT D2,25-HYDROXY. Performed By: #### V TDOH #### [address] [address] Initial Visit (Nephrology)on 04-12-2020 Initial Visit (Nephrology) Diagnoses/Problems History of myocardial infarction (412) (I25.2) Recurrent kidney stones (592.0) (N20.0) Orders Basic Metabolic Panel; Status:Active; Requested for:12Apr2020; Magnesium, Serum; Status:Active; Requested for:12Apr2020; Phosphorus, Serum; Status:Active; Requested for:12Apr2020; Uric Acid, Serum; Status:Active; Requested for:12Apr2020; Vitamin D 25-Hydroxy; Status:Active; Requested for:12Apr2020; Patient Discussion/Summary Issues: He has recurrent nephrolithiasis. He has multiple stones with him here today His stones in the past have likely been calcium We will get his records and see what his stone composition was in the past At this time I have discussed with him fluid intake I also reviewed his past meds At this time we will perform a lithOLink. He will get blood work drawn and perform the urine at 24-hour study Once we get the results back we will revisit each other and decide on plan of care to try to decrease his stone formation Provider Impressions Recurrent nephrolithiasis Calcium nephrolithiasis Hyperlipidemia Chief Complaint New patient here for recurrent kidney stones History of Present IllnessHe is here for a new patient visit. He is here secondary to recurrent kidney stones We do not have much information on him at this time as most [place] We are trying to get his past medical history is supplied to us. He has had many kidney stones. He was 39 when his first one happened. He wants to try to stop them from forming. He has backed off of his coffee. he drinks water and cranberry juice. He drinks water as the most. he drinks very little pop. He has been back andforth to tea. He states his diet is watched closely. He has been on Allopurinol, Potassium citrate, Rosuvastatin, Indaomethacin. He states his stones werer all calcium. Review of Systems Constitutional: no fever, no chills, no recent weight gain and no recent weight loss. Eyes: no blurred vision and no diplopia. ENT: no hearing loss, no earache, no sore throat, no swollen glands in the neck and no nasal discharge. Cardiovascular: no chest pain, no palpitations and no lower extremity edema. Respiratory: no shortness of breath, no chronic cough and no shortness of breath during exertion. Gastrointestinal: no abdominal pain, no constipation, no heartburn, no bloody stools, no change in bowel habits and no vomiting. Genitourinary: no dysuria and no hematuria. Musculoskeletal: no arthralgias and no myalgias. Skin: no rashes and no skin lesions. Neurological: no headaches and no dizziness. Psychiatric: no confusion, no depression and no anxiety. Endocrine: no cold intolerance, no heat intolerance, no thyroid disorder, no dry skin and no increased urinary frequency. Hematologic/Lymphatic: does not bleed easily and does not bruise easily. All other systems have been reviewed and are negative for complaint. Past Medical History History of myocardial infarction (412) (I25.2) Surgical History History of Colonoscopy History of Lithotripsy Family History Family history of rheumatoid arthritis (V17.7) (Z82.61) Family history of myocardial infarction (V17.3) (Z82.49) Social History Former smoker (V15.82) (Z87.891) Allergies No Known Drug Allergies Recorded By: Denice Willson; 04/12/2020 1:44:33 PM Current Meds Medication NameInstruction Aspirin 81 MG TABSTAKE 1 TABLET DAILY. Rosuvastatin Calcium 20 MG Oral TabletTAKE 1 TABLET DAILY. Vitals Vital Signs Recorded: 12Apr2020 01:42PM Zhjokkihqqo99.7 F Heart Rate83 Wtqwvesd399, LUE, Sitting Tmrduhajg76, LUE, Sitting Height5 ft 9 in Avmkjs779 lb 8 oz BMI Gscosfhgpd90.21 BSA Calculated1.96 Tobacco Useb) No O2 Iljqibperb44 Physical Exam Constitutional: no acute distress, well appearing and well nourished. Psychiatric: orientation to person, place, and time. Appropriate mood and affect. Neurologic: normal examination of cranial nerves, normal examination of motor strength, normal examination of sensation and asterixis is not present. HEENT: examination of the head and face normal, EOMI, sclerae were anicteric and normal examination of fundi, tympanic membranes were normal bilaterally and oral mucosa was moist. Neck: no thyromegaly, jugular venous distension or audible carotid bruits. Cardiovascular: auscultation of heart normal rate and rhythm, normal S1 and S2, no murmurs. There was no pericardial friction rub. Pulmonary: lungs are clear to auscultation. Abdomen: soft, non tender to palpation, normoactive bowel sounds. No organomegaly, masses or audible bruits and abdominal aorta normal. Kidneys: bilateral lower poles not palpable and non tender with percussion. Extremities: examination of extremities normal, no clubbing of the fingernails and no cyanosis and no edema present. Musculoskeletal: inspection/palpation normal, muscle tone and tremor normal and full range of motion. Skin: warm, pink, well conditioned, no rashes or lesions, no livedo reticularis, hair and nails normal and skin and subcutaneous tissue normal. Lymphatic: no lymphadenopathy. Vascular: no bruits and all pulses are normal throughout. Results/Data No Labs available right now. Signatures Electronically signed by : Farhan Shin DO; Apr 12 2020 2:14PM EST (Author) Normal [facility] Culture, urine Bacteria identified Cx Nom (U) Culture exhibits no growth. [facility] Work Phone: Influenza virus A and B and SARS-CoV-2 (COVID-19) Ag panel - Upper respiratory specim SARS-CoV-2 (COVID-19) RNA FELIX+probe Ql (Resp) [facility] Work Phone: Laboratory - Microbiology an d Antimicrobial susceptibility Bacteria identified Cx Nom (Bld) No growth in 5 days. [facility] Work Phone: No Panel Information SARS-CoV-2 & FLU Antigen (Rapid) [facility] Work Phone: Vital Signs Date Time Vital Sign Value Performing Clinician Facility 01-14-2024 10:27-0400 Body height 175.3 cm Lavinia Page MD Work Phone: [facility] 01-14-2024 10:27-0400 Body mass index (BMI) [Ratio] 24.66 kg/m2 Lavinia Page MD Work Phone: [facility] 01-14-2024 10:27-0400 Body weight 75.75 kg Lavinia Page MD Work Phone: [facility] 01-14-2024 10:27-0400 Diastolic blood pressure 79 mm[Hg] Lavinia Page MD Work Phone: [facility] 01-14-2024 10:27-0400 Heart rate 65 /min Lavinia Page MD Work Phone: [facility] 01-14-2024 10:27-0400 SaO2% (BldA) [Mass fraction] 96 % Lavinia Page MD Work Phone: [facility] 01-14-2024 10:27-0400 Systolic blood pressure 156 mm[Hg] Lavinia Page MD Work Phone: [facility] 07-02-2023 14:14-0400 Body height 175.3 cm Lavinia Page MD Work Phone: [facility] 07-02-2023 14:14-0400 Body mass index (BMI) [Ratio] 23.92 kg/m2 Lavinia Page MD Work Phone: [facility] 07-02-2023 14:14-0400 Body weight 73.48 kg Lavinia Page MD Work Phone: [facility] 07-02-2023 14:14-0400 Diastolic blood pressure 76 mm[Hg] Lavinia Page MD Work Phone: [facility] 07-02-2023 14:14-0400 Heart rate 67 /min Lavinia Page MD Work Phone: [facility] 07-02-2023 14:14-0400 SaO2% (BldA) [Mass fraction] 98 % Lavinia Page MD Work Phone: [facility] 07-02-2023 14:14-0400 Systolic blood pressure 122 mm[Hg] Lavinia Page MD Work Phone: [facility] 02-05-2023 13:42-0500 Body height 175.3 cm Lavinia Page MD Work Phone: [facility] 02-05-2023 13:42-0500 Body mass index (BMI) [Ratio] 23.78 kg/m2 Lavinia Page MD Work Phone: [facility] 02-05-2023 13:42-0500 Body weight 73.03 kg Lavinia Page MD Work Phone: [facility] 02-05-2023 13:42-0500 Diastolic blood pressure 88 mm[Hg] Lavinia Page MD Work Phone: [facility] 02-05-2023 13:42-0500 Heart rate 98 /min Lavinia Page MD Work Phone: [facility] 02-05-2023 13:42-0500 SaO2% (BldA) [Mass fraction] 98 % Lavinia Page MD Work Phone: [facility] 02-05-2023 13:42-0500 Systolic blood pressure 126 mm[Hg] Lavinia Page MD Work Phone: [facility] 09-22-2022 08:19-0400 Body weight 72.[address] Becca Sánchez Work Phone: [facility] 08-08-2022 14:01-0400 Body weight 71.[address] Becca Sánchez Work Phone: [facility] 07-30-2022 15:53-0400 Body temperature 98.6 [degF] Dr. Becca Sánchez Work Phone: [facility] 07-30-2022 15:53-0400 Diastolic blood pressure 75 mm[Hg] Dr. Becca Sánchez Work Phone: [facility] 07-30-2022 15:53-0400 Heart rate 83 /min Dr. Becca Sánchez Work Phone: [facility] 07-30-2022 15:53-0400 Respiratory rate 18 /min Dr. Becca Sánchez Work Phone: [facility] 07-30-2022 15:53-0400 SaO2% (BldA) [Mass fraction] 100 % Dr. Becca Sánchez Work Phone: [facility] 07-30-2022 15:53-0400 Systolic blood pressure 111 mm[Hg] Dr. Becca Sánchez Work Phone: [phone] [place] [address] 07-29-2022 09:56-0400 Body height 175.[address] Becca Sánchez Work Phone: [phone] [address] 07-29-2022 09:56-0400 Body weight 74.[address] Becca Sánchez Work Phone: [facility] 07-28-2022 16:07-0400 Inhaled oxygen flow rate 2 L/min Dr. Becca Sánchez Work Phone: [facility] 07-28-2022 12:45-0400 Inhaled oxygen concentration 100 % Dr. Becca Sánchez Work Phone: [facility] 07-28-2022 06:25-0400 Body mass index (BMI) [Ratio] 24.2 kg/m2 Dr. Becca Sánchez Work Phone: [facility] 07-14-2022 08:21-0400 Body temperature 97.7 [degF] Dr. Becca Sánchez Work Phone: [facility] 07-14-2022 08:21-0400 Diastolic blood pressure 86 mm[Hg] Dr. Becca Sánchez Work Phone: [facility] 07-14-2022 08:21-0400 Heart rate 73 /min Dr. Becca Sánchez Work Phone: [facility] 07-14-2022 08:21-0400 Respiratory rate 18 /min Dr. Becca Sánchez Work Phone: [facility] 07-14-2022 08:21-0400 SaO2% (BldA) [Mass fraction] 99 % Dr. Becca Sánchez Work Phone: [facility] 07-14-2022 08:21-0400 Systolic blood pressure 125 mm[Hg] Dr. Becca Sánchez Work Phone: [facility] 06-10-2022 10:01-0400 Body mass index (BMI) [Ratio] 25.9 kg/m2 Dr. Becca Sánchez Work Phone: [facility] 06-10-2022 10:01-0400 Body weight 79.[address] Becca Sánchez Work Phone: [facility] 06-10-2022 10:01-0400 Diastolic blood pressure 91 mm[Hg] Dr. eBcca Sánchez Work Phone: [facility] 06-10-2022 10:01-0400 Heart rate 69 /min Dr. Becca Sánchez Work Phone: [facility] 06-10-2022 10:01-0400 Respiratory rate 18 /min Dr. Becca Sánchez Work Phone: [facility] 06-10-2022 10:01-0400 SaO2% (BldA) [Mass fraction] 99 % Dr. Becca Sánchez Work Phone: [facility] 06-10-2022 10:01-0400 Systolic blood pressure 134 mm[Hg] Dr. Becca Sánchez Work Phone: [facility] 04-01-2022 11:43-0500 Diastolic blood pressure 89 mm[Hg] Dr. Becca Sánchez Work Phone: [facility] 04-01-2022 11:43-0500 Heart rate 77 /min Dr. Becca Sánchez Work Phone: [facility] 04-01-2022 11:43-0500 Respiratory rate 16 /min Dr. Becca Sánchez Work Phone: [facility] 04-01-2022 11:43-0500 SaO2% (BldA) [Mass fraction] 99 % Dr. Becca Sánchez Work Phone: [facility] 04-01-2022 11:43-0500 Systolic blood pressure 130 mm[Hg] Dr. Becca Sánchez Work Phone: [facility] 04-01-2022 08:57-0500 Body height 175.[address] Becca Sánchez Work Phone: [facility] Work Phone: 04-01-2022 08:57-0500 Body mass index (BMI) [Ratio] 23.1 kg/m2 Dr. Becca Sánchez Work Phone: [facility] 04-01-2022 08:57-0500 Body temperature 97.8 [degF] Dr. Becca Sánchez Work Phone: [facility] 04-01-2022 08:57-0500 Body weight 71.[address] Becca Sánchez Work Phone: [facility] 01-28-2022 13:25-0400 Body height 175.[address] Becca Sánchez Work Phone: [facility] Work Phone: 01-28-2022 13:25-0400 Body mass index (BMI) [Ratio] 24.6 kg/m2 Dr. Becca Sánchez Work Phone: [facility] Work Phone: 01-28-2022 13:25-0400 Body temperature 97.6 [degF] Dr. Becca Sánchez Work Phone: [facility] Work Phone: 01-28-2022 13:25-0400 Body weight 75.[address] Becca Sánchez Work Phone: [facility] Work Phone: 01-28-2022 13:25-0400 Diastolic blood pressure 80 mm[Hg] Dr. Becca Sánchez Work Phone: [facility] Work Phone: 01-28-2022 13:25-0400 Heart rate 77 /min Dr. Becca Sánchez Work Phone: [facility] Work Phone: 01-28-2022 13:25-0400 Respiratory rate 17 /min Dr. Becca Sánchez Work Phone: [facility] Work Phone: 01-28-2022 13:25-0400 SaO2% (BldA) [Mass fraction] 97 % Dr. Becca Sánchez Work Phone: [facility] Work Phone: 01-28-2022 13:25-0400 Systolic blood pressure 116 mm[Hg] Dr. Becca Sánchez Work Phone: [facility] Work Phone: 01-13-2022 15:23-0400 Respiratory rate 18 /min Dr. Becca Sánchez Work Phone: [facility] Work Phone: 01-13-2022 15:00-0400 Body temperature 97.9 [degF] Dr. Becca Sánchez Work Phone: [facility] Work Phone: 01-13-2022 15:00-0400 Diastolic blood pressure 70 mm[Hg] Dr. Becca Sánchez Work Phone: [facility] Work Phone: 01-13-2022 15:00-0400 Heart rate 99 /min Dr. Becca Sánchez Work Phone: [facility] Work Phone: 01-13-2022 15:00-0400 SaO2% (BldA) [Mass fraction] 95 % Dr. Becca Sánchez Work Phone: [facility] Work Phone: 01-13-2022 15:00-0400 Systolic blood pressure 106 mm[Hg] Dr. Becca Sánchez Work Phone: [facility] Work Phone: 01-13-2022 12:51-0400 Body height 175.[address] Becca Sánchez Work Phone: [facility] Work Phone: 01-13-2022 12:51-0400 Body mass index (BMI) [Ratio] 24.5 kg/m2 Dr. Becca Sánchez Work Phone: [facility] Work Phone: 01-13-2022 12:51-0400 Body weight 75.[address] Becca Sánchez Work Phone: [facility] Work Phone: 12-17-2021 10:02-0400 Body height 175.[address] Becca Sánchez Work Phone: [facility] Work Phone: 12-17-2021 10:02-0400 Body mass index (BMI) [Ratio] 24.6 kg/m2 Dr. Becca Sánchez Work Phone: [facility] Work Phone: 12-17-2021 10:02-0400 Body weight 75.[address] Becca Sánchez Work Phone: [facility] Work Phone: 12-17-2021 10:02-0400 Diastolic blood pressure 87 mm[Hg] Dr. Becca Sánchez Work Phone: [facility] Work Phone: 12-17-2021 10:02-0400 Heart rate 76 /min Dr. Becca Sánchez Work Phone: [facility] Work Phone: 12-17-2021 10:02-0400 Respiratory rate 16 /min Dr. Becca Sánchez Work Phone: [facility] Work Phone: 12-17-2021 10:02-0400 Systolic blood pressure 133 mm[Hg] Dr. Becca Sánchez Work Phone: [facility] Work Phone: 09-05-2021 08:40-0400 Body height 175.[address] Becca Sánchez Work Phone: [facility] Work Phone: 09-05-2021 08:40-0400 Body mass index (BMI) [Ratio] 23.8 kg/m2 Dr. Becca Sánchez Work Phone: [facility] Work Phone: 09-05-2021 08:40-0400 Body weight 73.[address] Becca Sánchez Work Phone: [facility] Work Phone: 09-05-2021 08:40-0400 Diastolic blood pressure 82 mm[Hg] Dr. Becca Sánchez Work Phone: [facility] Work Phone: 09-05-2021 08:40-0400 Heart rate 77 /min Dr. Becca Sánchez Work Phone: [facility] Work Phone: 09-05-2021 08:40-0400 Respiratory rate 18 /min Dr. Becca Sánchez Work Phone: [facility] Work Phone: 09-05-2021 08:40-0400 SaO2% (BldA) [Mass fraction] 99 % Dr. Becca Sánchez Work Phone: [facility] Work Phone: 09-05-2021 08:40-0400 Systolic blood pressure 123 mm[Hg] Dr. Becca Sánchez Work Phone: [facility] Work Phone: 08-21-2021 16:43-0400 Body temperature 98.4 [degF] Dr. Becca Sánchez Work Phone: [facility] Work Phone: 08-21-2021 16:43-0400 Diastolic blood pressure 92 mm[Hg] Dr. Becca Sánchez Work Phone: [facility] Work Phone: 08-21-2021 16:43-0400 Heart rate 79 /min Dr. Becca Sánchez Work Phone: [facility] Work Phone: 08-21-2021 16:43-0400 Respiratory rate 16 /min Dr. Becca Sánchez Work Phone: [facility] Work Phone: 08-21-2021 16:43-0400 SaO2% (BldA) [Mass fraction] 97 % Dr. Becca Sánchez Work Phone: [facility] Work Phone: 08-21-2021 16:43-0400 Systolic blood pressure 130 mm[Hg] Dr. Becca Sánchez Work Phone: [facility] Work Phone: 08-21-2021 05:12-0400 Body weight 79.[address] Becca Sánchez Work Phone: [facility] Work Phone: 08-20-2021 14:10-0400 Body height 175.[address] Becca Sánchez Work Phone: [facility] Work Phone: 08-20-2021 10:14-0400 Body mass index (BMI) [Ratio] 26.3 kg/m2 Dr. Becca Sánchez Work Phone: [facility] Work Phone: 08-20-2021 08:29-0400 Inhaled oxygen flow rate 2 L/min Dr. Becca Sánchez Work Phone: [facility] Work Phone: Encounters Encounter Date Encounter Type Care Provider Facility Start: 09-12-2024 End: 09-12-[address] Becca Sánchez MD Work Phone: [facility] Work Phone: Start: 09-12-2024 End: 09-12-[address] Jovani Voss MD -Radiology [facility] Work Phone: Start: 09-12-2024 End: 09-12-2024 ambulatory Becca Sánchez Facility:[facility] Start: 07-15-2024 End: 07-15-[address] Becca Sánchez MD -Laboratory [facility] Start: 07-15-2024 End: 07-15-2024 ambulatory Becca Sánchez Facility:[facility] Start: 01-14-2024 End: 01-14-2024 Office outpatient visit 25 minutes Lavinia Page MD Work Phone: [facility] Comment on above: Angina pectoris, uns table (Multi) (Primary Dx); Coronary artery disease involving eastern [place] coronary artery of [place] heart without angina pectoris; Essential hypertension; Mixed hyperlipidemia Start: 01-14-2024 End: 01-14-2024 ambulatory [facility] Start: 12-21-2023 End: 12-21-2023 ambulatory Becca Sánchez Facility:[facility] Start: 10-26-2023 End: 10-26-2023 ambulatory Becca Sánchez Facility:[facility] Start: 07-02-2023 End: 07-02-2023 Office outpatient visit 25 minutes Lavinia Page MD Work Phone: [facility] Comment on above: Angina pectoris, uns table (CMS/HCC) (Primary Dx); Coronary artery disease involving [place] coronary artery of [place] heart without angina pectoris; Essential hypertension; Mixed hyperlipidemia Start: 07-02-2023 End: 07-02-2023 ambulatory [facility] Start: 06-04-2023 End: 06-04-2023 ambulatory [facility] Work Phone: Start: 06-04-2023 End: 06-04-2023 Patient encounter procedure [facility] Work Phone: Start: 02-05-2023 End: 02-05-2023 Office outpatient new 45 minutes Lavinia Page MD Work Phone: [facility] Comment on above: Essential hypertensi on (Primary Dx); Hypercholesteremia; Coronary artery disease involving [place] coronary artery of [place] heart without angina pectoris; Angina pectoris, unstable (CMS/HCC) Start: 02-05-2023 End: 02-05-2023 ambulatory [facility] Start: 12-12-2022 End: 12-12-[address] Becca Sánchez Work Phone: [facility] Work Phone: Start: 12-12-2022 End: 12-12-[address] Becca Sánchez Work Phone: [facility] Work Phone: Start: 11-17-2022 End: 11-17-[address] [facility] Start: 11-06-2022 End: 11-06-[address] Becca Sánchez Work Phone: [facility] Work Phone: Start: 11-06-2022 End: 11-06-[address] Becca Sánchez Work Phone: [facility]-Radiology, [facility] Work Phone: Start: 09-22-2022 End: 09-22-[address] Becca Sánchez Work Phone: [facility] Work Phone: Start: 08-08-2022 End: 08-08-[address] Becca Sánchez Work Phone: [facility] Work Phone: Start: 07-31-2022 End: 07-31-[address] Becca Sánchez Work Phone: [facility] Work Phone: Start: 07-31-2022 End: 07-31-[address] Becca Sánchez Work Phone: [facility]-Laboratory Start: 07-30-2022 Non-patient / Non-visit Dr. Dale Sánchez Work Phone: [facility] Start: 07-29-2022 Non-patient / Non-visit Dr. Dale Sánchez Work Phone: [facility] Start: 07-28-2022 Non-patient / Non-visit Dr. Dale Sánchez Work Phone: [facility] Start: 07-28-2022 End: 07-30-2022 Evaluation and management of inpatient Dr. Becca Sánchez [facility] Start: 07-22-2022 End: 07-22-2022 Non-patient / Non-visit Dr. eBcca Sánchez Work Phone: [facility] Heart [facility] Start: 07-14-2022 End: 07-14-[address] Becca Sánchez Work Phone: [facility] Start: 06-10-2022 End: 06-10-[address] Becca Sánchez Work Phone: [facility] Start: 04-01-2022 End: 04-01-2022 Emergency department patient visit Dr. Becca Sánchez Work Phone: [facility]-Emergency Department Start: 03-17-2022 End: 03-17-[address] Becca Sánchez Work Phone: [facility] Work Phone: Start: 03-17-2022 End: 03-17-[address] Becca Sánchez Work Phone: [facility] Start: 03-17-2022 End: 03-17-[address] Becca Sánchez Work Phone: [facility] Work Phone: Start: 03-17-2022 End: 03-17-[address] Becca Sánchez Work Phone: [facility] Start: 01-28-2022 End: 01-28-[address] Becca Sánchez Work Phone: [facility] Start: 01-13-2022 End: 01-13-2022 Emergency department patient visit Dr. Becca Sánchez [facility] Start: 01-06-2022 End: 01-06-[address] Becca Sánchez Work Phone: [facility] Start: 12-30-2021 End: 12-30-[address] Becca Sánchez Work Phone: [facility] Work Phone: Start: 12-30-2021 End: 12-30-[address] Becca Sánchez Work Phone: [facility] Start: 12-23-2021 End: 12-23-[address] Becca Sánchez Work Phone: [facility] Work Phone: Start: 12-23-2021 End: 12-23-[address] Becca Sánchez Work Phone: [facility] Spec[facility] Start: 12-17-2021 End: 12-17-[address] Becca Sánchez Work Phone: [facility] Start: 09-24-2021 End: 09-24-[address] Becca Sánchez Work Phone: [facility]-Cardiac Rehab Start: 09-18-2021 Non-patient / Non-visit Dr. Dale Sánchez Work Phone: [facility] Start: 09-05-2021 End: 09-05-[address] Becca Sánchez Work Phone: [facility] Start: 08-21-2021 Non-patient / Non-visit Dr. Dale Sánchez Work Phone: [facility] Inpatient Physicians Start: 08-21-2021 Non-patient / Non-visit Dr. Dale Sánchez Work Phone: [facility] Start: 08-20-2021 Non-patient / Non-visit Dr. Dale Sánchez Work Phone: [facility] Start: 08-20-2021 Non-patient / Non-visit Dr. Dale Sánchez Work Phone: [facility] Start: 08-20-2021 End: 08-21-2021 Evaluation and management of inpatient Dr. Becca Sánchez Work Phone: [facility]-Intensive Care Unit Start: 07-22-2021 End: 07-22-2021 Patient encounter procedure [facility]-Laboratory Start: 06-06-2021 End: 06-06-2021 Patient encounter procedure [facility]-Laboratory, [place] Procedures Date Procedure Procedure Detail Performing Clinician Start: 09-12-2024 Plain X-ray abdomen Dr. Becca Sánchez MD Work Phone: Start: 07-15-2024 Urine microalbumin/creatinine ratio measurement Dr. Becca Sánchez MD Work Phone: Start: 02-05-2023 ECG 12-LEAD LAVINIA PAEG Start: 02-05-2023 Ecg routine ecg w/le ast 12 lds trcg only w/o i&r Lavinia Page MD Work Phone: Start: 12-12-2022 Pelvis X-ray Dr. Becca staley Work Phone: Start: 11-06-2022 Diagnostic radiograp hy of abdomen Dr. Becca Sánchez Work Phone: Start: 07-28-2022 Laparoscopic-assiste d sigmoid colectomy Dr. Becca Sánchez Work Phone: Start: 04-01-2022 CT of abdomen and pe lvis without contrast Dr. Becca Sánchez Work Phone: Start: 03-17-2022 CT of abdomen and pe lvis without contrast Dr. Becca Sánchez Work Phone: Start: 01-13-2022 Computed tomography of abdomen and pelvis with intravenous contrast Dr. Becca Sánchez Work Phone: Start: 01-13-2022 Plain chest X-ray Dr. Angella Sánchez Work Phone: Start: 12-30-2021 CT of abdomen and pe lvis without contrast Dr. Becca Sánchez Work Phone: Start: 08-20-2021 History of placement of stent for coronary artery disease History of coronary artery stent placement Dr. Becca Sánchez Work Phone: Comment on above: [place] MR RAGHAV S 3.0 x 40 mm to mRCA 08/20/21 Start: 08-20-2021 Plain chest X-ray Dr. Angella Sánchez Work Phone: Bacteria identified in Blood by Culture Dr. Becca Sánchez Work Phone: SARS-CoV-2 & FLU Ant igen (Rapid) Dr. Becca Sánchez Work Phone: Urine culture Dr. Becca Sánchez Work Phone: Plan of Treatment Date Care Activity Detail Author Start: 06-15-2030 DTaP/Tdap/Td Vaccines (2 - Td or Tdap) DTaP/Tdap/Td Vaccines (2 - Td or Tdap) [facility] Start: 01-14-2024 End: 01-14-2024 Patient encounter procedure 01/14/2024 10:45 AM EDT Office Visit [facility] [address] [facility] [address] [place] [address] Lavinia Page MD [address] [facility] [address], [facility] [address] [place] [address] [facility] Start: 11-29-2023 COVID-19 Vaccine () COVID-19 Vaccine () [facility] Start: 11-29-2023 Influenza vaccination [facility] Start: 11-28-2022 COVID-19 Vaccine () COVID-19 Vaccine () [facility] Start: 11-28-2022 Influenza vaccination Influenza Vaccine (#1) [facility] Start: 07-30-2022 [facility] Start: 07-30-2022 Patient discharge [facility] Start: 07-29-2022 [facility] Start: 07-29-2022 Removal of urinary catheter [facility] Start: 07-28-2022 Following clinical pathway protocol [facility] Start: 07-28-2022 Ambulation therapy management [facility] Start: 07-28-2022 Application of intermittent pneumatic compression device [facility] Start: 07-28-2022 Catheterization of vein [facility] Start: 07-28-2022 Elevation of head of bed [facility] Start: 07-28-2022 Introduction of urinary catheter [facility] Start: 07-28-2022 Measuring intake and output [facility] Start: 07-28-2022 Notification of physician [facility] Start: 07-28-2022 Oxygen therapy [facility] Start: 07-28-2022 Patient education [facility] Start: 07-28-2022 Procedures relating to eating and drinking [facility] Start: 07-28-2022 Taking patient vital signs [facility] Start: 07-28-2022 Wound care [facility] Start: 07-28-2022 [facility] Start: 07-28-2022 Admission procedure [facility] Start: 01-13-2022 End: 01-13-2022 Blood culture [facility] Work Phone: Start: 09-18-2021 Patient referral [facility] Work Phone: Start: 08-21-2021 Patient discharge [facility] Work Phone: Start: 08-20-2021 Patient referral [facility] Work Phone: Start: 08-20-2021 [facility] Work Phone: Start: 08-20-2021 Ambulation without limitation [facility] Work Phone: Start: 08-20-2021 Application of intermittent pneumatic compression device [facility] Work Phone: Start: 08-20-2021 Assessment of risk of venous thromboembolism [facility] Work Phone: Start: 08-20-2021 Catheterization of vein [facility] Work Phone: Start: 08-20-2021 Continuous pulse oximetry [facility] Work Phone: Start: 08-20-2021 Incentive spirometry [facility] Work Phone: Start: 08-20-2021 Insertion of catheter into peripheral vein [facility] Work Phone: Start: 08-20-2021 Measuring intake and output [facility] Work Phone: Start: 08-20-2021 Patient referral to dietitian [facility] Work Phone: Start: 08-20-2021 Providing care according to standard [facility] Work Phone: Start: 08-20-2021 Referral to site superintendent [facility] Work Phone: Start: 08-20-2021 Referral to service [facility] Work Phone: Start: 08-20-2021 Cardiac monitoring [facility] Work Phone: Start: 08-20-2021 Cardiac rehabilitation - phase 1 [facility] Work Phone: Start: 08-20-2021 Cardiac rehabilitation - phase 2 [facility] Work Phone: Start: 08-20-2021 Notification of physician [facility] Work Phone: Start: 08-20-2021 Oxygen therapy [facility] Work Phone: Start: 08-20-2021 Patient discharge [facility] Work Phone: Start: 08-20-2021 Patient education [facility] Work Phone: Start: 08-20-2021 Pulse taking [facility] Work Phone: Start: 08-20-2021 Systemic arterial pressure monitoring [facility] Work Phone: Start: 08-20-2021 Taking patient vital signs [facility] Work Phone: Start: 08-20-2021 Vascular disease risk assessment [facility] Work Phone: Start: 08-20-2021 Vital signs measurements [facility] Work Phone: Start: 08-20-2021 Wound care [facility] Work Phone: Start: 08-20-2021 End: 08-20-2021 [facility] Work Phone: Start: 08-20-2021 Admission procedure [facility] Work Phone: Start: 08-20-2021 Following clinical pathway protocol [facility] Work Phone: Start: 06-15-2021 Pneumococcal Vaccine: 65+ Years (2 - PCV) Pneumococcal Vaccine: 65+ Years (2 - PCV) [facility] Start: 06-15-2021 Pneumococcal Vaccine: 65+ Years (2 of 2 - PCV) Pneumococcal Vaccine: 65+ Years (2 of 2 - PCV) [facility] Start: 10-26-2020 COVID-19 Vaccine (3 - Pfizer series) COVID-19 Vaccine (3 - Pfizer series) [facility] Start: 06-20-2019 Abdominal aortic aneurysm screening Abdominal Aortic Aneurysm (AAA) Screening [facility] Start: 2014 RSV High Risk: (Elderly (60+) or Population) (1 - Risk 60-74 years 1-dose series) RSV High Risk: (Elderly (60+) or Population) (1 - Risk 60-74 years 1-dose series) [facility] Start: 2004 Zoster Vaccines (1 of 2) Zoster Vaccines (1 of 2) [facility] Start: 1972 Diabetes mellitus screening Diabetes Screening [facility] Start: 1972 Hepatitis C screening Hepatitis C Screening [facility] Start: 1955 Lipid panel Lipid Panel [facility] Start: 1955 Medicare Annual Wellness Visit Medicare Annual Wellness Visit (AWV) [facility] Start: 1955 Screening for malignant neoplasm of colon [facility] Bacteria identified in Blood by Culture Blood Culture [facility] Work Phone: Blood culture [facility] Work Phone: CBC W Auto Different ial panel - Blood [facility] Patient Education [facility] Work Phone: Patient referral [facility] Work Phone: Immunizations Immunization Date Immunization Notes Care Provider Fa cili 01-09-2021 influenza, injectabl e, quadrivalent, preservative free Dr. Becca Sánchez Work Phone: [facility] 01-09-2021 influenza, seasonal, injectable Dr. Becca Sánchez Work Phone: [facility] Payers Date Payer Category Payer Self-pay [id number] 2022 Medicare [employer] MEDICARE [id number] 2022-Present [address] [place] [address] [id number] 2022 Medicare (Managed Care) [facility] [id number] 2022 Unknown [id number] 2016 Unknown [id number] 1954 Unknown [id number] 1954 Unknown [id number] 1954 Unknown [id number] Unknown [facility] PACKAGE PLAN [phone] [id number] Unknown [id number] Unknown [id number] Unknown [id number] Unknown [id number] Social History Date Type Detail Facility Start: 10-02-2014 End: 12-19-2022 Tobacco smoking status NHIS Unknown if ever smoked [facility] Start: 1955 Sex Assigned At Male W [facility] Start: 12-19-2022 End: 02-05-2023 Tobacco smoking status NHIS Ex-smoker [facility] History of tobacco use Current smoker [facility] Work Phone: History of tobacco use Cigarette Smoker [facility] Work Phone: Start: 02-05-2023 Tobacco use and exposure Smokeless tobacco non-user [facility] Work Phone: Start: 02-05-2023 End: 07-02-2023 History of Social function [facility] Work Phone: Start: 02-05-2023 End: 07-02-2023 Tobacco use panel [facility] Work Phone: Start: 1955 Sex Assigned At Not on file [facility] Work Phone: Start: 01-26-2023 End: 01-14-2024 Exposure to SARS-CoV-2 (event) Not sure [facility] Medical Equipment Procedure Code Equipment Code Equipment Origin al Text Equipment Identifier Dates Laparoscopic-assisted sigmoidectomy Surgical staple loading unit, non-cutting [id number] FDA Start: 07-28-2022 Laparoscopic-assisted sigmoidectomy Surgical staple loading unit, non-cutting [id number] FDA Start: 07-28-2022 Laparoscopic-assisted sigmoidectomy Intraluminal circular stapler, single-use [id number] FDA Start: 07-28-2022 Laparoscopic-assisted sigmoidectomy Ligation clip, synthetic polymer, non-bioabsorbable [id number] FDA Start: 07-28-2022 Laparoscopic-assisted sigmoidectomy Ligation clip, synthetic polymer, non-bioabsorbable ()[id number] FDA Start: 07-28-2022 ([id number]) Drug-eluting coronary artery stent, bioabsorbable-polyme r-coated ()[id number] FDA Start: 08-20-2021 Goals Date Patient Goal Desired Activity /State Functional Status Date Assessment Result Facility 07-30-2022 Functional status Chair [facility] Work Phone: 08-21-2021 Functional status Ambulates;Bathroom Priv ilege [facility] Work Phone: Mental Status Date Assessment Result Facility 07-30-2022 Cognitive function Voice/Name [facility] Work Phone: 01-13-2022 Cognitive function Voice/Name [facility] Work Phone: 08-21-2021 Cognitive function Voice/Name [facility] Work Phone: Clinical Notes 08-20-2021 to 09-12-2024 Lavinia Page MD - 07/02/2023 2:30 PM EDTPatient InstructionsLavinia Page MD - 02/05/2023 2:00 PM ESTPatient Instructions Note Date & Type Note Facility 09-12-2024 Radiology Diagnostic study note [facility] Imaging Services [address] [place], [place] [address] Abdomen Single View MR#: [id number] Acct: [id number] Name: KAMALJIT PERRY Rep #: [id number] : 1955 M 69 From: Sheldon Santiago MD PCP: Dr. Becca Sánchez MD Status: REG CLI Study:Abdomen Single View Date of Exam: 09/12/24 Exam# [id number] Ordering Dr: Shaye Voss MD PROCEDURE: ABDOMEN SINGLE VIEW 09/12/2024 REASON FOR EXAM: CALCULUS OF KIDNEY TECHNIQUE: ABDOMEN SINGLE VIEW COMPARISON: KUB, 11/06/2022. FINDINGS: There is a nonobstructive bowel gas pattern. There are benign calcified granulomas in the liver and spleen. There are numerable stones in both kidneys and medullary sponge kidney is not excluded. There are selma in the pelvis consistent with bowel surgery. There are no soft tissue calcifications projected over either ureter. RAD/Abdomen Single View IMPRESSION: 1. Numerous calcifications projected over both kidneys consistent with nephrolithiasis. Medullary sponge kidney not excluded. 2. Other findings as noted. Reading Location: [id number] CC: Dr. Becca Sánchez MD; Dr. Jovani Voss MD ~ Analysis Manager: Signed [facility] Work Phone: 07-02-2023 History of Present illness Narrative Referred by No ref. 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 He feels well. No CP, but he's worried about having anginal sx's. No palp, sob. Remains very active. No edema, syncope, palp. Past Medical History: Problem List Items Addressed This Visit None Past Medical History: Diagnosis Date Angina pectoris, unstable (CMS/HCC) 02/05/2023 CAD (coronary artery disease) 02/05/20232009 LA s/p IRAIS to LAD and OM1 2010 IRAIS RCA Essential hypertension 02/05/2023 Hypercholesteremia 02/05/2023 Hyperlipidemia 11/07/2009 LDL on FLP was 113, HDL was 35. - started atorvastatin 80mg daily Kidney stones 02/02/2023 Old myocardial infarction 04/12/2020 History of myocardial infarction STEMI (ST elevation myocardial infarction) (CMS/HCC) 11/07/2009 Underwent successful PCI Continue aspirin / Plavix / statin / BB Tobacco cessation Past Surgical History: He has a past surgical history that includes Other surgical history (04/12/2020) and Other surgical history (04/12/2020). Social History: He reports that he has quit smoking. His smoking use included cigarettes. He has never used smokeless tobacco. No history on file for alcohol use and drug use. Family History: Family History Problem Relation Name Age of Onset Coronary artery disease Father 58 CABG Allergies: Patient has no known allergies. Outpatient Medications: Current Outpatient Medications Medication Instructions aspirin 81 mg, oral, Daily calcium carbonate 600 mg calcium (1,500 mg) tablet 2 tablets, oral, Daily clopidogrel (PLAVIX) 75 mg, oral, Daily lisinopril 5 mg, oral, Daily metoprolol succinate XL (TOPROL-XL) 25 mg, oral, Daily, Do not crush or chew. rosuvastatin (CRESTOR) 40 mg, oral, Daily Last Recorded Vitals: There were [...] Labs: CBC - No results found for: WBC, HGB, HCT, MCV, PLT CMP - Lab Results Component Value Date CALCIUM 9.5 04/23/2020 PHOS 3.4 04/23/2020 LIPID PANEL - No results found for: CHOL, HDL, CHHDL, LDL, VLDL, TRIG, NHDL RENAL FUNCTION PANEL - Lab Results Component Value Date K 4.0 04/23/2020 PHOS 3.4 04/23/2020 No results found for: BNP, HGBA1C Cath 2021 [facility] severe blockage with Rafat Cath 2010 [facility] to RCA Cath 2009 [facility] IRAIS LAD, and IRAIS OM1 Assessment/Plan 1. CAD. Myocardial infarction 2009. IRAIS LAD, and OM1 [facility]. 2010 recurrent symptoms. IRAIS to the RCA. 2021 recurrent symptoms. Catheterization [facility]oster revealed high-grade stenosis. I do not have the reports I do not know which artery. Collateralization had already occurred. Since that has been doing well. He has been on DAPT for 2 years. I will go ahead and stop his clopidogrel today. He has some dizziness at times. I will have him spread his lisinopril and his metoprolol to different times of the day. Continue rosuvastatin 40 mg continue aspirin 2. Hyperlipidemia. Monitored by his primary care physician in [place]. I do not have labs on him. I will increase his rosuvastatin dose empirically from 20 to 40 mg optimizing his anti-inflammatory benefit. He has some muscle aches and pain. He is not actually sure if it is due to the rosuvastatin or just doing more activity and exercising. I would like for him to tease this out before we would reduce the dose given the anti-inflammatory benefits 3. Hypertension well-controlled Stop Plavix. Once again we will try to obtain records from [facility] regarding his cardiac catheterization and stress echo. Return in 6 months. Lavinia Page MD Instructions and follow up documented in this encounter [facility] Work Phone: 07-02-2023 Instructions Lavinia Page MD - 07/02/2023 2:30 PM EDT 1. CAD. Myocardial infarction 2009. IRAIS LAD, and OM1 [facility]. 2010 recurrent symptoms. IRAIS to the RCA. 2021 recurrent symptoms. Catheter[facility] revealed high-grade stenosis. I do not have the reports I do not know which artery. Collateralization had already occurred. Since that has been doing well. He has been on DAPT for 2 years. I will go ahead and stop his clopidogrel today. He has some dizziness at times. I will have him spread his lisinopril and his metoprolol to different times of the day. Continue rosuvastatin 40 mg continue aspirin 2. Hyperlipidemia. Monitored by his primary care physician in [place]. I do not have labs on him. I will increase his rosuvastatin dose empirically from 20 to 40 mg optimizing his anti-inflammatory benefit. He has some muscle aches and pain. He is not actually sure if it is due to the rosuvastatin or just doing more activity and exercising. I would like for him to tease this out before we would reduce the dose given the anti-inflammatory benefits 3. Hypertension well-controlled Stop Plavix. Once again we will try to obtain records from [facility] regarding his cardiac catheterization and stress echo. Return in 6 months. documented in this encounter [facility] Work Phone: 02-05-2023 History of Present illness Narrative Referred by No ref. 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 He feels well. No CP, but he's [...] Labs: CBC - No results found for: WBC, HGB, HCT, MCV, PLT CMP - Lab Results Component Value Date CALCIUM 9.5 04/23/2020 PHOS 3.4 04/23/2020 LIPID PANEL - No results found for: CHOL, HDL, CHHDL, LDL, VLDL, TRIG, NHDL RENAL FUNCTION PANEL - Lab Results Component Value Date K 4.0 04/23/2020 PHOS 3.4 04/23/2020 No results found for: BNP, HGBA1C Cath 2021 [facility] severe blockage with Rafat Cath 2010 [facility] IRAIS to RCA Cath 2009 [facility] IRAIS LAD, and IRAIS OM1 Assessment/Plan 1. CAD. Myocardial infarction 2010. IRAIS LAD, and OM1 [facility]. 2010 recurrent symptoms. IRAIS to the RCA. He did great until 2021. At that point recurrent symptoms. Taken to the Director Banking at [facility]. High-grade stenosis. Not sure which artery. Collaterals [...] Monitored by his primary care physician in [place]. I do not have labs on him. [...] done today. We will get records from [facility] as to his last echo stress test and catheterization. My plan will be to see him back in approximately 4 to 5 months. If you develop symptoms of angina, this would not surprise me as he has a high-grade lesion which is being collateralized. This may require optimization of his medical therapy. Lavinia Page MD Instructions and follow up documented in this encounter [facility] Work Phone: 02-05-2023 Instructions Lavinia Page MD - 02/05/2023 2:00 PM EST 1. CAD. Myocardial infarction 2009. IRAIS LAD, and OM1 [facility]. 2010 recurrent symptoms. IRAIS to the RCA. He did great until 2021. At that point recurrent symptoms. Taken to the Director Banking at [facility]. High-grade stenosis. Not sure which artery. Collaterals [...] Monitored by his primary care physician in [place]. I do not have labs on him. [...] done today. We will get records from [facility] as to his last echo stress test and catheterization. My plan will be to see him back in approximately 4 to 5 months. If you develop symptoms of angina, this would not surprise me as he has a high-grade lesion which is being collateralized. This may require optimization of his medical therapy. documented in this encounter [facility] Work Phone: 07-30-2022 Progress note Note Date/Time July 30, 2022 6:13am [facility] Medical Records Department [address] [place] [address] Progress Note - Surgery 07/30/22 06 MR#: [id number] Acct: [id number] Name: KAMALJIT PERRY Rep #:[id number] : 1955 67 From: William Sandhu MD PCP: Dr. Becca Sánchez MD Status:ADM IN Location: MS3 [id number] Subjective Subjective Fever noted to 100. The patient has the room quite warm and is using a warming K-pad. He states that he feels similar to yesterday. He has had a small amountper rectum before blood. Small amount of flatus. He is experiencing abdominal cramping. He notes incisional soreness. No nausea. Objective Data Objective Data Vital Signs: Vital Signs Temp Pulse Resp BP Pulse Ox O2 Del Method O2 Flow Rate 100.0 F H 80 14 114/80 95 Room Air 2 07/30/22 04:00 07/30/22 04:00 07/30/22 04:00 07/30/22 04:00 07/30/22 04:00 07/30/22 04:00 07/28/22 16:07 FiO2 100 07/28/22 12:45 Oxygen Flow Rate (L/min) 2 Oxygen Delivery Method Room Air Weight: 164 lb Body Mass Index (BMI) 24.2 Intake & Output: Intake and Output for Last 24 Hours 07/28/22 07/29/22 07/30/22 23:59 23:59 23:59 Intake Total 5622 / 5622 1200 / 1200 Output Total 1820 / 1820 1800 / 1800 Balance 3802 / 3802 -600 / -600 Lab / Micro Data Result Diagrams: 07/29/22 05:39 07/29/22 05:39 Labs: Laboratory Results - last 24 hr 07/29/22 05:39: WBC 12.6 H, RBC 4.07 L, Hgb 12.1 L, Hct 37.1 L, MCV 91.2, MCH 29.7, MCHC 32.6, RDW Std Deviation 42.2, RDW Coeff of Kenan 12.9, Plt Count 201, MPV 9.6 07/29/22 05:39: Sodium 140, Potassium 4.2, Chloride 108 H, Carbon Dioxide 25.0, Anion Gap 7, BUN 12, Creatinine 1.12, Estim Creat Clear Calc 63.13, Est GFR (MDRD) Af Amer 84, Est GFR (MDRD) Non-Af 69, BUN/Creatinine Ratio 10.7, Glucose 115 H, Calcium 8.9 Physical Exam Resp normal respiratory effort and clear to auscultation bilaterally GI GI Narrative: Abdomen is distended, very active bowel sounds noted, tenderness noted quite superficially both left and right lower quadrants particularly on the right. Dressings are clean and dry Assessment & Plan Assessment/Plan (1) Diverticulitis: PLAN: Continue postoperative care at this time. Laboratory pending. I anticipate reinitiating Brilinta on August 02, 2022 pending his ongoing progress Possible discharge later today pending progress 05/03/23 0613 <Electronically signed by William Sandhu MD> Cosigner Signature (if applicable): CC: ~ Signed [facility] Work Phone: 1(844) 299-896605-02-[address] Sandhu [facility] July 29, 2022 1:50pm Note Date/Time July 29, 2022 1:49pm [facility] Medical Records Department [address] [place] [address] Progress Note - Surgery 07/29/22 1348 MR#: [id number] Acct: [id number] Name: KAMALJIT PERRY Rep #:[id number] : 1955 67 From: William Sandhu MD PCP: Dr. Becca Sánchez MD Status:ADM IN [id number] Subjective Subjective Abdominal cramping and bloating, no nausea, minimal flatus, not as comfortable as this morning Objective Data Objective Data Vital Signs: Vital Signs Temp Pulse Resp BP Pulse Ox O2 Del Method O2 Flow Rate 98.7 F 78 18 132/80 H 100 Room Air 2 07/29/22 10:19 07/29/22 10:19 07/29/22 10:19 07/29/22 10:19 07/29/22 10:19 07/29/22 10:19 07/28/22 16:07 FiO2 100 07/28/22 12:45 Oxygen Flow Rate (L/min) 2 Oxygen Delivery Method Room Air Weight: 164 lb Body Mass Index (BMI) 24.2 Intake & Output: Intake and Output for Last 24 Hours 07/27/22 07/28/22 07/29/22 23:59 23:59 23:59 Intake Total 5622 / 5622 1200 / 1200 Output Total 1820 / 1820 1800 / 1800 Balance 3802 / 3802 -600 / -600 Lab / Micro Data Result Diagrams: 07/29/22 05:39 07/29/22 05:39 Labs: Laboratory Results - last 24 hr 07/29/22 05:39: WBC 12.6 H, RBC 4.07 L, Hgb 12.1 L, Hct 37.1 L, MCV 91.2, MCH 29.7, MCHC 32.6, RDW Std Deviation 42.2, RDW Coeff of Kenan 12.9, Plt Count 201, MPV9.6 07/29/22 05:39: Sodium 140, Potassium 4.2, Chloride 108 H, Carbon Dioxide 25.0, Anion Gap 7, BUN 12, Creatinine 1.12, Estim Creat Clear Calc 63.13, Est GFR (MDRD) Af Amer 84, Est GFR (MDRD) Non-Af 69, BUN/Creatinine Ratio 10.7, Glucose 115 H, Calcium 8.9 Physical Exam GI GI Narrative: Abdomen is clearly distended, focally tender, Assessment & Plan Assessment/Plan (1) Diverticulitis: PLAN: Plan Continue current treatment. I have asked him to cut back to mostly clear liquids. We will continue ongoing surgical postoperative care. William Sandhu M.D., F.A.C.S. 07/29/22 1350 <Electronically signed by William Sandhu MD> Cosigner Signature (if applicable): CC: ~ Signed [facility] Work Phone: 1(838) 279-842605-02-[address] Sandhu [facility] July 29, 2022 6:08am Note Date/Time July 29, 2022 6:08am [facility] Medical Records Department [address] [place] [address] Progress Note - Surgery 07/29/22 06 MR#: [id number] Acct: [id number] Name: KAMALJIT PERRY Rep #:[id number] : 1955 67 From: William Sandhu MD PCP: Dr. Becca Sánchez MD Status:ADM IN Location: [place] [address] Subjective Subjective Patient notes mild soreness. Very minimal flatus. Nausea briefly postoperatively has resolved. He is able to walk comfortably. Objective Data Objective Data Vital Signs: Vital Signs Temp Pulse Resp BP Pulse Ox O2 Del Method O2 Flow Rate 98.2 F 92 18 96/59 L 96 Room Air 2 07/29/22 03:00 07/29/22 03:00 07/29/22 03:00 07/29/22 03:00 07/29/22 03:00 07/29/22 03:00 07/28/22 16:07 FiO2 100 07/28/22 12:45 Oxygen Flow Rate (L/min) 2 Oxygen Delivery Method Room Air Weight: 164 lb Body Mass Index (BMI) 24.2 Intake & Output: Intake and Output for Last 24 Hours 07/27/22 07/28/22 07/29/22 23:59 23:59 23:59 Intake Total 5622 / 5622 1200 / 1200 Output Total 1820 / 1820 1600 / 1600 Balance 3802 / 3802 -400 / -400 Lab / Micro Data Result Diagrams: 07/22/22 09:51 07/22/22 09:51 Labs: Laboratory Results - last 24 hr 07/28/22 05:56: POC Glucose 98 Physical Exam Const oriented x3 Resp normal respiratory effort Cardio regular rate GI GI Narrative: Soft, mildly distended, no particular focal tenderness, dressings clean and dry Assessment & Plan Assessment/Plan (1) Diverticulitis: PLAN: We will remove Benítez and Hep-Lock IV. Allow transitional diet but I did caution the patient about being careful with this. He will continue to mobilize. Progress so far is as anticipated. William Sandhu M.D., F.A.C.S. 07/29/22 0608 <Electronically signed by William Sandhu MD> Cosigner Signature (if applicable): CC: ~ Signed [facility] Work Phone: 1(539) 586-647705-01-[address] Sandhu [facility] July 28, 2022 3:57pm Note Date/Time July 28, 2022 3:57pm [facility] Medical Records Department [address] [place] [address] Progress Note - Surgery 07/28/22 1556 MR#: [id number] Acct: [id number] Name: KAMALJIT PERRY Rep #:[id number] : 1955 67 From: William Sandhu MD PCP: Dr. Becca Sánchez MD Status:ADM IN Location: [facility] [id number] Subjective Subjective Was found resting. He seemed comfortable enough. He was able to come to a sitting position on his own. No nausea. Objective Data Objective Data Vital Signs: Vital Signs Temp Pulse Resp BP Pulse Ox O2 Del Method O2 Flow Rate 98 F 83 16 125/87 H 100 Nasal Cannula 3 07/28/22 14:30 07/28/22 14:30 07/28/22 14:30 07/28/22 14:30 07/28/22 14:30 07/28/22 14:30 07/28/22 14:30 FiO2 100 07/28/22 12:45 Oxygen Flow Rate (L/min) 3 Oxygen Delivery Method Nasal Cannula Weight: 164 lb Body Mass Index (BMI) 24.2 Intake & Output: Intake and Output for Last 24 Hours 07/26/22 07/27/22 07/28/22 23:59 23:59 23:59 Intake Total 4852 / 4852 Output Total 395 / 395 Balance 4457 / 4457 Lab / Micro Data Result Diagrams: 07/22/22 09:51 07/22/22 09:51 Labs: Laboratory Results - last 24 hr 07/28/22 05:56: POC Glucose 98 Physical Exam GI GI Narrative: Softly distended, dressings clean and dry Assessment & Plan Assessment/Plan (1) Diverticulitis: PLAN: It appears that the patient actually got quite a bit of IV fluid per anesthesia during the procedure. Urine output is adequate. Patient appears comfortable. We discussed mobilization. I will also make sure that he is provided an incentive spirometer. William Sandhu M.D., F.A.C.S. 07/28/22 1557 <Electronically signed by William Sandhu MD> Cosigner Signature (if applicable): CC: ~ Signed [facility] Work Phone: 1(137) 915-303505-01-2023 Procedure [facility] 07-28-[address] Sandhu [facility] July 30, 2022 3:20pm Note Date/Time July 28, 2022 7:00am [facility] Medical Records Department [address] [place] [address] Instructions for Home/Discharge Instructions 07/28/22 0700 MR#: [id number] Acct: [id number] Name: KAMALJIT PERRY Rep #:[id number] : 1955 67 From: William Sandhu MD PCP: Dr. Becca Sánchez MD Status:ADM IN Discharge Instructions Procedure General Surgery Diet Discharge Diet: Light diet - advance as tolerated (if you have questions about your diet instructions, please talk to you doctor.) Activity Discharge Activity: May Not Drive (for 3-5 days or while taking narcotic pain medicine.) May shower in (days): 1 Lifting Restrictions: 10 pounds Dressing / Incision Call your doctor if your incision/area has: Continuous Slow Oozing, Sudden Increased Bleeding, Increased Pain/ Swelling, Increased Redness and Foul Smelling Discharge Call your doctor if you observe: Fever of 101 or Higher Suture Line Care: Avoid Pulling/Pushing and Avoid Pinching/Bending Additional Dressing/Incision Instructions:: Change or remove dressing in 4 days. Leave steri-strips in place for 1 week. Follow Up Care Please Follow Up With: William Sandhu MD When: Call [phone] to make an appointment to be seen in about 10 days. Test Results: Test results from this visit will be discussed in further detail at your follow- up appointment, if applicable. Discharge Plan Admission Admit Date/Time: 07/28/22 05:27 Primary Reason for Your Visit: Chronic recurrent sigmoid diverticulitis Attending Provider: William Sandhu Primary Care Provider: Becca Sánchez Instructions Additional Instructions / Restrictions: Colectomy Diet ? Start light with soups and soft bland foods. Refer to your transitional diet instruction sheet Activity ? You may drive in 5-7 days but not while taking narcotic pain medication. ? I encourage walking. You may go up steps, one at a time. ? Do not swim or use hot tubs for 2 weeks. Lifting ? You may lift up to 10 pounds for the first 2 weeks. You may advance to 20 pounds for the next 3 weeks. Dressings/Incision ? You may shower OVER your plastic dressings ? Do NOT tub bathe for 1 week ? Leave plastic dressings on for 3 days. ? When plastic dressings are removed, you will find steri strips. It is okay to continue showering with them in place, pat them dry. ? You may remove steri-strips after 1 week. We recommend getting them soaking wet for easier removal. Medications ? Anesthesia used during surgery and pain medications may cause constipation. I recommend initiating on the day of surgery a fiber supplement like, Metamucil, Citrucel, FiberCon, Benefiber, or a generic form of these medications. 1 heapingtablespoon in water daily. You may continue to utilize any bowel regimen or orallaxatives that you routinely take. ? As long as you are not intolerant to Tylenol, acetaminophen, ibuprofen, Motrin, Advil, Aleve, or similar medications, I would recommend transitioning tothese rayt-qcv-[id number] medicines as soon as possible instead of continued use ofnarcotic pain medication. Follow up ? You should call [facility] soon after surgery, at [phone] option 1 to make a follow up appointment for 7-10 days after your surgery. Transitional Diet Beverages: ? Soda (cola, diet cola, lemon-[place], diet lemon-clark's [place], lulu dacia, diet lulu dacia) ? Tea (hot or iced) ? Milk (low-fat, 2%, lactose free) ? Coffee ? Juice (without pulp) ? Oral Nutrition supplement Breakfast: ? Hot cereal (oatmeal or cream of wheat) ? Scrambled eggs ? Blueberry muffin ? Cold cereal (no whole grain cereals) ? [place] (white) Lunch or Dinner: Deli Items: Hot Items: [place] sandwich Roast [place] Tuna salad (sandwich or alone) Macaroni & Cheese Egg salad (sandwich or alone) Mashed potatoes & gravy Chicken salad (sandwich or alone) Carrots Green beans Cold Sides: Soups: Cottage cheese Vegetable soup Yogurt Chicken noodle Hardboiled egg Dessert: ? Gelatin, pudding, side kick (juice slushie) Discharge Orders/Prescriptions Prescriptions: New oxycodone 5 mg Tablet 5 mg PO Q6H PRN PRN (Reason: Pain Score 4-10) 2 Days Qty: 3 0RF Continued nitroglycerin 0.4 mg tablet, sublingual 0.4 mg sublingual Q5-15M PRN (Reason: chest pain) Qty: 25 3RF Rx Instructions: do not exceed 3 doses per episode rosuvastatin 20 mg tablet 20 mg PO DAILY ramipril 1.25 mg capsule 1.25 mg PO QHS metoprolol succinate 25 mg tablet extended release 24 hr 25 mg PO DAILY aspirin 81 MG tablet,chewable 81 mg PO QHS Excedrin Migraine 250-250-65 mg Tablet 2 tab PO DAILY PRN (Reason: Pain) ondansetron 4 mg tablet,disintegrating 4 mg PO Q8H PRN (Reason: nausea and vomiting) Qty: 14 0RF magnesium 200 mg Tablet 400 mg PO DAILY lisinopril 5 mg tablet 5 mg PO DAILY Held Brilinta 90 mg tablet 90 mg PO BID Hold Instructions: Resume on 08/02/22. Hold medication until Thursday Label Comments: STOP 5 DAYS PRIOR TO OR Discontinued metronidazole 500 mg tablet 500 mg PO .COMPLEX Rx Instructions: Take 2 (two) tablets at 1300, 1500, 2300 the day prior to the procedure cephalexin 500 mg tablet 500 mg PO .COMPLEX Rx Instructions: Take Two (2) tablets at 1300, 1500, and 2300 pm the day prior to procedure Other Ambulatory Orders: CBC W/Diff, Automated (Routine) Timeframe: [id number] Facility: [facility] - Location: Laboratory Ordered By: Cece HERNANDES Referrals / Follow Up: Becca Sánchez MD [Primary Care Provider] - William Sandhu MD [Med Staff - Active Staff] - 08/08/22 (Please call our officeto schedule an appointment for a follow-up with Dr. Sandhu on 08/08/22) Disposition Disposition (needs filled in before D/C Order can be placed): Home, Self Care 07/30/22 1520<Electronically signed by William Sandhu MD>William Sandhu MD CC: Dr. Becca Sánchez MD ~ Signed [facility] Work Phone: 1(925) 318-998905-01-2023 History and physical note Author Dr. Sandhu [facility] July 28, 2022 7:00am Note Date/Time July 28, 2022 6:43am [facility] Medical Records Department [address] [place] [address] History & Physical Exam 07/28/22 0642 MR#: [id number] Acct: [id number] Name: KAMALJIT PERRY Rep #:[id number] : 1955 67 From: William Sandhu MD PCP: Dr. Becca Sánchez MD Status:ADM IN Location: [place] [address] History and Physical Date of Admission: 07/28/22 Allergies No Known Allergies Allergy (Verified 06/10/22 09:53) Medications aspirin 81 mg chewable tablet 81 mg PO QHS [facility] 11/19/13 [History Confirmed 07/14/22] melatonin 10 mg sublingual tablet 10 mg PO QHS sleep 04/05/14 [History Confirmed 07/14/22] multivitamin with folic acid 400 mcg tablet (Thera) 1 tab PO QHS supplement 04/05/14 [History Confirmed 06/10/22] nitroglycerin 0.4 mg sublingual tablet 0.4 mg sublingual Q5-15M PRN chest pain #25 tabs 09/05/21 [Rx Confirmed 06/10/22] ticagrelor 90 mg tablet (Brilinta) 90 mg PO BID #180 tabs 09/05/21 [Rx Confirmed 07/14/22] iidiglz-mzdfcxmbifkws-tacgsqnv 250 mg-250 mg-65 mg tablet (Excedrin Migraine) 2 tab PO DAILY PRN Pain 04/01/22 [History Confirmed 06/10/22] ondansetron 4 mg disintegrating tablet 4 mg PO Q8H PRN nausea and vomiting #14 tabs 04/01/22 [Rx Confirmed 06/10/22] lisinopril 5 mg tablet 5 mg PO DAILY #90 tabs 06/10/22 [Rx Confirmed 07/14/22] rosuvastatin 20 mg tablet 20 mg PO DAILY 06/10/22 [History Confirmed 07/14/22] cephalexin 500 mg tablet 500 mg PO .COMPLEX #6 tabs 07/14/22 [Rx Confirmed 07/14/22] magnesium hydroxide 400 mg/5 mL oral suspension (Dulcolax (magnesium hydroxide))400 mg PO QHS PRN 07/14/22 [History Confirmed 07/14/22] metoprolol succinate 25 mg tablet,extended release 24 hr 25 mg PO DAILY 07/14/22[History Confirmed 07/14/22] metronidazole 500 mg tablet 500 mg PO .COMPLEX #6 tabs 07/14/22 [Rx Confirmed 07/14/22] ramipril 1.25 mg capsule 1.25 mg PO DAILY 07/14/22 [History Confirmed 07/14/22] PFSH Medical History? Atherosclerosis of coronary artery of [place] heart without angina pectoris Coronary artery disease Former smoker Hypertension Kidney stones Migraines Myocardial infarct ST elevation (STEMI) myocardial infarction Surgical History? History of coronary artery stent placement (08/20/21) Social History? Smoking Status:? Former smoker how long ago did patient quit smoking:? 2010 alcohol intake:? current alcohol intake frequency: holidays/special occasions only substance use type:? does not use caffeine:? Yes Type: coffee Number of servings: 2 HPI HPI Surgical H&P: Yes HPI: Patient is a 67 y/o M I am seeing for an update history and physical. Patient denies any recent hospitalizations or illnesses. He notes being placed on oral antibiotics 2 months ago for a flare-up of his diverticulitis. He notes he is not taking any antibiotics at this time. Patient notes he consistently has a 3 out of 10 dull discomfort in the left lower quadrant. He notes his discomfort will fluctuate with his diet. Patient denies any severe amount of pain or a fever. Patient denies any previous complications with anesthesia. He notes a myocardial infarction in July of 2021. Patient is currently on Brilinta. He denies any current chest pain. Patient notes he does having occasional bright red rectal bleeding from hemorrhoids. He notes this is diet related as well.? Patient's previous history per Dr. Sandhu: 66-year-old gentleman is referred by Dr. Becca Sánchez for surgical consultation regarding chronic left lower quadrant abdominal pain and a written copy of my surgical consult recommendations will return to him.? The patient had a CT scan of the abdomen pelvis done through the emergency room on January 13, 2022.? Thiswas felt to show steatosis, multiple gallstones, and diverticulosis of the sigmoid colon with no acute findings at that time.? There does appear to be apparent air in the impression suggesting diverticulitis.? The patient had a previous CT scan December 30, 2021 showing mild sigmoid diverticulitis without perforation or abscess.? Renal calculi.? Stable gallstones.? Enlarged prostate.?He had had a previous CT scan done November 19, 2020 showing sigmoid diverticulosis with with associated fat stranding possible mild diverticulitis and he to had a previous CT scan done September 01, 2017 showing diverticulosis.? Right-sided kidney stone was seen at that time. As of January 13, 2022 white blood cell count was 9.5 with a hemoglobin 14.3 medic at 41.4 platelet count 167,000 with a left shift with 91% neutrophils.? Liver function tests were normal at that time. Of additional note is that August 20, 2021 he presented to the [facility] emergency room with chest pain was found to have been inferior ST segment elevation LA he underwent coronary angiography he had 90% stenosis of the right coronary artery stent was placed.? He has had a remote history of coronary angioplasty to the RCA LAD and OM1 12 years prior.? He is currently on Brilinta therapy The patient states that remotely he had 2 very severe bouts of diverticulitis.? He claims that his bouts recently air think seemingly less severe although he did require hospitalization.? He automatically cuts back and takes a clear liquid diet.? He finds that meat sometimes tends to offend him.? He is finding it increasingly difficult to adjust his diet and avoid the discomfort. Patient states that he thinks his most recent colonoscopy was within the past [address] Vipul Lobo. January 13, 2022 STUDY:? CT ABDOMEN AND PELVIS WITH CONTRAST REASON FOR EXAM: ? Male, 66 years old.? Fever, recent diverticulitis RADIATION DOSAGE (If Supplied By Facility):? CTDIvol = ( 9.76 ) mGy, DLP = ( 508.65 ) mGycm TECHNIQUE: ? Transaxial images were obtained from the dome of the diaphragm to the symphysis pubis without oral contrast. IV 100mL Isovue-300 was administered.? Sagittal and coronal images were reconstructed. Individualized dose optimization techniques were used for this CT. COMPARISON: ? Comparison is made with prior study 12/30/2021. FINDINGS: The visualized lung bases are unremarkable.? Coronary artery calcification. There is decreased attenuation of the liver consistent with steatosis. There is a 1.1 cm hypodensity with peripheral enhancement in the inferior aspect of the right lobe of the liver suggestive of a hemangioma.? There are multiple small gallstones.? There are multiple benign calcified granulomata of the spleen.? Normal pancreas. There is a small, circumscribed, smooth, low attenuation left adrenal mass, consistent with an adrenal adenoma.? Normal right adrenal gland. 1.6 cm cyst in the midportion of the right kidney.? Bilateral nonobstructive intrarenal calculi. Normal visualized stomach.? Normal small intestine.? There are multiple colonic diverticula consistent with diverticulosis.? No acute findings are seen at this time.? The appendix is visualized and appears normal. Normal abdominal aorta.? Normal inferior vena cava.? Normal retroperitoneum. Normal urinary bladder.? There is enlargement of the prostate gland.? This causes indentation of the bladder base. Normal abdominal wall.? There are degenerative changes of the visualized lumbar spine. CT/Abdomen/Pelvis W IV Cont ONLY IMPRESSION: Sigmoid diverticulitis.? No inflammatory process is seen at this time. Multiple small gallstones. Nonobstructive bilateral intrarenal calculi. ? Electronically Signed: Jg Marrero MD at 15:02 EDT , I now have information from Dr. Vipul Lobo of a screening colonoscopy that was performed October 16, 2020.? This demonstrates diverticulosis throughout the sigmoid colon.? Bowel prep was felt to be excellent.? No polyps identified. ROS General General: No weight change, appetite, fatigue, colon cancer, breast cancer or weakness HEENT HEENT: No difficulty swallowing, eye injury, eye surgery, swollen glands or hoarseness Endo Endocrine: No thyroid disease, diabetes mellitus, thyroid cancer, Hair loss, heat intolerance or cold intolerance Skin Skin: No rash or changing moles Breast Breast: No left breast lump, right breast lump, nipple discharge, breast pain, abnormal mammogram, abnormal US or breast enlargement Musc Musculoskeletal: No back problems, arthritis, rheumatoid arthritis, gout or joint pain Cardio Cardiovascular: No murmur, pacemaker, heart disease, atrial fibrillation, high blood pressure, heart attack, heart stent, palpitations, shortness of breat withexertion or chest pain Psych Psychiatric: No depression, anxiety or hearing voices Resp Respiratory: No shortness of breath, No sleep apnea, No cough, No COPD, No asthma, No emphysema and No wheezing Gastro Gastrointestinal: No abdominal pain, No nausea or vomiting, No diarrhea, No constipation, No blood in stool, No acid reflux, No hemorrhoids, No ulcers, No gallbladder problem and No black,tarry stools Adam Hematologic: No blood thinners, No blood disorders, No bleeding, No anemia and No blood clots Neuro Neurologic: No system reviewed and no additional complaints, except as documented, No as per HPI, No abnormal gait, No abnormal hearing, No abnormal movements, No abnormal speech, No behavioral changes, No burning sensations, No confusion, No convulsions, No disequilibrium, No dizziness, No localized weakness, No frequent falls, No headache(s), No lack of coordination, No loss ofvision, No memory loss, No numbness, No other visual disturbances, No radicular pain, No restless legs, No sensory deficit, No syncope, No tingling, No tremor(s), No weakness and No other Exam Const General: cooperative, healthy appearing, comfortable and no acute distress [facility] Head: normal to inspection Eyes General: appearance normal, both eyes and all related structures Neck Neck: normal visual inspection Neck mass: No Chest Chest palpation & inspection: normal inspection of the chest Resp Effort & Inspection: normal respiratory effort Auscultation: clear to auscultation bilaterally Cardio Rate: regular rate Rhythm: regular rhythm GI Palpation: soft and tender in the LLQ Auscultation: normal bowel sounds Musc Cervical Spine: normal cervical lordosis Skin General: no rashes or lesions noted Neuro General: no focal motor deficits and CN's II-XI intact bilaterally Extrem General: normal to inspection Psych Appearance: grossly normal Affect: normal affect Assessment and Plan Assessment and Plan (1) Diverticulitis: ?Status:?Acute ?Plan: Patient with continued smoldering diverticulitis. Dr. Sandhu will plan to performan ERAS laparoscopic sigmoid colectomy. Procedure details, risks and benefits have been explained and reviewed. Patient will hold his Brilinta for 5 days prior to the procedure. Post-op diet and restrictions have been provided to the patient. Patient has had the opportunity to ask and have questions answered. Patient verbally understands and agrees with the plan I have examined the patient and the H&P has been reviewed. There are no clinicalchanges since date of exam. William Sandhu M.D., F.A.C.S. 07/28/22 0700 <Electronically signed by William Sandhu MD> Cosigner Signature (if applicable): CC: Dr. Becca Sánchez MD; Dr. William Sandhu MD~ Signed [facility] Work Phone: 1(549) 586-332305-24-2022 Evaluation note* Diagnosis Onset Date Resolution Status Chest pain resolved Leukocytosis resolved Atherosclerosis of coronary artery of [place] heart without angina pectoris acute History of coronary artery stent placement August 20, 2 022 acute Hypertension [facility] Work Phone: 1(527) 520-967705-24-2022 Evaluation note* Diagnosis Onset Date Resolution Status Atherosclerosis of coronary artery of [place] heart without angina pectoris acute History of coronary artery stent placement August 20, 2 022 acute Hypertension chronic Atherosclerosis of coronary artery of [place] heart without angina pectoris acute History of coronary artery stent placement August 20, 2 022 acute Myalgia acute Hypertension [facility] Work Phone: 1([phone]) 675-354505-24-2022 Evaluation note* Diagnosis Onset Date Resolution Status Atherosclerosis of coronary artery of [place] heart without angina pectoris acute History of coronary artery stent placement August 20, 2 022 acute Myalgia acute Hypertension [facility] Work Phone: [phone]) 837-889505-24-2022 Evaluation note* Diagnosis Onset Date Resolution Status Atherosclerosis of coronary artery of [place] heart without angina pectoris acute History of coronary artery stent placement August 20, 2 022 acute Myalgia acute Hypertension chronic Abdominal pain acute Diverticulitis acute [facility] Work Phone: [phone]) 596-232305-24-2022 Evaluation note* Diagnosis Onset Date Resolution Status History of coronary artery stent placement August 20, 2 022 acute Hypertension chronic Diverticulitis acute Diverticulitis acute [facility] Work Phone: Discharge summary Author Cece Murray [facility] July 30, 2022 3:02pm Note Date/Time July 30, 2022 3:02pm [facility] Medical Records Department [address] [place] [address] Discharge Summary 07/30/22 1454 MR#: [id number] Acct: [id number] Name: KAMALJIT PERRY Rep #:[id number] : 1955 67 From: Cece HERNANDES PA-C PCP: Dr. Becca Sánchez MD Status:ADM IN Location: [facility]3 [id number] Providers Date of Admission: 07/28/22 Primary Care Physician: Dr. Becca Sánchez MD Reason For Visit: LAP SIGMOID COLECTOMY Diagnosis Discharge Diagnosis (1) Diverticulitis: Status: Acute Code(s): K57.92 - Diverticulitis of intestine, part unspecified, without perforation or abscess without bleeding Medications at Discharge Home Medications aspirin 81 mg chewable tablet 81 mg PO QHS [facility] 11/19/13 nitroglycerin 0.4 mg sublingual tablet 0.4 mg sublingual Q5-15M PRN chest pain #25 tabs 09/05/21 [id number]-[id number]-[id number] 250 mg-250 mg-65 mg tablet (Excedrin Migraine) 2 tab PO DAILY PRN Pain 04/01/22 ondansetron 4 mg disintegrating tablet 4 mg PO Q8H PRN nausea and vomiting #14 tabs 04/01/22 rosuvastatin 20 mg tablet 20 mg PO DAILY CHOLESTEROL 06/10/22 metoprolol succinate 25 mg tablet,extended release 24 hr 25 mg PO DAILY BP 07/14/22 ramipril 1.25 mg capsule 1.25 mg PO QHS HEART 07/14/22 lisinopril 5 mg tablet 5 mg PO DAILY BP 07/21/22 magnesium 200 mg tablet 400 mg PO DAILY SUPPLEMENT 07/21/22 ticagrelor 90 mg tablet (Brilinta) 90 mg PO BID BLOOD THINNER 07/21/22 oxycodone 5 mg tablet 5 mg PO Q6H PRN PRN Pain Score 4-10 2 days #3 tabs 07/30/22 Hospital Course Operations - (Laparoscopic sigmoid colectomy with mobilization of the splenic flexure. Bilateral transverses abdominal plane block. Incidental laparoscopic appendectomy) Summary of Care Provided Minutes Spent on Discharge: 30 Hospital Course: Patient is a 67 y/o M who presented for an elective colectomy for recurrent chronic diverticulitis. Dr. Sandhu performed a Laparoscopic sigmoid colectomy with mobilization of the splenic flexure.? Bilateral transverses abdominal planeblock. Incidental laparoscopic appendectomy on 07/28/22. Patient tolerated the procedure well. Patient had an uneventful, uncomplicated hospitalization. Upon discharge, patient has tolerated his transitional diet without any nausea, vomiting. He has passed flatus and had multiple loose BM's. He notes generalizedlower abdominal discomfort. He notes the abdominal discomfort is tolerable with Tylenol. He is urinating well. He is urinating well. He will resume his Brilintaon Thursday, 08/02. Patient will also obtain a CBC 1 day following discharge to recheck his Hgb. Physical Exam Const alert and oriented x3 GI soft to palpation GI Narrative: Incisions c/d/i. No erythema or infection noted. Inspection: abdominal distention Palpation: soft and tender other (generalized tenderness) Weight / BMI Weight Weight: 164 lb Body Mass Index (BMI) 24.2 ABG / Lab / Microbiology Data Result Diagrams: 07/30/22 05:41 07/29/22 05:39 Laboratory: Laboratory Results - last 24 hr 07/30/22 05:41: WBC 10.2, RBC 3.67 L, Hgb 10.9 L, Hct 34.1 L, MCV 92.9, MCH 29.7, MCHC 32.0, RDW Std Deviation 44.0 H, RDW Coeff of Kenan 13.0, Plt Count 159,MPV 9.9, Immature Gran % (Auto) 0.400, Neut % (Auto) 78.2 H, Lymph % (Auto) 12.2L, [place]corn % (Auto) 8.5, Eos % (Auto) 0.5, Baso % (Auto) 0.2, Absolute Neuts (auto)8.0 H, Absolute Lymphs (auto) 1.25, Nucleated RBC % 0 D/C Instructions Discharge Diet: Light diet - advance as tolerated (if you have questions about your diet instructions, please talk to you doctor.) May shower in (days): 1 Call your doctor if your incision/area has: Continuous Slow Oozing, Sudden Increased Bleeding, Increased Pain/ Swelling, Increased Redness and Foul Smelling Discharge Call your doctor if you observe: Fever of 101 or Higher Suture Line Care: Avoid Pulling/Pushing and Avoid Pinching/Bending Additional Dressing/Incision Instructions: Change or remove dressing in 4 days. Leave steri-strips in place for 1 week. Please Follow Up With: William Sandhu MD When: Call [phone] to make an appointment to be seen in about 10 days. Meaningful Use Info Meaningful Use Diagnoses (Choose all that apply): None applicable Discharge Plan Admission Admit Date/Time: 07/28/22 05:27 Primary Reason for Your Visit: Chronic recurrent sigmoid diverticulitis Attending Provider: William Sandhu Primary Care Provider: Becca Sánchez Instructions Additional Instructions / Restrictions: Colectomy Diet ? Start light with soups and soft bland foods. Refer to your transitional diet instruction sheet Activity ? You may drive in 5-7 days but not while taking narcotic pain medication. ? I encourage walking. You may go up steps, one at a time. ? Do not swim or use hot tubs for 2 weeks. Lifting ? You may lift up to 10 pounds for the first 2 weeks. You may advance to 20 pounds for the next 3 weeks. Dressings/Incision ? You may shower OVER your plastic dressings ? Do NOT tub bathe for 1 week ? Leave plastic dressings on for 3 days. ? When plastic dressings are removed, you will find steri strips. It is okay to continue showering with them in place, pat them dry. ? You may remove steri-strips after 1 week. We recommend getting them soaking wet for easier removal. Medications ? Anesthesia used during surgery and pain medications may cause constipation. I recommend initiating on the day of surgery a fiber supplement like, Metamucil, Citrucel, FiberCon, Benefiber, or a generic form of these medications. 1 heapingtablespoon in water daily. You may continue to utilize any bowel regimen or orallaxatives that you routinely take. ? As long as you are not intolerant to Tylenol, acetaminophen, ibuprofen, Motrin, Advil, Aleve, or similar medications, I would recommend transitioning tothese tisu-grv-shpvwzh medicines as soon as possible instead of continued use ofnarcotic pain medication. Follow up ? You should call [facility] soon after surgery, at [phone] option 1 to make a follow up appointment for 7-10 days after your surgery. Transitional Diet Beverages: ? Soda (cola, diet cola, lemon-[place]ark[place], diet lemon-clark's [place], lulu dacia, diet lulu dacia) ? Tea (hot or iced) ? Milk (low-fat, 2%, lactose free) ? Coffee ? Juice (without pulp) ? Oral Nutrition supplement Breakfast: ? Hot cereal (oatmeal or cream of wheat) ? Scrambled eggs ? Blueberry muffin ? Cold cereal (no whole grain cereals) ? [place] (white) Lunch or Dinner: Deli Items: Hot Items: [place] sandwich Roast [place] Tuna salad (sandwich or alone) Macaroni & Cheese Egg salad (sandwich or alone) Mashed potatoes & gravy Chicken salad (sandwich or alone) Carrots Green beans Cold Sides: Soups: Cottage cheese Vegetable soup Yogurt Chicken noodle Hardboiled egg Dessert: ? Gelatin, pudding, side kick (juice slushie) Discharge Orders/Prescriptions Prescriptions: New oxycodone 5 mg Tablet 5 mg PO Q6H PRN PRN (Reason: Pain Score 4-10) 2 Days Qty: 3 0RF Continued nitroglycerin 0.4 mg tablet, sublingual 0.4 mg sublingual Q5-15M PRN (Reason: chest pain) Qty: 25 3RF Rx Instructions: do not exceed 3 doses per episode rosuvastatin 20 mg tablet 20 mg PO DAILY ramipril 1.25 mg capsule 1.25 mg PO QHS metoprolol succinate 25 mg tablet extended release 24 hr 25 mg PO DAILY aspirin 81 MG tablet,chewable 81 mg PO QHS Excedrin Migraine 250-250-65 mg Tablet 2 tab PO DAILY PRN (Reason: Pain) ondansetron 4 mg tablet,disintegrating 4 mg PO Q8H PRN (Reason: nausea and vomiting) Qty: 14 0RF magnesium 200 mg Tablet 400 mg PO DAILY lisinopril 5 mg tablet 5 mg PO DAILY Held Brilinta 90 mg tablet 90 mg PO BID Hold Instructions: Resume on 08/02/22. Hold medication until Thursday Label Comments: STOP 5 DAYS PRIOR TO OR Discontinued metronidazole 500 mg tablet 500 mg PO .COMPLEX Rx Instructions: Take 2 (two) tablets at 1300, 1500, 2300 the day prior to the procedure cephalexin 500 mg tablet 500 mg PO .COMPLEX Rx Instructions: Take Two (2) tablets at 1300, 1500, and 2300 pm the day prior to procedure Other Ambulatory Orders: CBC W/Diff, Automated (Routine) Timeframe: [id number] Facility: [facility] - Location: Laboratory Ordered By: Cece HERNANDES Referrals / Follow Up: Becca Sánchez MD [Primary Care Provider] - William Sandhu MD [Med Staff - Active Staff] - 08/08/22 (Please call our officeto schedule an appointment for a follow-up with Dr. Sandhu on 08/08/22) Disposition Disposition (needs filled in before D/C Order can be placed): Home, Self Care Charges/Coding Visit Charges Inpatient E&M: 24735 Disch Hosp (No charge; post-op) 07/30/22 1502 <Electronically signed by Cece HERNANDES PA-C> Cosigner Signature (if applicable): CC: ANKUSH Murray; Dr. 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 Work Phone: Evaluation note* Diagnosis Onset Date Resolution Status History of diverticulitis ac [facility] Work Phone: Evaluation note* Diagnosis Essential hypertension- Primary Unspecified essential hypertension Hypercholesteremia Pure hypercholesterolemia Coronary artery disease involving [place] coronary artery of [place] heart without angina pectoris Angina pectoris, unstable (CMS/HCC) Intermediate coronary syndrome documented in this encounter [facility] Work Phone: Evaluation note* Diagnosis Angina pectoris, unstable (CMS/HCC)- Primary Intermediate coronary syndrome Coronary artery disease involving [place] coronary artery of [place] heart without angina pectoris Essential hypertension Unspecified essential hypertension Mixed hyperlipidemia documented in this encounter [facility] Work Phone: Evaluation note* Diagnosis Angina pectoris, unstable (Multi)- Primary Intermediate coronary syndrome Coronary artery disease involving [place] coronary artery of [place] heart without angina pectoris Essential hypertension Unspecified essential hypertension Mixed hyperlipidemia documented in this encounter [facility] Work Phone: History of Present illness Narrative* Lavinia Page MD - 01/14/2024 10:45 AM EDT Referred by No ref. provider found TONY'm seeing [facility] in follow up. I had met him in June. 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 He had previous myocardial infarction 2009 [facility] RCA stent. 1 year later stent to the LAD and marginal branch. 2021 STEMI. All 3 stents patent. He received a new drug-eluting stent to the mid RCA that had a 90% stenosis. Has been doing well since then. Our last visit I stopped his clopidogrel. Iincreased rosuvastatin from 20 to 40 mg. He has had no consequences. He remains physically active. I Past Medical History: Problem List Items Addressed This Visit None Past Medical History: Diagnosis Date Angina pectoris, unstable (Multi) 02/05/2023 CAD (coronary artery disease) 02/05/20232009 LA s/p IRAIS to LAD and OM1 2010 [facility] RCA Essential hypertension 02/05/2023 Hypercholesteremia 02/05/2023 Hyperlipidemia 11/07/2009 LDL on FLP was 113, HDL was 35. - started atorvastatin 80mg daily Kidney stones 02/02/2023 Old myocardial infarction 04/12/2020 History of myocardial infarction STEMI (ST elevation myocardial infarction) (Multi) 11/07/2009 Underwent successful PCI Continue aspirin / Plavix / statin / BB Tobacco cessation Past Surgical History: He has a past surgical history that includes Other surgical history (04/12/2020) and Other surgicalhistory (04/12/2020). Social History: He reports that he has quit smoking. His smoking use included cigarettes. He has never used smokeless tobacco. No history on file for alcohol use and drug use. Family History: Family History Problem Relation Name Age of Onset Coronary artery disease Father 58 CABG Allergies: Patient has no known allergies. Outpatient Medications: Current Outpatient Medications Medication Instructions aspirin 81 mg, oral, Daily calcium carbonate 600 mg calcium (1,500 mg) tablet 2 tablets, oral, Daily lisinopril 5 mg, oral, Daily metoprolol succinate XL (TOPROL-XL) 25 mg, oral, Daily, Do not crush or chew. nitroglycerin (NITROSTAT) 0.4 mg, sublingual rosuvastatin (CRESTOR) 40 mg, oral, Daily Last Recorded Vitals: There were no vitals filed for this visit. Physical Exam Patient is alert and oriented x3. HEENT is unremarkable mucous members are moist Neck no JVP no bruits upstrokes are full no thyromegaly Lungs are clear bilaterally. No wheezing crackles or rales Heart regular rhythm normal S1-S2 there is no S3 no murmurs are heard. Abdomen is soft bs are positive nontender nondistended no organomegaly no pulsatile masses Extremities have no edema. Distal pulses present palpable. Neuro is grossly nonfocal Skin has no rashes Last Labs: CBC - No results found for: WBC, HGB, HCT, MCV, PLT CMP - Lab Results Component Value Date CALCIUM 9.5 04/23/2020 PHOS 3.4 04/23/2020 LIPID PANEL - No results found for: CHOL, HDL, CHHDL, LDL, VLDL, TRIG, NHDL RENAL FUNCTION PANEL - Lab Results Component Value Date K 4.0 04/23/2020 PHOS 3.4 04/23/2020 No results found for: BNP, HGBA1C Cath 08/20/2021 LM irregularities, LAD mild diffuse disease, patent stent, diagonal branch 95% ostial lesion small vessel, circumflex 60% mid vessel, stent to the OM1 patent, ramus 60%, RCA mid 90%. Distal RCA stent patent. Status post IRAIS to the mid RCA lesion Echo 08/20/2021 EF 65% LVH Cath 2010 [facility] IRAIS to RCA Cath 2009 [facility] IRAIS LAD, and IRAIS OM1 Assessment/Plan 1. CAD. Myocardial infarction 2009 status post IRAIS to the RCA. Recurrent symptoms 1 year later stents placed to the OM1, and LAD. 2021 STEMI. Stents in the LAD marginal and distal RCA patent. 90% midRCA lesion status post successful stenting. Doing well. No chest pain or pressure. I have stopped his dual antiplatelet therapy when I had seen him in June. No consequences. Continue aspirin metoprolol and rosuvastatin. 2. Hyperlipidemia. Monitored by his primary care physician in [place]. On his last visit I increased rosuvastatin from 20 to 40 mg. Recent blood work evidently did not reveal any issues. Target LDL of less than 70 preferably closer to 55. I do not have access to this blood work. 3. Hypertension blood pressures at home typically in the 120 range. This is unusually high for him. I have reviewed records from [facility] from his hospitalization in 2021 when he presented with an inferior STEMI. I reviewed the cath reports and his echo reports. Doing quite well. My plan will be to see him back in 1 year. I will see him sooner if any issues arise. Continue with his current medication regime. Continue with exercise and dietary modification. Lavinia Page MD Instructions and follow up documented in this encounterSelect [facility] Work Phone: Instructions* Patient Instructions* Lavinia Page MD - 01/14/2024 10:45 AM EDT 1. CAD. Myocardial infarction 2009 status post IRAIS to the RCA. Recurrent symptoms 1 year later stents placed to the OM1, and LAD. 2021 STEMI. Stents in the LAD marginal and distal RCA patent. 90% midRCA lesion status post successful stenting. Doing well. No chest pain or pressure. I have stopped his dual antiplatelet therapy when I had seen him in June. No consequences. Continue aspirin metoprolol and rosuvastatin. 2. Hyperlipidemia. Monitored by his primary care physician in [place]. On his last visit I increased rosuvastatin from 20 to 40 mg. Recent blood work evidently did not reveal any issues. Target LDL of less than 70 preferably closer to 55. I do not have access to this blood work. 3. Hypertension blood pressures at home typically in the 120 range. This is unusually high for him. I have reviewed records from [place] from his hospitalization in 2021 when he presented with an inferior STEMI. I reviewed the cath reports and his echo reports. Doing quite well. My plan will be to see him back in 1 year. I will see him sooner if any issues arise. Continue with his current medication regime. Continue with exercise and dietary modification. documented in this encounterSelect [facility] Work Phone: Reason for referral (narrative)No reason for referral information availableWMercy Health [facility] Work Phone: Summary Purpose Family History No Family History Records FoundNo Family History Records FoundNo Family History Records FoundNo Family History Records Found Advance Directives No Advanced Directives Records Found Advance Directive Response Recorded Date/ Time Advance Directives No October 02 3:07pm Living Will No October 02, 2014 3 :07pm Power of Cryptographer No October 02, 2014 3:07pm Advance Directive Response Recorded Date/ Time Advance Directives No October 02 3:07pm Living Will No January 13 1:56pm Power of Cryptographer No January 13, 2022 1:56pm Advance Directive Response Recorded Date/ Time Advance Directives No October 02 2:07pm Living Will No January 13 12:56pm Power of Cryptographer No January 13, 2022 12:56pm Advance Directive Response Recorded Date/ Time Advance Directives No October 02 2:07pm Living Will No April 01 9:49am Power of Cryptographer No April 01 9:49am Advance Directive Response Recorded Date/ Time Name of Medical Power of Cryptographer Fifi sandy July 28, 2022 2:25pm Advance Directives No October 02 3:07pm Living Will Yes July 28, 2022 2: 25pm Power of Cryptographer Yes July 28, 2022 2:25pm Advance Directive Response Recorded Date/ Time Advance Directives No October 02 3:07pm Living Will Yes July 28, 2022 2: 25pm Power of Cryptographer Yes July 28, 2022 2:25pm Advance Directive Response Recorded Date/ Time Advance Directives No October 02 3:07pm Chief Complaint and Reason for Visit Chief Complaint EORDER Chief Complaint EORDER NEED LAB ORDER Chief Complaint EORDER NEED LAB ORDER STEMI STEMI STEMI STEMI STEMI Reason for Visit Chest pain Leukocytosis ST elevation (STEMI) myocardial infarction Chief Complaint EORDER NEED LAB ORDER STEMI STEMI STEMI STEMI STEMI STEMI 2 W FU PCI with stent Reason for Visit Chest pain Leukocytosis Atherosclerosis of coronary artery of [place] heart without angina pectoris History of coronary artery stent placement Hypertension Chief Complaint 2 W FU PCI with stent 3 M FU Reason for Visit Atherosclerosis of c oronary artery of [place] heart without angina pectoris History of coronary artery stent placement Hypertension Atherosclerosis of coronary artery of [place] heart without angina pectoris History of coronary artery stent placement Myalgia Hypertension Chief Complaint 2 W FU PCI with stent 3 M FU ABDOMINAL PAIN Reason for Visit Atherosclerosis of c oronary artery of [place] heart without angina pectoris History of coronary artery stent placement Hypertension Atherosclerosis of coronary artery of [place] heart without angina pectoris History of coronary artery stent placement Myalgia Hypertension Chief Complaint PCI with stent 3 M FU ABDOMINAL PAIN E ORDER CHEST PAIN Reason for Visit Atherosclerosis of c oronary artery of [place] heart without angina pectoris History of coronary artery stent placement Myalgia Hypertension Chief Complaint 3 M FU ABDOMINAL PAIN E ORDER CHEST PAIN ABDOMINAL PAIN LLQ PAIN Reason for Visit Atherosclerosis of c oronary artery of [place] heart without angina pectoris History of coronary artery stent placement Myalgia Hypertension Abdominal pain Diverticulitis Chief Complaint 3 M FU ABDOMINAL PAIN E ORDER CHEST PAIN ABDOMINAL PAIN LLQ PAIN KIDNEY STONE Reason for Visit Atherosclerosis of c oronary artery of [place] heart without angina pectoris History of coronary artery stent placement Myalgia Hypertension Abdominal pain Diverticulitis Chief Complaint KIDNEY STONE 6 M FU Update H&P PREOP LAP SIGMOID COLECTOMY LAP SIGMOID COLECTOMY LAP SIGMOID COLECTOMY LAP SIGMOID COLECTOMY Reason for Visit History of coronary artery stent placement Hypertension Diverticulitis Diverticulitis Chief Complaint 6 M FU Update H&P PREOP LAP SIGMOID COLECTOMY LAP SIGMOID COLECTOMY LAP SIGMOID COLECTOMY LAP SIGMOID COLECTOMY Diverticulitis of intestine, part unspecified, wit Reason for Visit History of coronary artery stent placement Hypertension Diverticulitis Diverticulitis Chief Complaint PREOP LAP SIGMOID COLECTOMY LAP SIGMOID COLECTOMY LAP SIGMOID COLECTOMY LAP SIGMOID COLECTOMY Diverticulitis of intestine, part unspecified, wit COLECTOMY 5/3 PARTIAL COLECTOMY Calculus of kidney Reason for Visit History of diverticu litis History of diverticulitis Chief Complaint PARTIAL COLECTOMY Calculus of kidney LABS AND XRAY-BACK PAIN Reason for Visit History of diverticu litis Chief Complaint Admit Date KUB September 12, 2024 11:2 9am Reason for Referral Specialty Diagnoses / Procedures Referred By Rose Marie retana Referred To Contact Diagnoses Coronary artery disease involving [place] coronary artery of [place] heart without angina pectoris Procedures ECG 12 Lead Lavinia Page MD [address] [facility] [address], [facility] [address] [place] [address] Referral ID Status Reason Start Date Expiration Date V isits Requested Visits Authorized [id number] Pending Review 02/05/2023 02/05/2024 1 1 Additional Source Comments (unrecognized sect ion and content) No Status Records FoundNo Status Records FoundNo Status Records FoundNo Status Records Found INFORMATION SOURCE (unrecogn ized section and content) DATE CREATED AUTHOR 05/01/2020 [employer] DATE CREATED AUTHOR AUTHOR'S ORGANIZ ATION 05/10/2020 [facility] DATE CREATED AUTHOR AUTHOR'S ORGANIZ ATION 01/16/2024 [facility] DATE CREATED AUTHOR AUTHOR'S ORGANIZ ATION 09/18/2024 [facility] Goals (unrecognized section and content) Goals may be documented in a n alternate sectionGoals may be documented in an alternate sectionGoals may be documented in an alternate sectionGoals may be documented in an alternate sectionGoals may be documented in an alternate sectionGoals may be documented in an alternate sectionGoals may be documented in an alternate sectionGoals may be documented in an alternate sectionGoals may be documented in an alternate sectionGoals may be documented in an alternate sectionGoals may be documented in an alternate sectionGoals may be documented in an alternate section Care Teams (unrecognized sec tion and content) Team Status: Active Member Role Status Dates Dr. Becca Sánchez MD Family Provider Active Dr. Becca Sánchez MD Primary Care Provider Active Team Status: Inactive Member Role Status Dates Dr. Becca Sánchez MD Primary Care Provider, Referring P rovider Active Natasha Hill TANK HOUSE OPERATOR HELPER, TANK HOUSE OPERATOR HELPER-C Attending Provider Active Team Status: Inactive Member Role Status Dates Dr. Becca Sánchez MD Primary Care Provider, Referring P rovider Active Cece Murray PA, PA-C Attending Provider Active Team Status: Active Member Role Status Dates Dr. Becca Sánchez MD Primary Care Provider Active Dr. Leroy Guallpa MD Attending Provider Active Dr. Osmel Mcclelland MD Referring Provider Active Team Status: Active Member Role Status Dates Dr. Becca Sánchez MD Primary Care Provider Active Dr. William Sandhu MD Admit Provider, Attending Provider, Referring Provider, Other Provider Active Team Status: Inactive Member Role Status Dates Dr. Becca Sánchez MD Primary Care Provider Active Dr. Randy Cintron DO Attending Provider, Emergency Provider Active Team Status: Inactive Member Role Status Dates Dr. Becca Sánchez MD Primary Care Provider Active Dr. William Sandhu MD Admit Provider, Attending Provider, Referring Provider Active Team Status: Inactive Member Role Status Dates Dr. Becca Sánchez MD Primary Care Provider Active Cece HERNANDES PAAndreiaC Attending Provider, Referring Provider Active Team Status: Inactive Member Role Status Dates Dr. Becca Sánchez MD Primary Care Provider, Referring P elyssader Active Dr. William Sandhu MD Attending Provider Active Team Status: Inactive Member Role Status Dates Dr. Becca Sánchez MD Primary Care Provider Active Dr. Jovani Voss MD Attending Provider, Referr ing Provider Active Team Status: Inactive Member Role Status Dates Dr. Becca Sánchez MD Primary Care Provide r, Attending Provider, Referring Provider Active [employer] Relationship Specialty Start Date End Date Becca Sánchez MD PCP - General Family Medicine 07/02/23 [employer] Relationship Specialty Start Date End Date Becca Sánchez MD [address] [place] [id number] PCP - General Family Medicine 07/02/23 Team Status: Inactive Member Role Status Dates Dr. Becca Sánchez MD Primary Care Provider Active Start: July 15, 2024 End: July 15, 2024 Dr. Becca Sánchez MD Attending Provider Active St art: July 15, 2024 End: July 15, 2024 Dr. Becca Sánchez MD Referring Provider Active St art: July 15, 2024 End: July 15, 2024 Team Status: Inactive Member Role Status Dates Dr. Becca Sánchez MD Primary Care Provider Active Start: September 12, 2024 End: September 12, 2024 Dr. Jovani Voss MD Attending Provider Active Start: September 12, 2024 End: September 12, 2024 Dr. Jovani Voss MD Referring Provider Active Start: September 12, 2024 End: September 12, 2024 Reason for Visit (unrecogniz ed section and content) Reason Comments Follow-up Reason Comments Follow-up FOR RECORDS PERTAINING TO PATIENTS WHO ARE [...] BE BASED ON THE PRIMARY CLINICAL RECORDS. [employer] [facility]. provides no warranty or guarantee of the accuracy or completeness of information in this document.
--- OUTSIDE RECORDS SUMMARY | 2024-10-25 10:43 | XMS RPT_ITS | CCD ---
Author Organization [facility] Care Team Providers Care Decorating Consultant Name Role Phone Dr. Becca Sánchez Primary Care Provider MD Orlando Sher Emergency Provider [phone] Sourav Maurer Referring Provider [phone] Dr. Sourav Maurer Other Provider Dr. Sharon Lui Admit Provider Dr. Sharon Lui Attending Provider Dr. Sharon Lui Other Provider Dr. Leroy Guallpa Attending Provider Dr. Sourav Maurer Attending Provider Dr. Sourav Maurer Referring Provider Dr. Sharon Lui Referring Provider Dr. Becca Sánchez Referring Provider [phone] Sergio VARMA, DICE DEALER-C Natasha Attending Provider Dr. Robin Martines Attending Provider Dr. Becca Sánchez Primary Care Provider [phone] Becca Sánchez Primary Care Provider [phone] Becca Sánchez Referring Provider Sergio VARMA NP-C Natasha Attending Provider Dr. Becca Sánchez Primary Care Provider [phone] Becca Sánchez Referring Provider [phone] Sergio VARMA DICE DEALER-C Natasha Attending Provider Edson, Dr. William Colbert Attending Provider [phone] Becca Sánchez Primary Care Provider Dr. Becca Sánchez Referring Provider Sergio DICE DEALER, DICE DEALERAndreiaC Natasha Attending Provider ANKUSH Celis Attending Provider [...] Sánchez MD, Becca A Primary Care Provider [phone] Becca Sánchez MD Primary Care Provider CAMILO, RAJU Attending Unavailable BECCA SÁNCHEZ A Primary Care Unavailable CAMILO, MEGANU Attending Unavailable BECCA SÁNCHEZ A Primary Care Unavailable CAMILO, LAVINIA Attending Unavailable Dr. Becca Sánchez MD Primary Care Provider Dr. Becca Sánchez MD Attending Provider [phone] Dr. 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 Comment on above: Result Comment: AMENDED REPORT 09/15/24 8885 MALB:CREAT previously reported as: 142.0 mg/g CRE Performed By: #### L 502.0250 #### [facility] Laboratory [facility] [address] [place], [place], [address] Abdomen Single Viewon 2024 Abdomen Single View [facility] Imaging Services [address] [place], [place] [address] Abdomen Single View MR#: [id number] Acct: [id number] Name: KAMALJIT PERRY Rep #: [id number] : 1955 M 69 From: Harman Santiago MD PCP: Dr. Becca Sánchez MD Status: REG CLI Study: Abdomen Single View Date of Exam: 09/12/24 Exam# [id number] Ordering Dr: Jovani Voss MD PROCEDURE: ABDOMEN [...] 2. Other findings as noted. Reading Location: [facility] CC: Dr. Becca Sánchez MD; Dr. Jvoani Voss MD Building Drafter: Signed Normal [facility] Absolute lymphocyte countOrd ered By: Becca Sánchez on 07-15-2024 Lymphocytes Auto (Unsp spec) [#/Vol] 1.43 10*3/uL 0.83-4.[address] [facility] Absolute neutrophil countOrd ered By: Becca Sánchez on 07-15-2024 Neutrophils (Bld) [#/Vol] 3.7 10*3/uL 2.0-7.[address] [facility] Anion gap in Serum or Plasma Ordered By: Becca Sánchez on 07-15-2024 Anion gap [Moles/Vol] 11 mmol/L 5-15 [facility] Automated lymphocyte count a s percentage of total leukocytesOrdered By: Becca Sánchez on 07-15-2024 Lymphocytes/100 WBC Auto (Unsp spec) 24.7 % 19- [facility] BUN/creatinine ratioOrdered By: Becca Sánchez on 07-15-2024 Urea nitrogen/Creatinine [Mass ratio] 14.4 mg/mg 10- [facility] Basophil percentageOrdered B y: Becca Sánchez on 07-15-2024 Basophils/100 WBC (Bld) 0.5 % 0-1 [facility] Bilirubin, totalOrdered By: Becca Sánchez on 07-15-2024 Bilirubin [Mass/Vol] 0.46 mg/dL 0.00-1.30 [facility] CBC W/Diff, Automatedon 06-28 Absolute Lymph 1.43 X10 3/uL Normal 0.83-4.[address] [facility] Comment on above: Order Comment: Order Date: 07/15/24 Order Info: 0184- - CBCD Order Info: [id number] - SED Performed By: #### L 100.0100, L500.4050, L501.6710, L101.9900 #### [facility] Laboratory [address] [place], [address] Absolute Neut 3.7 X10 3/uL Normal 2.0-7.[address] [facility] Comment on above: Order Comment: Order Date: 07/15/24 Order Info: 0184- - CBCD Order Info: [id number] - SED Performed By: #### L 100.0100, L500.4050, L501.6710, L101.9900 #### [facility] [address] [place], [address] Basophils/100 WBC (Bld) 0.5 % Normal 0-1 [facility] Comment on above: Order Comment: Order Date: 07/15/24 Order Info: 018- - CBCD Order Info: [id number] - SED Performed By: #### L 100.0100, L500.4050, L501.6710, L101.9900 #### [facility] [address] [place], [address] Eosinophils/100 WBC (Bld) 1.2 % Normal 0-[address] [facility] Comment on above: Order Comment: Order Date: 07/15/24 Order Info: 183-1 - CBCD Order Info: [id number] - SED Performed By: #### L 100.0100, L500.4050, L501.6710, L101.9900 #### [facility] [address] [place], [address] Erythrocyte distribution width (RBC) [Ratio] 12.0 % Normal 11.6-14.[address] [facility] Comment on above: Order Comment: Order Date: 07/15/24 Order Info: 183- - CBCD Order Info: [id number] - SED Performed By: #### L 100.0100, L500.4050, L501.6710, L101.9900 #### [facility] [address] [place], [address] Hematocrit (Bld) [Volume fraction] 43.8 % Normal 40-[address] [facility] Comment on above: Order Comment: Order Date: 07/15/24 Order Info: 183-03 - CBCD Order Info: [id number] - SED Performed By: #### L 100.0100, L500.4050, L501.6710, L101.9900 #### [facility] [address] [place], [address] Hemoglobin (Bld) [Mass/Vol] 15.0 g/dL Normal 13.0-16.[address] [facility] Comment on above: Order Comment: Order Date: 07/15/24 Order Info: 183- - CBCD Order Info: [id number] - SED Performed By: #### L 100.0100, L500.4050, L501.6710, L101.9900 #### [facility] [address] [place], [address] IG% 0.200 Normal 0.0-0.[address] [facility] Comment on above: Order Comment: Order Date: 07/15/24 Order Info: 183-03 - CBCD Order Info: [id number] - SED Result Comment: IG% - Immature Granulocytes (promyelocytes, myelocytes and metamyelocytes) > 1% indicates that a LEFT SHIFT is Present. Performed By: #### L 100.0100, L500.4050, L501.6710, L101.9900 #### [facility] [address] [place], [address] Lymphocytes/100 WBC (Bld) 24.7 % Normal 19-[address] [facility] Comment on above: Order Comment: Order Date: 07/15/24 Order Info: 183-03 - CBCD Order Info: [id number] - SED Performed By: #### L 100.0100, L500.4050, L501.6710, L101.9900 #### [facility] [address] [place], [address] MCH (RBC) [Entitic mass] 29.8 pg Normal 27.0-32.[address] [facility] Comment on above: Order Comment: Order Date: 07/15/24 Order Info: 183-03 - CBCD Order Info: [id number] - SED Performed By: #### L 100.0100, L500.4050, L501.6710, L101.9900 #### [facility] [address] [place], [address] MCHC (RBC) [Mass/Vol] 34.2 g/dL Normal 32-36 [facility] Comment on above: Order Comment: Order Date: 07/15/24 Order Info: 183-03 - CBCD Order Info: [id number] - SED Performed By: #### L 100.0100, L500.4050, L501.6710, L101.9900 #### [facility] [address] [place], [address] MCV (RBC) [Entitic vol] 86.9 fL Normal 80-94 [facility] Comment on above: Order Comment: Order Date: 07/15/24 Order Info: 018-1 - CBCD Order Info: [id number] - SED Performed By: #### L 100.0100, L500.4050, L501.6710, L101.9900 #### [facility] [address] [place], [address] Monocytes/100 WBC (Bld) 9.0 % Normal 0-10 [facility] Comment on above: Order Comment: Order Date: 07/15/24 Order Info: 183- - CBCD Order Info: [id number] - SED Performed By: #### L 100.0100, L500.4050, L501.6710, L101.9900 #### [facility] [address] [place], [address] Neutrophils/100 WBC (Bld) 64.4 % Normal 47-[address] [facility] Comment on above: Order Comment: Order Date: 07/15/24 Order Info: 018- - CBCD Order Info: [id number] - SED Performed By: #### L 100.0100, L500.4050, L501.6710, L101.9900 #### [facility] [address] [place], [address] Nucleated RBC (Bld) [#/Vol] 0 10*3/uL Normal 0-[address] [facility] Comment on above: Order Comment: Order Date: 07/15/24 Order Info: 018- - CBCD Order Info: [id number] - SED Performed By: #### L 100.0100, L500.4050, L501.6710, L101.9900 #### [facility] [address] [place], [address] Platelet mean volume (Bld) [Entitic vol] 9.9 fL Normal 6.2-12.[address] [facility] Comment on above: Order Comment: Order Date: 07/15/24 Order Info: 018-1 - CBCD Order Info: [id number] - SED Performed By: #### L 100.0100, L500.4050, L501.6710, L101.9900 #### [facility] [address] [place], [address] Platelets (Bld) [#/Vol] 187 10*3/uL Normal 150-[address] [facility] Comment on above: Order Comment: Order Date: 07/15/24 Order Info: [id number] - CBCD Order Info: [id number] - SED Performed By: #### L 100.0100, L500.4050, L501.6710, L101.9900 #### [facility] [address] [place], [address] RBC (Bld) [#/Vol] 5.04 10*6/uL Normal 4.6-6.2 [facility] Comment on above: Order Comment: Order Date: 07/15/24 Order Info: [id number] - CBCD Order Info: [id number] - SED Performed By: #### L 100.0100, L500.4050, L501.6710, L101.9900 #### [facility] [address] [place], [address] RDW SD 38.3 fl Normal 35.1-43.[address] [facility] Comment on above: Order Comment: Order Date: 07/15/24 Order Info: [id number] - CBCD Order Info: [id number] - SED Performed By: #### L 100.0100, L500.4050, L501.6710, L101.9900 #### [facility] [address] [place], [address] WBC (Bld) [#/Vol] 5.8 10*3/uL Normal 4.4-11.0 [facility] Comment on above: Order Comment: Order Date: 07/15/24 Order Info: 0184 - CBCD Order Info: [id number] - SED Performed By: #### L 100.0100, L500.4050, L501.6710, L101.9900 #### [facility] [address] [place], [address] CRPon 07-15-2024 C-REACTIVE PROT < 3.00 Normal 0.0-3.[address] [facility] Comment on above: Order Comment: Order Date: 07/15/24Order Info: 0786-1 - CMPOrder Info: [id number] - CRP Performed By: #### L 100.0100, L500.4050, L501.6710, L101.9900 ####[facility] [address] [place], [address] Carbon dioxide, total [Moles /volume] in Central venous bloodOrdered By: Becca Sánchez on 07-15-2024 CO2 [Moles/Vol] 24.2 mmol/L 21.0-32.[address] [facility] Chloride assayOrdered By: Dale Sánchez on 07-15-2024 Chloride [Moles/Vol] 104 mmol/L 98-108 [facility] Comprehensive Metabolic Prof ilon 07-15-2024 Albumin [Mass/Vol] 4.5 g/dL Normal 3.4-4.8 [facility] Comment on above: Order Comment: Order Date: 07/15/24Order Info: 0786-1 - CMPOrder Info: [id number] - CRP Performed By: #### L 100.0100, L500.4050, L501.6710, L101.9900 ####[facility] [address] [place], [address] Albumin/Globulin [Mass ratio] 1.7 {ratio} Normal 0.9-2.[address] [facility] Comment on above: Order Comment: Order Date: 07/15/24Order Info: 0786-1 - CMPOrder Info: [id number] - CRP Performed By: #### L 100.0100, L500.4050, L501.6710, L101.9900 ####[facility] [address] [place], [address] ALK PHOS 66 U/L Normal 40-[address] [facility] Comment on above: Order Comment: Order Date: 07/15/24Order Info: [id number] - CMPOrder Info: [id number] - CRP Performed By: #### L 100.0100, L500.4050, L501.6710, L101.9900 ####[facility] [address] [place], [address] ALT [Catalytic activity/Vol] 31 U/L Normal <=[address] [facility] Comment on above: Order Comment: Order Date: 07/15/24Order Info: 0786-1 - CMPOrder Info: [id number] - CRP Performed By: #### L 100.0100, L500.4050, L501.6710, L101.9900 ####[facility] [address] [place], [address] AST [Catalytic activity/Vol] 25 U/L Normal <=[address] [facility] Comment on above: Order Comment: Order Date: 07/15/24Order Info: 0786-1 - CMPOrder Info: [id number] - CRP Performed By: #### L 100.0100, L500.4050, L501.6710, L101.9900 ####[facility] [address] [place], [address] Bilirubin [Mass/Vol] 0.46 mg/dL Normal 0.00-1.30 [facility] Comment on above: Order Comment: Order Date: 07/15/24Order Info: 0786-1 - CMPOrder Info: [id number] - CRP Performed By: #### L 100.0100, L500.4050, L501.6710, L101.9900 ####[facility] [address] [place], [address] BUN/CRE 14.4 RATIO Normal 10-[address] [facility] Comment on above: Order Comment: Order Date: 07/15/24Order Info: 0786-1 - CMPOrder Info: [id number] - CRP Performed By: #### L 100.0100, L500.4050, L501.6710, L101.9900 ####[facility] [address] [place], [address] Calcium [Mass/Vol] 9.8 mg/dL Normal 7.6-11.0 [facility] Comment on above: Order Comment: Order Date: 07/15/24Order Info: 0786-1 - CMPOrder Info: [id number] - CRP Performed By: #### L 100.0100, L500.4050, L501.6710, L101.9900 ####[facility] [address] [place], [address] Chloride [Moles/Vol] 104 mmol/L Normal 98-108 [facility] Comment on above: Order Comment: Order Date: 07/15/24Order Info: 0786-1 - CMPOrder Info: [id number] - CRP Performed By: #### L 100.0100, L500.4050, L501.6710, L101.9900 ####[facility] [address] [place], [address] CO2 [Moles/Vol] 24.2 mmol/L Normal 21.0-32.[address] [facility] Comment on above: Order Comment: Order Date: 07/15/24Order Info: 0786-1 - CMPOrder Info: [id number] - CRP Performed By: #### L 100.0100, L500.4050, L501.6710, L101.9900 ####[facility] [address] [place], [address] Creatinine [Mass/Vol] 1.05 mg/dL Normal 0.70-1.20 [facility] Comment on above: Order Comment: Order Date: 07/15/24Order Info: 0786-1 - CMPOrder Info: [id number] - CRP Performed By: #### L 100.0100, L500.4050, L501.6710, L101.9900 ####[facility] [address] [place], [address] GAP 11 Normal 5-[address] [facility] Comment on above: Order Comment: Order Date: 07/15/24Order Info: 0786-1 - CMPOrder Info: [id number] - CRP Performed By: #### L 100.0100, L500.4050, L501.6710, L101.9900 ####[facility] [address] [place], [address] GFR/1.73 sq M.predicted among non-blacks MDRD (S/P/Bld) [Vol rate/Area] 76 mL/min/{1.73_m2} Normal >60 [facility] Comment on above: Order Comment: Order Date: 07/15/24Order Info: 0786-1 - CMPOrder Info: [id number] - CRP Result Comment: mL/m in/1.73m2 CKD-EPI Creatinine Equation (2020) Performed By: #### L 100.0100, L500.4050, L501.6710, L101.9900 ####[facility] [address] [place], [address] Globulin (S) [Mass/Vol] 2.6 g/dL Normal 2.2-4.2 [facility] Comment on above: Order Comment: Order Date: 07/15/24Order Info: [id number] - CMPOrder Info: [id number] - CRP Performed By: #### L 100.0100, L500.4050, L501.6710, L101.9900 ####[facility] [address] [place], [address] Glucose [Mass/Vol] 109 mg/dL High 70-99 [facility] Comment on above: Order Comment: Order Date: 07/15/24Order Info: 0786-1 - CMPOrder Info: [id number] - CRP Performed By: #### L 100.0100, L500.4050, L501.6710, L101.9900 ####[facility] [address] [place], [address] Potassium [Moles/Vol] 4.9 mmol/L Normal 3.3-5.1 [facility] Comment on above: Order Comment: Order Date: 07/15/24Order Info: 0786-1 - CMPOrder Info: [id number] - CRP Performed By: #### L 100.0100, L500.4050, L501.6710, L101.9900 ####[facility] [address] [place], [address] Sodium [Moles/Vol] 139 mmol/L Normal 133-145 [facility] Comment on above: Order Comment: Order Date: 07/15/24Order Info: [id number] - CMPOrder Info: [id number] - CRP Performed By: #### L 100.0100, L500.4050, L501.6710, L101.9900 ####[facility] [address] [place], [address] T PROT 7.0 g/dL Normal 5.9-8.[address] [facility] Comment on above: Order Comment: Order Date: 07/15/24Order Info: [id number] - CMPOrder Info: [id number] - CRP Performed By: #### L 100.0100, L500.4050, L501.6710, L101.9900 ####[facility] [address] [place], [address] Urea nitrogen [Mass/Vol] 15 mg/dL Normal 4-[address] [facility] Comment on above: Order Comment: Order Date: 07/15/24Order Info: [id number] - CMPOrder Info: [id number] - CRP Performed By: #### L 100.0100, L500.4050, L501.6710, L101.9900 ####[facility] [address] [place], [address] Eosinophil percentageOrdered By: Becca Sánchez on 07-15-2024 Eosinophils/100 WBC (Bld) 1.2 % 0-[address] [facility] Erythrocyte Sed Rateon 07-15 SED RATE 2 mm/hr Normal 0-[address] [facility] Comment on above: Order Comment: Order Date: 07/15/24Order Info: [id number] - CBCDOrder Info: [id number] - SED Performed By: #### L 100.0100, L500.4050, L501.6710, L101.9900 ####[facility] [address] [place], [address] Erythrocyte distribution wid th ratioOrdered By: Becca Sánchez on 07-15-2024 Erythrocyte distribution width (RBC) [Ratio] 12.0 % 11.6-14.[address] [facility] Erythrocyte distribution wid th standard deviationOrdered By: Becca Sánchez on 07-15-2024 Erythrocyte distribution width (RBC) [Ratio] 38.3 fl 35.1-43.[address] [facility] Erythrocyte sedimentation ra teOrdered By: Becca Sánchez on 07-15-2024 ESR (Bld) [Velocity] 2 mm/h 0-20 [facility] Glomerular filtration rate ( GFR) estimation/1.73 sq m using serum, plasma, or whole bOrdered By: Becca Sánchez on 07-15-2024 GFR/1.73 sq M.predicted among non-blacks MDRD (S/P/Bld) [Vol rate/Area] 76 mL/min/{1.73_m2} >60 [facility] Comment on above: mL/min/1.73m2 CKD-EP I Creatinine Equation (2020) Hematocrit Auto (Bld) [Volum e fraction]Ordered By: Becca Sánchez on 07-15-2024 Hematocrit (Bld) [Volume fraction] 43.8 % 40-[address] [facility] Hemoglobin measurementOrdere d By: Becca Sánchez on 07-15-2024 Hemoglobin (Bld) [Mass/Vol] 15.0 g/dL 13.0-16.[address] [facility] Immature granulocytes/100 WB C Auto (Bld)Ordered By: Becca Sánchez on 07-15-2024 Immature granulocytes/100 WBC (Bld) 0.200 % 0.0-0.[address] [facility] Comment on above: IG% - Immature Granu locytes (promyelocytes, myelocytes and metamyelocytes) > 1% indicates that a LEFT SHIFT is Present. Laboratory - Chemistry and C hemistry - challengeOrdered By: Becca Sánchez on 07-15-2024 AST [Catalytic activity/Vol] 25 U/L <[address] [facility] MCV (mean corpuscular volume ) determinationOrdered By: Becca Sánchez on 07-15-2024 MCV (RBC) [Entitic vol] 86.9 fL 80-94 [facility] Mean corpuscular hemoglobin (MCH) determinationOrdered By: Becca Sánchez on 07-15-2024 MCH (RBC) [Entitic mass] 29.8 pg 27.0-32.[address] [facility] Mean corpuscular hemoglobin concentration (MCHC) determinationOrdered By: Becca Sánchez on 07-15-2024 MCHC (RBC) [Mass/Vol] 34.2 g/dL 32-36 [facility] Mean platelet volume determi nationOrdered By: Becca Sánchez on 07-15-2024 Platelet mean volume (Bld) [Entitic vol] 9.9 fL 6.2-12.[address] [facility] Monocyte percentageOrdered B y: Becca Sánchez on 07-15-2024 Monocytes/100 WBC (Bld) 9.0 % 0-10 [facility] Neutrophil percentageOrdered By: Becca Sánchez on 07-15-2024 Neutrophils/100 WBC (Bld) 64.4 % 47-[address] [facility] Nucleated red blood cell per centageOrdered By: Becca Sánchez on 07-15-2024 Nucleated RBC/100 WBC (Bld) [Ratio] 0 % 0-[address] [facility] Platelet countOrdered By: Dale Sánchez on 07-15-2024 Platelets (Bld) [#/Vol] 187 10*3/uL 150-[address] [facility] Potassium measurement (mass/ volume)Ordered By: Becca Sánchez on 07-15-2024 Potassium (Unsp spec) [Mass/Vol] 4.9 mmol/L 3.3-5.[address] [facility] RBC Auto (Bld) [#/Vol]Ordere d By: Becca Sánchez on 07-15-2024 RBC (Bld) [#/Vol] 5.04 10*6/uL 4.6-6.2 [facility] Random urine creatinine alpesh urement (mass/volume)Ordered By: Becca Sánchez on 07-15-2024 Creatinine Unsp time (U) [Mass/Vol] 131.00 mg/dL 39.00-259.[address] [facility] Serum creatinine measurement (mass/volume)Ordered By: Becca Sánchez on 07-15-2024 Creatinine [Mass/Vol] 1.05 mg/dL 0.70-1.20 [facility] Serum globulin measurementOr dered By: Becca Sánchez on 07-15-2024 Globulin (S) [Mass/Vol] 2.6 g/dL 2.2-4.2 [facility] Serum glucose measurement (m ass/volume)Ordered By: Becca Sánchez on 07-15-2024 Glucose [Mass/Vol] 109 mg/dL High 70-99 [facility] Serum or plasma C reactive p rotein measurement (mass/volume)Ordered By: Becca Sánchez on 07-15-2024 CRP [Mass/Vol] mg/L 0.0-3.[address] [facility] Serum or plasma alanine link otransferase (ALT) measurementOrdered By: Becca Sánchez on 07-15-2024 ALT [Catalytic activity/Vol] 31 U/L <[address] [facility] Serum or plasma albumin alpesh urement (mass/volume)Ordered By: Becca Sánchez on 07-15-2024 Albumin [Mass/Vol] 4.5 g/dL 3.4-4.8 [facility] Serum or plasma albumin/glob ulin mass ratioOrdered By: Becca Sánchez 07-15-2024 Albumin/Globulin [Mass ratio] 1.7 {ratio} 0.9-2.[address] [facility] Serum or plasma alkaline jackelin sphatase measurementOrdered By: Becca Sánchez on 07-15-2024 ALP [Catalytic activity/Vol] 66 U/L 40-[address] [facility] Serum or plasma calcium alpesh urement (mass/volume)Ordered By: Becca Sánchez on 07-15-2024 Calcium [Mass/Vol] 9.8 mg/dL 7.6-11.0 [facility] Serum or plasma urea nitroge n measurement (mass/volume)Ordered By: Becca Sánchez on 07-15-2024 Urea nitrogen [Mass/Vol] 15 mg/dL 4-[address] [facility] Sodium levelOrdered By: Becca Sánchez on 07-15-2024 Sodium [Moles/Vol] 139 mmol/L 133-145 [facility] Total proteinOrdered By: Dianne Sánchez on 07-15-2024 Protein [Mass/Vol] 7.0 g/dL 5.9-8.4 [facility] Urine albumin measurement wi detection limit of 20 mg/L or less (mass/volume)Ordered By: Becca Sánchez on 07-15-2024 Albumin DL <= 20 mg/L (U) [Mass/Vol] 18.6 mg/L NO RANGE EST. [facility] White blood cell (WBC) count Ordered By: Becca Sánchez on 07-15-2024 WBC (Bld) [#/Vol] 5.8 10*3/uL 4.4-11.0 [facility] Protein Electroph, Son 12-22 Albumin [Mass/Vol] 3.8 g/dL Normal 2.9-4.4 [facility] Comment on above: Order Comment: Order Date: 12/21/23 Order Info: 0060-1 - PROEL Performed By: #### L 3100.3450, L100.0100, L101.9900 #### [facility] [address] [place], [place], [id number] Albumin/Globulin [Mass ratio] 1.5 {ratio} Normal 0.7-1.[address] [facility] Comment on above: Order Comment: Order Date: 12/21/23 Order Info: 0060-1 - PROEL Performed By: #### L 3100.3450, L100.0100, L101.9900 #### [facility] [address] [place], [place], [id number] ALPHA-1 GLOBUL 0.2 g/dL Normal 0.0-0.[address] [facility] Comment on above: Order Comment: Order Date: 12/21/23 Order Info: 0060-1 - PROEL Performed By: #### L 3100.3450, L100.0100, L101.9900 #### [facility] [address] [place], [address] ALPHA-2 GLOBUL 0.7 g/dL Normal 0.4-1.[address] [facility] Comment on above: Order Comment: Order Date: 12/21/23 Order Info: 0060-1 - PROEL Performed By: #### L 3100.3450, L100.0100, L101.9900 #### [facility] [address] [place], [address] BETA GLOBULIN 1.1 g/dL Normal 0.7-1.[address] [facility] Comment on above: Order Comment: Order Date: 12/21/23 Order Info: 0060-1 - PROEL Performed By: #### L 3100.3450, L100.0100, L101.9900 #### [facility] [address] [place], [address] GAMMA GLOBULIN 0.5 g/dL Normal 0.4-1.[address] [facility] Comment on above: Order Comment: Order Date: 12/21/23 Order Info: 0060-1 - PROEL Performed By: #### L 3100.3450, L100.0100, L101.9900 #### [facility] [address] [place], [address] Globulin (S) [Mass/Vol] 2.5 g/dL Normal 2.2-3.9 [facility] Comment on above: Order Comment: Order Date: 12/21/23 Order Info: 0060-1 - PROEL Performed By: #### L 3100.3450, L100.0100, L101.9900 #### [facility] [address] [place], [address] INTERPRETATION Comment Normal . [facility] Comment on above: Order Comment: Order Date: 12/21/23 Order Info: 0060-1 - PROEL Result Comment: Prot ein electrophoresis scan will follow via computer, mail, or set up machinist delivery. Performed By: #### L 3100.3450, L100.0100, L101.9900 #### [facility] [address] [place], [place], [id number] M-SPIKE Not Observed Normal Not Observed [facility] Comment on above: Order Comment: Order Date: 12/21/23 Order Info: 59-1 - PROEL Performed By: #### L 3100.3450, L100.0100, L101.9900 #### [facility] [address] [place], [place], [address] NOTE: Comment Normal . [facility] Comment on above: Order Comment: Order Date: 12/21/23 Order Info: 59- - PROEL Result Comment: The SPE pattern appears unremarkable. Evidence of monoclonal protein is not apparent. Performed at: [place] [id number] [employer]: Vipul Morillo PhD, Phone: [phone] Performed By: #### L 3100.3450, L100.0100, L101.9900 #### [facility] [address] [place], [place], [address] Protein [Mass/Vol] 6.3 g/dL Normal 6.0-8.5 [facility] Comment on above: Order Comment: Order Date: 12/21/23 Order Info: 006- - PROEL Performed By: #### L 3100.3450, L100.0100, L101.9900 #### [facility] [address] [place], [place], [address] CBC W/Diff, Automatedon 11-29 Absolute Lymph 1.47 X10 3/uL Normal 0.83-4.[address] [facility] Comment on above: Order Comment: Order Date: 12/21/23 Order Info: 0184-1 - CBCD Order Info: [id number] - SED Performed By: #### L 3100.3450, L100.0100, L101.9900 #### [facility] [address] [place], [address] Absolute Neut 4.5 X10 3/uL Normal 2.0-7.[address] [facility] Comment on above: Order Comment: Order Date: 12/21/23 Order Info: 183- - CBCD Order Info: [id number] - SED Performed By: #### L 3100.3450, L100.0100, L101.9900 #### [facility] [address] [place], [address] Basophils/100 WBC (Bld) 0.6 % Normal 0-1 [facility] Comment on above: Order Comment: Order Date: 12/21/23 Order Info: 183-03 - CBCD Order Info: [id number] - SED Performed By: #### L 3100.3450, L100.0100, L101.9900 #### [facility] [address] [place], [address] Eosinophils/100 WBC (Bld) 0.9 % Normal 0-[address] [facility] Comment on above: Order Comment: Order Date: 12/21/23 Order Info: 183-03 - CBCD Order Info: [id number] - SED Performed By: #### L 3100.3450, L100.0100, L101.9900 #### [facility] [address] [place], [address] Erythrocyte distribution width (RBC) [Ratio] 12.2 % Normal 11.6-14.[address] [facility] Comment on above: Order Comment: Order Date: 12/21/23 Order Info: 183-03 - CBCD Order Info: [id number] - SED Performed By: #### L 3100.3450, L100.0100, L101.9900 #### [facility] [address] [place], [address] Hematocrit (Bld) [Volume fraction] 41.9 % Normal 40-[address] [facility] Comment on above: Order Comment: Order Date: 12/21/23 Order Info: 183- - CBCD Order Info: [id number] - SED Performed By: #### L 3100.3450, L100.0100, L101.9900 #### [facility] [address] [place], [address] Hemoglobin (Bld) [Mass/Vol] 13.8 g/dL Normal 13.0-16.[address] [facility] Comment on above: Order Comment: Order Date: 12/21/23 Order Info: 183- - CBCD Order Info: [id number] - SED Performed By: #### L 3100.3450, L100.0100, L101.9900 #### [facility] [address] [place], [address] IG% 0.100 Normal 0.0-0.[address] [facility] Comment on above: Order Comment: Order Date: 12/21/23 Order Info: 183-03 - CBCD Order Info: [id number] - SED Result Comment: IG% - Immature Granulocytes (promyelocytes, myelocytes and metamyelocytes) > 1% indicates that a LEFT SHIFT is Present. Performed By: #### L 3100.3450, L100.0100, L101.9900 #### [facility] [address] [place], [address] Lymphocytes/100 WBC (Bld) 21.7 % Normal 19-[address] [facility] Comment on above: Order Comment: Order Date: 12/21/23 Order Info: 183-03 - CBCD Order Info: [id number] - SED Performed By: #### L 3100.3450, L100.0100, L101.9900 #### [facility] [address] [place], [address] MCH (RBC) [Entitic mass] 29.6 pg Normal 27.0-32.[address] [facility] Comment on above: Order Comment: Order Date: 12/21/23 Order Info: 183- - CBCD Order Info: [id number] - SED Performed By: #### L 3100.3450, L100.0100, L101.9900 #### [facility] [address] [place], [address] MCHC (RBC) [Mass/Vol] 32.9 g/dL Normal 32-36 [facility] Comment on above: Order Comment: Order Date: 12/21/23 Order Info: 183-03 - CBCD Order Info: [id number] - SED Performed By: #### L 3100.3450, L100.0100, L101.9900 #### [facility] [address] [place], [address] MCV (RBC) [Entitic vol] 89.7 fL Normal 80-94 [facility] Comment on above: Order Comment: Order Date: 12/21/23 Order Info: 183-03 - CBCD Order Info: [id number] - SED Performed By: #### L 3100.3450, L100.0100, L101.9900 #### [facility] [address] [place], [address] Monocytes/100 WBC (Bld) 10.0 % Normal 0-10 [facility] Comment on above: Order Comment: Order Date: 12/21/23 Order Info: 183-03 - CBCD Order Info: [id number] - SED Performed By: #### L 3100.3450, L100.0100, L101.9900 #### [facility] [address] [place], [address] Neutrophils/100 WBC (Bld) 66.7 % Normal 47-[address] [facility] Comment on above: Order Comment: Order Date: 12/21/23 Order Info: 183- - CBCD Order Info: [id number] - SED Performed By: #### L 3100.3450, L100.0100, L101.9900 #### [facility] [address] [place], [address] Nucleated RBC (Bld) [#/Vol] 0 10*3/uL Normal 0-[address] [facility] Comment on above: Order Comment: Order Date: 12/21/23 Order Info: [id number] - CBCD Order Info: [id number] - SED Performed By: #### L 3100.3450, L100.0100, L101.9900 #### [facility] [address] [place], [address] Platelet mean volume (Bld) [Entitic vol] 10.1 fL Normal 6.2-12.[address] [facility] Comment on above: Order Comment: Order Date: 12/21/23 Order Info: 01806-28 - CBCD Order Info: [id number] - SED Performed By: #### L 3100.3450, L100.0100, L101.9900 #### [facility] [address] [place], [address] Platelets (Bld) [#/Vol] 175 10*3/uL Normal 150-[address] [facility] Comment on above: Order Comment: Order Date: 12/21/23 Order Info: 01806-28 - CBCD Order Info: 00210-5 - SED Performed By: #### L 3100.3450, L100.0100, L101.9900 #### [facility] [address] [place], [address] RBC (Bld) [#/Vol] 4.67 10*6/uL Normal 4.6-6.2 [facility] Comment on above: Order Comment: Order Date: 12/21/23 Order Info: 01806-28 - CBCD Order Info: [id number] - SED Performed By: #### L 3100.3450, L100.0100, L101.9900 #### [facility] [address] [place], [address] RDW SD 40.1 fl Normal 35.1-43.[address] [facility] Comment on above: Order Comment: Order Date: 12/21/23 Order Info: 0184- - CBCD Order Info: [id number] - SED Performed By: #### L 3100.3450, L100.0100, L101.9900 #### [facility] [address] [place], [address] WBC (Bld) [#/Vol] 6.8 10*3/uL Normal 4.4-11.0 [facility] Comment on above: Order Comment: Order Date: 12/21/23 Order Info: 01806-28 - CBCD Order Info: [id number] - SED Performed By: #### L 3100.3450, L100.0100, L101.9900 #### [facility] [address] [place], [address] CRPon 12-21-2023 C-REACTIVE PROT < 2.90 Normal 0.0-3.[address] [facility] Comment on above: Order Comment: Order Date: 12/21/23 Order Info: [id number] - CRP Result Comment: C-Re active Protein (CRP) provides useful information for the diagnosis, therapy and monitoring of inflammatory processes and associated diseases. For the evaluation of Relative Risk for Cardiovascular Disease, a High Sensitivity CRP (HSCRP) should be ordered. Performed By: #### L 501.6710 #### [facility] [address] [place], [address] Erythrocyte Sed Rateon 12-20 SED RATE 2 mm/hr Normal 0-[address] [facility] Comment on above: Order Comment: Order Date: 12/21/23 Order Info: 0184- - CBCD Order Info: [id number] - SED Performed By: #### L 3100.3450, L100.0100, L101.9900 #### [facility] [address] [place], [place], [address] PSA,Total - Annual Screenon 12-21-2023 PSA,TOT SCREEN 2.14 ng/mL Normal 0.00-4.[address] [facility] Comment on above: Order Comment: Order Date: 12/21/23 Order Info: [id number] - CRP Result Comment: This test was performed using the TPSA assay method for the [employer] chemistry system. Values obtained with different assay methods cannot be used interchangably. When changing PSA assays in the course of monitoring a patient, additional sequential testing should be carried out to confirm baseline values. Performed By: #### L 501.9910 #### [facility] [address] [place], [place], [address] PT D/C Summary (1)on 024 PT D/C Summary (1) [facility] Physical Therapy [facility] [address] [place] [address]. [address] [place] [address] / REHABILITATION SERVICES DISCHARGE SUMMARY MR#: [id number] Acct: [id number] Name: KAMALJIT PERRY Rep #: [id number] : 1955 68 From: Girma Trujillo PT, Cert. T, [facility] Referring Dr.: Dr. Becca Sánchez MD Status: REG R CR Insurance: [facility] AD[facility] LIFE1 SELF PAY INSURANCE Discharge Summary [...] please feel free to call me at [phone]. Thank you for the referral of this patient. Sincerely, Girma Trujillo PT, Cert T, [facility] Balance/Gait/Functiona l tests Balance/Special Test Scores Oswestry Low Back Score: 0 Improvement % Improvement: 100 10/27/23 0830 CC: Dr. Becca Sánchez MD JLA Signed Normal [facility] Inital Evaluation (1) - PTon 09-22-2023 Inital Evaluation (1) - PT [facility] [address] [place] [address] [address] [place] [address] / REHABILITATION SERVICES INITIAL EVALUATION MR#: [id number] Acct: [id number] Name: KAMALJIT PERRY Rep #: [id number] : 1955 68 From: Judith Varner PT. MD [place], OCS Referring Dr.: Dr. Becca Sánchez MD Status: REG R CR Insurance: [facility] [employer]V LIFE1 SELF PAY INSURANCE Patient's Visit [...] to be FAXED BACK to us at [phone] for Medicare purposes. For Medicare only, by signing this I certify the plan of care. Please let me know if there are questions or concerns regarding this plan of care. Physician Signature: Date:__ (more content not included)... Normal [facility] Absolute lymphocyte countOrd ered By: Becca Sánchez on 06-04-2023 Lymphocytes Auto (Unsp spec) [#/Vol] 1.42 10*3/uL 0.83-4.[address] [facility] Automated lymphocyte count a s percentage of total leukocytesOrdered By: Becca Sánchez on 06-04-2023 Lymphocytes/100 WBC Auto (Unsp spec) 27.1 % 19-[address] [facility] Basophil percentageOrdered B y: Becca Sánchez on 06-04-2023 Basophils/100 WBC (Bld) 0.4 % 0-1 [facility] Bilirubin [Mass/Vol] 0.40 mg/dL 0.20-1.00 [facility] Comment on above: For patients on eltr ombopag therapy, use of Dimension [place] TBIL is not recommended. Chloride [Moles/Vol] 109 mmol/L 98-107 [facility] Cholesterol [Mass/Vol] 141 mg/dL <200 [facility] Comment on above: <200 mg/dL Desirable 200-240 mg/dL Borderline >240 mg/dL High Risk Eosinophils/100 WBC (Bld) 1.7 % 0-[address] [facility] Glucose [Mass/Vol] 104 mg/dL 74-106 [facility] Comment on above: Fasting Glucose resu lt from 100 to 125 mg/dL suggests IMPAIRED HOMEOSTASIS per A.D.A. criteria. Hemoglobin (Bld) [Mass/Vol] 13.9 g/dL 13.0-16.[address] [facility] Monocytes/100 WBC (Bld) 8.2 % 0-10 [facility] Neutrophils (Bld) [#/Vol] 3.3 10*3/uL 2.0-7.[address] [facility] Neutrophils/100 WBC (Bld) 62.2 % 47-[address] [facility] Potassium [Moles/Vol] 4.5 mmol/L 3.5-5.1 [facility] Protein [Mass/Vol] 6.9 g/dL 6.4-8.2 [facility] Sodium [Moles/Vol] 141 mmol/L 136-145 [facility] Triglyceride [Mass/Vol] 103 mg/dL <199 [facility] Comment on above: The drugs N-Acetylcy steine and Metamizole may falsely depress this assay.Serum Triglycerides Reference Interval Normal <150 mg/dL Borderline high 150 - 199 mg/dL High 200 - 499 mg/dL Very High > or = 500 mg/dL WBC (Bld) [#/Vol] 5.2 10*3/uL 4.4-11.0 [facility] Determination of erythrocyte mean corpuscular volume (MCV)Ordered By: Becca Sáncehz on 06-04-2023 MCV (RBC) [Entitic vol] 88.6 fL 80-94 [facility] Erythrocyte distribution wid th ratioOrdered By: Becca Sánchez on 06-04-2023 Erythrocyte distribution width (RBC) [Ratio] 12.3 % 11.6-14.[address] [facility] Erythrocyte distribution wid th standard deviationOrdered By: Becca Sánchez on 06-04-2023 Erythrocyte distribution width (RBC) [Entitic vol] 40.0 fL 35.1-43.9 [facility] Hematocrit Auto (Bld) [Volum e fraction]Ordered By: Becca Sánchez on 06-04-2023 Hematocrit (Bld) [Volume fraction] 42.6 % 40-[address] [facility] Immature granulocytes/100 WB C Auto (Bld)Ordered By: Becca Sánchez on 06-04-2023 Immature granulocytes/100 WBC (Bld) 0.400 % 0.0-0.[address] [facility] Comment on above: IG% - Immature Granu locytes (promyelocytes, myelocytes and metamyelocytes) > 1% indicates that a LEFT SHIFT is Present. Laboratory - Chemistry and C hemistry - challengeOrdered By: Becca Sánchez on 06-04-2023 Albumin/Globulin [Mass ratio] 1.1 {ratio} 0.9-2.[address] [facility] ALP [Catalytic activity/Vol] 67 U/L 45-[address] [facility] ALT [Catalytic activity/Vol] 38 U/L 16-[address] [facility] Cholesterol in HDL [Mass/Vol] 47 mg/dL >[address] [facility] Comment on above: The drugs N-Acetylcy steine and Metamizole may falsely depress this assay. Reference Range HDL <40 mg/dL Low HDL Cholesterol HDL >or= 60 mg/dL High HDL Cholesterol Cholesterol in LDL [Mass/Vol] 73 mg/dL 0-[address] [facility] CO2 [Moles/Vol] 26.0 mmol/L 21.0-32.[address] [facility] Globulin (S) [Mass/Vol] 3.3 g/dL 2.2-4.2 [facility] Urea nitrogen/Creatinine [Mass ratio] 15.0 mg/mg 10-[address] [facility] Laboratory - Hematology and Cell countsOrdered By: Becca Sánchez on 06-04-2023 MCH (RBC) [Entitic mass] 28.9 pg 27.0-32.[address] [facility] MCHC (RBC) [Mass/Vol] 32.6 g/dL 32-36 [facility] Nucleated RBC/100 WBC (Bld) [Ratio] 0 % 0-[address] [facility] Platelet mean volume (Bld) [Entitic vol] 9.4 fL 6.2-12.[address] [facility] Platelets (Bld) [#/Vol] 174 10*3/uL 150-[address] [facility] No Panel InformationOrdered By: Becca Sánchez on 06-04-2023 Estimated GFR (MDRD) Amer 96 mL/min >[address] [facility] Comment on above: GFR Calc Estimated GFR (MDRD) Non-Af Amer 79 mL/min >[address] [facility] Comment on above: Non- GFR Calc VLDL Cholesterol 21 mg/dL 5-[address] [facility] RBC Auto (Bld) [#/Vol]Ordere d By: Becca Sánchez on 06-04-2023 RBC (Bld) [#/Vol] 4.81 10*6/uL 4.6-6.2 [facility] Serum or plasma calcium alpesh urement (mass/volume)Ordered By: Becca Sánchez on 06-04-2023 Calcium [Mass/Vol] 9.1 mg/dL 8.5-10.1 [facility] Serum or plasma creatinine m easurement (mass/volume)Ordered By: Becca Sánchez on 06-04-2023 Creatinine [Mass/Vol] 1.00 mg/dL 0.70-1.30 [facility] Comment on above: The validity of the calculated GFR & GFRAA in patients over 70 years has not been determined. Clinical correlation is essential. Serum or plasma urea nitroge n measurement (mass/volume)Ordered By: Becca Sánchez on 06-04-2023 Urea nitrogen [Mass/Vol] 15 mg/dL 7-[address] [facility] Serum or plasma uric acid me asurement (mass/volume)Ordered By: Becca Sánchez on 06-04-2023 Urate [Mass/Vol] 3.9 mg/dL 3.5-7.[address] [facility] Comment on above: The drugs N-Acetylcy steine and Metamizole may falsely depress this assay. Thin prep Papanicolaou smear with manual screeningOrdered By: Becca Sánhcez on 06-04-2023 Thin prep Papanicolaou smear with manual screening 3.6 g/dL 3.2-5.[address] [facility] Thin prep Papanicolaou smear with manual screening 23 U/L [address] [facility] Thin prep Papanicolaou smear with manual screening 6 5-[address] [facility] ECG 12 Leadon 02-05-2023 See [facility] Work Phone: [facility] Work Phone: 24 hour urine alpha 2 globul in/total protein ratio by electrophoresis (mass fraction)Ordered By: Becca Sánchez on 12-12-2022 Alpha 2 globulin Elph (24H U) [Mass fraction] 20.0 % . [facility] 24 hour urine beta globulin/ total protein ratio by electrophoresis (mass fraction)Ordered By: Becca Sánchez on 12-12-2022 Beta globulin Elph (24H U) [Mass fraction] 30.2 % . [facility] 24 hour urine gamma globulin /total protein ratio by electrophoresis (mass fraction)Ordered By: Becca Sánchez on 12-12-2022 Gamma globulin Elph (24H U) [Mass fraction] 25.5 % . [facility] Erythrocyte sedimentation ra teOrdered By: Becca Sánchez on 12-12-2022 ESR (Bld) [Velocity] 3 mm/h 0-20 [facility] Laboratory - Chemistry and C hemistry - challengeOrdered By: Becca Sánchez on 12-12-2022 Albumin [Mass/Vol] 3.8 g/dL 2.9-4.4 [facility] No Panel InformationOrdered By: Becca Sánchez on 12-12-2022 Addendum Document Comment . [facility] Comment on above: The SPE pattern appe ars unremarkable. Evidence ofmonoclonal protein is not apparent. Vtiij-6-Pakaauukz 0.3 g/dL 0.0-0.[address] [facility] Yuvym-1-Tfalozjij 0.7 g/dL 0.4-1.[address] [facility] Anti-Nuclear Antibody Screen Negative Negative [facility] Comment on above: Performed at: CB - [facility] [address] [id number] Director: Vipul Morillo PhD, Phone: [phone] Gamma Globulins 0.6 g/dL 0.4-1.[address] [facility] Urine Immunofixation PEP Note Comment . [facility] Comment on above: Protein electrophore sis scan will follow via computer,mail, or set up machinist delivery.Performed at: CB - [facility] [address] [id number] Director: Vipul Morillo PhD, Phone: [phone] Protein Fractions Elph [Inte rp]Ordered By: Becca Sánchez on 12-12-2022 Protein Fractions [Interp] Comment . [facility] Comment on above: Protein electrophore sis scan will follow via computer,mail, or set up machinist delivery. Serum albumin to globulin ra nuria by protein electrophoresisOrdered By: Becca Sánchez on 12-12-2022 Albumin/Globulin Elph [Mass ratio] 1.4 0.7-1.[address] [facility] Serum globulin measurement ( mass/volume)Ordered By: Becca Sánchez on 12-12-2022 Globulin (S) [Mass/Vol] 2.8 g/dL 2.2-3.9 [facility] Serum or plasma beta globuli n measurement by electrophoresis (mass/volume)Ordered By: Becca Sánchez on 12-12-2022 Beta globulin Elph [Mass/Vol] 1.3 g/dL 0.7-1.[address] [facility] Serum rheumatoid factor dete ctionOrdered By: Becca Sánchez on 12-12-2022 Rheumatoid factor Ql (S) < 10.0 IU/mL <[address] [facility] Thin prep Papanicolaou smear with manual screeningOrdered By: Becca Sánchez on 12-12-2022 Thin prep Papanicolaou smear with manual screening See comment [facility] Comment on above: NOT OBSERVED Total protein bloodOrdered B y: Becca Sánchez on 12-12-2022 Protein [Mass/Vol] 6.6 g/dL 6.0-8.5 [facility] Urine albumin/total protein mass ratio by electrophoresisOrdered By: Becca Sánchez on 12-12-2022 Albumin Elph (U) [Mass fraction] 21.1 % . [facility] Urine alpha 1 globulin/total protein ratio by electrophoresis (mass fraction)Ordered By: Becca Sánchez on 12-12-2022 Alpha 1 globulin Elph (U) [Mass fraction] 3.2 % . [facility] Urine monoclonal protein/tot al protein mass ratio by electrophoresisOrdered By: Becca Sánchez on 12-12-2022 Protein.monoclonal Elph (U) [Mass fraction] See comment [facility] Comment on above: Result: Not Observed Urine protein measurement (m ass/volume)Ordered By: Becca Sánchez on 12-12-2022 Protein (U) [Mass/Vol] 12.9 mg/dL Not Estab. [facility] Basophil percentageOrdered B y: Jovani Voss on 11-17-2022 Chloride [Moles/Vol] 108 mmol/L 98-107 [facility] Glucose [Mass/Vol] 104 mg/dL 74-106 [facility] Comment on above: Fasting Glucose resu lt from 100 to 125 mg/dL suggests IMPAIRED HOMEOSTASIS per A.D.A. criteria. Potassium [Moles/Vol] 4.0 mmol/L 3.5-5.1 [facility] Sodium [Moles/Vol] 137 mmol/L 136-145 [facility] WBC (Bld) [#/Vol] 7.8 10*3/uL 4.4-11.0 [facility] Blood erythrocytes count (nu mber/volume)Ordered By: Jovani Voss on 11-17-2022 RBC (Bld) [#/Vol] 4.68 10*6/uL 4.6-6.2 [facility] Blood hemoglobin measurement (mass/volume)Ordered By: Jovani Voss on 11-17-2022 Hemoglobin (Bld) [Mass/Vol] 13.4 g/dL 13.0-16.[address] [facility] Blood platelet mean volumeOr dered By: Jovani Voss on 11-17-2022 Platelet mean volume (Bld) [Entitic vol] 9.4 fL 6.2-12.[address] [facility] Determination of erythrocyte mean corpuscular volume (MCV)Ordered By: Jovani Voss on 11-17-2022 MCV (RBC) [Entitic vol] 89.3 fL 80-94 [facility] Hematocrit Auto (Bld) [Volum e fraction]Ordered By: Jovani Voss on 11-17-2022 Hematocrit (Bld) [Volume fraction] 41.8 % 40-[address] [facility] Laboratory - Chemistry and C hemistry - challengeOrdered By: Jovani Voss on 11-17-2022 CO2 [Moles/Vol] 25.0 mmol/L 21.0-32.[address] [facility] Urea nitrogen/Creatinine [Mass ratio] 16.8 mg/mg 10-[address] [facility] Laboratory - Hematology and Cell countsOrdered By: Jovani Voss on 11-17-2022 Erythrocyte distribution width (RBC) [Entitic vol] 41.1 fL 35.1-43.9 [facility] Erythrocyte distribution width (RBC) [Ratio] 12.5 % 11.6-14.[address] [facility] MCH (RBC) [Entitic mass] 28.6 pg 27.0-32.[address] [facility] MCHC Auto (RBC) [Mass/Vol]Or dered By: Jovani Voss on 11-17-2022 MCHC (RBC) [Mass/Vol] 32.1 g/dL 32-36 [facility] No Panel InformationOrdered By: Jovani Voss on 11-17-2022 Estimated GFR (MDRD) Amer 78 mL/min >[address] [facility] Comment on above: GFR Calc Estimated GFR (MDRD) Non-Af Amer 65 mL/min >[address] [facility] Comment on above: Non- GFR Calc Platelets bldOrdered By: Osvaldo Voss on 11-17-2022 Platelets (Bld) [#/Vol] 192 10*3/uL 150-[address] [facility] Serum or plasma calcium alpesh urement (mass/volume)Ordered By: Jovani Voss on 11-17-2022 Calcium [Mass/Vol] 9.0 mg/dL 8.5-10.1 [facility] Serum or plasma creatinine m easurement (mass/volume)Ordered By: Jovani Voss on 11-17-2022 Creatinine [Mass/Vol] 1.19 mg/dL 0.70-1.30 [facility] Comment on above: The validity of the calculated GFR & GFRAA in patients over 70 years has not been determined. Clinical correlation is essential. Serum or plasma urea nitroge n measurement (mass/volume)Ordered By: Jovani Voss on 11-17-2022 Urea nitrogen [Mass/Vol] 20 mg/dL 7-[address] [facility] Thin prep Papanicolaou smear with manual screeningOrdered By: Jovani Voss on 11-17-2022 Thin prep Papanicolaou smear with manual screening 4 5-[address] [facility] Absolute lymphocyte countOrd ered By: Cece Murray on 07-31-2022 Lymphocytes Auto (Unsp spec) [#/Vol] 1.40 10*3/uL 0.83-4.[address] [facility] Basophil percentageOrdered B y: Cece Murray on 07-31-2022 Basophils/100 WBC (Bld) 0.3 % 0-1 [facility] Eosinophils/100 WBC (Bld) 0.7 % 0-[address] [facility] Neutrophils (Bld) [#/Vol] 8.9 10*3/uL 2.0-7.[address] [facility] Neutrophils/100 WBC (Bld) 78.4 % 47-[address] [facility] WBC (Bld) [#/Vol] 11.4 10*3/uL 4.4-11.0 [facility] Blood erythrocytes count (nu mber/volume)Ordered By: Cece Murray on 07-31-2022 RBC (Bld) [#/Vol] 3.86 10*6/uL 4.6-6.2 [facility] Blood hemoglobin measurement (mass/volume)Ordered By: Cece Murray on 07-31-2022 Hemoglobin (Bld) [Mass/Vol] 11.5 g/dL 13.0-16.[address] [facility] Blood lymphocytes/100 leukoc ytesOrdered By: Cece Murray on 07-31-2022 Lymphocytes/100 WBC (Bld) 12.3 % 19-[address] [facility] Blood monocytes/100 leukocyt esOrdered By: Cece Murray on 07-31-2022 Monocytes/100 WBC (Bld) 7.9 % 0-10 [facility] Blood platelet mean volumeOr dered By: Cece Murray on 07-31-2022 Platelet mean volume (Bld) [Entitic vol] 9.7 fL 6.2-12.[address] [facility] Determination of erythrocyte mean corpuscular volume (MCV)Ordered By: Cece Murray on 07-31-2022 MCV (RBC) [Entitic vol] 90.9 fL 80-94 [facility] Hematocrit Auto (Bld) [Volum e fraction]Ordered By: Cece Murray on 07-31-2022 Hematocrit (Bld) [Volume fraction] 35.1 % 40-[address] [facility] Laboratory - Hematology and Cell countsOrdered By: Cece Murray on 07-31-2022 Erythrocyte distribution width (RBC) [Entitic vol] 41.6 fL 35.1-43.9 [facility] Erythrocyte distribution width (RBC) [Ratio] 12.7 % 11.6-14.[address] [facility] Immature granulocytes/100 WBC (Bld) 0.400 % 0.0-0.[address] [facility] Comment on above: IG% - Immature Granu locytes (promyelocytes, myelocytes and metamyelocytes) > 1% indicates that a LEFT SHIFT is Present. MCH (RBC) [Entitic mass] 29.8 pg 27.0-32.[address] [facility] Nucleated RBC/100 WBC (Bld) [Ratio] 0 % 0-[address] [facility] MCHC Auto (RBC) [Mass/Vol]Or dered By: Cece Murray on 07-31-2022 MCHC (RBC) [Mass/Vol] 32.8 g/dL 32-36 [facility] Platelets bldOrdered By: Debo Murray on 07-31-2022 Platelets (Bld) [#/Vol] 183 10*3/uL 150-[address] [facility] Absolute lymphocyte countOrd ered By: Dr. Sandhu on 07-30-2022 Lymphocytes Auto (Unsp spec) [#/Vol] 1.25 10*3/uL 0.83-4.[address] [facility] Basophil percentageOrdered B y: Dr. Sandhu on 07-30-2022 Basophils/100 WBC (Bld) 0.2 % 0-1 [facility] Eosinophils/100 WBC (Bld) 0.5 % 0-[address] [facility] Neutrophils (Bld) [#/Vol] 8.0 10*3/uL 2.0-7.[address] [facility] Neutrophils/100 WBC (Bld) 78.2 % 47-[address] [facility] WBC (Bld) [#/Vol] 10.2 10*3/uL 4.4-11.0 [facility] Blood erythrocytes count (nu mber/volume)Ordered By: Dr. Sandhu on 07-30-2022 RBC (Bld) [#/Vol] 3.67 10*6/uL 4.6-6.2 [facility] Blood hemoglobin measurement (mass/volume)Ordered By: Dr. Sandhu on 07-30-2022 Hemoglobin (Bld) [Mass/Vol] 10.9 g/dL 13.0-16.[address] [facility] Blood lymphocytes/100 leukoc ytesOrdered By: Dr. Sandhu on 07-30-2022 Lymphocytes/100 WBC (Bld) 12.2 % 19-[address] [facility] Blood monocytes/100 leukocyt esOrdered By: Dr. Sandhu on 07-30-2022 Monocytes/100 WBC (Bld) 8.5 % 0-10 [facility] Blood platelet mean volumeOr dered By: Dr. Sandhu on 07-30-2022 Platelet mean volume (Bld) [Entitic vol] 9.9 fL 6.2-12.[address] [facility] Determination of erythrocyte mean corpuscular volume (MCV)Ordered By: Dr. Sandhu on 07-30-2022 MCV (RBC) [Entitic vol] 92.9 fL 80-94 [facility] Hematocrit Auto (Bld) [Volum e fraction]Ordered By: Dr. Sandhu on 07-30-2022 Hematocrit (Bld) [Volume fraction] 34.1 % 40-[address] [facility] Laboratory - Hematology and Cell countsOrdered By: Dr. Sandhu on 07-30-2022 Erythrocyte distribution width (RBC) [Entitic vol] 44.0 fL 35.1-43.9 [facility] Erythrocyte distribution width (RBC) [Ratio] 13.0 % 11.6-14.[address] [facility] Immature granulocytes/100 WBC (Bld) 0.400 % 0.0-0.[address] [facility] Comment on above: IG% - Immature Granu locytes (promyelocytes, myelocytes and metamyelocytes) > 1% indicates that a LEFT SHIFT is Present. MCH (RBC) [Entitic mass] 29.7 pg 27.0-32.[address] [facility] Nucleated RBC/100 WBC (Bld) [Ratio] 0 % 0-[address] [facility] MCHC Auto (RBC) [Mass/Vol]Or dered By: Dr. Sandhu on 07-30-2022 MCHC (RBC) [Mass/Vol] 32.0 g/dL 32-36 [facility] Platelets bldOrdered By: Dr. Sandhu on 07-30-2022 Platelets (Bld) [#/Vol] 159 10*3/uL 150-[address] [facility] Basophil percentageOrdered B y: Dr. Sandhu on 07-29-2022 Chloride [Moles/Vol] 108 mmol/L 98-107 [facility] Glucose [Mass/Vol] 115 mg/dL 74-106 [facility] Comment on above: Fasting Glucose resu lt from 100 to 125 mg/dL suggests IMPAIRED HOMEOSTASIS per A.D.A. criteria. Potassium [Moles/Vol] 4.2 mmol/L 3.5-5.1 [facility] Sodium [Moles/Vol] 140 mmol/L 136-145 [facility] Laboratory - Chemistry and C hemistry - challengeOrdered By: Dr. Sandhu on 07-29-2022 CO2 [Moles/Vol] 25.0 mmol/L 21.0-32.[address] [facility] Urea nitrogen/Creatinine [Mass ratio] 10.7 mg/mg 10-[address] [facility] No Panel InformationOrdered By: Dr. Sandhu on 07-29-2022 Estimated Creatinine Clearance Calc 63.13 ml/min [facility] Estimated GFR (MDRD) Amer 84 mL/min >[address] [facility] Comment on above: GFR Calc Estimated GFR (MDRD) Non-Af Amer 69 mL/min >[address] [facility] Comment on above: Non- GFR Calc Serum or plasma calcium alpesh urement (mass/volume)Ordered By: Dr. Sandhu on 07-29-2022 Calcium [Mass/Vol] 8.9 mg/dL 8.5-10.1 [facility] Serum or plasma creatinine m easurement (mass/volume)Ordered By: Dr. Sandhu on 07-29-2022 Creatinine [Mass/Vol] 1.12 mg/dL 0.70-1.30 [facility] Comment on above: The validity of the calculated GFR & GFRAA in patients over 70 years has not been determined. Clinical correlation is essential. Serum or plasma urea nitroge n measurement (mass/volume)Ordered By: Dr. Sandhu on 07-29-2022 Urea nitrogen [Mass/Vol] 12 mg/dL 7-[address] [facility] Thin prep Papanicolaou smear with manual screeningOrdered By: Dr. Sandhu on 07-29-2022 Thin prep Papanicolaou smear with manual screening 7 5-[address] [facility] Glucose Glucometer (BldC) [M ass/Vol]Ordered By: Dr. Sandhu on 07-28-2022 Glucose [Mass/Vol] 98 mg/dL 74-106 [facility] Comment on above: MANAGEMENT OF PATIEN T CARE PER NURSING PROTOCOL Laboratory - Chemistry and C hemistry - challengeOrdered By: Dr. Mcclelland on 07-22-2022 Magnesium [Mass/Vol] 2.0 mg/dL 1.6-2.6 [facility] Absolute lymphocyte countOrd ered By: Dr. Cintron on 04-01-2022 Lymphocytes Auto (Unsp spec) [#/Vol] 1.51 10*3/uL 0.83-4.[address] [facility] Basophil percentageOrdered B y: Dr. Cintron on 04-01-2022 Basophil percentage 0-5 SEEN /hpf 0-5 [facility] Basophils/100 WBC (Bld) 0.4 % 0-1 [facility] Chloride [Moles/Vol] 106 mmol/L 98-107 [facility] Eosinophils/100 WBC (Bld) 0.4 % 0-[address] [facility] Glucose [Mass/Vol] 121 mg/dL 74-106 [facility] Comment on above: Fasting Glucose resu lt from 100 to 125 mg/dL suggests IMPAIRED HOMEOSTASIS per A.D.A. criteria. Neutrophils (Bld) [#/Vol] 5.8 10*3/uL 2.0-7.[address] [facility] Neutrophils/100 WBC (Bld) 70.5 % 47-[address] [facility] Potassium [Moles/Vol] 3.6 mmol/L 3.5-5.1 [facility] Sodium [Moles/Vol] 140 mmol/L 136-145 [facility] WBC (Bld) [#/Vol] 8.2 10*3/uL 4.4-11.0 [facility] Bilirubin Test strip Ql (U)O rdered By: Dr. Cintron on 04-01-2022 Bilirubin Ql (U) Negative Negative [facility] Blood erythrocytes count (nu mber/volume)Ordered By: Dr. Cintron on 04-01-2022 RBC (Bld) [#/Vol] 5.15 10*6/uL 4.6-6.2 [facility] Blood hemoglobin measurement (mass/volume)Ordered By: Dr. Cintron on 04-01-2022 Hemoglobin (Bld) [Mass/Vol] 15.3 g/dL 13.0-16.[address] [facility] Blood lymphocytes/100 leukoc ytesOrdered By: Dr. Cintron on 04-01-2022 Lymphocytes/100 WBC (Bld) 18.4 % 19-[address] [facility] Blood monocytes/100 leukocyt esOrdered By: Dr. Cintron on 04-01-2022 Monocytes/100 WBC (Bld) 9.9 % 0-10 [facility] Blood platelet mean volumeOr dered By: Dr. Cintron on 04-01-2022 Platelet mean volume (Bld) [Entitic vol] 9.7 fL 6.2-12.[address] [facility] Determination of erythrocyte mean corpuscular volume (MCV)Ordered By: Dr. Cintron on 04-01-2022 MCV (RBC) [Entitic vol] 86.4 fL 80-94 [facility] Hematocrit Auto (Bld) [Volum e fraction]Ordered By: Dr. Cintron on 04-01-2022 Hematocrit (Bld) [Volume fraction] 44.5 % 40-[address] [facility] Ketones Test strip Ql (U)Ord ered By: Dr. Cintron on 04-01-2022 Ketones Ql (U) 5 mg/dl Negative [facility] Laboratory - Chemistry and C hemistry - challengeOrdered By: Dr. Cintron on 04-01-2022 CO2 [Moles/Vol] 27.0 mmol/L 21.0-32.[address] [facility] Urea nitrogen/Creatinine [Mass ratio] 11.6 mg/mg 10-[address] [facility] Laboratory - Hematology and Cell countsOrdered By: Dr. Cintron on 04-01-2022 Erythrocyte distribution width (RBC) [Entitic vol] 38.5 fL 35.1-43.9 [facility] Erythrocyte distribution width (RBC) [Ratio] 12.1 % 11.6-14.[address] [facility] Immature granulocytes/100 WBC (Bld) 0.400 % 0.0-0.[address] [facility] Comment on above: IG% - Immature Granu locytes (promyelocytes, myelocytes and metamyelocytes) > 1% indicates that a LEFT SHIFT is Present. MCH (RBC) [Entitic mass] 29.7 pg 27.0-32.[address] [facility] Nucleated RBC/100 WBC (Bld) [Ratio] 0 % 0-[address] [facility] MCHC Auto (RBC) [Mass/Vol]Or dered By: Dr. Cintron on 04-01-2022 MCHC (RBC) [Mass/Vol] 34.4 g/dL 32-36 [facility] Mucus LM Ql (Urine sed)Order ed By: Dr. Cintron on 04-01-2022 Mucus Ql (Urine sed) 0 SEEN /hpf [facility] Nitrite Test strip Ql (U)Ord ered By: Dr. Cintron on 04-01-2022 Nitrite Ql (U) Negative Negative [facility] No Panel InformationOrdered By: Dr. Cintron on 04-01-2022 Estimated Creatinine Clearance Calc 59.24 ml/min [facility] Estimated GFR (MDRD) Amer 77 mL/min >[address] [facility] Comment on above: GFR Calc Estimated GFR (MDRD) Non-Af Amer 63 mL/min >[address] [facility] Comment on above: Non- GFR Calc Platelets bldOrdered By: Dr. Cintron on 04-01-2022 Platelets (Bld) [#/Vol] 192 10*3/uL 150-[address] [facility] Protein Test strip Ql (U)Ord ered By: Dr. Cintron on 04-01-2022 Protein Ql (U) 100 mg/dl Negative [facility] Serum or plasma calcium alpesh urement (mass/volume)Ordered By: Dr. Cintron on 04-01-2022 Calcium [Mass/Vol] 10.0 mg/dL 8.5-10.1 [facility] Serum or plasma creatinine m easurement (mass/volume)Ordered By: Dr. Cintron on 04-01-2022 Creatinine [Mass/Vol] 1.21 mg/dL 0.70-1.30 [facility] Comment on above: The validity of the calculated GFR & GFRAA in patients over 70 years has not been determined. Clinical correlation is essential. Serum or plasma urea nitroge n measurement (mass/volume)Ordered By: Dr. Cintron on 04-01-2022 Urea nitrogen [Mass/Vol] 14 mg/dL 7-[address] [facility] Squamous epithelial cells de tection in urine sediment by light microscopyOrdered By: Dr. Cintron on 04-01-2022 Epithelial cells.squamous LM Ql (Urine sed) 0 SEEN /hpf 0-[address] [facility] Thin prep Papanicolaou smear with manual screeningOrdered By: Dr. Cintron on 04-01-2022 Thin prep Papanicolaou smear with manual screening 7 5-[address] [facility] Urine blood detectionOrdered By: Dr. Cintron on 04-01-2022 RBC Ql (U) 250 /ul Negative [facility] RBC Ql (U) 25-50 SEEN /hpf 0-[address] [facility] Urine clarityOrdered By: Dr. Cintron on 04-01-2022 Clarity (U) Clear Clear [facility] Urine color determinationOrd ered By: Dr. Cintron on 04-01-2022 Color (U) Yellow Yellow [facility] Urine glucose detectionOrder ed By: Dr. Cintron on 04-01-2022 Glucose Ql (U) Normal mg/dl Normal [facility] Urine leukocyte esterase det ection by dipstickOrdered By: Dr. Cintron on 04-01-2022 Leukocyte esterase Test strip Ql (U) 25 /ul Negative [facility] Urine pHOrdered By: Dr. Boyd russell on 04-01-2022 pH (U) 7.0 [pH] 5.0 - 8.[address] [facility] Urine sediment bacteria coun t by microscopy (number/high power field)Ordered By: Dr. Cintron on 04-01-2022 Bacteria LM.HPF (Urine sed) [#/Area] 0 /[HPF] None Seen [facility] Urine specific gravity measu rementOrdered By: Dr. Cintron on 04-01-2022 Specific gravity (U) [Rel density] 1.010 1.002-1.[address] [facility] Urobilinogen Auto test strip Ql (U)Ordered By: Dr. Cintron on 04-01-2022 Urobilinogen Ql (U) Normal mg/dl Normal [facility] Basophil percentageon 2021 Bilirubin [Mass/Vol] 0.40 mg/dL 0.20-1.00 [facility] Work Phone: Comment on above: For patients on eltr ombopag therapy, use of Dimension [place] TBIL is not recommended. Chloride [Moles/Vol] 109 mmol/L 98-107 [facility] Work Phone: Glucose [Mass/Vol] 111 mg/dL 74-106 [facility] Work Phone: Comment on above: Fasting Glucose resu lt from 100 to 125 mg/dL suggests IMPAIRED HOMEOSTASIS per A.D.A. criteria. Potassium [Moles/Vol] 4.2 mmol/L 3.5-5.1 [facility] Work Phone: Protein [Mass/Vol] 6.5 g/dL 6.4-8.2 [facility] Work Phone: Sodium [Moles/Vol] 141 mmol/L 136-145 [facility] Work Phone: WBC (Bld) [#/Vol] 5.5 10*3/uL 4.4-11.0 [facility] Work Phone: Blood erythrocytes count (nu mber/volume)on 03-17-2022 RBC (Bld) [#/Vol] 4.77 10*6/uL 4.6-6.2 [facility] Work Phone: Blood hemoglobin measurement (mass/volume)on 03-17-2022 Hemoglobin (Bld) [Mass/Vol] 14.5 g/dL 13.0-16.[address] [facility] Work Phone: Blood platelet mean volumeon 03-17-2022 Platelet mean volume (Bld) [Entitic vol] 10.1 fL 6.2-12.[address] [facility] Work Phone: [phone] Determination of erythrocyte mean corpuscular volume (MCV)on 03-17-2022 MCV (RBC) [Entitic vol] 89.1 fL 80-94 [facility] Work Phone: [phone] Erythrocyte sedimentation ra beth 03-17-2022 ESR (Bld) [Velocity] 2 mm/h 0-20 [facility] Work Phone: Hematocrit Auto (Bld) [Volum e fraction]on 03-17-2022 Hematocrit (Bld) [Volume fraction] 42.5 % 40-[address] [facility] Work Phone: Laboratory - Chemistry and C hemistry - challengeon 03-17-2022 ALP [Catalytic activity/Vol] 49 U/L 45-[address] [facility] Work Phone: ALT [Catalytic activity/Vol] 45 U/L 16-[address] [facility] Work Phone: [phone] CO2 [Moles/Vol] 26.0 mmol/L 21.0-32.[address] [facility] Work Phone: [phone] Globulin (S) [Mass/Vol] 2.7 g/dL 2.2-4.2 [facility] Work Phone: [phone] Urea nitrogen/Creatinine [Mass ratio] 11.4 mg/mg 10-[address] [facility] Work Phone: Laboratory - Hematology and Cell countson 03-17-2022 Erythrocyte distribution width (RBC) [Entitic vol] 40.4 fL 35.1-43.9 [facility] Work Phone: [phone] Erythrocyte distribution width (RBC) [Ratio] 12.4 % 11.6-14.[address] [facility] Work Phone: [phone] MCH (RBC) [Entitic mass] 30.4 pg 27.0-32.[address] [facility] Work Phone: [phone] MCHC Auto (RBC) [Mass/Vol]on 03-17-2022 MCHC (RBC) [Mass/Vol] 34.1 g/dL 32-36 [facility] Work Phone: [phone] Panel Informationon 03-17 Estimated GFR (MDRD) Amer 90 mL/min >[address] [facility] Work Phone: [phone] Comment on above: GFR Calc Estimated GFR (MDRD) Non-Af Amer 75 mL/min >[address] [facility] Work Phone: [phone] Comment on above: Non- GFR Calc Platelets bldon 03-17-2022 Platelets (Bld) [#/Vol] 186 10*3/uL 150-[address] [facility] Work Phone: [phone] Serum or plasma C reactive p rotein measurement (mass/volume)on 03-17-2022 CRP [Mass/Vol] mg/L 0.0-3.[address] [facility] Work Phone: Comment on above: C-Reactive Protein ( CRP) provides useful information for thediagnosis, therapy and monitoring of inflammatory processesand associated diseases. For the evaluation of Relative Riskfor Cardiovascular Disease, a High Sensitivity CRP (HSCRP)should be ordered. Serum or plasma albumin alpesh urement (mass/volume)on 03-17-2022 Albumin [Mass/Vol] 3.8 g/dL 3.2-5.0 [facility] [facility] Work Phone: [phone] Serum or plasma albumin/glob ulin mass ratioon 03-17-2022 Albumin/Globulin [Mass ratio] 1.4 {ratio} 0.9-2.[address] [facility] Work Phone: [phone] Serum or plasma calcium alpesh urement (mass/volume)on 03-17-2022 Calcium [Mass/Vol] 9.0 mg/dL 8.5-10.1 [facility] Work Phone: Serum or plasma creatinine m easurement (mass/volume)on 03-17-2022 Creatinine [Mass/Vol] 1.05 mg/dL 0.70-1.30 [facility] Work Phone: Comment on above: The validity of the calculated GFR & GFRAA in patients over 70 years has not been determined. Clinical correlation is essential. Serum or plasma urea nitroge n measurement (mass/volume)on 03-17-2022 Urea nitrogen [Mass/Vol] 12 mg/dL 7-[address] [facility] Work Phone: Thin prep Papanicolaou smear with manual screeningon 03-17-2022 Thin prep Papanicolaou smear with manual screening 26 U/L 15-[address] [facility] Work Phone: Thin prep Papanicolaou smear with manual screening 6 5-[address] [facility] Work Phone: Absolute lymphocyte counton 01-13-2022 Lymphocytes Auto (Unsp spec) [#/Vol] 0.44 10*3/uL 0.83-4.[address] [facility] Work Phone: Basophil percentageon 2021 Basophils/100 WBC (Bld) 0.2 % 0-1 [facility] Work Phone: Bilirubin [Mass/Vol] 0.60 mg/dL 0.20-1.00 [facility] Work Phone: Comment on above: For patients on eltr ombopag therapy, use of Dimension [place] TBIL is not recommended. Chloride [Moles/Vol] 108 mmol/L 98-107 [facility] Work Phone: Eosinophils/100 WBC (Bld) 0.1 % 0-[address] [facility] Work Phone: Glucose [Mass/Vol] 117 mg/dL 74-106 [facility] Work Phone: Comment on above: Fasting Glucose resu lt from 100 to 125 mg/dL suggests IMPAIRED HOMEOSTASIS per A.D.A. criteria. Lactate [Moles/Vol] 1.3 mmol/L 0.4-2.0 [facility] Work Phone: Neutrophils (Bld) [#/Vol] 8.6 10*3/uL 2.0-7.[address] [facility] Work Phone: Neutrophils/100 WBC (Bld) 91.0 % 47-[address] [facility] Work Phone: Potassium [Moles/Vol] 3.7 mmol/L 3.5-5.1 [facility] Work Phone: Protein [Mass/Vol] 6.9 g/dL 6.4-8.2 [facility] Work Phone: Sodium [Moles/Vol] 141 mmol/L 136-145 [facility] Work Phone: WBC (Bld) [#/Vol] 9.5 10*3/uL 4.4-11.0 [facility] Work Phone: Blood erythrocytes count (nu mber/volume)on 01-13-2022 RBC (Bld) [#/Vol] 4.77 10*6/uL 4.6-6.2 [facility] Work Phone: Blood hemoglobin measurement (mass/volume)on 01-13-2022 Hemoglobin (Bld) [Mass/Vol] 14.3 g/dL 13.0-16.[address] [facility] Work Phone: Blood lymphocytes/100 leukoc yteson 01-13-2022 Lymphocytes/100 WBC (Bld) 4.6 % 19-[address] [facility] Work Phone: Blood manual differential co mment interpretation (narrative result)on 01-13-2022 Manual differential comment Franc (Bld) [Interp] COMMENT [facility] Work Phone: Comment on above: LYMPHOPENIA. Blood monocytes/100 leukocyt eson 01-13-2022 Monocytes/100 WBC (Bld) 3.7 % 0-10 [facility] Work Phone: Blood platelet mean volumeon 01-13-2022 Platelet mean volume (Bld) [Entitic vol] 10.1 fL 6.2-12.[address] [facility] Work Phone: Determination of erythrocyte mean corpuscular volume (MCV)on 01-13-2022 MCV (RBC) [Entitic vol] 86.8 fL 80-94 [facility] Work Phone: Direct bilirubinon Bilirubin.direct [Mass/Vol] 0.14 mg/dL 0.00-0.[address] [facility] Work Phone: Hematocrit Auto (Bld) [Volum e fraction]on 01-13-2022 Hematocrit (Bld) [Volume fraction] 41.4 % 40-[address] [facility] Work Phone: Laboratory - Chemistry and C hemistry - challengeon 01-13-2022 ALP [Catalytic activity/Vol] 59 U/L 45-[address] [facility] Work Phone: ALT [Catalytic activity/Vol] 36 U/L 16-[address] [facility] Work Phone: CO2 [Moles/Vol] 24.0 mmol/L 21.0-32.[address] [facility] Work Phone: [phone] Globulin (S) [Mass/Vol] 3.2 g/dL 2.2-4.2 [facility] Work Phone: Natriuretic peptide B (Bld) [Mass/Vol] 16.4 pg/mL 0-[address] [facility] Work Phone: Urea nitrogen/Creatinine [Mass ratio] 15.3 mg/mg 10-[address] [facility] Work Phone: Laboratory - Hematology and Cell countson 01-13-2022 Erythrocyte distribution width (RBC) [Entitic vol] 38.5 fL 35.1-43.9 [facility] Work Phone: Erythrocyte distribution width (RBC) [Ratio] 12.1 % 11.6-14.[address] [facility] Work Phone: Immature granulocytes/100 WBC (Bld) 0.400 % 0.0-0.[address] [facility] Work Phone: Comment on above: IG% - Immature Granu locytes (promyelocytes, myelocytes and metamyelocytes) > 1% indicates that a LEFT SHIFT is Present. MCH (RBC) [Entitic mass] 30.0 pg 27.0-32.[address] [facility] Work Phone: Nucleated RBC/100 WBC (Bld) [Ratio] 0 % 0-[address] [facility] Work Phone: MCHC Auto (RBC) [Mass/Vol]on 01-13-2022 MCHC (RBC) [Mass/Vol] 34.5 g/dL 32-36 [facility] Work Phone: No Panel Informationon 01-13 Estimated Creatinine Clearance Calc 64.58 ml/min [facility] Work Phone: Estimated GFR (MDRD) Amer 85 mL/min >[address] [facility] Work Phone: Comment on above: GFR Calc Estimated GFR (MDRD) Non-Af Amer 70 mL/min >[address] [facility] Work Phone: Comment on above: Non- GFR Calc Troponin I High Sensitivity 7 pg/mL 3.0-78.[address] [facility] Work Phone: Comment on above: Please Note: [place] Units and Gender Specific Reference Ranges. For more information see Policy Stat Procedure [place] High Sensitivity Troponin (TNIH) and attachments. Platelets bldon 01-13-2022 Platelets (Bld) [#/Vol] 167 10*3/uL 150-[address] [facility] Work Phone: [phone] Serum or plasma albumin alpesh urement (mass/volume)on 01-13-2022 Albumin [Mass/Vol] 3.7 g/dL 3.2-5.0 [facility] Work Phone: [phone] Serum or plasma calcium alpesh urement (mass/volume)on 01-13-2022 Calcium [Mass/Vol] 9.3 mg/dL 8.5-10.1 [facility] Work Phone: Serum or plasma creatinine m easurement (mass/volume)on 01-13-2022 Creatinine [Mass/Vol] 1.11 mg/dL 0.70-1.30 [facility] Work Phone: Comment on above: The validity of the calculated GFR & GFRAA in patients over 70 years has not been determined. Clinical correlation is essential. Serum or plasma urea nitroge n measurement (mass/volume)on 01-13-2022 Urea nitrogen [Mass/Vol] 17 mg/dL 7-[address] [facility] Work Phone: Thin prep Papanicolaou smear with manual screeningon 01-13-2022 Thin prep Papanicolaou smear with manual screening 30 U/L 15-[address] [facility] Work Phone: Thin prep Papanicolaou smear with manual screening 9 5-[address] [facility] Work Phone: Erythrocyte sedimentation ra beth 01-06-2022 ESR (Bld) [Velocity] 3 mm/h 0-20 [facility] Work Phone: Serum or plasma C reactive p rotein measurement (mass/volume)on 01-06-2022 CRP [Mass/Vol] mg/L 0.0-3.[address] [facility] Work Phone: Comment on above: C-Reactive Protein ( CRP) provides useful information for thediagnosis, therapy and monitoring of inflammatory processesand associated diseases. For the evaluation of Relative Riskfor Cardiovascular Disease, a High Sensitivity CRP (HSCRP)should be ordered. Basophil percentageon 2021 Basophil percentage 5-10 SEEN /hpf 0-5 [facility] Work Phone: Bilirubin Test strip Ql (U)o n 12-23-2021 Bilirubin Ql (U) 3 mg/dL Negative [facility] Work Phone: Comment on above: COLOR OF URINE MAY A FFECT DIPSTICK RESULTS. Calcium oxalate crystals det ection in urine sediment by light microscopyon 12-23-2021 Calcium oxalate crystals LM Ql (Urine sed) 3+ /hpf [facility] Work Phone: Ketones Test strip Ql (U)on 12-23-2021 Ketones Ql (U) 5 mg/dl Negative [facility] Work Phone: Mucus LM Ql (Urine sed)on Mucus Ql (Urine sed) 2+ /hpf [facility] Work Phone: Nitrite Test strip Ql (U)on 12-23-2021 Nitrite Ql (U) Negative Negative [facility] Work Phone: Protein Test strip Ql (U)on 12-23-2021 Protein Ql (U) 30 mg/dl Negative [facility] Work Phone: Squamous epithelial cells de tection in urine sediment by light microscopyon 12-23-2021 Epithelial cells.squamous LM Ql (Urine sed) 0 SEEN /hpf 0-[address] [facility] Work Phone: Urine blood detectionon 11-29 RBC Ql (U) 10 /ul Negative [facility] Work Phone: RBC Ql (U) 5-10 SEEN /hpf 0-[address] [facility] Work Phone: Urine clarityon 12-23-2021 Clarity (U) Clear Clear [facility] Work Phone: Urine color determinationon 12-23-2021 Color (U) Yellow Yellow [facility] Work Phone: Urine glucose detectionon Glucose Ql (U) Normal mg/dl Normal [facility] Work Phone: Urine leukocyte esterase det ection by dipstickon 12-23-2021 Leukocyte esterase Test strip Ql (U) 100 /ul Negative [facility] Work Phone: Urine pHon 12-23-2021 pH (U) 6.0 [pH] 5.0 - 8.[address] [facility] Work Phone: Urine sediment bacteria coun t by microscopy (number/high power field)on 12-23-2021 Bacteria LM.HPF (Urine sed) [#/Area] 1 /[HPF] None Seen [facility] Work Phone: Urine specific gravity measu rementon 12-23-2021 Specific gravity (U) [Rel density] 1.025 1.002-1.[address] [facility] Work Phone: Urobilinogen Auto test strip Ql (U)on 12-23-2021 Urobilinogen Ql (U) 1 mg/dl Normal [facility] Work Phone: Absolute lymphocyte counton 08-21-2021 Lymphocytes Auto (Unsp spec) [#/Vol] 0.99 10*3/uL 0.83-4.[address] [facility] Work Phone: Basophil percentageon 2021 Basophil percentage 1.9 mg/dL 2.5-4.9 [facility] Work Phone: Basophils/100 WBC (Bld) 0.2 % 0-1 [facility] Work Phone: Bilirubin [Mass/Vol] 0.60 mg/dL 0.20-1.00 [facility] Work Phone: Comment on above: For patients on eltr ombopag therapy, use of Dimension [place] TBIL is not recommended. Chloride [Moles/Vol] 109 mmol/L 98-107 [facility] Work Phone: Cholesterol [Mass/Vol] 122 mg/dL <200 [facility] Work Phone: Comment on above: <200 mg/dL Desirable 200-240 mg/dL Borderline >240 mg/dL High Risk Eosinophils/100 WBC (Bld) 0.1 % 0-[address] [facility] Work Phone: Glucose [Mass/Vol] 109 mg/dL 74-106 [facility] Work Phone: Comment on above: Fasting Glucose resu lt from 100 to 125 mg/dL suggests IMPAIRED HOMEOSTASIS per A.D.A. criteria. Neutrophils (Bld) [#/Vol] 7.7 10*3/uL 2.0-7.[address] [facility] Work Phone: Neutrophils/100 WBC (Bld) 79.9 % 47-[address] [facility] Work Phone: [phone] Potassium [Moles/Vol] 4.0 mmol/L 3.5-5.1 [facility] Work Phone: [phone] Protein [Mass/Vol] 6.2 g/dL 6.4-8.2 [facility] Work Phone: [phone] Sodium [Moles/Vol] 139 mmol/L 136-145 [facility] Work Phone: [phone] Triglyceride [Mass/Vol] 116 mg/dL <199 [facility] Work Phone: [phone] Comment on above: The drugs N-Acetylcy steine and Metamizole may falsely depress this assay.Serum Triglycerides Reference Interval Normal <150 mg/dL Borderline high 150 - 199 mg/dL High 200 - 499 mg/dL Very High > or = 500 mg/dL WBC (Bld) [#/Vol] 9.6 10*3/uL 4.4-11.0 [facility] Work Phone: [phone] Blood erythrocytes count (nu mber/volume)on 08-21-2021 RBC (Bld) [#/Vol] 4.44 10*6/uL 4.6-6.2 [facility] Work Phone: [phone] Blood hemoglobin measurement (mass/volume)on 08-21-2021 Hemoglobin (Bld) [Mass/Vol] 13.0 g/dL 13.0-16.[address] [facility] Work Phone: [phone] Blood lymphocytes/100 leukoc yteson 08-21-2021 Lymphocytes/100 WBC (Bld) 10.3 % 19-[address] [facility] Work Phone: [phone] Blood monocytes/100 leukocyt eson 08-21-2021 Monocytes/100 WBC (Bld) 9.2 % 0-10 [facility] Work Phone: Blood platelet mean volumeon 08-21-2021 Platelet mean volume (Bld) [Entitic vol] 9.4 fL 6.2-12.[address] [facility] Work Phone: [phone] Determination of erythrocyte mean corpuscular volume (MCV)on 08-21-2021 MCV (RBC) [Entitic vol] 86.0 fL 80-94 [facility] Work Phone: [phone] Hematocrit Auto (Bld) [Volum e fraction]on 08-21-2021 Hematocrit (Bld) [Volume fraction] 38.2 % 40-[address] [facility] Work Phone: [phone] Laboratory - Chemistry and C hemistry - challengeon 08-21-2021 ALP [Catalytic activity/Vol] 62 U/L 45-[address] [facility] Work Phone: [phone] ALT [Catalytic activity/Vol] 40 U/L 16-[address] [facility] Work Phone: [phone] CO2 [Moles/Vol] 25.0 mmol/L 21.0-32.[address] [facility] Work Phone: [phone] Globulin (S) [Mass/Vol] 2.9 g/dL 2.2-4.2 [facility] Work Phone: [phone] Magnesium [Mass/Vol] 2.0 mg/dL 1.6-2.6 [facility] Work [facility]: [phone] Urea nitrogen/Creatinine [Mass ratio] 19.6 mg/mg 10-[address] [facility] Work Phone: [phone] Laboratory - Hematology and Cell countson 08-21-2021 Erythrocyte distribution width (RBC) [Entitic vol] 39.5 fL 35.1-43.9 [facility] Work Phone: [phone] Erythrocyte distribution width (RBC) [Ratio] 12.5 % 11.6-14.[address] [facility] Work Phone: [phone] Immature granulocytes/100 WBC (Bld) 0.300 % 0.0-0.[address] [facility] Work Phone: [phone] Comment on above: IG% - Immature Granu locytes (promyelocytes, myelocytes and metamyelocytes) > 1% indicates that a LEFT SHIFT is Present. MCH (RBC) [Entitic mass] 29.3 pg 27.0-32.[address] [facility] Work Phone: [phone] Nucleated RBC/100 WBC (Bld) [Ratio] 0 % 0-[address] [facility] Work Phone: [phone] MCHC Auto (RBC) [Mass/Vol]on 08-21-2021 MCHC (RBC) [Mass/Vol] 34.0 g/dL 32-36 [facility] Work Phone: No Panel Informationon 08-21 Estimated Creatinine Clearance Calc 77.92 ml/min [facility] Work Phone: [phone] Estimated GFR (MDRD) Amer 106 mL/min >[address] [facility] Work Phone: [phone] Comment on above: GFR Calc Estimated GFR (MDRD) Non-Af Amer 87 mL/min >[address] [facility] Work Phone: [phone] Comment on above: Non- GFR Calc Platelets bldon 08-21-2021 Platelets (Bld) [#/Vol] 169 10*3/uL 150-[address] [facility] Work Phone: [phone] Serum or plasma albumin alpesh urement (mass/volume)on 08-21-2021 Albumin [Mass/Vol] 3.3 g/dL 3.2-5.0 [facility] Work Phone: [phone] Serum or plasma albumin/glob ulin mass ratioon 08-21-2021 Albumin/Globulin [Mass ratio] 1.1 {ratio} 0.9-2.[address] [facility] Work Phone: [phone] Serum or plasma calcium alpesh urement (mass/volume)on 08-21-2021 Calcium [Mass/Vol] 8.5 mg/dL 8.5-10.1 [facility] Work Phone: [phone] Serum or plasma cholesterol in HDL measurement (mass/volume)on 08-21-2021 Cholesterol in HDL [Mass/Vol] 45 mg/dL >[address] [facility] Work Phone: [phone] Comment on above: The drugs N-Acetylcy steine and Metamizole may falsely depress this assay. Reference Range HDL <40 mg/dL Low HDL Cholesterol HDL >or= 60 mg/dL High HDL Cholesterol Serum or plasma cholesterol in VLDL measurement (mass/volume)on 08-21-2021 Cholesterol in VLDL [Mass/Vol] 23 mg/dL 5-[address] [facility] Work Phone: Serum or plasma creatinine m easurement (mass/volume)on 08-21-2021 Creatinine [Mass/Vol] 0.92 mg/dL 0.70-1.30 [facility] Work Phone: Comment on above: The validity of the calculated GFR & GFRAA in patients over 70 years has not been determined. Clinical correlation is essential. Serum or plasma low density lipoprotein (LDL) cholesterol measurement (mass/volume)on 08-21-2021 Cholesterol in LDL [Mass/Vol] 54 mg/dL 0-[address] [facility] Work Phone: Serum or plasma urea nitroge n measurement (mass/volume)on 08-21-2021 Urea nitrogen [Mass/Vol] 18 mg/dL 7-[address] [facility] Work Phone: Thin prep Papanicolaou smear with manual screeningon 08-21-2021 Thin prep Papanicolaou smear with manual screening 101 U/L 15-[address] [facility] Work Phone: Thin prep Papanicolaou smear with manual screening 5 5-[address] [facility] Work Phone: INR in Blood by Coagulation assayon 08-20-2021 INR Coag (Bld) [Relative time] 1.0 {INR} [facility] Work Phone: Laboratory - Coagulationon 0 08-20-2021 aPTT Coag (Bld) [Time] 25.0 [facility] Work Phone: PT Coag (PPP) [Time] 12.9 s 11.7-14.9 [facility] Work Phone: No Panel Informationon 08-20 Troponin I High Sensitivity 15 pg/mL 3.0-78.[address] [facility] Work Phone: Comment on above: Please Note: [place] Units and Gender Specific Reference Ranges. For more information see Policy Stat Procedure [place] High Sensitivity Troponin (TNIH) and attachments. No Panel Informationon 07-22 Prostate Specific Antigen Screen 2.38 ng/mL 0.00-4.[address] [facility] Work Phone: Comment on above: This test was perfor med using the TPSA assay method for the[employer] chemistry system. Values obtained with differentassay methods cannot be used interchangably.When changing PSA assays in the course of monitoring apatient, additional sequential testing should be carriedout to confirm baseline values. Absolute lymphocyte counton 06-06-2021 Lymphocytes Auto (Unsp spec) [#/Vol] 1.45 10*3/uL 0.83-4.[address] [facility] Work Phone: Basophil percentageon 2021 Basophils/100 WBC (Bld) 0.5 % 0-1 [facility] Work Phone: [phone] Bilirubin [Mass/Vol] 0.60 mg/dL 0.20-1.00 [facility] Work Phone: Comment on above: For patients on eltr ombopag therapy, use of Dimension [place] TBIL is not recommended. Chloride [Moles/Vol] 107 mmol/L 98-107 [facility] Work Phone: Cholesterol [Mass/Vol] 128 mg/dL <200 [facility] Work Phone: Comment on above: <200 mg/dL Desirable 200-240 mg/dL Borderline >240 mg/dL High Risk Eosinophils/100 WBC (Bld) 2.7 % 0-[address] [facility] Work Phone: Glucose [Mass/Vol] 102 mg/dL 74-106 [facility] Work Phone: Comment on above: Fasting Glucose resu lt from 100 to 125 mg/dL suggests IMPAIRED HOMEOSTASIS per A.D.A. criteria. Neutrophils (Bld) [#/Vol] 3.3 10*3/uL 2.0-7.[address] [facility] Work Phone: Neutrophils/100 WBC (Bld) 60.2 % 47-[address] [facility] Work Phone: [phone] Potassium [Moles/Vol] 3.9 mmol/L 3.5-5.1 [facility] Work Phone: [phone] Protein [Mass/Vol] 7.2 g/dL 6.4-8.2 [facility] Work Phone: [phone] Sodium [Moles/Vol] 139 mmol/L 136-145 [facility] Work Phone: [phone] Triglyceride [Mass/Vol] 83 mg/dL <199 [facility] Work Phone: [phone] Comment on above: The drugs N-Acetylcy steine and Metamizole may falsely depress this assay.Serum Triglycerides Reference Interval Normal <150 mg/dL Borderline high 150 - 199 mg/dL High 200 - 499 mg/dL Very High > or = 500 mg/dL WBC (Bld) [#/Vol] 5.6 10*3/uL 4.4-11.0 [facility] Work Phone: [phone] Blood erythrocytes count (nu mber/volume)on 06-06-2021 RBC (Bld) [#/Vol] 5.09 10*6/uL 4.6-6.2 [facility] Work Phone: [phone] Blood hemoglobin measurement (mass/volume)on 06-06-2021 Hemoglobin (Bld) [Mass/Vol] 14.7 g/dL 13.0-16.[address] [facility] Work Phone: [phone] Blood lymphocytes/100 leukoc yteson 06-06-2021 Lymphocytes/100 WBC (Bld) 26.1 % 19-[address] [facility] Work Phone: [phone] Blood monocytes/100 leukocyt eson 06-06-2021 Monocytes/100 WBC (Bld) 10.1 % 0-10 [facility] Work Phone: [phone] Blood platelet mean volumeon 06-06-2021 Platelet mean volume (Bld) [Entitic vol] 9.7 fL 6.2-12.[address] [facility] Work Phone: [phone] Determination of erythrocyte mean corpuscular volume (MCV)on 06-06-2021 MCV (RBC) [Entitic vol] 86.4 fL 80-94 [facility] Work Phone: [phone] Hematocrit Auto (Bld) [Volum e fraction]on 06-06-2021 Hematocrit (Bld) [Volume fraction] 44.0 % 40-[address] [facility] Work Phone: [phone] Laboratory - Chemistry and C hemistry - challengeon 06-06-2021 ALP [Catalytic activity/Vol] 74 U/L 45-[address] [facility] Work Phone: [phone] ALT [Catalytic activity/Vol] 30 U/L 16-[address] [facility] Work Phone: [phone] CO2 [Moles/Vol] 27.0 mmol/L 21.0-32.[address] [facility] Work Phone: [phone] Globulin (S) [Mass/Vol] 3.2 g/dL 2.2-4.2 [facility] Work Phone: [phone] Urea nitrogen/Creatinine [Mass ratio] 15.0 mg/mg 10-[address] [facility] Work Phone: [phone] Laboratory - Hematology and Cell countson 06-06-2021 Erythrocyte distribution width (RBC) [Entitic vol] 40.0 fL 35.1-43.9 [facility] Work Phone: [phone] Erythrocyte distribution width (RBC) [Ratio] 12.8 % 11.6-14.[address] [facility] Work Phone: [phone] Immature granulocytes/100 WBC (Bld) 0.400 % 0.0-0.[address] [facility] Work Phone: [phone] Comment on above: IG% - Immature Granu locytes (promyelocytes, myelocytes and metamyelocytes) > 1% indicates that a LEFT SHIFT is Present. MCH (RBC) [Entitic mass] 28.9 pg 27.0-32.[address] [facility] Work Phone: [phone] Nucleated RBC/100 WBC (Bld) [Ratio] 0 % 0-[address] [facility] Work Phone: MCHC Auto (RBC) [Mass/Vol]on 06-06-2021 MCHC (RBC) [Mass/Vol] 33.4 g/dL 32-36 [facility] Work Phone: No Panel Informationon 06-06 Estimated GFR (MDRD) Amer 96 mL/min >[address] [facility] Work Phone: Comment on above: GFR Calc Estimated GFR (MDRD) Non-Af Amer 79 mL/min >[address] [facility] Work Phone: Comment on above: Non- GFR Calc Urine Microalbumin/Creatinine Ratio 51.7 mg/g CRE <[address] [facility] Work Phone: Platelets bldon 06-06-2021 Platelets (Bld) [#/Vol] 196 10*3/uL 150-[address] [facility] Work Phone: Serum or plasma albumin alpesh urement (mass/volume)on 06-06-2021 Albumin [Mass/Vol] 4.0 g/dL 3.2-5.0 [facility] Work Phone: Serum or plasma albumin/glob ulin mass ratioon 06-06-2021 Albumin/Globulin [Mass ratio] 1.2 {ratio} 0.9-2.[address] [facility] Work Phone: Serum or plasma calcium alpesh urement (mass/volume)on 06-06-2021 Calcium [Mass/Vol] 9.0 mg/dL 8.5-10.1 [facility] Work Phone: Serum or plasma cholesterol in HDL measurement (mass/volume)on 06-06-2021 Cholesterol in HDL [Mass/Vol] 47 mg/dL >[address] [facility] Work Phone: Comment on above: The drugs N-Acetylcy steine and Metamizole may falsely depress this assay. Reference Range HDL <40 mg/dL Low HDL Cholesterol HDL >or= 60 mg/dL High HDL Cholesterol Serum or plasma cholesterol in VLDL measurement (mass/volume)on 06-06-2021 Cholesterol in VLDL [Mass/Vol] 17 mg/dL 5-[address] [facility] Work Phone: Serum or plasma creatinine m easurement (mass/volume)on 06-06-2021 Creatinine [Mass/Vol] 1.00 mg/dL 0.70-1.30 [facility] Work Phone: Comment on above: The validity of the calculated GFR & GFRAA in patients over 70 years has not been determined. Clinical correlation is essential. Serum or plasma low density lipoprotein (LDL) cholesterol measurement (mass/volume)on 06-06-2021 Cholesterol in LDL [Mass/Vol] 64 mg/dL 0-[address] [facility] Work Phone: Serum or plasma urea nitroge n measurement (mass/volume)on 06-06-2021 Urea nitrogen [Mass/Vol] 15 mg/dL 7-[address] [facility] Work Phone: Serum or plasma uric acid me asurement (mass/volume)on 06-06-2021 Urate [Mass/Vol] 4.4 mg/dL 3.5-7.[address] [facility] Work Phone: Comment on above: The drugs N-Acetylcy steine and Metamizole may falsely depress this assay. Thin prep Papanicolaou smear with manual screeningon 06-06-2021 Thin prep Papanicolaou smear with manual screening 21 U/L 15-[address] [facility] Work Phone: Thin prep Papanicolaou smear with manual screening 5 5-[address] [facility] Work Phone: Thin prep Papanicolaou smear with manual screening 34.8 mg/L NO RANGE EST. [facility] Work Phone: Urine creatinine measurement (mass/volume)on 06-06-2021 Creatinine (U) [Mass/Vol] 67.30 mg/dL NO RANGE EST. [facility] Work Phone: US RENAL BILATon 05-07-2020 US RENAL BILAT Patient Name: KAMALJIT PERRY STUDY: US RENAL BILAT; 05/07/2020 4:19 pm INDICATION: Kidney Stones. COMPARISON: None. ACCESSION NUMBER(S): [id number] ORDERING CLINICIAN: FARHAN SHIN TECHNIQUE: Multiple images [...] Gallstones. Electronically signed by: SILVIO YAN MD [facility] Established Visit (Nephrolog y)on 05-01-2020 Established Visit [...] 1 TABLET DAILY. Vitals Vital Signs Recorded: [id number] 11:34AM Pmsuaofeisy06.8 F Heart Rate68 Enjqqvdw536 Zjtmauktn38 Height5 ft 9 in Kfaxig185 lb 9.6 oz BMI Zvrywpqjod55.52 BSA Calculated1.97 Physical Exam Constitutional: no acute [...] May 01 2020 12:08PM EST (Author) Normal [facility] BASIC METABOLIC PANELon 03-31 Anion gap [Moles/Vol] 9 mmol/L Low 10 - 20 [facility] Comment on above: Performed By: #### B MP #### [place] [address] Calcium [Mass/Vol] 9.5 mg/dL Normal 8.6 - 10.3 [facility] Comment on above: Performed By: #### B MP #### [place] [address] Chloride [Moles/Vol] 106 mmol/L Normal 98 - 107 [facility] Comment on above: Performed By: #### B MP #### [address] [address] Creatinine [Mass/Vol] 0.90 mg/dL Normal 0.50 - 1.30 [facility] Comment on above: Performed By: #### B MP #### [place] [id number] GFR- AM. >60 Normal >60 [facility] Comment on above: Result Comment: CALC ULATIONS OF ESTIMATED GFR ARE PERFORMED USING THE MDRD STUDY EQUATION FOR THE IDMS-TRACEABLE CREATININE METHODS. CLIN CHEM 2007;53:766-72 Performed By: #### B MP #### [address] [address] GFR-NON AM. >60 Normal >60 [facility] Comment on above: Performed By: #### B MP #### [place] [id number] Glucose [Mass/Vol] 114 mg/dL High 74 - 99 [facility] Comment on above: Performed By: #### B MP #### [address] [address] HCO3 (Bld) [Moles/Vol] 29 mmol/L Normal 21 - 32 [facility] Comment on above: Performed By: #### B MP #### [address] [address] Potassium [Moles/Vol] 4.0 mmol/L Normal 3.5 - 5.3 [facility] Comment on above: Performed By: #### B MP #### [address] [address] Sodium [Moles/Vol] 140 mmol/L Normal 136 - 145 [facility] Comment on above: Performed By: #### B MP #### [address] [address] Urea nitrogen [Mass/Vol] 17 mg/dL Normal 6 - 23 [facility] Comment on above: Performed By: #### B MP #### [address] [address] MAGNESIUMon 04-23-2020 Magnesium [Mass/Vol] 1.73 mg/dL Normal 1.60 - 2.40 [facility] Comment on above: Performed By: #### M G #### [address] [address] PHOSPHORUSon 04-23-2020 Phosphate [Mass/Vol] 3.4 mg/dL Normal 2.5 - 4.9 [facility] Comment on above: Result Comment: The performance characteristics of phosphorus testing in heparinized plasma have been validated by the individual laboratory site where testing is performed. Testing on heparinized plasma is not approved by the FDA; however, such approval is not necessary. Performed By: #### P HOS #### [address] [address] URIC ACIDon 04-23-2020 Urate [Mass/Vol] 4.5 mg/dL Normal 4.0 - 7.5 [facility] Comment on above: Result Comment: Ni puncture immediately after or during the administration of Metamizole may lead to falsely low results. Testing should be performed immediately prior to Metamizole dosing. Performed By: #### U NAPOLEON #### [address] [address] VITAMIN D, 25-HYDROXYon 03-31 VITAMIN D, 25-HYDROXY 31 ng/mL Normal [facility] Comment on above: Result Comment: . DEFICIENCY: < 20 NG/ML INSUFFICIENCY: 20-29 NG/ML SUFFICIENCY: 30-100 NG/ML THIS ASSAY ACCURATELY QUANTIFIES THE SUM OF VITAMIN D3, 25-HYDROXY AND VIT D2,25-HYDROXY. Performed By: #### V TDOH #### [address] [address] Initial Visit (Nephrology)on 04-12-2020 Initial Visit (Nephrology) [...] most of his care has happened in [place] We are trying to get his past [...] DAILY. Vitals Vital Signs Recorded: 12Apr2020 01:42PM Reipmfvweqg89.7 F Heart Rate83 Mmgdhpqx772, LUE, Sitting Lctqyrnta08, LUE, Sitting Height5 ft 9 in Qtpiem917 lb 8 oz BMI Opcgbumhgn72.21 BSA Calculated1.96 Tobacco Useb) No O2 Vwxbvrgesb51 Physical Exam Constitutional: no acute distress, well [...] Cx Nom (U) Culture exhibits no growth. [facility] Work Phone: Influenza virus A and B and SARS-CoV-2 (COVID-19) Ag panel - Upper respiratory specim SARS-CoV-2 (COVID-19) RNA FELIX+probe Ql (Resp) [facility] Work Phone: Laboratory - Microbiology an d Antimicrobial susceptibility Bacteria identified Cx Nom (Bld) No growth in [address] [facility] Work Phone: No Panel Information SARS-CoV-2 & FLU Antigen (Rapid) [facility] Work Phone: Vital Signs Date Time Vital Sign Value Performing Clinician Facility 01-14-2024 10:27-0400 Body height 175.3 cm Lavinia Page MD Work Phone: [facility] 01-14-2024 10:27-0400 Body mass index (BMI) [Ratio] 24.66 kg/m2 Lavinia Page MD Work Phone: [facility] 01-14-2024 10:27-0400 Body weight 75.75 kg Lavinia Page MD Work Phone: [facility] 01-14-2024 10:27-0400 Diastolic blood pressure 79 mm[Hg] Lavinia Page MD Work Phone: [facility] 01-14-2024 10:27-0400 Heart rate 65 /min Lavinia Page MD Work Phone: [facility] 01-14-2024 10:27-0400 SaO2% (BldA) [Mass fraction] 96 % Lavinia Page MD Work Phone: [facility] 01-14-2024 10:27-0400 Systolic blood pressure 156 mm[Hg] Lavinia Page MD Work Phone: [facility] 07-02-2023 14:14-0400 Body height 175.3 cm Lavinia Page MD Work Phone: [facility] 07-02-2023 14:14-0400 Body mass index (BMI) [Ratio] 23.92 kg/m2 Lavinia Page MD Work Phone: [facility] 07-02-2023 14:14-0400 Body weight 73.48 kg Lavinia Page MD Work Phone: [facility] 07-02-2023 14:14-0400 Diastolic blood pressure 76 mm[Hg] Lavinia Page MD Work Phone: [facility] 07-02-2023 14:14-0400 Heart rate 67 /min Lavinia Page MD Work Phone: [facility] 07-02-2023 14:14-0400 SaO2% (BldA) [Mass fraction] 98 % Lavinia Page MD Work Phone: [facility] 07-02-2023 14:14-0400 Systolic blood pressure 122 mm[Hg] Lavinia Page MD Work Phone: [facility] 02-05-2023 13:42-0500 Body height 175.3 cm Lavinia Page MD Work Phone: [facility] 02-05-2023 13:42-0500 Body mass index (BMI) [Ratio] 23.78 kg/m2 Lavinia Page MD Work Phone: [facility] 02-05-2023 13:42-0500 Body weight 73.03 kg Lavinia Page MD Work Phone: [facility] 02-05-2023 13:42-0500 Diastolic blood pressure 88 mm[Hg] Lavinia Page MD Work Phone: [facility] 02-05-2023 13:42-0500 Heart rate 98 /min Lavinia Page MD Work Phone: [facility] 02-05-2023 13:42-0500 SaO2% (BldA) [Mass fraction] 98 % Lavinia Page MD Work Phone: [facility] 02-05-2023 13:42-0500 Systolic blood pressure 126 mm[Hg] Lavinia Page MD Work Phone: [facility] 09-22-2022 08:19-0400 Body weight 72.[address] Becca Sánchez Work Phone: [facility] 08-08-2022 14:01-0400 Body weight 71.[address] Becca Sánchez Work Phone: [facility] 07-30-2022 15:53-0400 Body temperature 98.6 [degF] Dr. Becca Sánchez Work Phone: [facility] 07-30-2022 15:53-0400 Diastolic blood pressure 75 mm[Hg] Dr. Becca Sánchez Work Phone: [facility] 07-30-2022 15:53-0400 Heart rate 83 /min Dr. Becca Sánchez Work Phone: [facility] 07-30-2022 15:53-0400 Respiratory rate 18 /min Dr. Becca Sánchez Work Phone: [facility] 07-30-2022 15:53-0400 SaO2% (BldA) [Mass fraction] 100 % Dr. Becca Sánchez Work Phone: [facility] 07-30-2022 15:53-0400 Systolic blood pressure 111 mm[Hg] Dr. Becca Sánchez Work Phone: [phone] [place] [address] 07-29-2022 09:56-0400 Body height 175.[address] Becca Sánchez Work Phone: [phone] [address] 07-29-2022 09:56-0400 Body weight 74.[address] Becca Sánchez Work Phone: [facility] 07-28-2022 16:07-0400 Inhaled oxygen flow rate 2 L/min Dr. Becca Sánchez Work Phone: [facility] 07-28-2022 12:45-0400 Inhaled oxygen concentration 100 % Dr. Becca Sánchez Work Phone: [facility] 07-28-2022 06:25-0400 Body mass index (BMI) [Ratio] 24.2 kg/m2 Dr. Becca Sánchez Work Phone: [facility] 07-14-2022 08:21-0400 Body temperature 97.7 [degF] Dr. Becca Sánchez Work Phone: [facility] 07-14-2022 08:21-0400 Diastolic blood pressure 86 mm[Hg] Dr. Becca Sánchez Work Phone: [facility] 07-14-2022 08:21-0400 Heart rate 73 /min Dr. Becca Sánchez Work Phone: [facility] 07-14-2022 08:21-0400 Respiratory rate 18 /min Dr. Becca Sánchez Work Phone: [facility] 07-14-2022 08:21-0400 SaO2% (BldA) [Mass fraction] 99 % Dr. Becca Sánchez Work Phone: [facility] 07-14-2022 08:21-0400 Systolic blood pressure 125 mm[Hg] Dr. Becca Sánchez Work Phone: [facility] 06-10-2022 10:01-0400 Body mass index (BMI) [Ratio] 25.9 kg/m2 Dr. Becca Sánchez Work Phone: [facility] 06-10-2022 10:01-0400 Body weight 79.[address] Becca Sánchez Work Phone: [facility] 06-10-2022 10:01-0400 Diastolic blood pressure 91 mm[Hg] Dr. Becca Sánchez Work Phone: [facility] 06-10-2022 10:01-0400 Heart rate 69 /min Dr. Becca Sánchez Work Phone: [facility] 06-10-2022 10:01-0400 Respiratory rate 18 /min Dr. Becca Sánchez Work Phone: [facility] 06-10-2022 10:01-0400 SaO2% (BldA) [Mass fraction] 99 % Dr. Becca Sánchez Work Phone: [facility] 06-10-2022 10:01-0400 Systolic blood pressure 134 mm[Hg] Dr. Becca Sánchez Work Phone: [facility] 04-01-2022 11:43-0500 Diastolic blood pressure 89 mm[Hg] Dr. Becca Sánchez Work Phone: [facility] 04-01-2022 11:43-0500 Heart rate 77 /min Dr. Becca Sánchez Work Phone: [facility] 04-01-2022 11:43-0500 Respiratory rate 16 /min Dr. Becca Sánchez Work Phone: [facility] 04-01-2022 11:43-0500 SaO2% (BldA) [Mass fraction] 99 % Dr. Becca Sánchez Work Phone: [facility] 04-01-2022 11:43-0500 Systolic blood pressure 130 mm[Hg] Dr. Becca Sánchez Work Phone: [facility] 04-01-2022 08:57-0500 Body height 175.[address] Becca Sánchez Work Phone: [facility] Work Phone: 04-01-2022 08:57-0500 Body mass index (BMI) [Ratio] 23.1 kg/m2 Dr. Becca Sánchez Work Phone: [facility] 04-01-2022 08:57-0500 Body temperature 97.8 [degF] Dr. Becca Sánchez Work Phone: [facility] 04-01-2022 08:57-0500 Body weight 71.[address] Becca Sánchez Work Phone: [facility] 01-28-2022 13:25-0400 Body height 175.[address] Becca Sánchez Work Phone: [facility] Work Phone: 01-28-2022 13:25-0400 Body mass index (BMI) [Ratio] 24.6 kg/m2 Dr. Becca Sánchez Work Phone: [facility] Work Phone: 01-28-2022 13:25-0400 Body temperature 97.6 [degF] Dr. Becca Sánchez Work Phone: [facility] Work Phone: 01-28-2022 13:25-0400 Body weight 75.[address] Becca Sánchez Work Phone: [facility] Work Phone: 01-28-2022 13:25-0400 Diastolic blood pressure 80 mm[Hg] Dr. Becca Sánchez Work Phone: [facility] Work Phone: 01-28-2022 13:25-0400 Heart rate 77 /min Dr. Becca Sánchez Work Phone: [facility] Work Phone: 01-28-2022 13:25-0400 Respiratory rate 17 /min Dr. Becca Sánchez Work Phone: [facility] Work Phone: 01-28-2022 13:25-0400 SaO2% (BldA) [Mass fraction] 97 % Dr. Becca Sánchez Work Phone: [facility] Work Phone: 01-28-2022 13:25-0400 Systolic blood pressure 116 mm[Hg] Dr. Becca Sánchez Work Phone: [facility] Work Phone: 01-13-2022 15:23-0400 Respiratory rate 18 /min Dr. Becca Sánchez Work Phone: [facility] Work Phone: 01-13-2022 15:00-0400 Body temperature 97.9 [degF] Dr. Becca Sánchez Work Phone: [facility] Work Phone: 01-13-2022 15:00-0400 Diastolic blood pressure 70 mm[Hg] Dr. Becca Sánchez Work Phone: [facility] Work Phone: 01-13-2022 15:00-0400 Heart rate 99 /min Dr. Becca Sánchez Work Phone: [facility] Work Phone: 01-13-2022 15:00-0400 SaO2% (BldA) [Mass fraction] 95 % Dr. Becca Sánchez Work Phone: [facility] Work Phone: 01-13-2022 15:00-0400 Systolic blood pressure 106 mm[Hg] Dr. Becca Sánchez Work Phone: [facility] Work Phone: 01-13-2022 12:51-0400 Body height 175.[address] Becca Sánchez Work Phone: [facility] Work Phone: 01-13-2022 12:51-0400 Body mass index (BMI) [Ratio] 24.5 kg/m2 Dr. Becca Sánchez Work Phone: [facility] Work Phone: 01-13-2022 12:51-0400 Body weight 75.[address] Becca Sánchez Work Phone: [facility] Work Phone: 12-17-2021 10:02-0400 Body height 175.[address] Becca Sánchez Work Phone: [facility] Work Phone: 12-17-2021 10:02-0400 Body mass index (BMI) [Ratio] 24.6 kg/m2 Dr. Becca Sánchez Work Phone: [facility] Work Phone: 12-17-2021 10:02-0400 Body weight 75.[address] Becca Sánchez Work Phone: [facility] Work Phone: 12-17-2021 10:02-0400 Diastolic blood pressure 87 mm[Hg] Dr. Becca Sánchez Work Phone: [facility] Work Phone: 12-17-2021 10:02-0400 Heart rate 76 /min Dr. Becca Sánchez Work Phone: [facility] Work Phone: 12-17-2021 10:02-0400 Respiratory rate 16 /min Dr. Becca Sánchez Work Phone: [facility] Work Phone: 12-17-2021 10:02-0400 Systolic blood pressure 133 mm[Hg] Dr. Becca Sánchez Work Phone: [facility] Work Phone: 09-05-2021 08:40-0400 Body height 175.[address] Becca Sánchez Work Phone: [facility] Work Phone: 09-05-2021 08:40-0400 Body mass index (BMI) [Ratio] 23.8 kg/m2 Dr. Becca Sánchez Work Phone: [facility] Work Phone: 09-05-2021 08:40-0400 Body weight 73.[address] Becca Sánchez Work Phone: [facility] Work Phone: 09-05-2021 08:40-0400 Diastolic blood pressure 82 mm[Hg] Dr. Becca Sánchez Work Phone: [facility] Work Phone: 09-05-2021 08:40-0400 Heart rate 77 /min Dr. Becca Sánchez Work Phone: [facility] Work Phone: 09-05-2021 08:40-0400 Respiratory rate 18 /min Dr. Becca Sánchez Work Phone: [facility] Work Phone: 09-05-2021 08:40-0400 SaO2% (BldA) [Mass fraction] 99 % Dr. Becca Sánchez Work Phone: [facility] Work Phone: 09-05-2021 08:40-0400 Systolic blood pressure 123 mm[Hg] Dr. Becca Sánchez Work Phone: [facility] Work Phone: 08-21-2021 16:43-0400 Body temperature 98.4 [degF] Dr. Becca Sánchez Work Phone: [facility] Work Phone: 08-21-2021 16:43-0400 Diastolic blood pressure 92 mm[Hg] Dr. Becca Sánchez Work Phone: [facility] Work Phone: 08-21-2021 16:43-0400 Heart rate 79 /min Dr. Becca Sánchez Work Phone: [facility] Work Phone: 08-21-2021 16:43-0400 Respiratory rate 16 /min Dr. Becca Sánchez Work Phone: [facility] Work Phone: 08-21-2021 16:43-0400 SaO2% (BldA) [Mass fraction] 97 % Dr. Becca Sánchez Work Phone: [facility] Work Phone: 08-21-2021 16:43-0400 Systolic blood pressure 130 mm[Hg] Dr. Becca Sánchez Work Phone: [facility] Work Phone: 08-21-2021 05:12-0400 Body weight 79.[address] Becca Sánchez Work Phone: [facility] Work Phone: 08-20-2021 14:10-0400 Body height 175.[address] Becca Sánchez Work Phone: [facility] Work Phone: 08-20-2021 10:14-0400 Body mass index (BMI) [Ratio] 26.3 kg/m2 Dr. Becca Sánchez Work Phone: [facility] Work Phone: 08-20-2021 08:29-0400 Inhaled oxygen flow rate 2 L/min Dr. Becca Sánchez Work Phone: [facility] Work Phone: Encounters Encounter Date Encounter Type Care Provider Facility Start: 09-12-2024 End: 09-12-[address] Becca Sánchez MD Work Phone: [facility] Work Phone: Start: 09-12-2024 End: 09-12-[address] Jovani Voss MD -Radiology [facility] Work Phone: Start: 09-12-2024 End: 09-12-2024 ambulatory Becca Sánchez Facility:[facility] Start: 07-15-2024 End: 07-15-[address] Becca Sánchez MD -Laboratory [facility] Start: 07-15-2024 End: 07-15-2024 ambulatory Becca Sánchez Facility:[facility] Start: 01-14-2024 End: 01-14-2024 Office outpatient visit 25 minutes Lavinia Page MD Work Phone: [facility] Comment on above: Angina pectoris, uns table (Multi) (Primary Dx); Coronary artery disease involving pauma coronary artery of pauma heart without angina pectoris; Essential hypertension; Mixed hyperlipidemia Start: 01-14-2024 End: 01-14-2024 ambulatory [facility] Start: 12-21-2023 End: 12-21-2023 ambulatory Becca Sánchez Facility:[facility] Start: 10-26-2023 End: 10-26-2023 ambulatory Becca Sánchez Facility:[facility] Start: 07-02-2023 End: 07-02-2023 Office outpatient visit 25 minutes Lavinia Page MD Work Phone: [facility] Comment on above: Angina pectoris, uns table (CMS/HCC) (Primary Dx); Coronary artery disease involving pauma coronary artery of pauma heart without angina pectoris; Essential hypertension; Mixed hyperlipidemia Start: 07-02-2023 End: 07-02-2023 ambulatory [facility] Start: 06-04-2023 End: 06-04-[address] [facility] Work Phone: Start: 06-04-2023 End: 06-04-2023 Patient encounter procedure [facility] Work Phone: Start: 02-05-2023 End: 02-05-2023 Office outpatient new 45 minutes Lavinia Page MD Work Phone: [facility] Comment on above: Essential hypertensi on (Primary Dx); Hypercholesteremia; Coronary artery disease involving pauma coronary artery of pauma heart without angina pectoris; Angina pectoris, unstable (CMS/HCC) Start: 02-05-2023 End: 02-05-2023 ambulatory [facility] Start: 12-12-2022 End: 12-12-[address] Becca Sánchez Work Phone: [facility] Work Phone: Start: 12-12-2022 End: 12-12-[address] Becca Sánchez Work Phone: [facility] Work Phone: Start: 11-17-2022 End: 11-17-[address] Becca Sánchez [facility]: Start: 11-06-2022 End: 11-06-[address] Becca Sánchez Work Phone: [facility] Work Phone: Start: 11-06-2022 End: 11-06-[address] Becca Sánchez Work Phone: [facility]-Radiology, [facility] Work Phone: Start: 09-22-2022 End: 09-22-[address] Becca Sánchez Work Phone: [facility] Work Phone: Start: 08-08-2022 End: 08-08-[address] Becca Sánchez Work Phone: [facility] Work Phone: Start: 07-31-2022 End: 07-31-[address] Becca Sánchez Work Phone: [facility] Work Phone: Start: 07-31-2022 End: 07-31-[address] Becca Sánchez Work Phone: [facility]-Laboratory Start: 07-30-2022 Non-patient / Non-visit Dr. Dale Sánchez Work Phone: [facility] Start: 07-29-2022 Non-patient / Non-visit Dr. Dale Sánchez Work Phone: [facility] Start: 07-28-2022 Non-patient / Non-visit Dr. Dale Sánchez Work Phone: [facility] Start: 07-28-2022 End: 07-30-2022 Evaluation and management of inpatient Dr. Becca Sánchez [facility] Phone: [facility] Start: 07-22-2022 End: 07-22-2022 Non-patient / Non-visit Dr. Becca Sánchez Work Phone: [facility] Start: 07-14-2022 End: 07-14-[address] Becca Sánchez Work Phone: [facility] Start: 06-10-2022 End: 06-10-[address] Becca Sánchez Work Phone: [facility] Start: 04-01-2022 End: 04-01-2022 Emergency department patient visit Dr. Becca Sánchez Work Phone: [facility]Emer[facility] Start: 03-17-2022 End: 03-17-[address] Becca Sánchez Work Phone: [facility] Work Phone: Start: 03-17-2022 End: 03-17-[address] Becca Sánchez Work Phone: [facility] Start: 03-17-2022 End: 03-17-[address] Becca Sánchez Work Phone: [facility] Work Phone: Start: 03-17-2022 End: 03-17-[address] Becca Sánchez Work Phone: [facility] Start: 01-28-2022 End: 01-28-[address] Becca Sánchez Work Phone: [facility] Start: 01-13-2022 End: 01-13-2022 Emergency department patient visit Dr. Becca Sánchez Work Phone: [facility] Start: 01-06-2022 End: 01-06-[address] Becca Sánchez Work Phone: [facility] Start: 12-30-2021 End: 12-30-[address] Becca Sánchez Work Phone: [facility] Work Phone: Start: 12-30-2021 End: 12-30-[address] Becca Sánchez Work Phone: [facility] Start: 12-23-2021 End: 12-23-[address] Becca Sánchez Work Phone: [facility] Work Phone: Start: 12-23-2021 End: 12-23-[address] Becca Sánchez Work Phone: [facility] Start: 12-17-2021 End: 12-17-[address] Becca Sánchez Work Phone: [facility] Start: 09-24-2021 End: 09-24-[address] Becca Sánchez Work Phone: [facility]Card[facility] Re[facility] Start: 09-18-2021 Non-patient / Non-visit Dr. Dale Sánchez Work Phone: [facility] Start: 09-05-2021 End: 09-05-[address] Becca Sánchez Work Phone: [facility] Start: 08-21-2021 Non-patient / Non-visit Dr. Dale Sánchez Work Phone: [facility] Start: 08-21-2021 Non-patient / Non-visit Dr. Dale Sánchez Work Phone: [facility] Start: 08-20-2021 Non-patient / Non-visit Dr. Dale Sánchez Work Phone: [facility] Start: 08-20-2021 Non-patient / Non-visit Dr. Dale Sánchez Work Phone: [facility] Start: 08-20-2021 End: 08-21-2021 Evaluation and management of inpatient Dr. Becca Sánchez Work Phone: [facility]Intensive Care Unit Start: 07-22-2021 End: 07-22-2021 Patient encounter procedure [facility] Start: 06-06-2021 End: 06-06-2021 Patient encounter procedure [facility], [place] Procedures Date Procedure Procedure Detail Performing Clinician Start: 09-12-2024 Plain X-ray abdomen Dr. Becca Sánchez MD Work Phone: Start: 07-15-2024 Urine microalbumin/creatinine ratio measurement Dr. Becca Sánchez MD Work Phone: Start: 02-05-2023 ECG 12-LEAD LAVINIA PAGE Start: [...] Sánchez Work Phone: Comment on above: [facility] MR RAGHAV S 3.0 x 40 mm [...] DTaP/Tdap/Td Vaccines (2 - Td or Tdap) [facility] Start: 01-14-2024 End: 01-14-2024 Patient encounter procedure 01/14/2024 10:45 AM EDT Office Visit [facility] [address] [facility] [address] [place] [address] Lavinia Page MD [address] [facility] [address], [facility] [address] [place] [address] [facility] Start: 11-29-2023 COVID-19 Vaccine () COVID-19 Vaccine () [facility] Start: 11-29-2023 Influenza vaccination [facility] Start: 11-28-2022 COVID-19 Vaccine () COVID-19 Vaccine () [facility] Start: 11-28-2022 Influenza vaccination Influenza Vaccine (#1) [facility] Start: 07-30-[address] [facility] Start: 07-30-2022 Patient discharge [facility] Start: 07-29-[address] [facility] Start: 07-29-2022 Removal of urinary catheter [facility] Start: 07-28-2022 Following clinical pathway protocol [facility] Start: 07-28-2022 Ambulation therapy management [facility] Start: 07-28-2022 Application of intermittent pneumatic compression device [facility] Start: 07-28-2022 Catheterization of vein [facility] Start: 07-28-2022 Elevation of head of bed [facility] Start: 07-28-2022 Introduction of urinary catheter [facility] Start: 07-28-2022 Measuring intake and output [facility] Start: 07-28-2022 Notification of physician [facility] Start: 07-28-2022 Oxygen therapy [facility] Start: 07-28-2022 Patient education [facility] Start: 07-28-2022 Procedures relating to eating and drinking [facility] Start: 07-28-2022 Taking patient vital signs [facility] Start: 07-28-2022 Wound care [facility] Start: 07-28-[address] [facility] Start: 07-28-2022 Admission procedure [facility] Start: 01-13-2022 End: 01-13-2022 Blood culture [facility] Work Phone: Start: 09-18-2021 Patient referral [facility] Work Phone: Start: 08-21-2021 Patient discharge [facility] Work Phone: Start: 08-20-2021 Patient referral [facility] Work Phone: Start: 08-20-[address] [facility] Work Phone: Start: 08-20-2021 Ambulation without limitation [facility] Work Phone: Start: 08-20-2021 Application of intermittent pneumatic compression device [facility] Work Phone: Start: 08-20-2021 Assessment of risk of venous thromboembolism [facility] Work Phone: Start: 08-20-2021 Catheterization of vein [facility] Work Phone: Start: 08-20-2021 Continuous pulse oximetry [facility] Work Phone: Start: 08-20-2021 Incentive spirometry [facility] Work Phone: Start: 08-20-2021 Insertion of catheter into peripheral vein [facility] Work Phone: Start: 08-20-2021 Measuring intake and output [facility] Work Phone: Start: 08-20-2021 Patient referral to dietitian [facility] Work Phone: Start: 08-20-2021 Providing care according to standard [facility] Work Phone: Start: 08-20-2021 Referral to painter decorator [facility] Work Phone: Start: 08-20-2021 Referral to service [facility] Work Phone: Start: 08-20-2021 Cardiac monitoring [facility] Work Phone: Start: 08-20-2021 Cardiac rehabilitation - phase [address] [facility] Work Phone: Start: 08-20-2021 Cardiac rehabilitation - phase [address] [facility] Work Phone: Start: 08-20-2021 Notification of physician [facility] Work Phone: Start: 08-20-2021 Oxygen therapy [facility] Work Phone: Start: 08-20-2021 Patient discharge [facility] Work Phone: Start: 08-20-2021 Patient education [facility] Work Phone: Start: 08-20-2021 Pulse taking [facility] Work Phone: Start: 08-20-2021 Systemic arterial pressure monitoring [facility] Work Phone: Start: 08-20-2021 Taking patient vital signs [facility] Work Phone: Start: 08-20-2021 Vascular disease risk assessment [facility] Work Phone: Start: 08-20-2021 Vital signs measurements [facility] Work Phone: Start: 08-20-2021 Wound care [facility] Work Phone: Start: 08-20-2021 End: 08-20-[address] [facility] Work Phone: Start: 08-20-2021 Admission procedure [facility] Work Phone: Start: 08-20-2021 Following clinical pathway protocol [facility] Work Phone: Start: 06-15-2021 Pneumococcal Vaccine: 65+ Years (2 - PCV) Pneumococcal Vaccine: 65+ Years (2 - PCV) [facility] Start: 06-15-2021 Pneumococcal Vaccine: 65+ Years (2 of 2 - PCV) Pneumococcal Vaccine: 65+ Years (2 of 2 - PCV) [facility] Start: 10-26-2020 COVID-19 Vaccine (3 - Pfizer series) COVID-19 Vaccine (3 - Pfizer series) [facility] Start: 06-20-2019 Abdominal aortic aneurysm screening Abdominal Aortic Aneurysm (AAA) Screening [facility] Start: 2014 RSV High Risk: (Elderly (60+) or Population) (1 - Risk 60-74 years 1-dose series) RSV High Risk: (Elderly (60+) or Population) (1 - Risk 60-74 years 1-dose series) [facility] Start: 2004 Zoster Vaccines (1 of 2) Zoster Vaccines (1 of 2) [facility] Start: 1972 Diabetes mellitus screening Diabetes Screening [facility] Start: 1972 Hepatitis C screening Hepatitis C Screening [facility] Start: 1955 Lipid panel Lipid Panel [facility] Start: 1955 Medicare Annual Wellness Visit Medicare Annual Wellness Visit (AWV) [facility] Start: 1955 Screening for malignant neoplasm of colon [facility] Bacteria identified in Blood by Culture Blood Culture [facility] Work Phone: Blood culture [facility] Work Phone: CBC W Auto Different ial panel - Blood [facility] Patient Education [facility] Work Phone: Patient referral [facility] Work Phone: Immunizations Immunization Date Immunization Notes Care Provider Fa cili 01-09-2021 influenza, injectabl e, quadrivalent, preservative free Dr. Becca Sánchez Work Phone: [facility] 01-09-2021 influenza, seasonal, injectable Dr. Becca Sánchez Work Phone: [facility] Payers Date Payer Category Payer Self-pay [id number] 2022 Medicare [employer]ARE [employer] MEDICARE [id number] 2022-Present [address] [place] [address] [id number] 2022 Medicare (Managed Care) [facility] [id number] 2022 Unknown [id number] 2016 Unknown [id number] 1955 Unknown [id number] 1954 Unknown [id number] 1954 Unknown [id number] Unknown [facility] PACKAGE PLAN [id number] Unknown [id number] Unknown [id number] Unknown [id number] Unknown [id number] Social History Date Type Detail Facility Start: 10-02-2014 End: 12-19-2022 Tobacco smoking status NHIS Unknown if ever smoked [facility] Start: 1955 Sex Assigned At Male [facility] Start: 12-19-2022 End: 02-05-2023 Tobacco smoking status NHIS Ex-smoker [facility] History of tobacco use Current smoker [facility] Work Phone: History of tobacco use Cigarette Smoker [facility] Work Phone: Start: 02-05-2023 Tobacco use and exposure Smokeless tobacco non-user [facility] Work Phone: Start: 02-05-2023 End: 07-02-2023 History of Social function [facility] Work Phone: Start: 02-05-2023 End: 07-02-2023 Tobacco use panel [facility] Work Phone: Start: 1955 Sex Assigned At Not on file [facility] Work Phone: Start: 01-26-2023 End: 01-14-2024 Exposure to SARS-CoV-2 (event) Not sure [facility] Medical Equipment Procedure Code Equipment Code Equipment Origin al Text Equipment Identifier Dates Laparoscopic-assisted sigmoidectomy Surgical staple loading unit, non-cutting [id number] FDA Start: 07-28-2022 Laparoscopic-assisted sigmoidectomy Surgical staple loading unit, non-cutting [id number] FDA Start: 07-28-2022 Laparoscopic-assisted sigmoidectomy Intraluminal circular stapler, single-use [id number] FDA Start: 07-28-2022 Laparoscopic-assisted sigmoidectomy Ligation clip, synthetic polymer, non-bioabsorbable ()[id number] FDA Start: 07-28-2022 Laparoscopic-assisted sigmoidectomy Ligation clip, synthetic polymer, non-bioabsorbable ()[id number] FDA Start: 07-28-2022 ([id number]) Drug-eluting coronary artery stent, bioabsorbable-polyme r-coated ()[id number] FDA Start: 08-20-2021 Goals Date Patient Goal Desired Activity /State Functional Status Date Assessment Result Facility 07-30-2022 Functional status Chair [facility] Work Phone: 08-21-2021 Functional status Ambulates;Bathroom Priv ilege [facility] Work Phone: Mental Status Date Assessment Result Facility 07-30-2022 Cognitive function Voice/Name [facility] Work Phone: 01-13-2022 Cognitive function Voice/Name [facility] Work Phone: 08-21-2021 Cognitive function Voice/Name [facility] Work Phone: Clinical Notes 08-20-2021 to 09-12-2024 Lavinia Page MD - 07/02/2023 2:30 PM EDTPatient InstructionsLavinia Page MD - 02/05/2023 2:00 PM ESTPatient Instructions Note Date & Type Note Facility 09-12-2024 Radiology Diagnostic study note [facility] Imaging Services [address] [place], [place] [address] Abdomen Single View MR#: [id number] Acct: [id number] Name: KAMALJIT PERRY Rep #: [id number] : 1955 M 69 From: Sheldon Santiago MD PCP: Dr. Becca Sánchez MD Status: REG CLI Study:Abdomen Single View Date of Exam: 09/12/24 Exam# [id number] Ordering Dr: Shaye Voss MD PROCEDURE: ABDOMEN [...] 2. Other findings as noted. Reading Location: [id number] CC: Dr. Becca Sánchez MD; Dr. Jovani Voss MD ~ Building Drafter: Signed [facility] Work Phone: 07-02-2023 History of Present illness Narrative Referred by No ref. provider found HPI I'm seeing Kamaljit to establish care with a new painter decorator. He feels well. No CP, but he's [...] Myocardial infarction 2009. IRAIS LAD, and OM1 [facility]. 2010 recurrent symptoms. IRAIS to the RCA. [...] Monitored by his primary care physician in [place]. I do not have labs on him. [...] we will try to obtain records from [facility] regarding his cardiac catheterization and stress echo. Return in 6 months. Lavinia Page MD Instructions and follow up documented in this encounter [facility] Work Phone: 07-02-2023 Instructions Lavinia Page MD - 07/02/2023 2:30 PM EDT 1. CAD. Myocardial infarction 2009. IRAIS LAD, and OM1 [facility]. 2010 recurrent symptoms. IRAIS to the RCA. 2021 recurrent symptoms. Catheterization [facility] revealed high-grade stenosis. I do not have [...] Monitored by his primary care physician in [place]. I do not have labs on him. [...] we will try to obtain records from [facility] regarding his cardiac catheterization and stress echo. Return in 6 months. documented in this encounter [facility] Work Phone: 02-05-2023 History of Present illness Narrative Referred by No ref. provider found HPI I'm seeing Kamaljit to establish care with a new painter decorator. He feels well. No CP, but he's [...] results found for: BNP, HGBA1C Cath 2021 [facility] severe blockage with Rafat Cath 2010 [facility] IRAIS to RCA Cath 2009 [facility] IRAIS LAD, and IRAIS OM1 Assessment/Plan 1. CAD. Myocardial infarction 2010. IRAIS LAD, and OM1 [facility]. 2010 recurrent symptoms. IRAIS to the RCA. He did great until 2021. At that point recurrent symptoms. Taken to the Application Specialist at [facility]. High-grade stenosis. Not sure which artery. Collaterals [...] Monitored by his primary care physician in [place]. I do not have labs on him. [...] done today. We will get records from [facility] as to his last echo stress [...] and follow up documented in this encounter [facility] Work Phone: 02-05-2023 Instructions Lavinia Page MD - 02/05/2023 2:00 PM EST 1. CAD. Myocardial infarction 2009. IRAIS LAD, and OM1 [facility]. 2010 recurrent symptoms. IRIAS to the RCA. He did great until 2021. At that point recurrent symptoms. Taken to the Application Specialist at [facility]. High-grade stenosis. Not sure which artery. Collaterals [...] Monitored by his primary care physician in [place]. I do not have labs on him. [...] done today. We will get records from [facility] as to his last echo stress test and catheterization. My plan will be to see him back in approximately 4 to 5 months. If you develop symptoms of angina, this would not surprise me as he has a high-grade lesion which is being collateralized. This may require optimization of his medical therapy. documented in this encounter [facility] Work Phone: 07-30-2022 Progress note Note Date/Time July 30, 2022 6:13am [facility] Medical Records Department [address] [place] [address] Progress Note - Surgery 07/30/22 06 MR#: [id number] Acct: [id number] Name: KAMALJIT PERRY Rep #:[id number] : 1955 67 From: William Sandhu MD PCP: Dr. Becca Sánchez MD Status:ADM IN Location: MS3 [id number] Subjective Subjective Fever noted to 100. The [...] Cosigner Signature (if applicable): CC: ~ Signed [facility] Work Phone: 1(570) 496-612605-02-[address] Sandhu [facility] July 29, 2022 1:50pm Note Date/Time July 29, 2022 1:49pm [facility] Medical Records Department [address] [place] [address] Progress Note - Surgery 07/29/22 1348 MR#: [id number] Acct: [id number] Name: KAMALJIT PERRY Rep #:[id number] : 1955 67 From: William Sandhu MD PCP: Dr. Becca Sánchez MD Status:ADM IN [facility] Subjective Subjective Abdominal cramping and bloating, no [...] Cosigner Signature (if applicable): CC: ~ Signed [facility] Work Phone: 1(707) 599-315805-02-[address] Sandhu [facility] July 29, 2022 6:08am Note Date/Time July 29, 2022 6:08am [facility] Medical Records Department [address] [place] [address] Progress Note - Surgery 07/29/22 06 MR#: [id number] Acct: [id number] Name: KAMALJIT PERRY Rep #:[id number] : 1955 67 From: William Sandhu MD PCP: Dr. Becca Sánchez MD Status:ADM IN Location: [place] [address] Subjective Subjective Patient notes mild soreness. Very [...] Cosigner Signature (if applicable): CC: ~ Signed [facility] Work Phone: 1(339) 178-970205-01-[address] Sandhu [facility] July 28, 2022 3:57pm Note Date/Time July 28, 2022 3:57pm [facility] Medical Records Department [address] [place] [address] Progress Note - Surgery 07/28/22 1556 MR#: [id number] Acct: [id number] Name: KAMALJIT PERRY Rep #:[id number] : 1955 67 From: William Sandhu MD PCP: Dr. Becca Sánchez MD Status:ADM IN Location: [place] AB137-9 Subjective Subjective Was found resting. He seemed [...] Cosigner Signature (if applicable): CC: ~ Signed [facility] Work Phone: 1(452) 412-705605-01-2023 Procedure [facility] 07-28-[address] Sandhu [facility] July 30, 2022 3:20pm Note Date/Time July 28, 2022 7:00am [facility] Medical Records Department [address] [place] [address] Instructions for Home/Discharge Instructions 07/28/22 0700 MR#: [id number] Acct: [id number] Name: KAMALJIT PERRY Rep #:[id number] : 1955 67 From: William Sandhu MD [...] Up With: William Sandhu MD When: Call [phone] to make an appointment to be seen [...] similar medications, I would recommend transitioning tothese zglm-tpq-lbrqhld medicines as soon as possible instead of continued use ofnarcotic pain medication. Follow up ? You should call [facility] soon after surgery, at [phone] option 1 to make a follow up appointment for 7-10 days after your surgery. Transitional Diet Beverages: ? Soda (cola, diet cola, lemon-red cliff, diet lemon-red cliff, lulu dacia, diet lulu dacia) ? Tea (hot or iced) ? Milk (low-fat, 2%, lactose free) ? Coffee ? Juice (without pulp) ? Oral Nutrition supplement Breakfast: ? Hot cereal (oatmeal or cream of wheat) ? Scrambled eggs ? Blueberry muffin ? Cold cereal (no whole grain cereals) ? [place] (white) Lunch or Dinner: Deli Items: Hot Items: [place] sandwich Roast [place] Tuna salad (sandwich or alone) Macaroni & [...] CBC W/Diff, Automated (Routine) Timeframe: [id number] Facility: [facility] - Location: Laboratory Ordered By: Cece [...] CC: Dr. Becca Sánchez MD ~ Signed [facility] Work Phone: 1(139) 118-722505-01-2023 History and physical note Author Dr. Sandhu [facility] July 28, 2022 7:00am Note Date/Time July 28, 2022 6:43am [facility] Medical Records Department [address] [place] [address] History & Physical Exam 07/28/22 0642 MR#: [id number] Acct: [id number] Name: KAMALJIT PERRY Rep #:[id number] : 1955 67 From: William Sandhu MD PCP: Dr. Becca Sánchez MD Status:ADM IN Location: [place] [address] History and Physical Date of Admission: 07/28/22 Allergies No Known Allergies Allergy (Verified 06/10/22 09:53) Medications aspirin 81 mg chewable tablet 81 mg PO QHS [facility] 11/19/13 [History Confirmed 07/14/22] melatonin 10 [...] BID #180 tabs 09/05/21 [Rx Confirmed 07/14/22] cnqiojd-wnftqmnjuyaku-ozwrfwvg 250 mg-250 mg-65 mg tablet (Excedrin Migraine) [...] Medical History? Atherosclerosis of coronary artery of pauma heart without angina pectoris Coronary artery disease [...] August 20, 2021 he presented to the [facility] emergency room with chest pain was [...] healthy appearing, comfortable and no acute distress [facility] Head: normal to inspection Eyes General: appearance [...] CC: Dr. Becca Sánchez MD; Dr. William Sanduh MD~ Signed [facility] Work Phone: 1(834) 766-526705-24-2022 Evaluation note* Diagnosis Onset Date Resolution Status Chest pain resolved Leukocytosis resolved Atherosclerosis of coronary artery of pauma heart without angina pectoris acute History of coronary artery stent placement August 20, 2 022 acute Hypertension [facility] Work Phone: 1(763) 982-188205-24-2022 Evaluation note* Diagnosis Onset Date Resolution Status Atherosclerosis of coronary artery of pauma heart without angina pectoris acute History of coronary artery stent placement August 20, 2 022 acute Hypertension chronic Atherosclerosis of coronary artery of pauma heart without angina pectoris acute History of coronary artery stent placement August 20, 2 022 acute Myalgia acute Hypertension [facility] Work Phone: 1(742) 239-668205-24-2022 Evaluation note* Diagnosis Onset Date Resolution Status Atherosclerosis of coronary artery of pauma heart without angina pectoris acute History of coronary artery stent placement August 20, 2 022 acute Myalgia acute Hypertension [facility] Work Phone: 1(136) 286-237505-24-2022 Evaluation note* Diagnosis Onset Date Resolution Status Atherosclerosis of coronary artery of pauma heart without angina pectoris acute History of coronary artery stent placement August 20, 2 022 acute Myalgia acute Hypertension chronic Abdominal pain acute Diverticulitis acute [facility] Work Phone: 1(101) 181-920105-24-2022 Evaluation note* Diagnosis Onset Date Resolution Status History of coronary artery stent placement August 20, 2 022 acute Hypertension chronic Diverticulitis acute Diverticulitis acute [facility] Work Phone: Discharge summary Author Cece Murray [facility] July 30, 2022 3:02pm Note Date/Time July 30, 2022 3:02pm [facility] Medical Records Department [address] [place] [address] Discharge Summary 07/30/22 1454 MR#: [id number] Acct: [id number] Name: KAMALJIT PERRY Rep #:[id number] : 1955 67 From: Cece HERNANDES PA-C PCP: Dr. Becca Sánchez MD Status:ADM IN Location: [place] SC632-0 Providers Date of Admission: 07/28/22 Primary Care Physician: Dr. Becca Sánchez MD Reason For Visit: LAP SIGMOID COLECTOMY Diagnosis Discharge Diagnosis (1) Diverticulitis: Status: Acute Code(s): K57.92 - Diverticulitis of intestine, part unspecified, without perforation or abscess without bleeding Medications at Discharge Home Medications aspirin 81 mg chewable tablet 81 mg PO QHS [facility] 11/19/13 nitroglycerin 0.4 mg sublingual tablet 0.4 mg sublingual Q5-15M PRN chest pain #25 tabs 09/05/21 [id number]-yjsuzrsbonnlz-[id number] 250 mg-250 mg-65 mg tablet (Excedrin Migraine) [...] (Auto) 78.2 H, Lymph % (Auto) 12.2L, [place] % (Auto) 8.5, Eos % (Auto) 0.5, [...] Up With: William Sandhu MD When: Call [phone] to make an appointment to be seen [...] similar medications, I would recommend transitioning tothese zins-boo-psttkoa medicines as soon as possible instead of continued use ofnarcotic pain medication. Follow up ? You should call [facility] soon after surgery, at [phone] option 1 to make a follow up appointment for 7-10 days after your surgery. Transitional Diet Beverages: ? Soda (cola, diet cola, lemon-red cliff, diet lemon-red cliff, lulu dacia, diet lulu dacia) ? Tea (hot or iced) ? Milk (low-fat, 2%, lactose free) ? Coffee ? Juice (without pulp) ? Oral Nutrition supplement Breakfast: ? Hot cereal (oatmeal or cream of wheat) ? Scrambled eggs ? Blueberry muffin ? Cold cereal (no whole grain cereals) ? [place] (white) Lunch or Dinner: Deli Items: Hot Items: [place] sandwich Roast [place] Tuna salad (sandwich or alone) Macaroni & [...] CBC W/Diff, Automated (Routine) Timeframe: [id number] Facility: [facility] - Location: Laboratory Ordered By: Cece HERNANDES Referrals / Follow Up: Becca Sánchez MD [Primary Care Provider] - William Sandhu MD [Med Staff - Active Staff] - 08/08/22 (Please call our officeto schedule an appointment for a follow-up with Dr. Sandhu on 08/08/22) Disposition Disposition (needs filled in before D/C Order can be placed): Home, Self Care Charges/Coding Visit Charges Inpatient E&M: 30864 Disch Hosp (No charge; post-op) 07/30/22 1502 <Electronically signed by Cece HERNANDES PA-C> Cosigner Signature (if applicable): CC: ANKUSH Murray; Dr. Becca Sánchez MD~ Signed [facility] Work Phone: Evaluation noteNo assessment information available [facility] Work Phone: Evaluation note* Diagnosis Onset Date Resolution Status Chest pain acute Leukocytosis acute ST elevation (STEMI) myocardial infarction acute [facility] Work Phone: Evaluation note* Diagnosis Onset Date Resolution Status History of diverticulitis ac [place] History of diverticulitis ac [facility] Work Phone: Evaluation note* Diagnosis Onset Date Resolution Status History of diverticulitis ac [facility] Work Phone: Evaluation note* Diagnosis Essential hypertension- Primary Unspecified essential hypertension Hypercholesteremia Pure hypercholesterolemia Coronary artery disease involving pauma coronary artery of pauma heart without angina pectoris Angina pectoris, unstable (CMS/HCC) Intermediate coronary syndrome documented in this encounter [facility] Work Phone: Evaluation note* Diagnosis Angina pectoris, unstable (CMS/HCC)- Primary Intermediate coronary syndrome Coronary artery disease involving pauma coronary artery of pauma heart without angina pectoris Essential hypertension Unspecified essential hypertension Mixed hyperlipidemia documented in this encounter [facility] Work Phone: Evaluation note* Diagnosis Angina pectoris, unstable (Multi)- Primary Intermediate coronary syndrome Coronary artery disease involving pauma coronary artery of pauma heart without angina pectoris Essential hypertension Unspecified essential hypertension Mixed hyperlipidemia documented in this encounter [facility] Work Phone: History of Present illness Narrative* Lavinia Page MD - 01/14/2024 10:45 AM EDT Referred by No ref. provider found TONY'm seeing Alcon in follow up. I had met him in June. 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 He had previous myocardial infarction 2009 Just[facility] [...] Monitored by his primary care physician in [place]. On his last visit I increased rosuvastatin [...] Instructions and follow up [facility] Instructions* Patient Instructions* Lavinia [...] exercise and dietary modification. [facility]: Reason for referral (narrative)No reason for referral [facility] Work [facility]: Summary Purpose Family History No Family History Records FoundNo Family History Records FoundNo Family History Records FoundNo Family History Records Found Advance Directives No Advanced Directives Records Found Advance Directive Response Recorded Date/ Time Advance Directives No October 02 3:07pm Living Will No October 02, 2014 3 :07pm Power of Supervisor [employer] No October 02, 2014 3:07pm Advance Directive Response Recorded Date/ Time Advance Directives No October 02 3:07pm Living Will No January 13 1:56pm Power of Supervisor [employer] No January 13, 2022 1:56pm Advance Directive Response Recorded Date/ Time Advance Directives No October 02 2:07pm Living Will No January 13 12:56pm Power of Supervisor [employer] No January 13, 2022 12:56pm Advance Directive Response Recorded Date/ Time Advance Directives No October 02 2:07pm Living Will No April 01 9:49am Power of Supervisor [employer] No April 01 9:49am Advance Directive Response Recorded Date/ Time Name of Medical Power of Supervisor [employer] Fifi sandy July 28, 2022 2:25pm Advance Directives No October 02 3:07pm Living Will Yes July 28, 2022 2: 25pm Power of Supervisor [employer] Yes July 28, 2022 2:25pm Advance Directive Response Recorded Date/ Time Advance Directives No October 02 3:07pm Living Will Yes July 28, 2022 2: 25pm Power of Supervisor [employer] Yes July 28, 2022 2:25pm Advance Directive [...] pain Leukocytosis Atherosclerosis of coronary artery of pauma heart without angina pectoris History of coronary artery stent placement Hypertension Chief Complaint 2 W FU PCI with stent 3 M FU Reason for Visit Atherosclerosis of c oronary artery of pauma heart without angina pectoris History of coronary artery stent placement Hypertension Atherosclerosis of coronary artery of pauma heart without angina pectoris History of coronary artery stent placement Myalgia Hypertension Chief Complaint 2 W FU PCI with stent 3 M FU ABDOMINAL PAIN Reason for Visit Atherosclerosis of c oronary artery of pauma heart without angina pectoris History of coronary artery stent placement Hypertension Atherosclerosis of coronary artery of pauma heart without angina pectoris History of coronary artery stent placement Myalgia Hypertension Chief Complaint PCI with stent 3 M FU ABDOMINAL PAIN E ORDER CHEST PAIN Reason for Visit Atherosclerosis of c oronary artery of pauma heart without angina pectoris History of coronary artery stent placement Myalgia Hypertension Chief Complaint 3 M FU ABDOMINAL PAIN E ORDER CHEST PAIN ABDOMINAL PAIN LLQ PAIN Reason for Visit Atherosclerosis of c oronary artery of pauma heart without angina pectoris History of coronary artery stent placement Myalgia Hypertension Abdominal pain Diverticulitis Chief Complaint 3 M FU ABDOMINAL PAIN E ORDER CHEST PAIN ABDOMINAL PAIN LLQ PAIN KIDNEY STONE Reason for Visit Atherosclerosis of c oronary artery of pauma heart without angina pectoris History of coronary [...] To Contact Diagnoses Coronary artery disease involving pauma coronary artery of pauma heart without angina pectoris Procedures ECG 12 Lead Lavinia Page MD [address] [facility] [address], [facility] [address] [place] [address] Referral ID Status Reason Start Date Expiration Date V isits Requested Visits Authorized [id number] Pending Review 02/05/2023 02/05/2024 1 1 Additional Source Comments (unrecognized sect ion and content) No Status Records FoundNo Status Records FoundNo Status Records FoundNo Status Records Found INFORMATION SOURCE (unrecogn ized section and content) DATE CREATED AUTHOR 05/01/2020 [employer] DATE CREATED AUTHOR AUTHOR'S ORGANIZ ATION 05/10/2020 [facility] DATE CREATED AUTHOR AUTHOR'S ORGANIZ ATION 01/16/2024 [facility] DATE CREATED AUTHOR AUTHOR'S ORGANIZ ATION 09/18/2024 [facility] Goals (unrecognized section and content) Goals may [...] Provider, Referring P rovider Active Natasha [place] DICE DEALER, DICE DEALER-C Attending Provider Active Team Status: Inactive Member [...] Provide r, Attending Provider, Referring Provider Active Decorating Consultant Relationship Specialty Start Date End Date Becca Sánchez MD PCP - General Family Medicine 07/02/23 Decorating Consultant Relationship Specialty Start Date End Date Becca Sánchez MD [address] [place] [id number] PCP - General Family Medicine 07/02/23 Team [...] BE BASED ON THE PRIMARY CLINICAL RECORDS. [employer] [facility]. provides no warranty or guarantee of the accuracy or completeness of information in this document.
== END | disposition home or self-care (01) ==
LOC: LAB 08:41
PROVIDERS: PCP Family Medicine; Referring Provider Nurse Practitioner; Visit Provider Nurse Practitioner
DX: N20.0 Calculus of kidney (principal)
CPT/HCPCS: 36415; 80053; 83735; 84100

== ENCOUNTER → 2024-10-26 | Outpatient (CLI) | payer MEDICARE, SELFPAY ==
[2024-10-26 11:27] LABS: Sodium 24 HR UR 127 mmol/24h (40-220); Urine Chloride / 24 Hours 111 mmol/24h (110-250); Urine Potassium/ 24 Hours 61.7 mmol/24h (25-125)
[2024-10-26 14:42] LABS: (24 HR) Urine Calcium 208.3 mg/24 HR (100.0-300.0); 24 HR UR COLLECTION TIME 24.0 HR (24.0-24.0); 24HR UR TOTAL VOLUME 1750 ml; Calcium Urine pH Range 2
[2024-10-27 10:08] LABS: Uric Acid, 24Ur 444.5 mg/24 hr (182.4-936.8); Uric Acid, Ur 25.4 mg/dL (Not Estab.)
== END | disposition home or self-care (01) ==
LOC: LAB.FUTURE 09:45 → LAB 09:47
PROVIDERS: PCP Family Medicine; Referring Provider Nurse Practitioner; Visit Provider Nurse Practitioner
DX: N20.0 Calculus of kidney (principal)
CPT/HCPCS: 81050; 82340; 82436; 84133; 84300; 84560

== ENCOUNTER → 2024-10-27 | Outpatient (CLI) | payer MEDICARE, SELFPAY ==
[2024-11-01 08:08] LABS: Citric Acid, 24Ur 205 mg/24 hr (320-1240); Citric Acid, Ur 105 mg/L (Undefined)
== END | disposition home or self-care (01) ==
LOC: LAB 13:53
PROVIDERS: PCP Family Medicine; Referring Provider Nurse Practitioner; Visit Provider Nurse Practitioner
DX: N20.0 Calculus of kidney (principal)
CPT/HCPCS: 81050; 82507